=== PATIENT | female | born 1985 | race Caucasian/White ===

== ENCOUNTER 2016-10-10 23:09 | Emergency (ER) | payer MEDICAID, OTHER ==
[~2016-10-10] VITALS: Ht 170.2 cm; Wt 75.3 kg
[2016-10-11] MEDS ORDERED: CALNTAB (00:23)
[2016-10-11] MEDS ORDERED: GABA800T PO (00:23)
[2016-10-11] MEDS ORDERED: SUBUTEX PO (00:23)
[2016-10-11] MEDS ORDERED: LEVO.05 PO (00:23)
[2016-10-11] MEDS ORDERED: LACTATED RINGER'S 1000 ML INJ 1,000 ML IV SCH (00:41)
[2016-10-11] MEDS ORDERED: ONDANSETRON HCL 4 MG/2 ML VIAL IV ONE (00:45)
[2016-10-11] MEDS ORDERED: MORPHINE SULFATE 8 MG/ML INJ IV PUSH ONE (00:45)
[2016-10-11 01:01] LABS: HEMATOCRIT 34.1 % (35.0-46.0); MEAN CORPUSCULAR HEMOGLOBIN 28.3 PG (27.0-34.0); MEAN CORPUSCULAR HGB CONC 34.5 % (32.0-36.0); PLATELET COUNT 357 TH/MM3 (150-450); RED BLOOD COUNT 4.16 MIL/MM3 (4.00-5.30); RED CELL DISTRIBUTION WIDTH 14.2 % (11.6-17.2); REVIEW FLAG FINAL; WHITE BLOOD COUNT 14.3 TH/MM3 (4.0-11.0)
[2016-10-11 01:15] LABS: ANION GAP 9 MEQ/L (5-15); AST (GOT) 6 U/L (15-37); BICARBONATE 25.1 MEQ/L (21.0-32.0); BLOOD UREA NITROGEN 6 MG/DL (7-18); CHLORIDE 105 MEQ/L (98-107); GLOMERULAR FILTRATION RATE 131 ML/MIN (>89); POTASSIUM 3.7 MEQ/L (3.5-5.1); SODIUM (NA) 139 MEQ/L (136-145)
[2016-10-11 01:18] LABS: ALKALINE PHOSPHATASE 94 U/L (45-117); ALT (GPT) 13 U/L (10-53); TOTAL BILIRUBIN ADULT 0.2 MG/DL (0.2-1.0)
[2016-10-11 01:22] LABS: BACTERIA, URINE RARE /hpf; BLOOD, URINE NEG (NEG); COMMENT (UR) CULT NOT INDICATED; CULTURE IF INDICATED CULT NOT INDICATED; GLUCOSE,URINE NEG (NEG); KETONE, URINE NEG (NEG); MUCUS URINE FEW /lpf (OCC); NITRITE,URINE NEG (NEG); PH, URINE 6.5 (5.0-8.5); SQUAMOUS EPITHELIAL CELL URINE 63 /hpf (0-5); URINE COLOR YELLOW (YELLW/STRAW)
[2016-10-11 02:28] LABS: BARBITURATES, URINE NEG (NEG)
[2016-10-11 02:32] LABS: AMPHETAMINE, URINE POS (NEG); COCAINE, URINE POS (NEG)
--- NOTE | 2016-10-11 02:53 | RADRPT ---
EXAM DATE/TIME: 10/11/2016 02:23 [facility] COMPARISON: No previous studies available for comparison. INDICATIONS : Abdominal pain. 27 week . Pain with umbilical hernia. MEDICAL HISTORY : Seizures. Hypothyroidism. SURGICAL HISTORY : None. ENCOUNTER: Initial ACUITY: 1 day PAIN SCORE: 4/10 LOCATION: abdominal. TECHNIQUE: Multiplanar, multisequence magnetic resonance imaging of the abdomen was performed without contrast. FINDINGS: LIVER: Normal size with normal signal intensity. No lesion is identified. Portal vein is within normal limi ts. BILIARY: There is no intra- or extra-hepatic biliary ductal dilatation. Gallbladder contains no stones. SPLEEN: Spleen is mildly enlarged. No lesion. PANCREAS: Within normal limits. ADRENALS: Within normal limits. KIDNEYS: Normal size and signal intensity. There is no hydronephrosis or mass. OTHER: A gravid uterus is observed. Placenta is posteriorly located. Its near the fundal region. Bowel loops are unremarkable. No dilated loops of bowel are seen. No herniated bowel loops are appreciated. In p articular, no umbilical hernia appreciated. CONCLUSION: 1. Gravid uterus. 2. No hernia appreciated. In particular, no umbilical hernia containing bowel loops. 3. No dilatation of the bowel. Pablo Rose Jr., MD on October 11, 2016 at 2:47 Board Certified Radiologist. This report was verified electronically.
--- NOTE | 2016-10-11 04:48 | PD ---
HPI Chief Complaint Abdominal pain Date Seen: Oct 10, 2016 Time Seen: 23:09 Travel History International Travel<30 Days: No Contact w/Intl Traveler<30Days: No Known Affected Area: No History of Present Illness HPI Patient is 31-year-old white female 27 weeks gestation Zenkashif complaining of abdominal pain. She is recently moved to [place] from [place] and has not established care.. She denies bleeding or rupture the membranes. She does admit to drug use. She describes an umbilical hernia and that that is what is hurting right around the umbilicus only. heart rate is reactive and there are no contractions Para: 3 : 4 History Past Medical History Narrative Medical History of umbilical hernia, drug use Obstetric History Obstetric History 3 vaginal deliveries Social History Alcohol Use: Yes Tobacco Use: Yes Substance Abuse: Yes Allergies-Medications (Allergen,Severity, Reaction): Coded Allergies: No Known Allergies (Unverified , 10/11/16) Home Meds Reported Medications Vitamin (Calna)1 Tab Tab 10/11/16 [Subutex] No Conflict Check16 Mg PO DAILY 10/11/16 Levothyroxine (Synthroid)50 Mcg Tab50 Mcg PO DAILY #30 TAB Ref 0 10/11/16 Gabapentin 800 Mg [id number] Mg PO BID #90 TAB Ref 0 10/11/16 Review of Systems Gastrointestinal: Abdominal Pain Physical Exam Narrative GENERAL: Well-nourished, well-developed patient. SKIN: Warm and dry. HEAD: Normocephalic and atraumatic. EYES: No scleral icterus. No injection or drainage. ENT: No nasal drainage noted. Mucous membranes pink. Airway patent. NECK: Supple, trachea midline. No JVD. CARDIOVASCULAR: Regular rate and rhythm without murmurs, gallops, or rubs. RESPIRATORY: Breath sounds equal bilaterally. No accessory muscle use. BREASTS: Bilateral exam showed no masses , no retractions, no nipple discharge. ABDOMEN/GI: Abdomen soft, tender, bowel sounds present, no rebound, no guarding Gravid to [-27] weeks size Fundal Height: [25 cm-] GENITOURINARY: External Genitalia: intact and normal in appearance BUS glands: [-] Cervix: [-] Dilatation: [-Closed] Effacement: [-] thick Station: [-3] Presentation: [-] Membranes: [intact ] Uterine Contractions: [-none] FHT's: Category: [-1] Baseline: [144-] Reactive: [yes-] Variability: [-] Decels: [none-] EXTREMITIES: No cyanosis or edema. BACK: Nontender without obvious deformity. No CVA tenderness. NEUROLOGICAL: Awake and alert. Motor and sensory grossly within normal limits. Five out of 5 muscle strength in all muscle groups. Normal speech. Data Data Orders Vital Signs (Adult) .ON ADMISSION (10/11/16 00:41) ^ Labor Status (10/11/16 00:41) Urinalysis - C+S If Indicated (10/11/16 00:41) Cbc No Diff, Includes Plts (10/11/16 00:41) Comprehensive Metabolic Panel (10/11/16 00:41) Lactated Ringer's 1000 Ml Inj (Lr 1000 M (10/11/16 00:41) Ondansetron Inj (Zofran Inj) (10/11/16 00:45) Morphine Inj (Morphine Inj) (10/11/16 00:45) Vital Signs (Adult) .ON ADMISSION (10/11/16 01:39) ^ Labor Status (10/11/16 01:39) Ob/Psych Drug Screen, Urine (10/11/16 01:39) Mri Abdomen W/O Contrast (10/11/16 01:55) Ur Bath Salts (10/10/16 23:45) Ur Heroin (10/10/16 23:45) Ur K2 Spice (10/10/16 23:45) Ur Ecstasy (10/10/16 23:45) Ur Methadone (10/10/16 23:45) Phencyclidine Urine (Pcp) (10/10/16 23:45) Labs Laboratory Tests Test 10/10/16 10/11/16 23:45 00:00 Urine Color YELLOW Urine Turbidity HAZY Urine pH 6.5 Urine Specific [place] 1.016 Urine Protein 30 Urine Glucose (UA) NEG Urine Ketones NEG Urine Occult Blood NEG Urine Nitrite NEG Urine Bilirubin NEG Urine Urobilinogen LESS THAN 2.0 Urine Leukocyte Esterase MOD Urine RBC 2 Urine WBC 4 Urine Squamous Epithelial 63 Cells Urine Bacteria RARE Urine Mucus FEW Microscopic Urinalysis Comment CULT NOT INDICATED Urine Opiates Screen POS Urine Barbiturates Screen NEG Urine Amphetamines Screen POS Urine Benzodiazepines Screen NEG Urine Cocaine Screen POS Urine Cannabinoids Screen POS White Blood Count 14.3 Red Blood Count 4.16 Hemoglobin 11.8 Hematocrit 34.1 Mean Corpuscular Volume 82.0 Mean Corpuscular Hemoglobin 28.3 Mean Corpuscular Hemoglobin 34.5 Concent Red Cell Distribution Width 14.2 Platelet Count 357 Mean Platelet Volume 6.8 Sodium Level 139 Potassium Level 3.7 Chloride Level 105 Carbon Dioxide Level 25.1 Anion Gap 9 Blood Urea Nitrogen 6 Creatinine 0.55 Estimat Glomerular Filtration 131 Rate Random Glucose 68 Calcium Level 8.7 Total Bilirubin 0.2 Aspartate Amino Transf 6 (AST/SGOT) Alanine Aminotransferase 13 (ALT/SGPT) Alkaline Phosphatase 94 Total Protein 6.8 Albumin 2.8 MDM Interpretation(s) Patient is 27 week intrauterine with complaint of abdominal pain around her umbilical hernia, denies bleeding or rupture the membranes baby is active heart rate tracing reactive. No contractions seen ,,her laboratory is all within normal limits, she had an MRI of the abdomen which which showed no sign of umbilical hernia or bowel entrapment or strangulation. Patient's urine drug screen was positive for multiple drugs including cocaine and opiates Plan Plan the patient to receive 1 L of IV fluid as well as 5 mg of morphine IV, after MRI ruled out bowel involvement or hernia complication she was ready for discharge home, she was given information on establishing care in this area, as well as encouraged not to do drugs of which were positive on her drug screen tonight Diagnosis Diagnosis: Primary Impression: Abdominal pain during in second trimester Additional Impressions: Umbilical hernia Drug abuse during Disposition: 01 DISCHARGE HOME Condition: Stable Patient Instructions: General Instructions, Labor (ED), Abdominal Pain in (ED) Additional Instructions: RETURN FOR CONTRACTIONS, LOSS OF FLUID (WATER BREAKING), VAGINAL BLEEDING, OR DECREASED MOVEMENT. DRINK 8-10 LARGE GLASSES OF WATER EVERY DAY. ESTABLISH CARE WITH A LOCAL PROVIDER. Departure Forms: Tests/Procedures Chencho Bryan II, MD Oct 11, 2016 04:48
[2016-10-19 13:08] LABS: HEROIN (6-ACETYLMORPHINE) UR NEG (NEG); OBMETHADONE UR NEG (NEG); PHENCYCLIDINE URINE NEG (NEG)
[2016-10-19 13:09] LABS: BATH SALTS (MDPV) UR NEG (NEG); ECSTASY (MDMA) UR NEG (NEG); K2 SPICE UR NEG (NEG); OXYCODONE (PERCODAN) NEG (NEG)
== END 2016-10-11 03:20 | disposition home or self-care (01) ==
LOC: HOBED 23:09
DX: O99.322 Drug use complicating pregnancy, second trimester (principal); F14.10 Cocaine abuse, uncomplicated; F15.10 Other stimulant abuse, uncomplicated; F11.10 Opioid abuse, uncomplicated; F12.10 Cannabis abuse, uncomplicated; K42.9 Umbilical hernia without obstruction or gangrene; R10.9 Unspecified abdominal pain; Z3A.27 27 weeks gestation of pregnancy
CPT/HCPCS: 74181; 80053; 80307; 81001; 85027; 96361; 96374; 96375; 99284; G0481; J2270; J2405; J7120; 80324; 80352; 80353; 80354; 80356; 80358; 80359; 80361; 80371; 83789; 83992; G0480

== ENCOUNTER 2016-10-23 09:41 | Inpatient (IN) | payer OTHER ==
[~2016-10-23] VITALS: Ht 170.2 cm; Wt 85.1 kg
[~2016-10-23 09:41] MED LIST: CALNTAB; GABA800T PO; LEVO.05 PO; SUBUTEX PO
[2016-10-23] MEDS: SODIUM CHLORIDE 0.9% FLUSH 5 ML FLUSH IVF SCH ×2 (10:15→21:00)
[2016-10-23] MEDS: PRENATAL VITAMIN CHEWABLE TAB CHEW SCH (10:45)
--- NOTE | 2016-10-23 11:12 | HHI.HP ---
HPI Chief Complaint "I need detox, I am withdrawing, I used drugs." Date Seen: Oct 23, 2016 Time Seen: 10:10 Travel History International Travel<30 Days: No Contact w/Intl Traveler<30Days: No Known Affected Area: No History of Present Illness HPI 31-year-old 013 at 29 weeks and 2 days of gestation, EDC 01/06/17, patient presented to labor and delivery requesting detox, patient stated that she's been using drugs. She reported that she was on Subutex 16 mg a day, however she recently ran out, after which she started using heroin and methamphetamines 3 days ago and intravenous Dilaudid yesterday. The patient is unassigned, she relocated from [place] to [place], care is in [place] , records are not available. Patient reports feeling anxious and agitated at this time, she reports presence of movement. She denies cramping, contractions, leakage of fluids and vaginal bleeding. Para: 3 : 5 Miscarriage: 1 : 0 History Past Medical History Narrative Medical Significant for: Epilepsy(last episode was last night), polysubstance drug abuse , hypothyroidism. Obstetric History Obstetric History Spontaneous vaginal delivery 3, spontaneous 1 Past Surgical History Narrative Surgical Status post Cyst removal left foot Family History Narrative Family History Significant for lupus and father with has prostate cancer Social History Alcohol Use: Yes Tobacco Use: Yes (patient smokes 1 pack of cigarettes a day) Substance Abuse: Yes (patient is a polysubstance drug abuser, she uses heroin, IV Dilaudid, methamphetamines, she is on Subutex) Allergies-Medications (Allergen,Severity, Reaction): Coded Allergies: No Known Allergies (Unverified , 10/11/16) Home Meds Reported Medications Vitamin (Calna)1 Tab Tab 10/11/16 [Subutex] No Conflict Check16 Mg PO DAILY 10/11/16 Levothyroxine (Synthroid)50 Mcg Tab50 Mcg PO DAILY #30 TAB Ref 0 10/11/16 Gabapentin 800 Mg [id number] Mg PO BID #90 TAB Ref 0 10/11/16 Review of Systems Except as stated in HPI: all other systems reviewed are Neg Cardiovascular: Other (anxiety, agitation) Genitourinary: Other (patient is 29 weeks ) Neurologic: Seizures, Other (anxiety and agitation) Psychiatric: Substance Abuse Physical Exam Narrative GENERAL: Well-nourished, well-developed patient. SKIN: Warm and dry. HEAD: Normocephalic and atraumatic. EYES: No scleral icterus. No injection or drainage. ENT: No nasal drainage noted. Mucous membranes pink. Airway patent. NECK: Supple, trachea midline. No JVD. CARDIOVASCULAR: Regular rate and rhythm without murmurs, gallops, or rubs. RESPIRATORY: Breath sounds equal bilaterally. No accessory muscle use. BREASTS: Bilateral exam showed no masses , no retractions, no nipple discharge. ABDOMEN/GI: Abdomen soft, gravid, non-tender, bowel sounds present, no rebound, no guarding Gravid to 29 weeks size Fundal Height: 29 cm GENITOURINARY: External Genitalia: intact and normal in appearance BUS glands: Normal Cervix: Close, long, posterior Dilatation: Closed Effacement: 30% Station: -3 Presentation: Cephalic Membranes: Intact Uterine Contractions: None FHT's: Category: one Baseline: 130s to 140s Reactive: Yes Variability: Moderate Decels: None EXTREMITIES: No cyanosis or edema. BACK: Nontender without obvious deformity. No CVA tenderness. NEUROLOGICAL: Awake and alert. Motor and sensory grossly within normal limits. Five out of 5 muscle strength in all muscle groups. Normal speech. Data Data Vital Signs Reviewed: Yes Orders Vital Signs (Adult) .ON ADMISSION (10/23/16 10:12) ^ Labor Status (10/23/16 10:12) Urinalysis - C+S If Indicated (10/23/16 10:12) ^ Non Stress Test (10/23/16 10:12) ^ Hydration (10/23/16 10:12) Diet Regular Basic (10/23/16 Lunch) Comprehensive Metabolic Panel (10/23/16 10:12) Lactated Ringer's 1000 Ml Inj (Lr 1000 M (10/23/16 10:12) Sodium Chloride 0.9% Flush (Ns Flush) (10/23/16 10:15) Sodium Chloride 0.9% Flush (Ns Flush) (10/23/16 10:15) Ob/Psych Drug Screen, Urine (10/23/16 10:12) Complete Blood Count With Diff (10/23/16 10:12) Special Serology (10/23/16 10:19) Lorazepam Inj (Ativan Inj) (10/23/16 10:30) Hydroxyzine Pamoate (Vistaril) (10/23/16 10:30) Hepatitis Profile (10/23/16 10:19) Place In Observation (10/23/16 ) Code Status (10/23/16 10:26) Vital Signs (Adult) Q4H (10/23/16 10:26) ^ Heart CONTINUOUS (10/23/16 10:26) Ob (2e) Additional Admit Info (10/23/16 10:28) Consult Neurology (10/23/16 ) ^ Seizure Precautions (10/23/16 10:31) Laquqks-Izj-Pm-Iron Prena Chew ( (10/23/16 10:45) Thyroid Stimulating Hormone (10/23/16 10:34) Free Thyroxine (T4) (10/23/16 10:34) Levothyroxine (Synthroid) (10/23/16 10:45) Case Management Consult (10/23/16 ) Consult Vascular Access Team (10/23/16 10:37) Vascular Poc Ultrasound (10/23/16 ) Assessment/Plan Problem List: (1) 29 weeks gestation of (2) Drug abuse during (3) Seizure disorder (4) Hypothyroidism affecting Assessment and Plan 31-year-old 013 at 29 weeks and 2 days of gestation with probable withdrawal, history of polysubstance Abuse, seizure disorder, and hypothyroidism. 1. is 29 weeks of gestation * We'll place patient in observation * We'll Request records from [place] * Continuous heart monitoring * OB diagnostic ultrasound * vitamins by mouth once a day * blood work including HIV screen and hepatitis profile, type and screen. * IV fluid hydration 2. Possible withdrawal/polysubstance drug abuse * We'll obtain urine drug screen * Consult Dr. Yu for possible detox rehabilitation * Consult primary operator [facility] start for evaluation * We will order Ativan and Visteril PRN * We will screen for endocarditis, HIV screen, hepatitis profile 3. Seizure disorder * We'll consult neurology for evaluation and treatment * Seizure precautions * Continue with Gabapentin 4. Hypothyroidism * Will order TSH and free T4 * Continue with Synthroid Routine antepartum care Discharge Planning We'll discharge patient to home after full evaluation and treatment in 1-2 days Yuan Mesa MD Oct 23, 2016 11:12
[2016-10-23 11:17] LABS: AUTOMATED NEUTROPHIL # 11.7 TH/MM3 (1.8-7.7); BASOPHIL % 0.2 % (0.0-2.0); EOSINOPHIL # 0.1 TH/MM3 (0-0.4); EOSINOPHIL % 0.5 % (0.0-4.0); HEMATOCRIT 34.3 % (35.0-46.0); HEMO FLAGS DIFF FINAL; LYMPH % 16.9 % (9.0-44.0); LYMPHOCYTE # 2.5 TH/MM3 (1.0-4.8); MEAN CELL VOLUME 81.6 FL (80.0-100.0); MEAN CORPUSCULAR HGB CONC 34.3 % (32.0-36.0); MONO % 4.7 % (0.0-8.0); NEUT % 77.7 % (16.0-70.0); PLATELET COUNT 333 TH/MM3 (150-450); RED CELL DISTRIBUTION WIDTH 14.2 % (11.6-17.2)
[2016-10-23 11:35] LABS: BLOOD, URINE NEG (NEG); COMMENT (UR) CULT NOT INDICATED; CULTURE IF INDICATED CULT NOT INDICATED; GLUCOSE,URINE NEG (NEG); KETONE, URINE NEG (NEG); MUCUS URINE FEW /lpf (OCC); NITRITE,URINE NEG (NEG); SQUAMOUS EPITHELIAL CELL URINE 7 /hpf (0-5); URINE COLOR YELLOW (YELLW/STRAW)
[2016-10-23 11:37] LABS: ANION GAP 11 MEQ/L (5-15); AST (GOT) 4 U/L (15-37); BICARBONATE 22.7 MEQ/L (21.0-32.0); BLOOD UREA NITROGEN 3 MG/DL (7-18); CHLORIDE 105 MEQ/L (98-107); GLOMERULAR FILTRATION RATE 136 ML/MIN (>89); POTASSIUM 3.5 MEQ/L (3.5-5.1); SODIUM (NA) 139 MEQ/L (136-145)
[2016-10-23 11:40] LABS: ALKALINE PHOSPHATASE 146 U/L (45-117); ALT (GPT) 9 U/L (10-53); TOTAL BILIRUBIN ADULT 0.2 MG/DL (0.2-1.0)
[2016-10-23 11:47] LABS: AMPHETAMINE, URINE NEG (NEG); BARBITURATES, URINE NEG (NEG)
[2016-10-23 11:47] LABS: FREE T4 1.15 NG/DL (0.76-1.46)
[2016-10-23 11:51] LABS: COCAINE, URINE POS (NEG)
[2016-10-23] MEDS: LACTATED RINGER'S 1000 ML INJ 1,000 ML IV SCH ×2 (11:59→17:35)
[2016-10-23] MEDS: LORazepam 2 MG/ML VIAL IV PUSH PRN ×2 (12:00→20:31)
[2016-10-23] MEDS: LEVOTHYROXINE SODIUM 50 MCG TAB PO SCH (15:04)
[2016-10-24] MEDS: LACTATED RINGER'S 1000 ML INJ 1,000 ML IV SCH ×4 (02:12→18:12)
--- NOTE | 2016-10-24 08:14 | PD.OB.ANTE ---
Subjective Diagnosis: (1) 29 weeks gestation of (2) Drug abuse during (3) Seizure disorder (4) Hypothyroidism affecting Antepartum ROS: Denies: Loss of fluid, Vaginal bleeding Objective Lab & Micro Results Test 10/23/16 10/23/16 09:45 11:00 Urine Color YELLOW Urine Turbidity HAZY Urine pH 7.0 Urine Specific [place] 1.013 Urine Protein NEG mg/dL Urine Glucose (UA) NEG mg/dL Urine Ketones NEG mg/dL Urine Occult Blood NEG Urine Nitrite NEG Urine Bilirubin NEG Urine Urobilinogen LESS THAN 2.0 MG/DL Urine Leukocyte Esterase SMALL Urine RBC 1 /hpf Urine WBC 7 /hpf Urine Squamous Epithelial 7 /hpf Cells Urine Amorphous Sediment FEW Urine Mucus FEW /lpf Microscopic Urinalysis Comment CULT NOT INDICATED Urine Opiates Screen NEG Urine Barbiturates Screen NEG Urine Amphetamines Screen NEG Urine Benzodiazepines Screen NEG Urine Cocaine Screen POS Urine Cannabinoids Screen POS White Blood Count 15.0 TH/MM3 Red Blood Count 4.20 MIL/MM3 Hemoglobin 11.7 GM/DL Hematocrit 34.3 % Mean Corpuscular Volume 81.6 FL Mean Corpuscular Hemoglobin 28.0 PG Mean Corpuscular Hemoglobin 34.3 % Concent Red Cell Distribution Width 14.2 % Platelet Count 333 TH/MM3 Mean Platelet Volume 6.8 FL Neutrophils (%) (Auto) 77.7 % Lymphocytes (%) (Auto) 16.9 % Monocytes (%) (Auto) 4.7 % Eosinophils (%) (Auto) 0.5 % Basophils (%) (Auto) 0.2 % Neutrophils # (Auto) 11.7 TH/MM3 Lymphocytes # (Auto) 2.5 TH/MM3 Monocytes # (Auto) 0.7 TH/MM3 Eosinophils # (Auto) 0.1 TH/MM3 Basophils # (Auto) 0.0 TH/MM3 CBC Comment DIFF FINAL Differential Comment Sodium Level 139 MEQ/L Potassium Level 3.5 MEQ/L Chloride Level 105 MEQ/L Carbon Dioxide Level 22.7 MEQ/L Anion Gap 11 MEQ/L Blood Urea Nitrogen 3 MG/DL Creatinine 0.53 MG/DL Estimat Glomerular Filtration 136 ML/MIN Rate Random Glucose 88 MG/DL Calcium Level 8.0 MG/DL Total Bilirubin 0.2 MG/DL Aspartate Amino Transf 4 U/L (AST/SGOT) Alanine Aminotransferase 9 U/L (ALT/SGPT) Alkaline Phosphatase 146 U/L Total Protein 6.9 GM/DL Albumin 2.4 GM/DL Free Thyroxine 1.15 NG/DL Thyroid Stimulating Hormone 1.840 uIU/ML 3rd Gen Hepatitis A IgM Antibody NEGATIVE Hepatitis B Surface Antigen NEGATIVE Hepatitis B Core IgM Antibody NEGATIVE Hepatitis C Antibody REACTIVE HIV (1&2) Antibody NEGATIVE Physical Exam GENERAL: Well-nourished, well-developed patient. CARDIOVASCULAR: Regular rate and rhythm without murmurs, gallops, or rubs. RESPIRATORY: Breath sounds equal bilaterally. No accessory muscle use. ABDOMEN/GI: Abdomen soft, non-tender. Fundus: [-] GENITOURINARY: External Genitalia: intact and normal in appearance Cervix: [-] Dilatation: [-] Effacement: [-] Station: [-] Presentation: [-] Membranes: [-] Uterine Contractions: [-] FHT's: Category: [-] Baseline: [-] Reactive: [-] Variability: [-] Decels: [-] EXTREMITIES: No cyanosis or edema, non-tender, without signs of DVT. Assessment and Plan Problem List: (1) 29 weeks gestation of Status: Acute (2) Drug abuse during Status: Acute (3) Seizure disorder Status: Acute (4) Hypothyroidism affecting Status: Acute Assessment and Plan 31-year-old 013 at 29 weeks and 2 days of gestation with probable withdrawal, history of polysubstance Abuse, seizure disorder, and hypothyroidism. 1. is 29 weeks of gestation * We'll place patient in observation * We'll Request records from [place] * Continuous heart monitoring * OB diagnostic ultrasound * vitamins by mouth once a day * blood work including HIV screen and hepatitis profile, type and screen. * IV fluid hydration 2. Possible withdrawal/polysubstance drug abuse * We'll obtain urine drug screen * Consult Dr. Yu for possible detox rehabilitation * Consult board saw runner [employer] start for evaluation * We will order Ativan and Visteril PRN * We will screen for endocarditis, HIV screen, hepatitis profile 3. Seizure disorder * We'll consult neurology for evaluation and treatment * Seizure precautions * Continue with Gabapentin 4. Hypothyroidism * Will order TSH and free T4 * Continue with Synthroid Routine antepartum care Edgar Carrington MD R1 Oct 24, 2016 08:14
[2016-10-24] MEDS: LEVOTHYROXINE SODIUM 50 MCG TAB PO SCH (08:44)
[2016-10-24] MEDS: PRENATAL VITAMIN CHEWABLE TAB CHEW SCH (08:49)
[2016-10-24] MEDS: SODIUM CHLORIDE 0.9% FLUSH 5 ML FLUSH IVF SCH ×2 (09:00→22:14)
[2016-10-24] MEDS ORDERED: LORazepam 2 MG/ML VIAL IV PUSH PRN (09:00)
[2016-10-24] MEDS ORDERED: GABAPENTIN 300 MG CAP PO SCH (09:00)
[2016-10-24] MEDS: GABAPENTIN 400 MG CAP PO SCH ×2 (09:27→20:52)
--- NOTE | 2016-10-24 09:35 | HHI.FPPN ---
Subjective Remarks 31 year old female at 29+ weeks gestation here with opioid withdrawals. She is taking 64 mg dilaudid per day, along with 8 mg xanax. She is currently homeless. She is here requesting help while in withdrawals during . This morning she remains uncomfortable and in withdrawals. She has sweating, piloerection, nausea, vomiting, diarrhea, and cramping. Objective Result Diagram: 10/23/16 1100 10/23/16 1100 Imaging GENERAL: Well-nourished, well-developed patient. SKIN: Warm and dry. HEAD: Normocephalic and atraumatic. EYES: No scleral icterus. No injection or drainage. ENT: No nasal drainage noted. Mucous membranes pink. Airway patent. NECK: Supple, trachea midline. No JVD. CARDIOVASCULAR: Regular rate and rhythm without murmurs, gallops, or rubs. RESPIRATORY: Breath sounds equal bilaterally. No accessory muscle use. ABDOMEN/GI: Abdomen soft, gravid, non-tender, bowel sounds present, no rebound, no guarding Gravid to 29 weeks size Fundal Height: 29 cm EXTREMITIES: No cyanosis or edema. BACK: Nontender without obvious deformity. No CVA tenderness. NEUROLOGICAL: Awake and alert. Motor and sensory grossly within normal limits. Five out of 5 muscle strength in all muscle groups. Normal speech. A/P Assessment and Plan 31 year old female at 29+ weeks gestation in opioid withdrawals - COWS scoring q6hrs - monitoring for 15 mins every hour - Continuous pulse oximetry, monitor for respiratory depression - MRSA swab - Vistaril PRN - Gabapentin 300 mg qid - Xanax 1 mg q4hrs - 10 mg oxycodone q6hrs - Case management: needs housing, healthy start - Titrate medications as needed while monitoring for respiratory depression Discussed with Simón Mcintosh MD R2 Oct 24, 2016 09:35
[2016-10-24] MEDS: LORazepam 1 MG TAB PO SCH ×3 (09:47→22:13)
--- NOTE | 2016-10-24 12:31 | MB ---
cc: ROSMERY FLANAGAN M.D. DATE OF CONSULTATION 10/24/[address] Yu REASON FOR CONSULTATION Seizures HISTORY OF PRESENT ILLNESS Ms. Cárdenas is a 31-year-old female who is about 29-weeks into . She has a history of polysubstance abuse including methamphetamine, IV heroin, IV Dilaudid, cocaine, Subutex and has been using these drugs during this up to three days ago. She had a history of grand mal seizures which by history largely related to drug abuse or withdrawal. She also takes Xanax, last taken about three days ago. She had a seizure about two days ago and she states during the current has had a total of five seizures. She states she began having seizures, however, when she was young at [age] years of age etiopathic. She states she was on seizure meds in the past including Dilantin and Gabapentin. She states she was on Gabapentin recently, but had to stop it a couple of weeks ago when she ran out of the medication. She states that she tolerates this well and does not have seizures when she takes the medication. She states that she has had EEG's in the past, as well as an MRI of the brain several years ago. She was under the care of a neurologist in [place]. PERSONAL HISTORY Remarkable for: 1. Seizures 2. A past history of polysubstance abuse. 3. Hypothyroidism MEDICATIONS PRIOR TO ADMISSION 1. Levothyroxine 50 mcg daily 2. Gabapentin 800 mg b.i.d. which she ran out of several weeks Ago. ALLERGIES None known. NEUROLOGIC EXAMINATION Patient is alert and oriented x3. Speech is normal. Cranial nerves are intact. The pupils are 2 mm symmetrical and reactive. The extraocular movements are intact. On motor exam, she has normal strength of all major groups. There is no focal deficit. There is no drift. Reflexes are symmetric. LABORATORY DATA White count is 15,000, hemoglobin 34.3, hemoglobin 11.7, hematocrit 34.3%, platelet count at 333,000. Sodium is 139, potassium 3.5, chloride 105, CO2 22.7, the BUN is 3, creatinine 0.53, GFR is 136, glucose 88, AST 4, ALT is 9, alk phos 146, TSH 124, free T4 1.15. Tox screen positive for cocaine, cannabinoids. UA pH is 1.013, hepatitis C antibodies reactive. HIV-1 and 2 negative. Hepatitis A and B are negative. IMPRESSION History of what sounds to be predominantly grand mal seizures. I suspect largely related to drug abuse or drug withdrawal. However, she does relate a history of seizures in her youth prior to taking drugs, although I do not have any full documentation of this history. She does relate being on seizure medications in the past. Therefore, I cannot rule out underlying seizure disorder unrelated to drug abuse in addition to seizures due to drug withdrawal. RECOMMENDATIONS Would recommend starting Gabapentin since this has kept her out of seizures. Would recommend slowly tapering benzodiazepines. Would like to proceed with an MRI of the brain without contrast to be sure there is no other potential cause of seizures, as well as an EEG. MD PAUL Hernandez/JAYE /8:47 AM /12:19 PM
[2016-10-24] MEDS ORDERED: LORazepam 1 MG TAB PO SCH (14:00)
[2016-10-24] MEDS: AMOXICILLIN/CLAVULANATE K 875 MG TAB PO SCH ×2 (15:27→20:52)
[2016-10-24] MEDS: SODIUM CHLORIDE 0.9% FLUSH 5 ML FLUSH IVF PRN (15:37)
--- NOTE | 2016-10-24 15:52 | RADRPT ---
EXAM DATE/TIME: 10/24/2016 14:09 [facility] COMPARISON: No previous studies available for comparison. INDICATIONS : Seizures. MEDICAL HISTORY : Hepatitis C. Hypothyroidism. SURGICAL HISTORY : Left foot cyst removed. ENCOUNTER: Initial ACUITY: 2 day PAIN SCORE: 2/10 LOCATION: head TECHNIQUE: Multiplanar, multisequence MRI of the brain was performed without contrast. FINDINGS: CEREBRUM: The ventricles are normal for age. No evidence of midline shift, mass lesion, hemorrhage or acute in farction. No extraaxial fluid collections are seen. The pituitary gland and suprasellar cistern are normal in configuration. WHITE MATTER: No significant signal abnormalities are seen in the white matter. POSTERIOR FOSSA: The cerebellum and brainstem are intact. The 4th ventricle is midline. The cerebellopontine angle is unremarkable. The cerebellar tonsils are normal in position. DIFFUSION IMAGING: No focal areas of restricted diffusion are seen. No evidence of acute infarction. EXTRACRANIAL: The visualized portions of the orbits are unremarkable. There is focal mucosal disease of the right s phenoid sinus. The turbinates are prominent on the left especially the inferior turbinate. CONCLUSION: 1. No intracranial abnormalities seen. 2. Small focal area of mucosal disease of the right sphenoid sinus. Asim Arzate MD on October 24, 2016 at 15:43 Board Certified Radiologist. This report was verified electronically.
[2016-10-24 18:01] LABS: MRSA PCR POSITIVE (NEGATIVE); STAPH AUREUS PCR POSITIVE (NEGATIVE)
--- NOTE | 2016-10-24 21:31 | MG ---
cc: IMANI ROCHE MD Lab No: Date: Age: Sex: F Race: DATE OF STUDY 10/24/2016 ELECTROENCEPHALOGRAM RECORD NUMBER [id number] DATE OF 1985 HISTORY A 31-year-old with a history of anxiety, seizures, possible detox. DESCRIPTION Slow ___ posterior rhythm, 7-9 Hz, 20-50 microvolts, low amplitude, beta in the frontal channels. Good anterior to posterior gradient. Attenuation slowing of background with transition into drowsy state. Tiny left temporal sharp transient epoch 19. Vertex waves with transition into stage I sleep. Followed by spindles suggestive of stage II sleep. Asymmetric left temporal theta burst epoch 66. Good EEG variability reactivity. Reduced driving with photic stimulation. Single lead EKG showing sinus rhythm. Some asymmetric left temporal theta epoch 118 on [id number] comparison. Tiny sharp transients T5 epoch 125. INTERPRETATION Subtle left temporal changes, however, no active seizures. Stable awake, asleep EEG. Clinical correlation. MD LUCINA Campbell/KK /8:17 PM /9:25 PM
[2016-10-25] MEDS: LACTATED RINGER'S 1000 ML INJ 1,000 ML IV SCH ×3 (02:12→18:12)
[2016-10-25 06:03] LABS: AUTOMATED NEUTROPHIL # 8.3 TH/MM3 (1.8-7.7); BASOPHIL # 0.1 TH/MM3 (0-0.2); BASOPHIL % 0.6 % (0.0-2.0); EOSINOPHIL # 0.1 TH/MM3 (0-0.4); EOSINOPHIL % 0.7 % (0.0-4.0); HEMATOCRIT 30.5 % (35.0-46.0); HEMO FLAGS DIFF FINAL; LYMPH % 23.7 % (9.0-44.0); LYMPHOCYTE # 2.9 TH/MM3 (1.0-4.8); MEAN CELL VOLUME 82.1 FL (80.0-100.0); MEAN CORPUSCULAR HEMOGLOBIN 28.1 PG (27.0-34.0); MEAN CORPUSCULAR HGB CONC 34.2 % (32.0-36.0); MONO % 7.9 % (0.0-8.0); NEUT % 67.1 % (16.0-70.0); PLATELET COUNT 333 TH/MM3 (150-450); RED BLOOD COUNT 3.72 MIL/MM3 (4.00-5.30); RED CELL DISTRIBUTION WIDTH 13.8 % (11.6-17.2); WHITE BLOOD COUNT 12.4 TH/MM3 (4.0-11.0)
[2016-10-25] MEDS: LORazepam 1 MG TAB PO SCH ×3 (06:04→21:45)
[2016-10-25] MEDS: LEVOTHYROXINE SODIUM 50 MCG TAB PO SCH (06:04)
[2016-10-25] MEDS: PRENATAL VITAMIN CHEWABLE TAB CHEW SCH (08:30)
[2016-10-25] MEDS: GABAPENTIN 400 MG CAP PO SCH ×3 (08:31→21:45)
[2016-10-25] MEDS: AMOXICILLIN/CLAVULANATE K 875 MG TAB PO SCH (08:31)
[2016-10-25] MEDS ORDERED: PANTOPRAZOLE SOD 40 MG DELAYED RELEASE TAB PO SCH (09:00)
[2016-10-25] MEDS ORDERED: ALUMINUM/MAGNESIUM/SIMETH 30 ML CUP PO PRN (10:00)
--- NOTE | 2016-10-25 10:20 | HHI.FPPN ---
Subjective Remarks Patient seen and examined this morning. States she had withdrawal symptoms overnight, including sneezing, chills. Also had coffee ground emesis and black tarry stools, per nurse. Denies any nausea/vomiting, lightheadedness/dizziness, chest pain, SOB, abdominal pain. Continues to have left hand pain and swelling. Objective Vitals Vital Signs Date Time Temp Pulse Resp B/P Pulse Ox O2 Delivery O2 Flow Rate FiO2 10/25/16 03:30 16 10/24/16 20:53 16 Result Diagram: 10/25/16 0507 10/23/16 1100 Imaging Last Impressions Brain MRI 10/24/16 0000 Signed Impressions: Service Date/Time: Monday, October 24, 2016 14:09 - CONCLUSION: 1. No intracranial abnormalities seen. 2. Small focal area of mucosal disease of the right sphenoid sinus. Asim Arzate MD Objective Remarks GENERAL: Well-nourished, well-developed patient. SKIN: Warm and dry. Left thumb erythematous and edematous. No tracking up arm. Decreased area compared to yesterday HEAD: Normocephalic and atraumatic. EYES: No scleral icterus. No injection or drainage. ENT: No nasal drainage noted. Mucous membranes pink. Airway patent. NECK: Supple, trachea midline. No JVD. CARDIOVASCULAR: Regular rate and rhythm without murmurs, gallops, or rubs. RESPIRATORY: Breath sounds equal bilaterally. No accessory muscle use. ABDOMEN/GI: Abdomen soft, gravid, non-tender, bowel sounds present, no rebound, no guarding Gravid to 29 weeks size Fundal Height: 29 cm EXTREMITIES: No cyanosis or edema. NEUROLOGICAL: Awake and alert. Motor and sensory grossly within normal limits. Five out of 5 muscle strength in all muscle groups. Normal speech. A/P Assessment and Plan 31 year old female at 29/4 weeks gestation in opioid withdrawals 1) Opioid withdrawal - COWS scoring q6H - Continuous pulse ox: monitor for respiratory depression - monitoring q15 minutes every hour - Case management: needs housing, healthy start - Titrate medications as needed, while monitoring for respiratory depression - 10 mg oxycodone q6hrs - Xanax 1 mg q4hrs - Vistaril PRN 2) Left thumb cellulitis - MRSA positive - Blood cultures: no growth 1 day - Augmentin 875mg PO q12H 3) History of seizures - Neurology consult-appreciate recs - MRI negative for acute disease - EEG negative for seizure activity - Increase Gabapentin 800mg to TID 4) Gastrointestinal pain/ulcer - GI consult-appreciate recs - Zantac 150mg BID - Mylanta PRN stomach pain Edgar Carrington MD R1 Oct 25, 2016 10:20
[2016-10-25] MEDS: FAMOTIDINE 20 MG TAB PO SCH ×2 (11:34→20:59)
[2016-10-25] MEDS ORDERED: ACETAMINOPHEN 325 MG TAB PO PRN (11:45)
[2016-10-25] MEDS ORDERED: ONDANSETRON ODT 4 MG TAB PO PRN (12:30)
--- NOTE | 2016-10-25 12:57 | MB ---
cc: LYNN LEAL M.D., PAMELA DATE OF CONSULTATION 10/25/2016 REASON FOR CONSULTATION Nausea, vomiting, hematemesis and diarrhea. HISTORY Ms. Cárdenas is a 31-year-old who is 29 weeks with her fourth baby. She has a heavy history of polysubstance abuse including methamphetamine, heroin, cocaine, Dilaudid, Subutex, and she has been using these drugs up to about three days prior to admission. She came in with nausea, vomiting and some diarrhea. She says initially she was just throwing up, but then she had some blood in and this prompted GI consultation. She says she has chronic problems with reflux and has a very strong family history of colon cancer. She says none of this has been worked up in the past. She says she has not had any nausea or vomiting today. No hematemesis or diarrhea today. PAST MEDICAL HISTORY 1. Reflux disease 2. Seizure disorder 3. Hypothyroidism MEDICATIONS On admission, Levothyroxine and Gabapentin. ALLERGIES None documented REVIEW OF SYSTEMS No nausea, vomiting, no hematemesis or diarrhea at this time. PHYSICAL EXAM Physical examination reveals a well-nourished lady in no apparent distress. VITAL SIGNS: Stable. HEAD AND NECK: Anicteric sclerae. CHEST: Bilateral air entry with rales. ABDOMEN: Soft, nontender. No hepatosplenomegaly. Bowel sounds are present. The patient is 29 weeks . RUG INSPECTOR: Exam is nonfocal. LABORATORY DATA Labs reveal hepatitis C positive. The patient tested positive for cocaine, cannabinoids. Liver function tests are normal. Hemoglobin 10.5. IMPRESSION Nausea, vomiting, diarrhea, hematemesis, probably related to drug withdrawal. Does have strong family history of colon cancer. RECOMMENDATIONS Obviously at this time, no GI interventions can be undertaken. She seems fairly comfortable with no ongoing GI issues at this time. She is currently on Pepcid twice daily. Would recommend stools for ova and parasite culture and C-difficile toxin. If she has further symptoms of nausea or vomiting, would add Protonix to her regimen. Use Zofran as needed for nausea and vomiting. This has been discussed with the patient. We will follow with you. Thank you for this referral, Dr. Yu. Of note, the patient needs to follow up with GI after delivery of baby to discuss the possibility of EGD/colonoscopy. MD JORGE Reyes /12:33 PM /12:41 PM
[2016-10-25] MEDS ORDERED: GABAPENTIN 400 MG CAP PO SCH (13:00)
[2016-10-25 16:00] VITALS: RESP 20
[2016-10-25 17:10] VITALS: BP 118/65; PULSE 89; RESP 20
--- NOTE | 2016-10-25 17:52 | PD.CONS ---
HPI Chief Complaint 29 week IUP with acute substance withdrawal, acute infection of left thumb, bloody diarrhea and seizures Date Seen: Oct 25, 2016 Time Seen: 17:30 Travel History International Travel<30 Days: No Contact w/Intl Traveler<30Days: No Known Affected Area: No History of Present Illness CAROLINE Arvizu is a 31 yo at 29 + weeks gestation who presented to our labor and delivery requesting detox. She has a history of a seizure disorder and hypothyroidism and has not been receiving consistent treatment for either. She reported the last seizure as the night before she presented. She also has a large umbilical hernia which she says frequently bulges and becomes extremely painful and stuck in place although this is not occuring at this time. She was having significant NVD, cramps, decreased movement and muscle pains. I was called by Dr. Eda Ndiaye to advise on medications while addressing her medical issues. She told me she came here from [place],but is from [place] before that. She states that she came here 6 weeks ago for a new start. She had intended to stay with her aunt in [facility] who is sick and needs help. This did not perkins out. THe FOB is not involved. Her 3 other children are with her mom in [place]. Her last dilaudid was 48 hours prior to presentation. She used 8 of the 8 mg diluadid IV (64 mg total) that day and heroin prior to that. In the last month she has used cocaine and methamphetamine and significant doses of xanax. -- up to 4 bars (8 mg) daily. She has had sex for drugs in past and has shared needles. She knows she has had hep C. She has not had endocarditis to her knowledge. She states she was on subutex in [place] as prescribed by her obgyn in [place] but has been unable to obtain it her. She has no place to stay. Para: 3 : 5 Last Menstrual Period: Oct 25, 2016 History Past Medical History Narrative Medical hepatitis C current joint (left thumb infection) hx of seizure disorder Obstetric History Obstetric History 3 SVDs term i sab Social History Alcohol Use: Yes Tobacco Use: Yes Substance Abuse: Yes Allergies-Medications (Allergen,Severity, Reaction): Coded Allergies: *MDRO Multi-Drug Resistant Organism (Verified Adverse Reaction, Unknown, MRSA, 10/25/16) MRSA screen POSITIVE - 10/24/16 Home Meds Reported Medications Vitamin (Calna)1 Tab Tab 10/11/16 [Subutex] No Conflict Check16 Mg PO DAILY 10/11/16 Levothyroxine (Synthroid)50 Mcg Tab50 Mcg PO DAILY #30 TAB Ref 0 10/11/16 Gabapentin 800 Mg [id number] Mg PO BID #90 TAB Ref 0 10/11/16 Review of Systems General / Constitutional: Fever, Chills Gastrointestinal: Nausea, Vomiting, Diarrhea, Abdominal Pain, Hematochezia, Loss of Appetite Genitourinary: Pelvic Pain Musculoskeletal: Pain Skin: Rash Neurologic: Seizures Psychiatric: Anxiety, Depression, Substance Abuse Physical Exam Narrative ill appearing pale female who is polite and understated lungs clear HRRR fundus 30 cm strip category 1 left thumb infected, swollen, red and painful BACK: Nontender without obvious deformity. No CVA tenderness. NEUROLOGICAL: Awake and alert. Motor and sensory grossly within normal limits. Normal speech. MRSA + swab blood cultures pending Data Data Orders Oxycodone (Roxicodone) (10/24/16 20:00) Isolation Cart (10/25/16 07:52) Pantoprazole (Protonix) (10/25/16 09:00) Consult Gastroenterology (10/25/16 ) ^ Other Nursing Orders (10/25/16 08:58) Inpatient Certification (10/25/16 ) Isolation 08,20 (10/25/16 09:33) Gabapentin (Neurontin) (10/25/16 13:00) Al-Mag Hy-Si 40-40-4 Mg/Ml Liq (Mag-Al P (10/25/16 10:00) Famotidine (Pepcid) (10/25/16 10:00) Acetaminophen (Tylenol) (10/25/16 11:45) (Hub Use Only)Inp Phy Cons/Ref (10/25/16 ) Stool Ova And Parasite Screen (10/25/16 12:28) Stool Wbc (Leukocytes) (10/25/16 12:28) Specimen To Be Collected PRN (10/25/16 12:28) Specimen To Be Collected PRN (10/25/16 12:28) C Diff Toxin Pcr (10/25/16 12:28) Ondansetron Odt (Zofran Odt) (10/25/16 12:30) Gabapentin (Neurontin) (10/25/16 14:00) Labs Laboratory Tests Test 10/25/16 05:07 White Blood Count 12.4 Red Blood Count 3.72 Hemoglobin 10.5 Hematocrit 30.5 Mean Corpuscular Volume 82.1 Mean Corpuscular Hemoglobin 28.1 Mean Corpuscular Hemoglobin 34.2 Concent Red Cell Distribution Width 13.8 Platelet Count 333 Mean Platelet Volume 6.8 Neutrophils (%) (Auto) 67.1 Lymphocytes (%) (Auto) 23.7 Monocytes (%) (Auto) 7.9 Eosinophils (%) (Auto) 0.7 Basophils (%) (Auto) 0.6 Neutrophils # (Auto) 8.3 Lymphocytes # (Auto) 2.9 Monocytes # (Auto) 1.0 Eosinophils # (Auto) 0.1 Basophils # (Auto) 0.1 CBC Comment DIFF FINAL Differential Comment Date/Time Procedure Status Source Growth 10/24/16 16:35 Aerobic Blood Culture - Preliminary Resulted Blood Peripheral NO GROWTH IN 1 DAY 10/24/16 16:35 Anaerobic Blood Culture - Preliminary Resulted Blood Peripheral NO GROWTH IN 1 DAY MDM Plan I will assume medical care while reducing her opioid and benzo exposure -- eventually to place back on buprenorphine. Need infectious disease to assess thumb Have spoken with Dr. Lorenzo and will start clindamycin and rocephin. GI consult with Dr. Pretty suggests symptoms consistent with withdrawal Neuro consult completed and she is on her 800 mg gabapentin now TID Madeleine Yu MD Oct 25, 2016 17:52
--- NOTE | 2016-10-25 18:35 | HHI.PR ---
Review/Management Diagnosis seizures--related to drug use /withdrawal, but also probable underlying primary seizure disorder with EEG finding of sharp transients in left temporal lobe Plan continue gabapentin because of EEG findings slowly taper ativan over 3-4 weeks as tolerated Diagnosis/Plan: Subjective Subjective Comments No acute events reported No headache No recurrent seizures Active Medications Current Medications Medications (Trade) Dose Ordered Sig/Koki Route Start Time Stop Time Status Last Admin (Lr 1000 ml Inj) 1,000 ml @ 125 mls/hr Q8H IV 10/23/16 10:12 10/24/16 17:45 (NS Flush) 2 ml BID IVF 10/23/16 10:15 10/24/16 22:14 (NS Flush) 2 ml UNSCH PRN IVF 10/23/16 10:15 10/24/16 15:37 (Vistaril) 50 mg Q6H PRN PO 10/23/16 10:30 10/25/16 14:25 (Synthroid) 50 mcg DAILY@0600 PO 10/23/16 10:45 10/25/16 06:04 (Roxicodone) 10 mg Q6H PRN PO 10/24/16 09:00 10/25/16 15:05 (Ativan Inj) 1 mg Q4H PRN IV PUSH 10/24/16 09:00 (Ativan) 1 mg Q8HR PO 10/24/16 09:37 10/25/16 14:18 (Pepcid) 20 mg Q12HR PO 10/25/16 10:00 10/25/16 11:34 (Mag-Al Plus Susp Liq) 30 ml Q6H PRN PO 10/25/16 10:00 (Tylenol) 650 mg Q4H PRN PO 10/25/16 11:45 10/25/16 12:37 (Neurontin) 800 mg DAILY@06,14,22 PO 10/25/16 14:00 10/25/16 14:25 Promethazine HCl 25 mg 25 mg Q6H PRN PO 10/25/16 17:30 Clindamycin Phosphate 900 mg/ Sodium Chloride 106 ml @ 212 mls/hr Q8H IV 10/25/16 18:00 (Rocephin Inj/NS Inj) 100 ml @ 200 mls/hr Q24H IV 10/25/16 18:00 Allergies Allergies Coded Allergies *MDRO Multi-Drug Resistant Organism (Verified Adverse Reaction, Unknown, MRSA , 10/25/16) Exam I&O / VS Vital Signs Date Time Temp Pulse Resp B/P Pulse Ox O2 Delivery O2 Flow Rate FiO2 10/25/16 17:10 89 118/65 10/25/16 17:10 20 10/25/16 16:00 20 10/25/16 13:37 20 10/25/16 09:30 20 10/24/16 20:53 16 Exam Comments alert, oriented times three, speech normal CN 2-12 normal motor--no focal deficits Objective Radiology Results MRI brain--normal Micro and Labs Laboratory Tests Test 10/25/16 05:07 White Blood Count 12.4 Red Blood Count 3.72 Hemoglobin 10.5 Hematocrit 30.5 Mean Corpuscular Volume 82.1 Mean Corpuscular Hemoglobin 28.1 Mean Corpuscular Hemoglobin 34.2 Concent Red Cell Distribution Width 13.8 Platelet Count 333 Mean Platelet Volume 6.8 Neutrophils (%) (Auto) 67.1 Lymphocytes (%) (Auto) 23.7 Monocytes (%) (Auto) 7.9 Eosinophils (%) (Auto) 0.7 Basophils (%) (Auto) 0.6 Neutrophils # (Auto) 8.3 Lymphocytes # (Auto) 2.9 Monocytes # (Auto) 1.0 Eosinophils # (Auto) 0.1 Basophils # (Auto) 0.1 CBC Comment DIFF FINAL Differential Comment Date/Time Procedure Status Source Growth 10/24/16 16:35 Aerobic Blood Culture - Preliminary Resulted Blood Peripheral NO GROWTH IN 1 DAY 10/24/16 16:35 Anaerobic Blood Culture - Preliminary Resulted Blood Peripheral NO GROWTH IN 1 DAY Diagnostic Tests EEG---small left temporal sharp transients Valentino Reese PhD MD Oct 25, 2016 18:34
[2016-10-25] MEDS: SODIUM CHLORIDE 0.9% FLUSH 5 ML FLUSH IVF PRN (18:51)
[2016-10-25] MEDS: cefTRIAXone INJ 2,000 MG in SODIUM CHLORIDE 0.9% INJ 100 ML IV SCH (18:51)
[2016-10-25] MEDS: PROMETHAZINE HCL 25 MG TAB PO PRN (20:59)
[2016-10-25 21:58] LABS: AUTOMATED NEUTROPHIL # 10.6 TH/MM3 (1.8-7.7); BASOPHIL # 0.1 TH/MM3 (0-0.2); BASOPHIL % 0.7 % (0.0-2.0); EOSINOPHIL # 0.1 TH/MM3 (0-0.4); EOSINOPHIL % 0.8 % (0.0-4.0); HEMO FLAGS DIFF FINAL; LYMPH % 20.5 % (9.0-44.0); LYMPHOCYTE # 3.1 TH/MM3 (1.0-4.8); MEAN CELL VOLUME 82.4 FL (80.0-100.0); MEAN CORPUSCULAR HEMOGLOBIN 27.9 PG (27.0-34.0); MEAN CORPUSCULAR HGB CONC 33.9 % (32.0-36.0); MONO % 8.5 % (0.0-8.0); NEUT % 69.5 % (16.0-70.0); PLATELET COUNT 387 TH/MM3 (150-450); RED BLOOD COUNT 3.88 MIL/MM3 (4.00-5.30); WHITE BLOOD COUNT 15.2 TH/MM3 (4.0-11.0)
[2016-10-25 22:31] LABS: WESTERGREN SEDIMENTATION RATE 1 mm/hr (0-20)
[2016-10-25 22:42] VITALS: RESP 16
[2016-10-26] VITALS (13 sets, daily range): BP systolic 104–120; BP diastolic 56–86; PULSE 72–99; RESP 17–19; TEMP 98–98.5
[2016-10-26] MEDS: LEVOTHYROXINE SODIUM 50 MCG TAB PO SCH (05:58)
[2016-10-26] MEDS: GABAPENTIN 400 MG CAP PO SCH ×3 (05:58→22:24)
[2016-10-26] MEDS: LORazepam 1 MG TAB PO SCH ×3 (05:58→22:24)
--- NOTE | 2016-10-26 08:50 | PD.ID.CON ---
History of Present Illness Service Infectious Disease Consult Requested By Dr Yu Reason for Consult Evaluation and Mment of left thumb infection/abscess plus right breast abscess. Primary Care Physician No Primary Care Physician Diagnoses: History of Present Illness is a 31 y/o at 29 weeks gestation who presented to labor and delivery requesting detox. Her PMHx is significant for IVDA mostly dilaudid from the streets. She also reports seizure disorder and hypothyroidism and reportedly is noncompliant. She reports the last seizure she had was 9 before she presented to [facility]. In addition she was noted to have a large umbilical hernia which is asymptomatic at the present time. She was having significant nausea vomiting diarrhea, cramps, decreased movement and muscle aches. She reports her last dilaudid use was 48 hours prior to presentation. In the last month she has used cocaine and methamphetamine and significant doses of xanax daily. She has had sex for drugs in past and has shared needles. She knows she has had hep C. She has not had endocarditis to her knowledge. She states she was on subutex in [place] as prescribed by her obgyn in [place] but has been unable to obtain it here. She has no place to stay. She reports her 3 kids are currently with her mother who has their custody. Upon presentation patient was noted to have a left thumb cellulitis possible abscess as well as a right breast abscess. Infectious disease is consulted for evaluation and management of these problems. Review of Systems Constitutional: DENIES: Diaphoretic episodes, Fatigue, Fever, Weight gain, Weight loss, Chills, Dizziness, Change in appetite, Night Sweats Endocrine: COMPLAINS OF: Abnorml menstrual pattern (currently .), DENIES: Heat/cold intolerance, Polydipsia, Polyuria, Polyphagia Eyes: DENIES: Blurred vision, Diplopia, Eye inflammation, Eye pain, Vision loss , Photosensitivity, Double Vision Ears, nose, mouth, throat: DENIES: Tinnitus, Hearing loss, Vertigo, Nasal discharge, Oral lesions, Throat pain, Hoarseness, Ear Pain, Running Nose, Epistaxis, Sinus Pain, Toothache, Odynophagia Respiratory: DENIES: Apneas, Cough, Snoring, Wheezing, Hemoptysis, Sputum production, Shortness of breath Cardiovascular: DENIES: Chest pain, Palpitations, Syncope, Dyspnea on Exertion , PND, Lower Extremity Edema, Orthopnea, Claudication Gastrointestinal: DENIES: Abdominal pain, Black stools, Bloody stools, Constipation, Diarrhea, Nausea, Vomiting, Difficulty Swallowing, Anorexia Genitourinary: DENIES: Abnormal vaginal bleeding, Dysmenorrhea, Dyspareunia, Sexual dysfunction, Urinary frequency, Urinary incontinence, Urgency, Hematuria , Dysuria, Nocturia, Vaginal discharge Musculoskeletal: DENIES: Joint pain, Muscle aches, Stiffness, Joint Swelling, Back pain, Neck pain Integumentary: COMPLAINS OF: Abnormal pigmentation (left thumb with evidence of erythema noted.), Breast masses (right breast area of induration and redness noted.), DENIES: Pruritus, Rash, Nail changes, Breast skin changes, Nipple discharge Hematologic/lymphatic: DENIES: Bruising, Lymphadenopathy Immunologic/allergic: DENIES: Eczema, Urticaria Neurologic: DENIES: Abnormal gait, Headache, Localized weakness, Paresthesias, Seizures, Speech Problems, Tremor, Poor Balance Psychiatric: DENIES: Anxiety, Confusion, Mood changes, Depression, Hallucinations, Agitation, Suicidal Ideation, Homicidal Ideation, Delusions Past Family Social History Allergies: Coded Allergies: *MDRO Multi-Drug Resistant Organism (Verified Adverse Reaction, Unknown, MRSA, 10/25/16) MRSA screen POSITIVE - 10/24/16 Past Medical History hepatitis C hx of seizure disorder Hypothyroidism Intravenous drug abuse. Past Surgical History Denies any major surgeries. Reported Medications Reported Meds & Active Scripts Active Reported Calna ( Vitamin) 1 Tab Tab [Subutex] 16 Mg PO DAILY Synthroid (Levothyroxine Sodium) 50 Mcg Tab 50 Mcg PO DAILY Gabapentin 800 Mg Tab 800 Mg PO BID Active Ordered Medications Current Medications Medications (Trade) Dose Ordered Sig/Koki Route Start Time Stop Time Status Last Admin (Lr 1000 ml Inj) 1,000 ml @ 125 mls/hr Q8H IV 10/23/16 10:12 10/25/16 18:12 (NS Flush) 2 ml BID IVF 10/23/16 10:15 10/24/16 22:14 (NS Flush) 2 ml UNSCH PRN IVF 10/23/16 10:15 10/25/16 18:51 (Vistaril) 50 mg Q6H PRN PO 10/23/16 10:30 10/26/16 03:56 (Synthroid) 50 mcg DAILY@0600 PO 10/23/16 10:45 10/26/16 05:58 (Roxicodone) 10 mg Q6H PRN PO 10/24/16 09:00 10/26/16 03:56 (Ativan Inj) 1 mg Q4H PRN IV PUSH 10/24/16 09:00 (Ativan) 1 mg Q8HR PO 10/24/16 09:37 10/26/16 05:58 (Pepcid) 20 mg Q12HR PO 10/25/16 10:00 10/25/16 20:59 (Mag-Al Plus Susp Liq) 30 ml Q6H PRN PO 10/25/16 10:00 (Tylenol) 650 mg Q4H PRN PO 10/25/16 11:45 10/25/16 12:37 (Neurontin) 800 mg DAILY@06,14,22 PO 10/25/16 14:00 10/26/16 05:58 Promethazine HCl 25 mg 25 mg Q6H PRN PO 10/25/16 17:30 10/25/16 20:59 Clindamycin Phosphate 900 mg/ Sodium Chloride 106 ml @ 212 mls/hr Q8H IV 10/25/16 18:00 (Rocephin Inj/NS Inj) 100 ml @ 200 mls/hr Q24H IV 10/25/16 18:00 10/25/16 18:51 Family History Reviewed and noncontributory to current infectious disease problems. Social History Alcohol Use: Yes Tobacco Use: Yes Substance Abuse: Yes as per history of present illness. Social issues per history of present illness. Physical Exam Vital Signs Vital Signs Date Time Temp Pulse Resp B/P Pulse Ox O2 Delivery O2 Flow Rate FiO2 10/26/16 05:29 98.1 18 10/26/16 05:26 79 108/63 10/25/16 22:42 16 10/25/16 17:10 89 118/65 10/25/16 17:10 20 10/25/16 16:00 20 10/25/16 13:37 20 10/25/16 09:30 20 Physical Exam GENERAL: This is a well-nourished, well-developed patient, in no apparent distress. SKIN: Multiple track cosme noted. HEAD: Atraumatic. Normocephalic. No temporal or scalp tenderness. EYES: Pupils equal round and reactive. Extraocular motions intact. No scleral icterus. No injection or drainage. ENT: Nose without bleeding, purulent drainage or septal hematoma. Throat without erythema, tonsillar hypertrophy or exudate. Uvula midline. Airway patent. NECK: Trachea midline. Supple, nontender, no meningeal signs. CARDIOVASCULAR: Heart sounds audible. RESPIRATORY: Clear to auscultation. Breath sounds equal bilaterally. No wheezes , rales, or rhonchi. GASTROINTESTINAL: Abdomen soft, gravid uterus. MUSCULOSKELETAL: Left thumb with significant amount of erythema, tenderness, and minimal fluctuance noted. Patient unable to flex her thumb due to pain. Right breast with a 2 x 2 cm area of induration, erythema, tenderness noted. NEUROLOGICAL: Awake and alert. Non focal. Psych: cooperative. IV line sites with no e/o infection. Laboratory Laboratory Tests Test 10/25/16 21:31 White Blood Count 15.2 Red Blood Count 3.88 Hemoglobin 10.8 Hematocrit 32.0 Mean Corpuscular Volume 82.4 Mean Corpuscular Hemoglobin 27.9 Mean Corpuscular Hemoglobin 33.9 Concent Red Cell Distribution Width 14.0 Platelet Count 387 Mean Platelet Volume 6.7 Neutrophils (%) (Auto) 69.5 Lymphocytes (%) (Auto) 20.5 Monocytes (%) (Auto) 8.5 Eosinophils (%) (Auto) 0.8 Basophils (%) (Auto) 0.7 Neutrophils # (Auto) 10.6 Lymphocytes # (Auto) 3.1 Monocytes # (Auto) 1.3 Eosinophils # (Auto) 0.1 Basophils # (Auto) 0.1 CBC Comment DIFF FINAL Differential Comment Erythrocyte Sedimentation Rate 1 Lactic Acid Level 3.2 Date/Time Procedure Status Source Growth 10/24/16 16:35 Aerobic Blood Culture - Preliminary Resulted Blood Peripheral NO GROWTH IN 1 DAY 10/24/16 16:35 Anaerobic Blood Culture - Preliminary Resulted Blood Peripheral NO GROWTH IN 1 DAY Result Diagram: 10/25/16 2131 10/23/16 1100 Imaging Last Impressions Brain MRI 10/24/16 0000 Signed Impressions: Service Date/Time: Monday, October 24, 2016 14:09 - CONCLUSION: 1. No intracranial abnormalities seen. 2. Small focal area of mucosal disease of the right sphenoid sinus. Asim Arzate MD Assessment and Plan Assessment and Plan Left thumb abscess possible tendinitis(patient unable to flex her thumb). Right breast abscess appears to be loculated as it has been present for a month. Intravenous drug abuse both the sites of infection have been prior sites of self injection. at 29 weeks. Midline umbilical hernia asymptomatic at the present time. On presentation was experiencing acute withdrawal. Recommendations Discussed with Dr. Yu last night. Hand surgery consult Discussed with Dr. Driscoll to place Gen. surgery consult to evaluate right breast mass. Continue ceftriaxone IV Continue clindamycin IV for now Follow cultures intraoperative Follow clinically Briefly discussed case with Dr. Mendoza and surgery. Discussed with patient and possible need for surgery for both the sites of infection. Maryann Lorenzo MD Oct 26, 2016 08:50 Maryann Lorenzo MD Oct 26, 2016 08:50
--- NOTE | 2016-10-26 08:59 | HHI.FPPN ---
Subjective Remarks 31 year old at 29+ weeks gestation here with opioid withdrawal. She has a history of IV drug use. Her drug of choice is Dilaudid. This morning she reports improved withdrawal symptoms. She continues to have piloerection, sweating, and generalized body aches after a dose of opiates wears off. She does feel significantly better than when she arrived. She had cellulitis of her left hand and an area of cellulitis that is indurated on her right chest wall. The left hand does not appear improved from admission. She is currently on clindamycin and ceftriaxone IV for the cellulitis. ID is on board. General surgery and hand surgery are being consulted for possible drainage of those sites. She does note that the pain of her left hand is extending up her left arm. There is no visible tracking up her left arm. She one episode of coffee ground emesis two nights ago. She currently has no contractions, vaginal bleeding, loss of fluids, and has good movements. Objective Vitals Vital Signs Date Time Temp Pulse Resp B/P Pulse Ox O2 Delivery O2 Flow Rate FiO2 10/26/16 05:29 98.1 18 10/26/16 05:26 79 108/63 10/25/16 22:42 16 10/25/16 17:10 89 118/65 10/25/16 17:10 20 10/25/16 16:00 20 10/25/16 13:37 20 10/25/16 09:30 20 Result Diagram: 10/25/16 2131 10/23/16 1100 Objective Remarks GENERAL: Well-nourished, well-developed patient. SKIN: Warm and dry. Left thumb erythematous and edematous. No tracking up arm. Area appears the same as at admission, and the area is very painful to the touch. Also there is an indurated approx. 5cm/5cm area of erythema, induration, without drainage on the right chest wall just above the right breast, which is another area where she has injected in the past. HEAD: Normocephalic and atraumatic. EYES: No scleral icterus. No injection or drainage. ENT: No nasal drainage noted. Mucous membranes pink. Airway patent. NECK: Supple, trachea midline. No JVD. CARDIOVASCULAR: Regular rate and rhythm without murmurs, gallops, or rubs. RESPIRATORY: Breath sounds equal bilaterally. No accessory muscle use. ABDOMEN/GI: Abdomen soft, gravid, non-tender, bowel sounds present, no rebound, no guarding Gravid to 29 weeks size Fundal Height: 29 cm FHT: category one, moderate variability, reactive, no decels EXTREMITIES: No cyanosis or edema. NEUROLOGICAL: Awake and alert. Motor and sensory grossly within normal limits. Five out of 5 muscle strength in all muscle groups. Normal speech. A/P Assessment and Plan 31 year old female at 29/5 weeks gestation in opioid withdrawals, with left hand cellulitis and right chest wall cellulitis from prior injections, also with coffee ground emesis X1, history of hepatitis C. Discharge Planning Once cellulitis is improving, any areas drained that can be drained, no fevers, stable with opiate withdrawal, and can tolerate PO antibiotics, will plan for discharge with follow up with Dr. Yu, and will start subutex. Problem List: (1) Drug abuse during Status: Acute Plan: - COWS scoring q6H - monitoring - Case management: needs housing, healthy start - Titrate medications as needed, while monitoring for respiratory depression - 10 mg oxycodone q6hrs - Vistaril 50 mg q6hrs PRN (2) 29 weeks gestation of Status: Acute Plan: - Continue monitoring, expectant management. (3) Coffee ground emesis Status: Acute Plan: One episode of coffee ground emesis, history of hepatitis C. - GI on board, appreciate recommendations. - Pepcid 20 mg bid. - Mylanta PRN stomach pain - Stool for O&P and c.diff toxin. - Add protonix if symptoms continue. - Phenergan for nausea/vomiting. (4) Cellulitis of chest wall Status: Acute Plan: - Consult general surgery, may need drainage - Continue clindamycin, ceftriaxone IV - Follow blood cultures - ID on board - Nothing to culture from the site at this time (5) Cellulitis of left hand Status: Acute Plan: - Blood cultures: no growth 1 day - Continue clindamycin, ceftriaxone IV - ID on board, appreciate recommendations - Hand surgery for possible drainage (6) Seizure disorder Status: Acute Plan: - Neurology consult-appreciate recs - MRI negative for acute disease - EEG negative for seizure activity - Gabapentin 800mg to TID (7) Hepatitis C Status: Acute Plan: History of hepatitis C. Liver enzymes normal. Not treated in the past. - Monitor Simón Driscoll MD R2 Oct 26, 2016 08:59
[2016-10-26] MEDS: SODIUM CHLORIDE 0.9% FLUSH 5 ML FLUSH IVF SCH ×3 (09:00→20:43)
--- NOTE | 2016-10-26 09:21 | PD.OB.ANTE ---
Subjective Diagnosis: (1) 29 weeks gestation of (2) Drug abuse during (3) Seizure disorder (4) Hypothyroidism affecting Interval History I saw Luh at 7 :30 am. She remains moderately uncomfortable and dysphoric with respect to withdrawal symptoms, less nausea and vomiting, some muscle cramps. She realizes we will not increase her benzodiazepines or opiates at this time (goal is to withdrawal and have induction onto subutex) but we will not wean further until issues of left thumb and right breast abcess are addressed. She is MRSA + and on contact isolation. She is able to eat. Feels good movement. She is attempting to transfer her medicaid from [place] to [place] in order to have subutex covered when discharged. She states the gearcase assembler told her she needed to complete this process herself, but she was on the phone for over 3 hours yesterday with medicaid administrators in [place] with no progress. She is not mentating well while withdrawing and needs help with this paperwork. No leaking, bleeding or regular contractions. Antepartum ROS: Denies: New complaints, Loss of fluid, Vaginal bleeding, movement normal, Contractions, Other Objective Vital Signs Vital Signs Date Time Temp Pulse Resp B/P Pulse Ox O2 Delivery O2 Flow Rate FiO2 10/26/16 05:29 98.1 18 10/26/16 05:26 79 108/63 10/25/16 22:42 16 10/25/16 17:10 89 118/65 10/25/16 17:10 20 10/25/16 16:00 20 10/25/16 13:37 20 10/25/16 09:30 20 Lab & Micro Results Test 10/25/16 21:31 White Blood Count 15.2 TH/MM3 Red Blood Count 3.88 MIL/MM3 Hemoglobin 10.8 GM/DL Hematocrit 32.0 % Mean Corpuscular Volume 82.4 FL Mean Corpuscular Hemoglobin 27.9 PG Mean Corpuscular Hemoglobin 33.9 % Concent Red Cell Distribution Width 14.0 % Platelet Count 387 TH/MM3 Mean Platelet Volume 6.7 FL Neutrophils (%) (Auto) 69.5 % Lymphocytes (%) (Auto) 20.5 % Monocytes (%) (Auto) 8.5 % Eosinophils (%) (Auto) 0.8 % Basophils (%) (Auto) 0.7 % Neutrophils # (Auto) 10.6 TH/MM3 Lymphocytes # (Auto) 3.1 TH/MM3 Monocytes # (Auto) 1.3 TH/MM3 Eosinophils # (Auto) 0.1 TH/MM3 Basophils # (Auto) 0.1 TH/MM3 CBC Comment DIFF FINAL Differential Comment Erythrocyte Sedimentation Rate 1 mm/hr Lactic Acid Level 3.2 mmol/L Date/Time Procedure Status Source Growth 10/24/16 16:35 Aerobic Blood Culture - Preliminary Resulted Blood Peripheral NO GROWTH IN 1 DAY 10/24/16 16:35 Anaerobic Blood Culture - Preliminary Resulted Blood Peripheral NO GROWTH IN 1 DAY Physical Exam ] appears more rested. Thumb is definitely in need of I & D, since my visit Dr. Mendoza came by and will I & D at the bed side today. Dr. Lorenzo wants general surgery to I & D the abcess on her chest. She is on IV antibioitcs now. Assessment and Plan Problem List: (1) 29 weeks gestation of Status: Acute (2) Drug abuse during Status: Acute (3) Seizure disorder Status: Acute (4) Hypothyroidism affecting Status: Acute Assessment and Plan 31-year-old 013 at 29 weeks and 2 days of gestation with probable withdrawal, history of polysubstance Abuse, seizure disorder, and hypothyroidism. need to get [facility] involved. Between them and hospital case management SHE MUST get [place] medicaid. Ideally [facility] Medicaid as I can then see on outpatient basis. She will need coverage for subutex. Since she wants MAT, she will not be a candidate for WARM, as she must be free of opioids and benzo's to do that,. I intend to wean the oxycodone and ativan while infection being addressed. Will start on subutex but cannot get on [facility] as it was determined to be to complicated to acquire, even with my buprenorphine license. Madeleine Yu MD Oct 26, 2016 09:21
[2016-10-26] MEDS: FAMOTIDINE 20 MG TAB PO SCH ×2 (10:03→22:24)
[2016-10-26] MEDS: PROMETHAZINE HCL 25 MG TAB PO PRN ×2 (10:03→16:28)
[2016-10-26] MEDS: PRENATAL VITAMIN CHEWABLE TAB CHEW SCH (10:03)
--- NOTE | 2016-10-26 10:31 | MB ---
cc: JENNA CHAMPAGNE M.D. DATE OF CONSULTATION 10/26/2016 REFERRING PHYSICIAN The patient is being seen at the request of Dr. Madeleine Yu. REASON FOR CONSULTATION Swelling and pain of the left thumb. HISTORY OF PRESENT ILLNESS The patient is a 31-year-old female who is presently 29 weeks gestation with a drug abuse disorder. She apparently was using drugs recently and decided that she wants to go to detox. The patient was admitted and was noted that she had a swelling of the base of her left thumb in the area of the MP joint. Consultation is requested regarding evaluation and treatment of that swelling. The patient's white count was 15.0 on admission and is 15.2 today with 69.5% neutrophils with a positive shift, although there has been some improvement in the shift since her admission. PAST MEDICAL HISTORY 1. The patient has a history of a seizure disorder. She did have an episode last evening. 2. She has a history of polysubstance drug abuse. 3. Hypothyroidism 4. The patient has had three spontaneous vaginal deliveries And has had one spontaneous . PAST SURGICAL HISTORY She has had a cyst removed from the left foot. FAMILY HISTORY Significant for prostate cancer in her father had lupus. SOCIAL HISTORY The patient abuses alcohol, tobacco and drugs. She admits to using heroin, intravenous Dilaudid, and methamphetamine. She is on Subutex. ALLERGIES She has no known food or drug allergies. MEDICATIONS As listed on the chart. REVIEW OF SYSTEMS The review of systems is positive for seizures, otherwise negative except as noted above. PHYSICAL EXAM On examination, the patient is sitting comfortably in bed. HEAD, EYES, EARS, NOSE, AND THROAT: Her extraocular muscles are intact. Pupils are equal, round, and reactive to light. NECK: Supple without masses. LUNGS: Clear. HEART: Regular rate and rhythm. EXTREMITIES: Examination of her upper extremities reveals swelling on the dorsal ulnar aspect of the skin overlying the MP joint. Compression of the MP joint is negative. The patient is able to flex and extend the thumb with moderate discomfort. The thumb is warm and well-perfused. The swelling is fluctuant and measures 1.5 cm x 1.5 cm. There is minimal swelling proximal to this area. There is evidence of injection sites adjacent to this area. RADIOLOGY There are no radiographic studies which had been performed. IMPRESSION The patient appears to have an abscess overlying the MP joint of her left thumb. This appears to be within the subcutaneous tissue. PLAN The patient is advised that we will come by later today and drain the abscess at bedside. The patient understands and accepts the risks and complications of the procedure. Please note, there is no evidence that the joint is involved. MD LUPE Jenkins/JAYE /9:38 AM /10:18 AM
[2016-10-26] MEDS ORDERED: LIDOCAINE HCL 2% 20 ML VIAL INFIL PRN (11:15)
[2016-10-26] MEDS ORDERED: POVIDONE IODINE 10% OINT 1 PACKET TOP PRN (11:15)
[2016-10-26] MEDS ORDERED: POVIDONE IODINE 7.5% SCRUB 118 ML BOTTLE TOP PRN (11:15)
[2016-10-26] MEDS ORDERED: BUPIVACAINE HCL PF 0.5% 10 ML VIAL INFIL PRN (11:15)
[2016-10-26] MEDS: CLINDAMYCIN INJ 900 MG in SODIUM CHLORIDE 0.9% INJ 100 ML IV SCH ×2 (11:53→20:41)
[2016-10-26] MEDS: LACTATED RINGER'S 1000 ML INJ 1,000 ML IV SCH ×3 (12:06→22:22)
--- NOTE | 2016-10-26 12:41 | HHI.GIFU ---
Subjective Remarks Patient is resting in bed no more hematemesis or black tarry stools, in fact hasn't had a BM in few days. She is with complaints of severe GERD, and Pepcid not working for her. (TrevonYared WESLEY) Objective Vitals I&O Vital Signs Date Time Temp Pulse Resp B/P Pulse Ox O2 Delivery O2 Flow Rate FiO2 10/26/16 10:21 18 10/26/16 10:07 99 117/67 10/26/16 05:29 98.1 18 10/26/16 05:26 79 108/63 10/25/16 22:42 16 10/25/16 17:10 89 118/65 10/25/16 17:10 20 10/25/16 16:00 20 10/25/16 13:37 20 Laboratory Laboratory Tests Test 10/25/16 10/26/16 21:31 10:58 White Blood Count 15.2 Red Blood Count 3.88 Hemoglobin 10.8 Hematocrit 32.0 Mean Corpuscular Volume 82.4 Mean Corpuscular Hemoglobin 27.9 Mean Corpuscular Hemoglobin 33.9 Concent Red Cell Distribution Width 14.0 Platelet Count 387 Mean Platelet Volume 6.7 Neutrophils (%) (Auto) 69.5 Lymphocytes (%) (Auto) 20.5 Monocytes (%) (Auto) 8.5 Eosinophils (%) (Auto) 0.8 Basophils (%) (Auto) 0.7 Neutrophils # (Auto) 10.6 Lymphocytes # (Auto) 3.1 Monocytes # (Auto) 1.3 Eosinophils # (Auto) 0.1 Basophils # (Auto) 0.1 CBC Comment DIFF FINAL Differential Comment Erythrocyte Sedimentation Rate 1 Lactic Acid Level 3.2 C-Reactive Protein 1.45 Date/Time Procedure Status Source Growth 10/24/16 16:35 Aerobic Blood Culture - Preliminary Resulted Blood Peripheral NO GROWTH IN 2 DAYS 10/24/16 16:35 Anaerobic Blood Culture - Preliminary Resulted Blood Peripheral NO GROWTH IN 2 DAYS Imaging Last Impressions Brain MRI 10/24/16 0000 Signed Impressions: Service Date/Time: Monday, October 24, 2016 14:09 - CONCLUSION: 1. No intracranial abnormalities seen. 2. Small focal area of mucosal disease of the right sphenoid sinus. Asim Arzate MD Physical Exam HEENT: Pupils round and reactive to light; normocephalic; atraumatic; no jaundice. Throat is clear. NECK: Neck is supple, no JVD, no lymphadenopathy. CHEST: Chest is clear to auscultation and percussion. CARDIAC: Regular rate and rhythm with no murmur gallop or rubs. ABDOMEN: Soft, nontender; no hepatosplenomegaly; bowel sounds are present in all four quadrants.Gravid to 29 weeks EXTREMITIES: No clubbing, cyanosis, or edema. SKIN: Normal; no rash; no jaundice. CONTROL INSPECTOR: No focal deficits; alert and oriented times three. (Yared Lester) Assessment and Plan Plan - Coffee ground emesis/ black stools- no more bleeding reported, hgb is 10.8. stool studies ordered but patient hasn't had a BM - Severe GERD- Pepcid 20 mg BID , Mylanta with out relief - Cellulitis of chest wall, and left hand- GS , ID, abx - Drug abuse during - 29 weeks gestation- OBGYN on the case - Hep-c- tx naive, hx of IVDA, LFTs normal Plan: - CINTHIA - patient can be on Protonix 40 mg daily if ok with OB - EGD/colonoscopy after delivery - Drug cessations - Discuss hep-c as an OP - Supportive care - Patient seen and examined by Dr. Wylie and myself and this note is written on his behalf. (Yared Lester) Physician Comments Seen with BIOINFORMATICS ANALYST, trial of protonix or prilosec if ok with OB. Pepcid at bedtime. Zofran for N/V. Will sign off, fu after delivery with gi. Thank you (Westley Wylie MD) Yared Lester Oct 26, 2016 12:41 Westley Wylie MD Oct 26, 2016 16:49
--- NOTE | 2016-10-26 13:28 | PD.PLAS.PN ---
Subjective Remarks Patient is resting comfortably. Objective Vital Signs Date Time Temp Pulse Resp B/P Pulse Ox O2 Delivery O2 Flow Rate FiO2 10/26/16 12:09 93 104/86 10/26/16 12:00 19 10/26/16 10:21 18 10/26/16 10:07 99 117/67 10/26/16 05:29 98.1 18 10/26/16 05:26 79 108/63 10/25/16 22:42 16 10/25/16 17:10 89 118/65 10/25/16 17:10 20 10/25/16 16:00 20 10/25/16 13:37 20 Laboratory Tests Test 10/25/16 10/26/16 21:31 10:58 White Blood Count 15.2 Red Blood Count 3.88 Hemoglobin 10.8 Hematocrit 32.0 Mean Corpuscular Volume 82.4 Mean Corpuscular Hemoglobin 27.9 Mean Corpuscular Hemoglobin 33.9 Concent Red Cell Distribution Width 14.0 Platelet Count 387 Mean Platelet Volume 6.7 Neutrophils (%) (Auto) 69.5 Lymphocytes (%) (Auto) 20.5 Monocytes (%) (Auto) 8.5 Eosinophils (%) (Auto) 0.8 Basophils (%) (Auto) 0.7 Neutrophils # (Auto) 10.6 Lymphocytes # (Auto) 3.1 Monocytes # (Auto) 1.3 Eosinophils # (Auto) 0.1 Basophils # (Auto) 0.1 CBC Comment DIFF FINAL Differential Comment Erythrocyte Sedimentation Rate 1 Lactic Acid Level 3.2 C-Reactive Protein 1.45 Date/Time Procedure Status Source Growth 10/24/16 16:35 Aerobic Blood Culture - Preliminary Resulted Blood Peripheral NO GROWTH IN 2 DAYS 10/24/16 16:35 Anaerobic Blood Culture - Preliminary Resulted Blood Peripheral NO GROWTH IN 2 DAYS Result Diagram: 10/25/16 2131 10/23/16 1100 Exam Findings No change in physical exam. Assessment and Plan Diagnosis: (1) Abscess of left thumb Plan: The recommendation is for bedside debridement of the abscess of the left thumb. The procedure was explained and the patient made aware of risks, complications, and postoperative course. She indicated that she understood and opted to proceed. Consents are obtained. Procedure: The patient's identity as well as side and site of surgery was confirmed. Under sterile conditions, a field block consisting of 2% lidocaine plain was administered to the dorsal left thumb. The area was prepped and draped in the usual sterile fashion. After confirming that anesthesia was effective, the abscess was incised using a #15 blade. 1mL of pus was drained and culture was obtained. The wound was explored until all loculation were cleared of purulent material. The wound was copiously irrigated with normal saline and packed with 1/4 inch iodophor packing. A dressing was applied including povidone iodine ointment, telfa, 4x4, and lo. Postoperative instructions are discussed with the patient and the RN. The patient was left lying comfortably, having tolerated the procedure well. Assessment and Plan The exam, history, and the medical decision-making described in the above note were completed with the assistance of the mid-level provider. I reviewed and agree with the findings presented. I attest that I had a [id number] encounter with the patient on the same day, and personally performed and documented my assessment and findings in the medical record. Olivia Mendoza M.D. Valerie Rueda Oct 26, 2016 13:28
[2016-10-26] MEDS ORDERED: ACETAMINOPHEN 1000 MG/100 ML VIAL IV ONE (17:00)
--- NOTE | 2016-10-26 17:31 | MB ---
cc: JERE BAPTISTE M.D. DATE OF CONSULTATION: 10/26/16 REASON FOR CONSULTATION Abscess to the right breast 3 o'clock position postop. HISTORY This is a 31-year-old female who is a known IV drug user who is . She was recently admitted to the hospital, she had a hand abscess that was recently drained by the hand surgeon. She has been on IV antibiotics for a couple days and she has had this abscess or mass in the left breast that grew and became erythematous over the last month or so. Again, I am not sure how reliable a historian she is because of her history of drug use. Surgery was consulted for surgical opinion. History includes no neurologic problem, no cardiovascular problems, no respiratory issues. She is . She has this knot in her right breast that became erythematous. She has had MRSA in the past before. ALLERGIES NOT ALLERGIC TO ANYTHING. MEDICATIONS She takes gabapentin, Synthroid, vitamins. OTHER PAST MEDICAL HISTORY 1. Hepatitis C. 2. IV drug use, drug addiction. 3. Seizure disorder. PHYSICAL EXAMINATION GENERAL: She is sitting in the bed. She just got out of the shower. She has a bandage on her right arm where she had an abscess drained by the hand surgeon. NECK: Supple. CHEST: Clear. BREASTS: On the right breast at the 3 o'clock position, she has a fullness that feels about 3 cm slightly erythematous, tender, just under the skin, feels like a small subcutaneous abscess. NEUROLOGIC: She is alert, oriented, minimal distress. She has bandages on her hand from where the abscess was drained by the hand surgeon. LABORATORY DATA She had a white count of 15, H&H of 10 and 34. Chemistry essentially normal. C-reactive protein 1.4. She has had toxicology that is positive for numerous drug ingestions. Serology shows reactive hepatitis C, HIV negative. IMAGING She had an MRI of her brain, showed some sinusitis. ASSESSMENT A 31-year-old female with a hand abscess that was recently drained. She has this abscess/mass in the left breast that she says may have been a little bit better on the IV antibiotics that she is on presently. At this time, I would continue IV antibiotics. I will tentatively place her on the operating room schedule for Sunday. If this does not progress, then we will drain or surgically excise or biopsy this abnormality. MD LUIS Cruz/SHANELL /4:00 PM /4:40 PM
[2016-10-26] MEDS: cefTRIAXone INJ 2,000 MG in SODIUM CHLORIDE 0.9% INJ 100 ML IV SCH (18:26)
--- NOTE | 2016-10-26 20:46 | RADRPT ---
EXAM DATE/TIME: 10/26/2016 19:40 [facility] COMPARISON: No previous studies available for comparison. INDICATIONS : Palpable area with redness and warmth. MEDICAL HISTORY : Methicillin-resistant Staphylococcus aureus. . Hypothyroidism. Breast lumps. Epilepsy episod e. Polysubstance drug abuse. SURGICAL HISTORY : Left foot cyst removed. ENCOUNTER: Initial ACUITY: 3 weeks PAIN SCORE: 3/10 LOCATION: Right breast. FINDINGS: There is an irregular fluid collection with surrounding soft tissue swelling, edema and hyperemia of the right breast near the 3: 00 position, 4 cm from the nipple. The fluid collection measures roughly 0.9 x 2.1 x 2.3 cm in size. The superficial margin of the fluid collection is about 5 mm beneath the skin. CONCLUSION: Right breast abscess at the 3:00 position 4 cm from the nipple. Asim Fong MD on October 26, 2016 at 20:43 Board Certified Radiologist. This report was verified electronically.
[2016-10-26] MEDS: DOCUSATE SODIUM 100 MG CAP PO SCH (21:00)
[2016-10-26 21:56] LABS: C. DIFF EPI 027 PRESUMPTIVE NEGATIVE (NEGATIVE); C. DIFF TOXIN PCR NEGATIVE (NEGATIVE)
[2016-10-27] MEDS: CLINDAMYCIN INJ 900 MG in SODIUM CHLORIDE 0.9% INJ 100 ML IV SCH ×3 (04:01→20:00)
[2016-10-27] MEDS: GABAPENTIN 400 MG CAP PO SCH ×3 (06:18→22:23)
[2016-10-27] MEDS: LEVOTHYROXINE SODIUM 50 MCG TAB PO SCH (06:18)
[2016-10-27] MEDS: LORazepam 1 MG TAB PO SCH ×3 (06:18→22:23)
[2016-10-27] MEDS: POVIDONE IODINE 10% SOLN 118 ML BOTTLE TOPICAL SCH (09:00)
[2016-10-27] MEDS: SODIUM CHLORIDE 0.9% FLUSH 5 ML FLUSH IVF SCH (09:00)
[2016-10-27] MEDS: DOCUSATE SODIUM 100 MG CAP PO SCH ×2 (09:00→22:22)
[2016-10-27] MEDS: PRENATAL VITAMIN CHEWABLE TAB CHEW SCH (09:24)
[2016-10-27] MEDS: FAMOTIDINE 20 MG TAB PO SCH ×2 (09:24→22:31)
--- NOTE | 2016-10-27 09:54 | HHI.FPPN ---
Subjective Remarks Afebrile overnight. No acute events. Had drainage of abscess on hand yesterday. Has throbbing at the site of the I&D. Left chest wall if being treated conservatively at this time. Withdrawal symptoms are improving, though she still has some generalized body aches and some diaphoresis when the medications start to wear off. She has a good appetite and is eating well. She is getting up and into a chair in the day time. She is eager to get her state insurance so she can follow up as an outpatient. Objective Vitals Vital Signs Date Time Temp Pulse Resp B/P Pulse Ox O2 Delivery O2 Flow Rate FiO2 10/26/16 23:18 98.1 10/26/16 23:18 18 10/26/16 23:17 72 104/64 10/26/16 20:07 97 120/71 10/26/16 20:00 98.5 10/26/16 20:00 18 10/26/16 19:00 98.0 17 10/26/16 18:31 88 112/56 10/26/16 13:00 98.2 18 10/26/16 12:09 93 104/86 10/26/16 12:00 19 10/26/16 10:21 18 10/26/16 10:07 99 117/67 Result Diagram: 10/25/16 2131 10/23/16 1100 Objective Remarks GENERAL: Well-nourished, well-developed patient. SKIN: Warm and dry. Left thumb is packed and wrapped. No tracking up arm. Also there is an indurated approx. 5cm/5cm area of erythema, induration, without drainage on the right chest wall just above the right breast, which is another area where she has injected in the past. It does appear slightly spread from before, and the area is slightly softer/fluctuant than before. HEAD: Normocephalic and atraumatic. EYES: No scleral icterus. No injection or drainage. ENT: No nasal drainage noted. Mucous membranes pink. Airway patent. NECK: Supple, trachea midline. No JVD. CARDIOVASCULAR: Regular rate and rhythm without murmurs, gallops, or rubs. RESPIRATORY: Breath sounds equal bilaterally. No accessory muscle use. ABDOMEN/GI: Abdomen soft, gravid, non-tender, bowel sounds present, no rebound, no guarding Gravid to 30 weeks size FHT: category one, moderate variability, reactive, no decels EXTREMITIES: No cyanosis or edema. NEUROLOGICAL: Awake and alert. Motor and sensory grossly within normal limits. Five out of 5 muscle strength in all muscle groups. Normal speech. A/P Assessment and Plan 31 year old female at 29/5 weeks gestation in opioid withdrawals, with left hand cellulitis and right chest wall cellulitis from prior injections, also with coffee ground emesis X1, history of hepatitis C. Discharge Planning Once cellulitis is improving, any areas drained that can be drained, no fevers, stable with opiate withdrawal, and can tolerate PO antibiotics, will plan for discharge with follow up with Dr. Yu, and will start subutex. Also needs follow up with GI for hep C and coffee ground emesis X1 while in hospital. Problem List: (1) Cellulitis of left hand Status: Acute Plan: Had debridement at the bedside of the abscess of the left thumb. - Blood cultures: no growth 2 days - Continue clindamycin, ceftriaxone IV - ID on board, appreciate recommendations - Packing and dressing changes as directed by hand surgery. - Getting TTE to look for valvular vegetation in IV drug user (2) Cellulitis of chest wall Status: Acute Plan: - Consult general surgery, may need drainage - Dr. Andrews saw patient, recommends antibiotics only for now, possible drainage on Sunday if not improving. - Continue clindamycin, ceftriaxone IV - Follow blood cultures - ID on board - Nothing to culture from the site at this time (3) Drug abuse during Status: Acute Plan: - COWS scoring q6H - monitoring - Case management: needs housing, healthy start - 10 mg oxycodone q6hrs - Vistaril 50 mg q6hrs PRN (4) 29 weeks gestation of Status: Acute Plan: - Continue monitoring, expectant management. (5) Coffee ground emesis Status: Acute Plan: One episode of coffee ground emesis, history of hepatitis C. - GI on board, appreciate recommendations. - Pepcid 20 mg bid. - GI recommends protonix, will discuss with Dr. Yu, it is category B. - Mylanta PRN stomach pain - Stool for O&P and c.diff toxin. - Add protonix if symptoms continue. - Phenergan for nausea/vomiting. - EGD/colonoscopy after delivery. (6) Seizure disorder Status: Acute Plan: - Neurology consult-appreciate recs - MRI negative for acute disease - EEG negative for seizure activity - Gabapentin 800mg to TID (7) Hepatitis C Status: Acute Plan: History of hepatitis C. Liver enzymes normal. Not treated in the past. - Monitor, follow with GI as outpatient Simón Driscoll MD R2 Oct 27, 2016 09:54 Simón Driscoll MD R2 Oct 27, 2016 09:54
--- NOTE | 2016-10-27 10:14 | PD.OB.ANTE ---
Subjective Diagnosis: (1) 29 weeks gestation of (2) Drug abuse during (3) Seizure disorder (4) Hypothyroidism affecting Interval History stable with respect to opioid and benzo breast lesion is advancing and likely needs drainage obtaining echo cardiogram today. Objective Vital Signs Vital Signs Date Time Temp Pulse Resp B/P Pulse Ox O2 Delivery O2 Flow Rate FiO2 10/26/16 23:18 98.1 10/26/16 23:18 18 10/26/16 23:17 72 104/64 10/26/16 20:07 97 120/71 10/26/16 20:00 98.5 10/26/16 20:00 18 10/26/16 19:00 98.0 17 10/26/16 18:31 88 112/56 10/26/16 13:00 98.2 18 10/26/16 12:09 93 104/86 10/26/16 12:00 19 10/26/16 10:21 18 Lab & Micro Results Test 10/26/16 10/26/16 10:58 20:30 C-Reactive Protein 1.45 MG/DL Stool C. difficile Toxin (PCR) NEGATIVE Stl C. difficile Toxin PRESUMPTIVE Epiderm 027 NEGATIVE Date/Time Procedure Status Source Growth 10/26/16 20:30 Cryptosporidium Exam Resulted Stool Stool Pending 10/26/16 20:30 Stool Pus (JOEL) - Final Resulted Stool Stool NO WBC'S SEEN 10/26/16 20:30 Giardia Antigen (JOEL) Resulted Stool Stool Pending 10/26/16 12:50 Gram Stain - Final Resulted Abscess Hand 10/26/16 12:50 Wound Culture Resulted Abscess Hand Pending 10/24/16 16:35 Aerobic Blood Culture - Preliminary Resulted Blood Peripheral NO GROWTH IN 2 DAYS 10/24/16 16:35 Anaerobic Blood Culture - Preliminary Resulted Blood Peripheral NO GROWTH IN 2 DAYS Physical Exam GENERAL: Well-nourished, well-developed patient. CARDIOVASCULAR: Regular rate and rhythm without murmurs, gallops, or rubs. RESPIRATORY: Breath sounds equal bilaterally. No accessory muscle use. ABDOMEN/GI: Abdomen soft, non-tender. Fundus: [-] GENITOURINARY: External Genitalia: intact and normal in appearance Cervix: [-] Dilatation: [-] Effacement: [-] Station: [-] Presentation: [-] Membranes: [-] Uterine Contractions: [-] FHT's: Category: [-] Baseline: [-] Reactive: [-] Variability: [-] Decels: [-] EXTREMITIES: No cyanosis or edema, non-tender, without signs of DVT. Assessment and Plan Problem List: (1) 29 weeks gestation of Status: Acute (2) Drug abuse during Status: Acute (3) Seizure disorder Status: Acute (4) Hypothyroidism affecting Status: Acute Assessment and Plan 31-year-old 013 at 29 weeks and 2 days of gestation with probable withdrawal, history of polysubstance Abuse, seizure disorder, and hypothyroidism. need to get [employer] involved. Between them and hospital case management SHE MUST get [place] medicaid. Ideally [facility] Medicaid as I can then see on outpatient basis. She will need coverage for subutex. Since she wants MAT, she will not be a candidate for WARM, as she must be free of opioids and benzo's to do that,. I intend to wean the oxycodone and ativan while infection being addressed. Will start on subutex but cannot get on [facility] as it was determined to be to complicated to acquire, even with my buprenorphine license. Madeleine Yu MD Oct 27, 2016 10:14
[2016-10-27] MEDS ORDERED: LACTATED RINGER'S 1000 ML INJ 1,000 ML IV ONE (12:00)
[2016-10-27] MEDS ORDERED: PROPOFOL 200 MG/20 ML AMP IV ONE (12:00)
[2016-10-27] MEDS ORDERED: ONDANSETRON HCL 4 MG/2 ML VIAL IV PUSH ONE (12:00)
[2016-10-27] MEDS ORDERED: MORPHINE SULFATE 4 MG/ML INJ IV ONE (12:00)
--- NOTE | 2016-10-27 12:09 | HHI.PR ---
Subjective Subjective Notes DAILY PROGRESS NOTE FOR SURGICAL ATTENDING, DR. JERE ANDREWS Ambulating in room C/o of more pain at breast abscess site Objective Vitals/I&O Vital Signs Date Time Temp Pulse Resp B/P Pulse Ox O2 Delivery O2 Flow Rate FiO2 10/26/16 23:18 98.1 10/26/16 23:18 18 10/26/16 23:17 72 104/64 Labs Laboratory Tests Test 10/26/16 20:30 Stool C. difficile Toxin (PCR) NEGATIVE Stl C. difficile Toxin PRESUMPTIVE Epiderm 027 NEGATIVE Date/Time Procedure Status Source Growth 10/26/16 20:30 Cryptosporidium Exam Resulted Stool Stool Pending 10/26/16 20:30 Stool Pus (JOEL) - Final Resulted Stool Stool NO WBC'S SEEN 10/26/16 20:30 Giardia Antigen (JOEL) Resulted Stool Stool Pending 10/26/16 12:50 Gram Stain - Final Resulted Abscess Hand 10/26/16 12:50 Wound Culture Resulted Abscess Hand Pending 10/24/16 16:35 Aerobic Blood Culture - Preliminary Resulted Blood Peripheral NO GROWTH IN 3 DAYS 10/24/16 16:35 Anaerobic Blood Culture - Preliminary Resulted Blood Peripheral NO GROWTH IN 3 DAYS Cardiovascular: Regular Lungs: Clear Abdomen: Non-distended, Non-tender Narrative Exam RIGHT breast---increased area of induration with palpable fluid collection A/P Assessment and Plan 31 year old female 29 weeks with breast abscess -NPO -Plan to take to OR this afternoon for I&D -Obtain consents -Spoke with Dr. Yu and OB team Attending Statement NOTE FOR SURGICAL ATTENDING, DR. JERE ANDREWS Patient will be taken to the operating room for operative debridement of this abscess I agree with above assessment and plan. The exam, history, and the medical decision-making described in the above note were completed with the assistance of the mid-level provider. I reviewed and agree with the findings presented. I attest that I had a [id number] encounter with the patient on the same day, and personally performed and documented my assessment and findings in the medical record. The following services were provided during this hospital visit: Chart data review, vital sign assessments/reviewing monitor data Review of consultations notes if present. Medication orders/review and/or management Ordering and/or reviewing lab tests Ordering and/or interpreting/reviewing x-rays and/or diagnostic studies Care of the patient and discussion of the patient with the care team Documentation time To help prompt me to consider important information that might be impacting today's encounter and assessment, information from prior notes written by myself or my colleagues may have been "brought forward/copy and pasted" into today's note. Brigitte Samuel Oct 27, 2016 12:09 Jere Andrews MD Oct 27, 2016 17:51
[2016-10-27] MEDS: POVIDONE IODINE 10% OINT 30 GM TUBE TOPICAL SCH (12:39)
[2016-10-27] MEDS: LACTATED RINGER'S 1000 ML INJ 1,000 ML IV SCH ×2 (12:39→18:12)
[2016-10-27 13:13] VITALS: BP 111/70; PULSE 81
[2016-10-27 13:18] VITALS: RESP 20
--- NOTE | 2016-10-27 13:57 | HHI.IDPN ---
Subjective Subjective Remarks Delayed entry patient seen at ~ 10 am. is a 31 y/o at 29 weeks gestation who presented to labor and delivery requesting detox. Diagnosed with left thumb abscess and right breast abscess. Overnight events reviewed Left thumb drained. appreciate plastics help. Right breast with increase in surrounding edema, erythema: clinically appears worse today. No fever No rash No diarrhea Per d/w Ob team fetus doing ok. UO good. underwent 2D ECHO await results. Antibiotics Ceftriaxone IV Clinda IV Lines Line sites with no e/o infection Past Medical History reviewed IVDA Allergies: Coded Allergies: *MDRO Multi-Drug Resistant Organism (Verified Adverse Reaction, Unknown, MRSA, 10/25/16) MRSA screen POSITIVE - 10/24/16 Objective . Vital Signs Date Time Temp Pulse Resp B/P Pulse Ox O2 Delivery O2 Flow Rate FiO2 10/27/16 13:18 20 10/27/16 13:13 81 111/70 10/27/16 07:27 20 10/26/16 23:18 98.1 10/26/16 23:18 18 10/26/16 23:17 72 104/64 10/26/16 20:07 97 120/71 10/26/16 20:00 98.5 10/26/16 20:00 18 10/26/16 19:00 98.0 17 10/26/16 18:31 88 112/56 . Laboratory Tests Test 10/25/16 21:31 White Blood Count 15.2 TH/MM3 Red Blood Count 3.88 MIL/MM3 Hemoglobin 10.8 GM/DL Hematocrit 32.0 % Mean Corpuscular Volume 82.4 FL Mean Corpuscular Hemoglobin 27.9 PG Mean Corpuscular Hemoglobin 33.9 % Concent Red Cell Distribution Width 14.0 % Platelet Count 387 TH/MM3 Mean Platelet Volume 6.7 FL Neutrophils (%) (Auto) 69.5 % Lymphocytes (%) (Auto) 20.5 % Monocytes (%) (Auto) 8.5 % Eosinophils (%) (Auto) 0.8 % Basophils (%) (Auto) 0.7 % Neutrophils # (Auto) 10.6 TH/MM3 Lymphocytes # (Auto) 3.1 TH/MM3 Monocytes # (Auto) 1.3 TH/MM3 Eosinophils # (Auto) 0.1 TH/MM3 Basophils # (Auto) 0.1 TH/MM3 CBC Comment DIFF FINAL Differential Comment Erythrocyte Sedimentation Rate 1 mm/hr Laboratory Tests Test 10/25/16 10/26/16 21:31 10:58 Lactic Acid Level 3.2 mmol/L C-Reactive Protein 1.45 MG/DL Microbiology Date/Time Procedure Status Source Growth 10/24/16 16:30 Aerobic Blood Culture - Preliminary Resulted Blood Peripheral NO GROWTH IN 3 DAYS 10/24/16 16:30 Anaerobic Blood Culture - Preliminary Resulted Blood Peripheral NO GROWTH IN 3 DAYS 10/24/16 16:35 Aerobic Blood Culture - Preliminary Resulted Blood Peripheral NO GROWTH IN 3 DAYS 10/24/16 16:35 Anaerobic Blood Culture - Preliminary Resulted Blood Peripheral NO GROWTH IN 3 DAYS 10/26/16 12:50 Gram Stain - Final Resulted Abscess Hand 10/26/16 12:50 Wound Culture - Preliminary Resulted Gram Negative Eusebio 10/26/16 20:30 Cryptosporidium Exam Resulted Stool Stool Pending 10/26/16 20:30 Stool Pus (JOEL) - Final Resulted Stool Stool NO WBC'S SEEN 10/26/16 20:30 Giardia Antigen (JOEL) Resulted Stool Stool Pending Imaging Last Impressions Breast Ultrasound 10/26/16 1610 Signed Impressions: Service Date/Time: October 19:40 - CONCLUSION: Right breast abscess at the 3:00 position 4 cm from the nipple. Asim Fong MD Brain MRI 10/24/16 0000 Signed Impressions: Service Date/Time: Monday, October 24, 2016 14:09 - CONCLUSION: 1. No intracranial abnormalities seen. 2. Small focal area of mucosal disease of the right sphenoid sinus. Asim Arzate MD Physical Exam GENERAL: This is a well-nourished, well-developed patient, in no apparent distress. SKIN: Multiple track cosme noted. HEAD: Atraumatic. Normocephalic. No temporal or scalp tenderness. EYES: Pupils equal round and reactive. Extraocular motions intact. No scleral icterus. No injection or drainage. ENT: Nose without bleeding, purulent drainage or septal hematoma. Throat without erythema, tonsillar hypertrophy or exudate. Uvula midline. Airway patent. NECK: Trachea midline. Supple, nontender, no meningeal signs. CARDIOVASCULAR: Heart sounds audible. RESPIRATORY: Clear to auscultation. Breath sounds equal bilaterally. No wheezes , rales, or rhonchi. GASTROINTESTINAL: Abdomen soft, gravid uterus. MUSCULOSKELETAL: Left thumb with significant amount of erythema, tenderness, and minimal fluctuance noted. Patient unable to flex her thumb due to pain. Right breast with a 2 x 2 cm area of induration, erythema, tenderness noted. NEUROLOGICAL: Awake and alert. Non focal. Psych: cooperative. IV line sites with no e/o infection. Assessment & Plan Remarks Left thumb abscess possible tendinitis(patient unable to flex her thumb).s/p bedside drainage. Right breast abscess appears to be loculated as it has been present for a month. Intravenous drug abuse both the sites of infection have been prior sites of self injection. at 29 weeks. Midline umbilical hernia asymptomatic at the present time. On presentation was experiencing acute withdrawal. Recommendations Appreciate Hand surgery consult Discussed with Dr. Driscoll to d/w Gen. surgery consult to evaluate right breast mass again as it appears worsened and needs drainage in my opinion Continue ceftriaxone IV Continue clindamycin IV for now Follow cultures intraoperative Follow clinically Discussed with patient and possible need for surgery for breast abscess. d/w Micro: GNR in thumb culture is a Kleb pneumo most likely which should respond to Ceftriaxone. Maryann Lorenzo MD Oct 27, 2016 13:57
[2016-10-27 14:55] LABS: BATH SALTS (MDPV) UR NEG (NEG); ECSTASY (MDMA) UR NEG (NEG); HEROIN (6-ACETYLMORPHINE) UR NEG (NEG); K2 SPICE UR NEG (NEG); OBMETHADONE UR NEG (NEG); PHENCYCLIDINE URINE NEG (NEG)
[2016-10-27 14:56] LABS: OXYCODONE (PERCODAN) NEG (NEG)
[2016-10-27] MEDS: NICOTINE 21 MG/24 HR PATCH TD SCH (15:27)
[2016-10-27] MEDS: cefTRIAXone INJ 2,000 MG in SODIUM CHLORIDE 0.9% INJ 100 ML IV SCH (17:20)
[2016-10-27] MEDS ORDERED: fentaNYL CITRATE 250 MCG/5 ML AMP ONE (18:07)
[2016-10-27] MEDS ORDERED: MIDAZOLAM HCL 2 MG/2 ML VIAL ONE (18:07)
[2016-10-27] MEDS ORDERED: ACETAMINOPHEN 1000 MG/100 ML VIAL IV ONE (18:07)
[2016-10-27] MEDS ORDERED: FAMOTIDINE 20 MG/2 ML VIAL ONE (18:13)
[2016-10-27] MEDS ORDERED: KETAMINE HCL 500 MG/5 ML VIAL ONE (18:13)
[2016-10-27] MEDS ORDERED: HYDROmorphone HCL PF 2 MG/ML VIAL ONE (18:13)
[2016-10-27] MEDS ORDERED: BUPIVACAINE/EPINEPHRINE 0.25% PF 30 ML VIAL ONE (18:49)
[2016-10-27] MEDS ORDERED: DO NOT ADM ANY ANTICOAGULANT DRUGS XX PRN (19:10)
--- NOTE | 2016-10-27 19:10 | HHI.PR ---
cc: Yony Andrews MD Immediate Post Op Note Procedure Date: Oct 27, 2016 Pre Op Diagnosis: (1) Hepatitis C (2) Breast abscess Post Op Diagnosis: (1) Breast abscess (2) Cellulitis of chest wall (3) Hepatitis C Surgeon: Yony Andrews Non Destructive Testing Technician(s): Refer to our records Procedure: Drainage of right breast abscess with right breast biopsy removal of necrotic tissue Findings: Abscess right breast Necrotic breast tissue Packing of breast Complications: None Specimen(s) removed: Breast tissue Anesthesia: General Drains: None IVF Patient to: PACU Patient Condition: Good Implant/Devices: SEE IMPLANT LOG (if applicable) Date/Time of Procedure: SEE SURGICAL CARE RECORD Yony Adnrews MD Oct 27, 2016 19:10
[2016-10-27] MEDS: REMOVE OLD NICODERM (NICOTINE) PATCH TD SCH (21:00)
[2016-10-28] MEDS: CLINDAMYCIN INJ 900 MG in SODIUM CHLORIDE 0.9% INJ 100 ML IV SCH ×3 (04:38→20:45)
[2016-10-28] MEDS: GABAPENTIN 400 MG CAP PO SCH ×3 (06:07→21:28)
[2016-10-28] MEDS: LORazepam 1 MG TAB PO SCH ×3 (06:07→21:28)
[2016-10-28] MEDS: LEVOTHYROXINE SODIUM 50 MCG TAB PO SCH (06:13)
[2016-10-28] MEDS: SODIUM CHLORIDE 0.9% FLUSH 5 ML FLUSH IVF SCH ×2 (09:00→20:44)
[2016-10-28] MEDS: POVIDONE IODINE 10% OINT 30 GM TUBE TOPICAL SCH (09:00)
[2016-10-28] MEDS: DOCUSATE SODIUM 100 MG CAP PO SCH ×3 (09:00→20:51)
[2016-10-28] MEDS: POVIDONE IODINE 10% SOLN 118 ML BOTTLE TOPICAL SCH (09:00)
[2016-10-28 09:45] VITALS: BP 116/64; PULSE 100
[2016-10-28 09:46] VITALS: RESP 18; TEMP 98.1
[2016-10-28] MEDS: NICOTINE 21 MG/24 HR PATCH TD SCH (09:51)
[2016-10-28] MEDS: PRENATAL VITAMIN CHEWABLE TAB CHEW SCH (09:51)
[2016-10-28] MEDS: FAMOTIDINE 20 MG TAB PO SCH ×2 (09:51→20:44)
--- NOTE | 2016-10-28 11:08 | PD.OB.ANTE ---
Subjective Diagnosis: (1) 29 weeks gestation of (2) Drug abuse during (3) Seizure disorder (4) Hypothyroidism affecting Interval History Afebrile overnight. No acute events. Had drainage of abscess on hand on . Had drainage of abscess on breast performed 10/27/16. Has throbbing at the site of both I&Ds. . Withdrawal symptoms are improving, though she still has some generalized body aches and some diaphoresis when the medications start to wear off. She has a good appetite and is eating well. She is getting up and into a chair in the day time. She is eager to get her state insurance so she can follow up as an outpatient. Objective Vital Signs Vital Signs Date Time Temp Pulse Resp B/P Pulse Ox O2 Delivery O2 Flow Rate FiO2 10/28/16 09:46 98.1 18 10/28/16 09:45 100 116/64 10/27/16 19:35 16 96 Room Air 10/27/16 19:30 97.6 89 16 107/66 96 Room Air 10/27/16 19:15 92 16 105/64 95 Room Air 10/27/16 19:10 97.5 98 23 104/67 95 Room Air 10/27/16 16:27 20 10/27/16 13:18 20 10/27/16 13:13 81 111/70 Intake & Output 10/28/16 10/28/16 07:00 19:00 Intake Total 750 ml Output Total 2 ml Balance 748 ml Intake IV Total 50 ml Other 700 ml Output Estimated Blood Loss 2 ml # Voids 0 Lab & Micro Results Date/Time Procedure Status Source Growth 10/27/16 18:50 Gram Stain Received Wound Breast Pending 10/27/16 18:50 Wound Culture Received Wound Breast Pending 10/27/16 18:50 Fungal Smear Received Wound Breast Pending 10/27/16 18:50 Fungal Culture Received Wound Breast Pending 10/27/16 18:50 Acid Fast Stain Received Wound Breast Pending 10/27/16 18:50 Mycobacterial Culture Received Wound Breast Pending 10/26/16 20:30 Cryptosporidium Exam Resulted Stool Stool Pending 10/26/16 20:30 Stool Pus (JOEL) - Final Resulted Stool Stool NO WBC'S SEEN 10/26/16 20:30 Giardia Antigen (JOEL) Resulted Stool Stool Pending 10/26/16 12:50 Gram Stain - Final Resulted Abscess Hand 10/26/16 12:50 Wound Culture - Preliminary Resulted Klebsiella Pneumoniae 10/24/16 16:35 Aerobic Blood Culture - Preliminary Resulted Blood Peripheral NO GROWTH IN 3 DAYS 10/24/16 16:35 Anaerobic Blood Culture - Preliminary Resulted Blood Peripheral NO GROWTH IN 3 DAYS Physical Exam GENERAL: Well-nourished, well-developed patient. SKIN: Warm and dry. Left thumb is packed and wrapped. No tracking up arm. Also there is an indurated approx. Right breast covered in a badage it is clean dry and intact on inspection. HEAD: Normocephalic and atraumatic. EYES: No scleral icterus. No injection or drainage. ENT: No nasal drainage noted. Mucous membranes pink. Airway patent. NECK: Supple, trachea midline. No JVD. CARDIOVASCULAR: Regular rate and rhythm without murmurs, gallops, or rubs. RESPIRATORY: Breath sounds equal bilaterally. No accessory muscle use. ABDOMEN/GI: Abdomen soft, gravid, non-tender, bowel sounds present, no rebound, no guarding Gravid to 30 weeks size FHT: category one, moderate variability, reactive, no decels EXTREMITIES: No cyanosis or edema. NEUROLOGICAL: Awake and alert. Motor and sensory grossly within normal limits. Five out of 5 muscle strength in all muscle groups. Normal speech. Assessment and Plan Problem List: (1) 29 weeks gestation of Status: Acute (2) Drug abuse during Status: Acute (3) Seizure disorder Status: Acute (4) Hypothyroidism affecting Status: Acute Assessment and Plan 31 year old female at 29/5 weeks gestation in opioid withdrawals, with left hand cellulitis and right chest wall cellulitis from prior injections, also with coffee ground emesis X1, history of hepatitis C. Discharge Planning Once cellulitis is improving, any areas drained that can be drained, no fevers, stable with opiate withdrawal, and can tolerate PO antibiotics, will plan for discharge with follow up with Dr. Yu, and will start subutex. Also needs follow up with GI for hep C and coffee ground emesis X1 while in hospital. Problem List: (1) Cellulitis of left hand Status: Acute Plan: Had debridement at the bedside of the abscess of the left thumb. - Blood cultures: no growth 2 days - Continue clindamycin, ceftriaxone IV - ID on board, appreciate recommendations - Packing and dressing changes as directed by hand surgery. - Getting TTE to look for valvular vegetation in IV drug user - Wound culture showing Klebsilla pneumonia (2) Cellulitis of chest wall Status: Acute Plan: - Consult general surgery, may need drainage - Dr. Andrews saw patient - S/P I&D - Wound cultures pending - Continue clindamycin, ceftriaxone IV - Follow blood cultures - ID on board (3) Drug abuse during Status: Acute Plan: - COWS scoring q6H - monitoring - Case management: needs housing, healthy start - 10 mg oxycodone q6hrs - Vistaril 50 mg q6hrs PRN (4) 29 weeks gestation of Status: Acute Plan: - Continue monitoring, expectant management. (5) Coffee ground emesis Status: Acute Plan: One episode of coffee ground emesis, history of hepatitis C. - GI on board, appreciate recommendations. - Pepcid 20 mg bid. - GI recommends protonix, will discuss with Dr. Yu, it is category B. - Mylanta PRN stomach pain - Stool for O&P and c.diff toxin. - Add protonix if symptoms continue. - Phenergan for nausea/vomiting. - EGD/colonoscopy after delivery. (6) Seizure disorder Status: Acute Plan: No resent seizure activity - Neurology consult-appreciate recs - MRI negative for acute disease - EEG negative for seizure activity - Gabapentin 800mg to TID (7) Hepatitis C Status: Acute Plan: History of hepatitis C. Liver enzymes normal. Not treated in the past. - Monitor, follow with GI as outpatient Laurent Montana MD R2 Oct 28, 2016 11:08
[2016-10-28 12:19] VITALS: BP 112/69; PULSE 93
[2016-10-28 14:45] VITALS: BP 117/64; PULSE 96; RESP 18; TEMP 98.7; O2SAT 98
--- NOTE | 2016-10-28 15:31 | EC ---
Study Study Date:10/27/2016 STUDY CONCLUSIONS SUMMARY - Left ventricle: The cavity size was normal. Systolic function was normal. The estimated ejection fraction was in the range of 60% to 65%. Wall motion was normal; there were no regional wall motion abnormalities. - Mitral valve: Small echodensity at the end of the anterior leaflet measuring 0.56x0.77cm , more likely part of the leaflet than a vegetation, although vegetation can not be ruled out. - Tricuspid valve: There was a small, 3mm (W) x 4mm (L), highly mobile vegetation. Impressions: Amendment to previous reading. Mobile echodensity on tricuspid valve, endocarditis. Spoke to Dr. Lorenzo and Dr. Conn about the finding. If LV function is below 40, please consider prescribing an ACEI or ARB or document rationale for non-use. PROCEDURE DATA STUDY STATUS: Elective. Procedure: Transthoracic echocardiography. Image quality was good. Scanning was performed from the parasternal, apical, and subcostal acoustic windows. Study completion: The patient tolerated the procedure well. Transthoracic echocardiography. M-mode, complete 2D, complete spectral Doppler, and color Doppler. Patient status: Inpatient. CARDIAC ANATOMY LEFT VENTRICLE: The cavity size was normal. There was no hypertrophy. Systolic function was normal. The estimated ejection fraction was in the range of 60% to 65%. Wall motion was normal; there were no regional wall motion abnormalities. AORTIC VALVE: The valve appears to be grossly normal. Doppler: There was no stenosis. No significant regurgitation. MITRAL VALVE: Small echodensity at the end of the anterior leaflet, more likely part of the leaflet than a vegetation, although vegetation can not be ruled out. The valve appears to be grossly normal. Doppler: There was no evidence for stenosis. Trace regurgitation. PULMONIC VALVE: Not well visualized. Doppler: There was no evidence for stenosis. No significant regurgitation. TRICUSPID VALVE: The valve appears to be grossly normal. There was a small, 3mm (W) x 4mm (L), highly mobile vegetation. Doppler: There was no evidence for stenosis. Trace regurgitation. PERICARDIUM: There was no pericardial effusion. BASIC MEASUREMENTS ADULT NORMAL Left ventricle LV internal dimension, ED, chordal level, *39.6 mm 43-52 PLAX LV internal dimension, ES, chordal level, 26.5 mm 23-38 PLAX Fractional shortening, chordal level, PLAX 33 % >29 LV posterior wall thickness, ED 8.56 mm IVS/LVPW ratio, ED 1.29 <1.3 Ventricular septum Septal thickness, ED 11 mm Aortic valve Leaflet separation 20 mm 15-26 Right ventricle RV internal dimension, ED, PLAX 27.4 mm 19-38 BASIC MEASUREMENTS ADULT NORMAL Aortic valve Leaflet separation 20 mm 15-26 Aorta Root diameter, ED 29 mm 20-37 Left atrium Anterior-posterior dimension, ES 31 mm 19-40 LA/aortic root ratio 1.07 LEGEND: Mean values are shown as u=mean value. Asterisk (*) cosme values outside specified normal range. Amended Barrera Murphy [id number]
[2016-10-28 16:00] VITALS: BP 115/64; PULSE 83; RESP 18; TEMP 98.8; O2SAT 96
[2016-10-28] MEDS ORDERED: MORPHINE SULFATE 4 MG/ML INJ IV PUSH ONE (18:00)
[2016-10-28] MEDS: cefTRIAXone INJ 2,000 MG in SODIUM CHLORIDE 0.9% INJ 100 ML IV SCH (18:00)
--- NOTE | 2016-10-28 18:03 | HHI.PR ---
Subjective Subjective Notes pain ok no new c/o Objective Vitals/I&O Vital Signs Date Time Temp Pulse Resp B/P Pulse Ox O2 Delivery O2 Flow Rate FiO2 10/28/16 16:00 98.8 83 18 115/64 96 10/27/16 19:35 Room Air Labs Date/Time Procedure Status Source Growth 10/27/16 18:50 Gram Stain - Final Resulted Wound Breast 10/27/16 18:50 Wound Culture - Preliminary Resulted Wound Breast NO GROWTH IN 24 HOURS. 10/27/16 18:50 Fungal Smear - Final Resulted Wound Breast NO FUNGAL ELEMENTS SEEN. 10/27/16 18:50 Fungal Culture Resulted Wound Breast Pending 10/27/16 18:50 Acid Fast Stain Received Wound Breast Pending 10/27/16 18:50 Mycobacterial Culture Received Wound Breast Pending 10/26/16 20:30 Cryptosporidium Exam Resulted Stool Stool Pending 10/26/16 20:30 Stool Pus (JOEL) - Final Resulted Stool Stool NO WBC'S SEEN 10/26/16 20:30 Giardia Antigen (JOEL) Resulted Stool Stool Pending 10/24/16 16:35 Aerobic Blood Culture - Preliminary Resulted Blood Peripheral NO GROWTH IN 4 DAYS 10/24/16 16:35 Anaerobic Blood Culture - Preliminary Resulted Blood Peripheral NO GROWTH IN 4 DAYS Narrative Exam right breast with small area of erythema around ID site A/P Assessment and Plan 31yo female with right breast abscess, S/P ID, continue changing packing daily, doing well. ok to shower. Melvin Castillo MD Oct 28, 2016 18:03
[2016-10-28 20:13] VITALS: BP 118/67; PULSE 96; RESP 18; TEMP 97.5; O2SAT 98
[2016-10-28] MEDS: REMOVE OLD NICODERM (NICOTINE) PATCH TD SCH (21:00)
[2016-10-29] VITALS: BP 96/53; PULSE 82; RESP 16; TEMP 97.8; O2SAT 98
[2016-10-29 04:00] VITALS: BP 96/58; PULSE 77; RESP 16; TEMP 98.4; O2SAT 98
[2016-10-29] MEDS: GABAPENTIN 400 MG CAP PO SCH ×3 (05:51→21:47)
[2016-10-29] MEDS: LEVOTHYROXINE SODIUM 50 MCG TAB PO SCH (05:51)
[2016-10-29] MEDS: CLINDAMYCIN INJ 900 MG in SODIUM CHLORIDE 0.9% INJ 100 ML IV SCH ×3 (05:51→21:48)
[2016-10-29] MEDS: LORazepam 1 MG TAB PO SCH ×3 (05:51→21:47)
--- NOTE | 2016-10-29 07:49 | PD.OB.ANTE ---
Subjective Diagnosis: (1) 29 weeks gestation of Diagnosis: Principal (2) Drug abuse during Diagnosis: Principal (3) Seizure disorder Diagnosis: Secondary (4) Hypothyroidism affecting Diagnosis: Secondary Interval History Patient seen and examined this morning. Afebrile vital signs stable. Wound Culture from thumb showed MRSA positive. Patient reports that she is trying to wean her dependence on pain meds. Says she was able to skip one dose during the night, but required one this morning. She is looking forward to getting out of the hospital once she can be transitioned to by mouth meds. She understands again plan of transitioned Subutex for her eventual discontinuation of pain medications. Objective Vital Signs Vital Signs Date Time Temp Pulse Resp B/P Pulse Ox O2 Delivery O2 Flow Rate FiO2 10/29/16 04:00 98.4 77 16 96/58 98 10/29/16 00:00 97.8 82 16 96/53 98 10/28/16 20:13 97.5 96 18 118/67 98 10/28/16 16:00 98.8 83 18 115/64 96 10/28/16 14:45 98.7 96 18 117/64 98 10/28/16 12:19 93 112/69 10/28/16 09:46 98.1 18 10/28/16 09:45 100 116/64 Lab & Micro Results Date/Time Procedure Status Source Growth 10/27/16 18:50 Gram Stain - Final Resulted Wound Breast 10/27/16 18:50 Wound Culture - Preliminary Resulted Wound Breast NO GROWTH IN 24 HOURS. 10/27/16 18:50 Fungal Smear - Final Resulted Wound Breast NO FUNGAL ELEMENTS SEEN. 10/27/16 18:50 Fungal Culture Resulted Wound Breast Pending 10/27/16 18:50 Acid Fast Stain Received Wound Breast Pending 10/27/16 18:50 Mycobacterial Culture Received Wound Breast Pending 10/26/16 20:30 Cryptosporidium Exam Resulted Stool Stool Pending 10/26/16 20:30 Stool Pus (JOEL) - Final Resulted Stool Stool NO WBC'S SEEN 10/26/16 20:30 Giardia Antigen (JOEL) Resulted Stool Stool Pending 10/24/16 16:35 Aerobic Blood Culture - Preliminary Resulted Blood Peripheral NO GROWTH IN 4 DAYS 10/24/16 16:35 Anaerobic Blood Culture - Preliminary Resulted Blood Peripheral NO GROWTH IN 4 DAYS Physical Exam GENERAL: Well-nourished, well-developed patient. SKIN: Warm and dry. Left thumb is open to air wound is clean dry and intact, erythema and mobility of thumb is improving. No tracking up arm. Also there is an indurated approx. Right breast covered in a bandage it is clean dry and intact on inspection. HEAD: Normocephalic and atraumatic. EYES: No scleral icterus. No injection or drainage. ENT: No nasal drainage noted. Mucous membranes pink. Airway patent. NECK: Supple, trachea midline. No JVD. CARDIOVASCULAR: Regular rate and rhythm without murmurs, gallops, or rubs. RESPIRATORY: Breath sounds equal bilaterally. No accessory muscle use. ABDOMEN/GI: Abdomen soft, gravid, non-tender, bowel sounds present, no rebound, no guarding Gravid to 30 weeks size FHT: category one, moderate variability, reactive, no decels EXTREMITIES: No cyanosis or edema. NEUROLOGICAL: Awake and alert. Motor and sensory grossly within normal limits. Five out of 5 muscle strength in all muscle groups. Normal speech. Assessment and Plan Problem List: (1) 29 weeks gestation of Status: Acute (2) Drug abuse during Status: Acute (3) Seizure disorder Status: Acute (4) Hypothyroidism affecting Status: Acute Assessment and Plan 31 year old female at 29/5 weeks gestation in opioid withdrawals, with left hand cellulitis and right chest wall cellulitis from prior injections, also with coffee ground emesis X1, history of hepatitis C. Discharge Planning Once cellulitis is improving, any areas drained that can be drained, no fevers, stable with opiate withdrawal, and can tolerate PO antibiotics, will plan for discharge with follow up with Dr. Yu, and will start subutex. Also needs follow up with GI for hep C and coffee ground emesis X1 while in hospital. Problem List: (1) Cellulitis of left hand Status: Acute Plan: Had debridement at the bedside of the abscess of the left thumb. - Blood cultures: no growth 2 days - Continue clindamycin, ceftriaxone IV - ID on board, appreciate recommendations - Packing and dressing changes as directed by hand surgery. - Getting TTE to look for valvular vegetation in IV drug user - Wound culture showing Klebsilla pneumonia and MRSA (2) Cellulitis of chest wall Status: Acute Plan: - Consult general surgery, may need drainage - Dr. Andrews saw patient - S/P I&D - Wound cultures pending - Continue clindamycin, ceftriaxone IV - Blood Culture [id number] - ID on board (3) Drug abuse during Status: Acute Plan: - COWS scoring q6H - monitoring - Case management: needs housing, healthy start - 10 mg oxycodone q6hrs - Vistaril 50 mg q6hrs PRN (4) 29 weeks gestation of Status: Acute Plan: - Continue monitoring, expectant management. (5) Coffee ground emesis Status: Acute Plan: One episode of coffee ground emesis, history of hepatitis C. - GI on board, appreciate recommendations. - Pepcid 20 mg bid. - GI recommends protonix, will discuss with Dr. Yu, it is category B. - Mylanta PRN stomach pain - Stool for O&P and c.diff toxin. - Add protonix if symptoms continue. - Phenergan for nausea/vomiting. - EGD/colonoscopy after delivery. (6) Seizure disorder Status: Acute Plan: No resent seizure activity - Neurology consult-appreciate recs - MRI negative for acute disease - EEG negative for seizure activity - Gabapentin 800mg to TID (7) Hepatitis C Status: Acute Plan: History of hepatitis C. Liver enzymes normal. Not treated in the past. - Monitor, follow with GI as outpatient Laurent Montana MD R2 Oct 29, 2016 07:49
[2016-10-29 08:00] VITALS: BP 110/61; PULSE 89; RESP 18; TEMP 98.3; O2SAT 97
[2016-10-29] MEDS: FAMOTIDINE 20 MG TAB PO SCH ×2 (09:00→21:47)
[2016-10-29] MEDS: PRENATAL VITAMIN CHEWABLE TAB CHEW SCH (09:00)
[2016-10-29] MEDS: POVIDONE IODINE 10% OINT 30 GM TUBE TOPICAL SCH (09:00)
[2016-10-29] MEDS: DOCUSATE SODIUM 100 MG CAP PO SCH ×2 (09:00→21:47)
[2016-10-29] MEDS: POVIDONE IODINE 10% SOLN 118 ML BOTTLE TOPICAL SCH (09:00)
[2016-10-29] MEDS: SODIUM CHLORIDE 0.9% FLUSH 5 ML FLUSH IVF SCH ×2 (09:00→21:48)
[2016-10-29] MEDS: NICOTINE 21 MG/24 HR PATCH TD SCH (09:00)
--- NOTE | 2016-10-29 11:45 | HHI.PR ---
Subjective Subjective Notes pt asleep, nursing staff reports she did dressing change this am and it was clean, packing replaced. pt had shower last night. pain is moderate Objective Vitals/I&O Vital Signs Date Time Temp Pulse Resp B/P Pulse Ox O2 Delivery O2 Flow Rate FiO2 10/29/16 08:00 98.3 89 18 110/61 97 10/27/16 19:35 Room Air Labs Date/Time Procedure Status Source Growth 10/27/16 18:50 Gram Stain - Final Resulted Wound Breast 10/27/16 18:50 Wound Culture - Preliminary Resulted S. Aureus Mrsa 10/27/16 18:50 Fungal Smear - Final Resulted Wound Breast NO FUNGAL ELEMENTS SEEN. 10/27/16 18:50 Fungal Culture Resulted Wound Breast Pending 10/27/16 18:50 Acid Fast Stain - Final Resulted Wound Breast NO ACID FAST BACILLI SEEN 10/27/16 18:50 Mycobacterial Culture Resulted Wound Breast Pending 10/26/16 20:30 Cryptosporidium Exam Resulted Stool Stool Pending 10/26/16 20:30 Stool Pus (JOEL) - Final Resulted Stool Stool NO WBC'S SEEN 10/26/16 20:30 Giardia Antigen (JOEL) Resulted Stool Stool Pending 10/24/16 16:35 Aerobic Blood Culture - Final Complete Blood Peripheral NO GROWTH IN 5 DAYS 10/24/16 16:35 Anaerobic Blood Culture - Final Complete Blood Peripheral NO GROWTH IN 5 DAYS Narrative Exam clean dressing on breast, no drainage, A/P Assessment and Plan s/p ID RIGHT breast abscess continue daily dressing changes, may shower with packing removed to cleanse wound will sign off, can FU with DR. Andrews in office for wound check. please call if needed ABX per ID Rai Cordova MD Oct 29, 2016 11:45
[2016-10-29 12:00] VITALS: BP 120/65; PULSE 87; RESP 18; TEMP 98.3; O2SAT 99
--- NOTE | 2016-10-29 15:21 | HHI.IDPN ---
Subjective Subjective Remarks is a 31 y/o at 29 weeks gestation who presented to labor and delivery requesting detox. Diagnosed with left thumb abscess and right breast abscess. Overnight events reviewed Left thumb drained. appreciate plastics help. Right breast appears improved. Still has drainage. No further spread of the margin. No fever No rash No diarrhea Fetus moving per patient. UO good. 2D ECHO with vegetation. Will d/w . Antibiotics Ceftriaxone IV Clinda IV Lines Line sites with no e/o infection Past Medical History reviewed IVDA Allergies: Coded Allergies: *MDRO Multi-Drug Resistant Organism (Verified Adverse Reaction, Unknown, MRSA, 10/25/16) MRSA screen POSITIVE - 10/24/16 Objective . Vital Signs Date Time Temp Pulse Resp B/P Pulse Ox O2 Delivery O2 Flow Rate FiO2 10/29/16 12:00 98.3 87 18 120/65 99 10/29/16 08:00 98.3 89 18 110/61 97 10/29/16 04:00 98.4 77 16 96/58 98 10/29/16 00:00 97.8 82 16 96/53 98 10/28/16 20:13 97.5 96 18 118/67 98 10/28/16 16:00 98.8 83 18 115/64 96 10/28/16 10/28/16 10/29/16 15:00 23:00 07:00 Intake Total 603 ml 340 ml Output Total 600 ml Balance 603 ml -260 ml Intake Oral 380 ml 240 ml IV Total 223 ml 100 ml Output Urine Total 600 ml # Voids 8 # Bowel Movements 1 . Microbiology Date/Time Procedure Status Source Growth 10/26/16 20:30 Cryptosporidium Exam Resulted Stool Stool Pending 10/26/16 20:30 Stool Pus (JOEL) - Final Resulted Stool Stool NO WBC'S SEEN 10/26/16 20:30 Giardia Antigen (JOEL) Resulted Stool Stool Pending 10/27/16 18:50 Gram Stain - Final Resulted Wound Breast 10/27/16 18:50 Wound Culture - Preliminary Resulted S. Aureus Mrsa 10/27/16 18:50 Acid Fast Stain - Final Resulted Wound Breast NO ACID FAST BACILLI SEEN 10/27/16 18:50 Mycobacterial Culture Resulted Wound Breast Pending 10/27/16 18:50 Fungal Smear - Final Resulted Wound Breast NO FUNGAL ELEMENTS SEEN. 10/27/16 18:50 Fungal Culture Resulted Wound Breast Pending Imaging Last Impressions Breast Ultrasound 10/26/16 1610 Signed Impressions: Service Date/Time: October 19:40 - CONCLUSION: Right breast abscess at the 3:00 position 4 cm from the nipple. Asim Fong MD Brain MRI 10/24/16 0000 Signed Impressions: Service Date/Time: Monday, October 24, 2016 14:09 - CONCLUSION: 1. No intracranial abnormalities seen. 2. Small focal area of mucosal disease of the right sphenoid sinus. Asim Arzate MD Physical Exam GENERAL: This is a well-nourished, well-developed patient, in no apparent distress. SKIN: Multiple track cosme noted. HEAD: Atraumatic. Normocephalic. No temporal or scalp tenderness. EYES: Pupils equal round and reactive. Extraocular motions intact. No scleral icterus. No injection or drainage. ENT: Nose without bleeding, purulent drainage or septal hematoma. Throat without erythema, tonsillar hypertrophy or exudate. Uvula midline. Airway patent. NECK: Trachea midline. Supple, nontender, no meningeal signs. CARDIOVASCULAR: Heart sounds audible. RESPIRATORY: Clear to auscultation. Breath sounds equal bilaterally. No wheezes , rales, or rhonchi. GASTROINTESTINAL: Abdomen soft, gravid uterus. MUSCULOSKELETAL: Left thumb much improved. No erythema, no tenderness, no discharge. Able to move thumb. Right breast decrease in induration, erythema, tenderness noted. packing in place. Discharge noted. NEUROLOGICAL: Awake and alert. Non focal. Psych: cooperative. IV line sites with no e/o infection. Assessment & Plan Remarks Endocarditis: MRSA or Kleb pneumo either organisms could be causing this as blood cultures are negative. Left thumb abscess improved s/p bedside drainage. Right breast abscess s/p I&D Intravenous drug abuse both the sites of infection have been prior sites of self injection. at 29 weeks. Midline umbilical hernia asymptomatic at the present time. On presentation was experiencing acute withdrawal. Recommendations Continue ceftriaxone IV Continue clindamycin IV for now. Follow MRSA susceptibility. Follow cultures for breast. Follow clinically ECHO findings of vegetation. Blair Carmona. Will discuss risk benefits of treating with IV ABX for 6 weeks vs KI. Patient will need Vanco IV possibly as one of the drugs for Endocarditis as Clinda is not the drug of choice for MRSA endocarditis. Vanco as neural side effects. Will d/w clinical pharmacist regarding treatment options. In addition patient will need treatment with Ceftriaxone IV. will d.w Case management and about DC options, treatment plan in am. Maryann Lorenzo MD Oct 29, 2016 15:21
[2016-10-29 16:00] VITALS: BP 121/65; PULSE 83; RESP 18; TEMP 97.9; O2SAT 95
[2016-10-29] MEDS: cefTRIAXone INJ 2,000 MG in SODIUM CHLORIDE 0.9% INJ 100 ML IV SCH (18:00)
[2016-10-29 20:00] VITALS: BP 110/61; PULSE 89; RESP 18; TEMP 97.3; O2SAT 97
[2016-10-29] MEDS: REMOVE OLD NICODERM (NICOTINE) PATCH TD SCH (21:00)
[2016-10-30] VITALS (7 sets, daily range): BP systolic 96–161; BP diastolic 54–91; PULSE 80–99; RESP 16–18; TEMP 97.3–98.1; O2SAT 96–99
[2016-10-30] MEDS: CLINDAMYCIN INJ 900 MG in SODIUM CHLORIDE 0.9% INJ 100 ML IV SCH ×3 (03:35→21:38)
[2016-10-30] MEDS: GABAPENTIN 400 MG CAP PO SCH ×3 (06:31→21:38)
[2016-10-30] MEDS: LEVOTHYROXINE SODIUM 50 MCG TAB PO SCH (06:31)
[2016-10-30] MEDS: LORazepam 1 MG TAB PO SCH (06:31)
[2016-10-30] MEDS: DOCUSATE SODIUM 100 MG CAP PO SCH ×2 (08:24→21:38)
[2016-10-30] MEDS: FAMOTIDINE 20 MG TAB PO SCH ×2 (08:24→21:38)
[2016-10-30] MEDS: NICOTINE 21 MG/24 HR PATCH TD SCH (08:25)
[2016-10-30] MEDS: POVIDONE IODINE 10% OINT 30 GM TUBE TOPICAL SCH (08:25)
[2016-10-30] MEDS: POVIDONE IODINE 10% SOLN 118 ML BOTTLE TOPICAL SCH (08:25)
[2016-10-30] MEDS: SODIUM CHLORIDE 0.9% FLUSH 5 ML FLUSH IVF SCH ×2 (08:25→21:39)
[2016-10-30] MEDS: PRENATAL VITAMIN CHEWABLE TAB CHEW SCH (09:30)
--- NOTE | 2016-10-30 09:48 | HHI.FPPN ---
Subjective Remarks No acute events. Withdrawal symptoms much improved from admission. Site on left wrist and right chest wall have both been incised and drained. Both areas are showing marked improvement, with less erythema, swelling, and warmth. She is afebrile. She has no nausea or vomiting, no chills or night sweats. Overall she is doing better. She has good movements, no vaginal bleeding, and no contractions. Objective Vitals Vital Signs Date Time Temp Pulse Resp B/P Pulse Ox O2 Delivery O2 Flow Rate FiO2 10/30/16 04:00 97.9 82 16 96/54 99 10/30/16 00:00 97.3 80 17 109/62 97 10/29/16 20:00 97.3 89 18 110/61 97 10/29/16 16:00 97.9 83 18 121/65 95 10/29/16 12:00 98.3 87 18 120/65 99 I/O 10/29/16 10/29/16 10/29/16 10/30/16 10/30/16 10/30/16 07:00 15:00 23:00 07:00 15:00 23:00 Intake Total 340 ml 1000 ml 570 ml 180 ml Output Total 600 ml Balance -260 ml 1000 ml 570 ml 180 ml Intake Oral 240 ml 1000 ml 380 ml 180 ml IV Total 100 ml 190 ml Output Urine Total 600 ml # Voids 4 5 6 # Bowel Movements 1 1 Objective Remarks GENERAL: Well-nourished, well-developed patient. SKIN: Warm and dry. Left thumb is much improved, area of erythema much smaller, no abscess, opening where area is drained, currently with no drainage but she reports some drainage yesterday from the site. No tracking up arm. Right chest wall has opening at site of drainage, appears improved, less erythema, warmth, no swelling. HEAD: Normocephalic and atraumatic. EYES: No scleral icterus. No injection or drainage. ENT: No nasal drainage noted. Mucous membranes pink. Airway patent. NECK: Supple, trachea midline. No JVD. CARDIOVASCULAR: Regular rate and rhythm without murmurs, gallops, or rubs. RESPIRATORY: Breath sounds equal bilaterally. No accessory muscle use. ABDOMEN/GI: Abdomen soft, gravid, non-tender, bowel sounds present, no rebound, no guarding Gravid to 30 weeks size EXTREMITIES: No cyanosis or edema. NEUROLOGICAL: Awake and alert. Motor and sensory grossly within normal limits. Five out of 5 muscle strength in all muscle groups. Normal speech. A/P Assessment and Plan 31 year old female at 30 weeks gestation in opioid withdrawals, with left hand cellulitis and right chest wall cellulitis from prior injections, also with coffee ground emesis X1, history of hepatitis C. Now with concern for possible endocarditis after echodensity noted on TTE, although this is still being worked up. Discharge Planning Once cellulitis is improving, no fevers, stable with opiate withdrawal, and can tolerate PO antibiotics, will plan for discharge with follow up with Dr. Yu, and will start subutex. Also needs follow up with GI for hep C and coffee ground emesis X1 while in hospital. If she indeed has endocarditis, she will need penitentiary IV antibiotics. Problem List: (1) Cellulitis of left hand Status: Acute Plan: Had debridement at the bedside of the abscess of the left thumb. Positive for klebsiella pneumonia and MRSA. - Blood cultures: no growth 5 days - Continue clindamycin, ceftriaxone IV. May need vancomycin if she has endocarditis, will defer to infectious disease. - ID on board, appreciate recommendations (2) Cellulitis of chest wall Status: Acute Plan: S/p I&D, area improving. Culture: MRSA positive. - Continue clindamycin, ceftriaxone IV - Follow blood cultures, negative X5 days - ID on board (3) Heart valve vegetation Status: Acute Plan: Possible MRSA endocarditis. - Assess risks and benefits of KI in patient. - May need vancomycin for adequate treatment. (4) Drug abuse during Status: Acute Plan: - Case management: needs housing, healthy start - 10 mg oxycodone q6hrs - Vistaril 50 mg q6hrs PRN (5) 30 weeks gestation of Status: Acute Plan: - daily heart tones, expectant management. (6) Coffee ground emesis Status: Acute Plan: One episode of coffee ground emesis, history of hepatitis C. - GI on board, appreciate recommendations. - Pepcid 20 mg bid. - GI recommends protonix, will discuss with Dr. Yu, it is category B. - Mylanta PRN stomach pain - Stool for O&P and c.diff toxin. - Add protonix if symptoms continue. - Phenergan for nausea/vomiting. - EGD/colonoscopy after delivery. (7) Seizure disorder Status: Acute Plan: - Neurology consult-appreciate recs - MRI negative for acute disease - EEG negative for seizure activity - Gabapentin 800mg to TID (8) Hepatitis C Status: Acute Plan: History of hepatitis C. Liver enzymes normal. Not treated in the past. - Monitor, follow with GI as outpatient Simón Driscoll MD R2 Oct 30, 2016 09:48
--- NOTE | 2016-10-30 13:00 | PD.OB.ANTE ---
Subjective Diagnosis: (1) 29 weeks gestation of Diagnosis: Principal (2) Drug abuse during Diagnosis: Principal (3) Seizure disorder Diagnosis: Secondary (4) Hypothyroidism affecting Diagnosis: Secondary Interval History 30 week IUP with opioid dependence who came to L & D last weeks with c/o seizure disorder, infected thumb and breast abcess, withdrawal In the interval she has been seen by neurology, cardiology, infectious disease surveillence reassuring Had Echo with questionable vegetation on mitral valve and awaiting KI has had thumb and breast incised and drained and healing will on zosyn and clindamycin is stable wrt to opioid and benzo addiction on current medications, which we will wean down now in anticipation of switching to subutex. If KI + will be extended stay for IV meds If KI - will be discharged and follow up in my office. Objective Vital Signs Vital Signs Date Time Temp Pulse Resp B/P Pulse Ox O2 Delivery O2 Flow Rate FiO2 10/30/16 04:00 97.9 82 16 96/54 99 10/30/16 00:00 97.3 80 17 109/62 97 10/29/16 20:00 97.3 89 18 110/61 97 10/29/16 16:00 97.9 83 18 121/65 95 Intake & Output 10/30/16 10/30/16 07:00 19:00 Intake Total 750 ml Balance 750 ml Intake Oral 560 ml IV Total 190 ml # Voids 11 # Bowel Movements 1 Lab & Micro Results Date/Time Procedure Status Source Growth 10/27/16 18:50 Gram Stain - Final Complete Wound Breast 10/27/16 18:50 Wound Culture - Final Complete S. Aureus Mrsa 10/27/16 18:50 Fungal Smear - Final Resulted Wound Breast NO FUNGAL ELEMENTS SEEN. 10/27/16 18:50 Fungal Culture Resulted Wound Breast Pending 10/27/16 18:50 Acid Fast Stain - Final Resulted Wound Breast NO ACID FAST BACILLI SEEN 10/27/16 18:50 Mycobacterial Culture Resulted Wound Breast Pending 10/26/16 20:30 Cryptosporidium Exam - Final Complete Stool Stool NEGATIVE - NO CRYPTOSPORIDIUM ANTIGEN... 10/26/16 20:30 Stool Pus (JOEL) - Final Complete Stool Stool NO WBC'S SEEN 10/26/16 20:30 Giardia Antigen (JOEL) - Final Complete Stool Stool NEGATIVE - NO GIARDIA ANTIGEN DETECTE... Physical Exam GENERAL: Well-nourished, well-developed patient. CARDIOVASCULAR: Regular rate and rhythm without murmurs, gallops, or rubs. RESPIRATORY: Breath sounds equal bilaterally. No accessory muscle use. ABDOMEN/GI: Abdomen soft, non-tender. Fundus: [-] GENITOURINARY: External Genitalia: intact and normal in appearance Cervix: [-] Dilatation: [-] Effacement: [-] Station: [-] Presentation: [-] Membranes: [-] Uterine Contractions: [-] FHT's: Category: [-] Baseline: [-] Reactive: [-] Variability: [-] Decels: [-] EXTREMITIES: No cyanosis or edema, non-tender, without signs of DVT. Assessment and Plan Problem List: (1) 29 weeks gestation of Status: Acute (2) Drug abuse during Status: Acute (3) Seizure disorder Status: Acute (4) Hypothyroidism affecting Status: Acute Assessment and Plan 31 year old female at 29/5 weeks gestation in opioid withdrawals, with left hand cellulitis and right chest wall cellulitis from prior injections, also with coffee ground emesis X1, history of hepatitis C. Discharge Planning Once cellulitis is improving, any areas drained that can be drained, no fevers, stable with opiate withdrawal, and can tolerate PO antibiotics, will plan for discharge with follow up with Dr. Yu, and will start subutex. Also needs follow up with GI for hep C and coffee ground emesis X1 while in hospital. Problem List: (1) Cellulitis of left hand Status: Acute Plan: Had debridement at the bedside of the abscess of the left thumb. - Blood cultures: no growth 2 days - Continue clindamycin, ceftriaxone IV - ID on board, appreciate recommendations - Packing and dressing changes as directed by hand surgery. - Getting TTE to look for valvular vegetation in IV drug user - Wound culture showing Klebsilla pneumonia and MRSA (2) Cellulitis of chest wall Status: Acute Plan: - Consult general surgery, may need drainage - Dr. Andrews saw patient - S/P I&D - Wound cultures pending - Continue clindamycin, ceftriaxone IV - Blood Culture [id number] - ID on board (3) Drug abuse during Status: Acute Plan: - COWS scoring q6H - monitoring - Case management: needs housing, healthy start - 10 mg oxycodone q6hrs - Vistaril 50 mg q6hrs PRN (4) 29 weeks gestation of Status: Acute Plan: - Continue monitoring, expectant management. (5) Coffee ground emesis Status: Acute Plan: One episode of coffee ground emesis, history of hepatitis C. - GI on board, appreciate recommendations. - Pepcid 20 mg bid. - GI recommends protonix, will discuss with Dr. Yu, it is category B. - Mylanta PRN stomach pain - Stool for O&P and c.diff toxin. - Add protonix if symptoms continue. - Phenergan for nausea/vomiting. - EGD/colonoscopy after delivery. (6) Seizure disorder Status: Acute Plan: No resent seizure activity - Neurology consult-appreciate recs - MRI negative for acute disease - EEG negative for seizure activity - Gabapentin 800mg to TID (7) Hepatitis C Status: Acute Plan: History of hepatitis C. Liver enzymes normal. Not treated in the past. - Monitor, follow with GI as outpatient Madeleine Yu MD Oct 30, 2016 13:00
[2016-10-30] MEDS ORDERED: LORazepam 0.5 MG TAB PO SCH (14:00)
--- NOTE | 2016-10-30 14:05 | PD.PLAS.PN ---
Subjective Remarks Patient is sitting comfortably in bed. She reports that the left thumb is feeling much better. Objective Vital Signs Date Time Temp Pulse Resp B/P Pulse Ox O2 Delivery O2 Flow Rate FiO2 10/30/16 04:00 97.9 82 16 96/54 99 10/30/16 00:00 97.3 80 17 109/62 97 10/29/16 20:00 97.3 89 18 110/61 97 10/29/16 16:00 97.9 83 18 121/65 95 I/O 10/29/16 10/29/16 10/29/16 10/30/16 10/30/16 10/30/16 07:00 15:00 23:00 07:00 15:00 23:00 Intake Total 340 ml 1000 ml 570 ml 180 ml Output Total 600 ml Balance -260 ml 1000 ml 570 ml 180 ml Intake Oral 240 ml 1000 ml 380 ml 180 ml IV Total 100 ml 190 ml Output Urine Total 600 ml # Voids 4 5 6 # Bowel Movements 1 1 Date/Time Procedure Status Source Growth 10/27/16 18:50 Gram Stain - Final Complete Wound Breast 10/27/16 18:50 Wound Culture - Final Complete S. Aureus Mrsa 10/27/16 18:50 Fungal Smear - Final Resulted Wound Breast NO FUNGAL ELEMENTS SEEN. 10/27/16 18:50 Fungal Culture Resulted Wound Breast Pending 10/27/16 18:50 Acid Fast Stain - Final Resulted Wound Breast NO ACID FAST BACILLI SEEN 10/27/16 18:50 Mycobacterial Culture Resulted Wound Breast Pending 10/26/16 20:30 Cryptosporidium Exam - Final Complete Stool Stool NEGATIVE - NO CRYPTOSPORIDIUM ANTIGEN... 10/26/16 20:30 Stool Pus (JOEL) - Final Complete Stool Stool NO WBC'S SEEN 10/26/16 20:30 Giardia Antigen (JOEL) - Final Complete Stool Stool NEGATIVE - NO GIARDIA ANTIGEN DETECTE... Exam Findings Wound of the left thumb is healing well. There is no evidence of infection. Patient has good range of motions. Assessment and Plan Diagnosis: (1) Abscess of left thumb Plan: The recommendation is for bedside debridement of the abscess of the left thumb. The procedure was explained and the patient made aware of risks, complications, and postoperative course. She indicated that she understood and opted to proceed. Consents are obtained. Procedure: The patient's identity as well as side and site of surgery was confirmed. Under sterile conditions, a field block consisting of 2% lidocaine plain was administered to the dorsal left thumb. The area was prepped and draped in the usual sterile fashion. After confirming that anesthesia was effective, the abscess was incised using a #15 blade. 1mL of pus was drained and culture was obtained. The wound was explored until all loculation were cleared of purulent material. The wound was copiously irrigated with normal saline and packed with 1/4 inch iodophor packing. A dressing was applied including povidone iodine ointment, telfa, 4x4, and lo. Postoperative instructions are discussed with the patient and the RN. The patient was left lying comfortably, having tolerated the procedure well. Assessment and Plan The patient is progressing well. No additional treatment is recommended at this time. The patient may wash and dry the hand normally. Valerie Rueda Oct 30, 2016 14:05
[2016-10-30] MEDS: cefTRIAXone INJ 2,000 MG in SODIUM CHLORIDE 0.9% INJ 100 ML IV SCH (17:10)
--- NOTE | 2016-10-30 17:59 | HHI.IDPN ---
Subjective Subjective Remarks is a 31 y/o at 29 weeks gestation who presented to labor and delivery requesting detox. Diagnosed with left thumb abscess and right breast abscess. Overnight events reviewed Complains of intense perspiration, diarrhea since this am. RN reports Ativan does cut down. Right breast appears improved. Still has drainage. No further spread of the margin. No fever No rash No diarrhea Fetus moving per patient. UO good. 2D ECHO with vegetation. Will d/w . Antibiotics Ceftriaxone IV Clinda IV Lines Line sites with no e/o infection Past Medical History reviewed IVDA Allergies: Coded Allergies: *MDRO Multi-Drug Resistant Organism (Verified Adverse Reaction, Unknown, MRSA, 10/30/16) MRSA screen POSITIVE - 10/24/16; MRSA (breast & hand)-10/27/16 Objective . Vital Signs Date Time Temp Pulse Resp B/P Pulse Ox O2 Delivery O2 Flow Rate FiO2 10/30/16 16:00 97.7 96 18 124/65 98 10/30/16 15:19 128/62 10/30/16 12:00 97.8 85 18 161/91 99 10/30/16 08:00 97.3 96 18 134/65 96 10/30/16 04:00 97.9 82 16 96/54 99 10/30/16 00:00 97.3 80 17 109/62 97 10/29/16 20:00 97.3 89 18 110/61 97 10/29/16 10/29/16 10/30/16 15:00 23:00 07:00 Intake Total 1000 ml 570 ml 180 ml Balance 1000 ml 570 ml 180 ml Intake Oral 1000 ml 380 ml 180 ml IV Total 190 ml # Voids 4 5 6 # Bowel Movements 1 1 . Microbiology Date/Time Procedure Status Source Growth 10/27/16 18:50 Gram Stain - Final Complete Wound Breast 10/27/16 18:50 Wound Culture - Final Complete S. Aureus Mrsa 10/27/16 18:50 Acid Fast Stain - Final Resulted Wound Breast NO ACID FAST BACILLI SEEN 10/27/16 18:50 Mycobacterial Culture Resulted Wound Breast Pending 10/27/16 18:50 Fungal Smear - Final Resulted Wound Breast NO FUNGAL ELEMENTS SEEN. 10/27/16 18:50 Fungal Culture Resulted Wound Breast Pending Imaging Last Impressions Breast Ultrasound 10/26/16 1610 Signed Impressions: Service Date/Time: October 19:40 - CONCLUSION: Right breast abscess at the 3:00 position 4 cm from the nipple. Asim Fong MD Brain MRI 10/24/16 0000 Signed Impressions: Service Date/Time: Monday, October 24, 2016 14:09 - CONCLUSION: 1. No intracranial abnormalities seen. 2. Small focal area of mucosal disease of the right sphenoid sinus. Asim Arzate MD Physical Exam GENERAL: This is a well-nourished, well-developed patient, in no apparent distress. SKIN: Multiple track cosme noted. HEAD: Atraumatic. Normocephalic. No temporal or scalp tenderness. EYES: Pupils equal round and reactive. Extraocular motions intact. No scleral icterus. No injection or drainage. ENT: Nose without bleeding, purulent drainage or septal hematoma. Throat without erythema, tonsillar hypertrophy or exudate. Uvula midline. Airway patent. NECK: Trachea midline. Supple, nontender, no meningeal signs. CARDIOVASCULAR: Heart sounds audible. RESPIRATORY: Clear to auscultation. Breath sounds equal bilaterally. No wheezes , rales, or rhonchi. GASTROINTESTINAL: Abdomen soft, gravid uterus. MUSCULOSKELETAL: Left thumb much improved. No erythema, no tenderness, no discharge. Able to move thumb. Right breast decrease in induration, erythema, tenderness noted. packing in place. Discharge noted. NEUROLOGICAL: Awake and alert. Non focal. Psych: cooperative. IV line sites with no e/o infection. Assessment & Plan Remarks Endocarditis: MRSA or Kleb pneumo either organisms could be causing this as blood cultures are negative. Left thumb abscess improved s/p bedside drainage. Right breast abscess s/p I&D Intravenous drug abuse both the sites of infection have been prior sites of self injection. at 29 weeks. Midline umbilical hernia asymptomatic at the present time. Recommendations Continue ceftriaxone IV Continue clindamycin IV for now. ? acute withdrawal. d/w RN to call to address pain meds etc. Follow cultures for breast. Follow clinically ECHO findings of vegetation. D.w . Will discuss risk benefits of treating with IV ABX for 6 weeks vs KI. Patient will need Vanco IV possibly as one of the drugs for Endocarditis as Clinda is not the drug of choice for MRSA endocarditis. Vanco has neural side effects on fetus. Will d/w clinical pharmacist regarding treatment options. In addition patient will need treatment with Ceftriaxone IV. Await decision about KI. Maryann Lorenzo MD Oct 30, 2016 17:59
[2016-10-30] MEDS: REMOVE OLD NICODERM (NICOTINE) PATCH TD SCH (21:00)
[2016-10-30] MEDS ORDERED: LORazepam 1 MG TAB PO SCH (21:30)
[2016-10-31] VITALS (7 sets, daily range): BP systolic 102–125; BP diastolic 60–74; PULSE 82–97; RESP 16–18; TEMP 97.6–98; O2SAT 97–99
[2016-10-31] MEDS: CLINDAMYCIN INJ 900 MG in SODIUM CHLORIDE 0.9% INJ 100 ML IV SCH ×3 (04:57→21:44)
[2016-10-31] MEDS: LEVOTHYROXINE SODIUM 50 MCG TAB PO SCH (06:48)
[2016-10-31] MEDS: GABAPENTIN 400 MG CAP PO SCH ×3 (06:48→21:44)
[2016-10-31] MEDS: LORazepam 0.5 MG TAB PO SCH ×2 (06:48→12:44)
--- NOTE | 2016-10-31 08:21 | HHI.FPPN ---
Subjective Remarks No acute events overnight. This morning she feels more withdrawals than before. She reports that her benzodiazepine dose was decreased. She is now having sweating, generalized aches, headache, and discomfort. She reports drainage from the chest wall site but no drainage from the hand. She reports overall improvement of both sites. She has good movements, no contractions, no loss of fluid, no vaginal bleeding. Objective Vitals Vital Signs Date Time Temp Pulse Resp B/P Pulse Ox O2 Delivery O2 Flow Rate FiO2 10/31/16 04:00 97.9 82 18 105/60 98 10/31/16 00:00 97.6 90 18 102/64 99 10/31/16 00:00 Room Air 10/30/16 20:00 98.1 99 18 109/71 97 10/30/16 20:00 Room Air 10/30/16 16:00 97.7 96 18 124/65 98 10/30/16 15:19 128/62 10/30/16 12:00 97.8 85 18 161/91 99 I/O 10/30/16 10/30/16 10/30/16 10/31/16 10/31/16 10/31/16 07:00 15:00 23:00 07:00 15:00 23:00 Intake Total 180 ml 240 ml 480 ml 109 ml Balance 180 ml 240 ml 480 ml 109 ml Intake Oral 180 ml 240 ml 480 ml IV Total 109 ml # Voids 6 2 3 Objective Remarks GENERAL: Well-nourished, well-developed patient. SKIN: Warm and dry. Left thumb is much improved, area of erythema much smaller, no abscess, opening where area is drained, currently with no drainage but she reports some drainage yesterday from the site. No tracking up arm. Right chest wall has opening at site of drainage, appears improved, less erythema, warmth, no swelling. HEAD: Normocephalic and atraumatic. EYES: No scleral icterus. No injection or drainage. ENT: No nasal drainage noted. Mucous membranes pink. Airway patent. NECK: Supple, trachea midline. No JVD. CARDIOVASCULAR: Regular rate and rhythm without murmurs, gallops, or rubs. RESPIRATORY: Breath sounds equal bilaterally. No accessory muscle use. ABDOMEN/GI: Abdomen soft, gravid, non-tender, bowel sounds present, no rebound, no guarding Gravid to 30 weeks size EXTREMITIES: No cyanosis or edema. NEUROLOGICAL: Awake and alert. Motor and sensory grossly within normal limits. Five out of 5 muscle strength in all muscle groups. Normal speech. A/P Assessment and Plan 31 year old female at 30 weeks gestation in opioid withdrawals, with left hand cellulitis and right chest wall cellulitis from prior injections, also with coffee ground emesis X1, history of hepatitis C. Now with concern for possible endocarditis after echodensity noted on TTE, although this is still being worked up. Discharge Planning Once cellulitis is improving, no fevers, stable with opiate withdrawal, and can tolerate PO antibiotics, will plan for discharge with follow up with Dr. Yu, and will start subutex. Also needs follow up with GI for hep C and coffee ground emesis X1 while in hospital. If she indeed has endocarditis, she will need manager terminal IV antibiotics. Problem List: (1) Cellulitis of left hand Status: Acute Plan: Had debridement at the bedside of the abscess of the left thumb. Positive for klebsiella pneumonia and MRSA. - Blood cultures: no growth, repeat if fever. - Continue clindamycin, ceftriaxone IV. May need vancomycin if she has endocarditis, will defer to infectious disease. - ID on board, appreciate recommendations (2) Cellulitis of chest wall Status: Acute Plan: S/p I&D, area improving. Culture: MRSA positive. - Continue clindamycin, ceftriaxone IV - Blood cultures negative - ID on board (3) Heart valve vegetation Status: Acute Plan: Possible MRSA endocarditis. - Assess risks and benefits of KI in patient, versus just treating empirically. - May need vancomycin for adequate treatment. (4) Drug abuse during Status: Acute Plan: - Case management: needs housing, healthy start - 10 mg oxycodone q6hrs - Vistaril 50 mg q6hrs PRN (5) 30 weeks gestation of Status: Acute Plan: - daily heart tones, expectant management. (6) Coffee ground emesis Status: Acute Plan: One episode of coffee ground emesis, history of hepatitis C. - GI on board, appreciate recommendations. - Pepcid 20 mg bid. - GI recommends protonix, will discuss with Dr. Yu, it is category B. - Mylanta PRN stomach pain - Stool for O&P and c.diff toxin. - Add protonix if symptoms continue. - Phenergan for nausea/vomiting. - EGD/colonoscopy after delivery. (7) Seizure disorder Status: Acute Plan: - Neurology consult-appreciate recs - MRI negative for acute disease - EEG negative for seizure activity - Gabapentin 800mg to TID (8) Hepatitis C Status: Acute Plan: History of hepatitis C. Liver enzymes normal. Not treated in the past. - Monitor, follow with GI as outpatient Simón Driscoll MD R2 Oct 31, 2016 08:21
[2016-10-31] MEDS: SODIUM CHLORIDE 0.9% FLUSH 5 ML FLUSH IVF SCH ×2 (09:00→21:45)
[2016-10-31] MEDS: POVIDONE IODINE 10% SOLN 118 ML BOTTLE TOPICAL SCH (09:00)
[2016-10-31] MEDS: POVIDONE IODINE 10% OINT 30 GM TUBE TOPICAL SCH (09:00)
[2016-10-31] MEDS: NICOTINE 21 MG/24 HR PATCH TD SCH (09:48)
[2016-10-31] MEDS: PRENATAL VITAMIN CHEWABLE TAB CHEW SCH (09:49)
[2016-10-31] MEDS: DOCUSATE SODIUM 100 MG CAP PO SCH ×2 (09:49→21:00)
[2016-10-31] MEDS: FAMOTIDINE 20 MG TAB PO SCH ×2 (09:49→21:44)
--- NOTE | 2016-10-31 17:13 | MP ---
cc: JENNA CHAMPAGNE M.D. DATE OF SURGERY: 10/26/2016 PREOPERATIVE DIAGNOSIS: Abscess of left hand. POSTOPERATIVE DIAGNOSIS: Abscess of left hand. OPERATION: Incision and drainage of abscess of the left hand. ANESTHESIA: Local. SURGEON: Jenna Champagne MD HEAT REGULATOR: Teri Marino PA-C INDICATIONS 31-year-old female, 29 weeks , IV drug abuser who has a abscess of the area that she injects of the dorsal ulnar aspect of her left thumb in the area of the MP joint. The MP joint itself was not involved. FINDINGS: Findings at the completion of the procedure a thick pus was drained. It was cultured and the area packed. The patient did tolerate the procedure well. PROCEDURE The patient was placed in an almost supine position with her hand elevated, approximately 30 degrees. The operation was performed on the patient's floor in her bed. The left hand was prepped with Betadine and draped in usual sterile fashion. Lidocaine 2% plain was used to make a field block, proximal to the wound, and then some additional anesthetic was injected over the abscess cavity itself. Once the anesthetic had taken effect a #15 blade was used make a transverse incision down through skin down to the subcutaneous tissue. The scissor was used to spread the wound and released the purulent drainage. It was cultured loculations were broken up with scissor, gently . The wound was then copiously irrigated with saline until the effluent was clear was then packed with Iodoform packing and dressed with povidone-iodine ointment, Adaptic, 4x4s and Jude. The patient was then given back to the care of the floor nurse who was present during the entire procedure. Postoperative instructions were written. The patient did tolerated the procedure well. MD LUPE Jenkins/latonia /4:41 PM /5:04 PM
[2016-10-31] MEDS: cefTRIAXone INJ 2,000 MG in SODIUM CHLORIDE 0.9% INJ 100 ML IV SCH (18:42)
[2016-10-31] MEDS: LORazepam 1 MG TAB PO SCH (21:45)
[2016-10-31] MEDS: REMOVE OLD NICODERM (NICOTINE) PATCH TD SCH (21:47)
[2016-11-01 03:52] VITALS: BP 98/60; PULSE 92; RESP 16; TEMP 97.7; O2SAT 100
[2016-11-01] MEDS: CLINDAMYCIN INJ 900 MG in SODIUM CHLORIDE 0.9% INJ 100 ML IV SCH ×2 (05:42→12:43)
[2016-11-01] MEDS: LORazepam 0.5 MG TAB PO SCH ×2 (05:45→12:43)
[2016-11-01] MEDS: GABAPENTIN 400 MG CAP PO SCH ×3 (05:47→21:10)
[2016-11-01] MEDS: LEVOTHYROXINE SODIUM 50 MCG TAB PO SCH (05:47)
--- NOTE | 2016-11-01 07:32 | PD.OB.ANTE ---
Subjective Diagnosis: (1) 29 weeks gestation of Diagnosis: Principal (2) Drug abuse during Diagnosis: Principal (3) Seizure disorder Diagnosis: Secondary (4) Hypothyroidism affecting Diagnosis: Secondary Interval History Seen last night tearful about situation complaining of pain at breast abcess site Objective Vital Signs Vital Signs Date Time Temp Pulse Resp B/P Pulse Ox O2 Delivery O2 Flow Rate FiO2 11/01/16 03:52 97.7 92 16 98/60 100 10/31/16 23:52 98.0 97 16 105/65 97 10/31/16 20:00 98.0 97 16 125/74 98 10/31/16 20:00 Room Air 10/31/16 16:00 97.9 97 16 107/61 98 10/31/16 12:00 97.8 92 16 116/70 99 10/31/16 08:00 Room Air 10/31/16 08:00 97.9 89 16 116/69 98 Intake & Output 11/01/16 11/01/16 07:00 19:00 Intake Total 1800 ml Output Total 810 ml Balance 990 ml Intake Oral 1800 ml Output Urine Total 810 ml # Bowel Movements 5 Lab & Micro Results Date/Time Procedure Status Source Growth 10/27/16 18:50 Gram Stain - Final Complete Wound Breast 10/27/16 18:50 Wound Culture - Final Complete S. Aureus Mrsa 10/27/16 18:50 Fungal Smear - Final Resulted Wound Breast NO FUNGAL ELEMENTS SEEN. 10/27/16 18:50 Fungal Culture Resulted Wound Breast Pending 10/27/16 18:50 Acid Fast Stain - Final Resulted Wound Breast NO ACID FAST BACILLI SEEN 10/27/16 18:50 Mycobacterial Culture Resulted Wound Breast Pending Physical Exam GENERAL: Well-nourished, well-developed patient. CARDIOVASCULAR: Regular rate and rhythm without murmurs, gallops, or rubs. RESPIRATORY: Breath sounds equal bilaterally. No accessory muscle use. ABDOMEN/GI: Abdomen soft, non-tender. Fundus: [-] GENITOURINARY: External Genitalia: intact and normal in appearance no change in cervix category one strip when evaluated daily breast I & D site examined and no obvious cellulits. No significant discharge thumb healing well EXTREMITIES: No cyanosis or edema, non-tender, without signs of DVT. Assessment and Plan Problem List: (1) 29 weeks gestation of Status: Acute (2) Drug abuse during Status: Acute (3) Seizure disorder Status: Acute (4) Hypothyroidism affecting Status: Acute Assessment and Plan 31 year old female at 30 weeks gestation in opioid withdrawals, with left hand cellulitis and right chest wall cellulitis from prior injections, also with coffee ground emesis X1, history of hepatitis C. Discharge Planning Need KI to determine superintendent container terminal antibiotic choice and timing Problem List: (1) Cellulitis of left hand Status: Acute Plan: Had debridement at the bedside of the abscess of the left thumb. - Blood cultures: no growth 2 days - Continue clindamycin, ceftriaxone IV - ID on board, appreciate recommendations - Packing and dressing changes as directed by hand surgery. - Getting TTE to look for valvular vegetation in IV drug user - Wound culture showing Klebsilla pneumonia and MRSA (2) Cellulitis of chest wall Status: Acute Plan: - Consult general surgery, may need drainage - Dr. Andrews saw patient - S/P I&D - Wound cultures pending - Continue clindamycin, ceftriaxone IV - Blood Culture NGTDx2 - ID on board (3) Drug abuse during Status: Acute Plan: - COWS scoring q6H - monitoring - Case management: needs housing, healthy start - 10 mg oxycodone q6hrs - Vistaril 50 mg q6hrs PRN (4) 29 weeks gestation of Status: Acute Plan: - Continue monitoring, expectant management. (5) Coffee ground emesis Status: Acute Plan: One episode of coffee ground emesis, history of hepatitis C. - GI on board, appreciate recommendations. - Pepcid 20 mg bid. - GI recommends protonix, will discuss with Dr. Yu, it is category B. - Mylanta PRN stomach pain - Stool for O&P and c.diff toxin. - Add protonix if symptoms continue. - Phenergan for nausea/vomiting. - EGD/colonoscopy after delivery. (6) Seizure disorder Status: Acute Plan: No resent seizure activity - Neurology consult-appreciate recs - MRI negative for acute disease - EEG negative for seizure activity - Gabapentin 800mg to TID (7) Hepatitis C Status: Acute Plan: History of hepatitis C. Liver enzymes normal. Not treated in the past. - Monitor, follow with GI as outpatient NEED TO DISCUSS KI WITH DR. PHUC Yu,Madeleine Brandt MD Nov 01, 2016 07:32
[2016-11-01 08:00] VITALS: BP 114/73; PULSE 108; RESP 20; TEMP 98.3; O2SAT 97
[2016-11-01] MEDS: POVIDONE IODINE 10% SOLN 118 ML BOTTLE TOPICAL SCH (09:00)
[2016-11-01] MEDS: POVIDONE IODINE 10% OINT 30 GM TUBE TOPICAL SCH (09:00)
[2016-11-01] MEDS: SODIUM CHLORIDE 0.9% FLUSH 5 ML FLUSH IVF SCH ×2 (09:40→21:00)
[2016-11-01] MEDS: FAMOTIDINE 20 MG TAB PO SCH ×2 (09:40→21:09)
[2016-11-01] MEDS: PRENATAL VITAMIN CHEWABLE TAB CHEW SCH (09:40)
[2016-11-01] MEDS: NICOTINE 21 MG/24 HR PATCH TD SCH (09:40)
[2016-11-01] MEDS: DOCUSATE SODIUM 100 MG CAP PO SCH ×2 (09:40→21:10)
--- NOTE | 2016-11-01 10:03 | MP ---
cc: JERE ANDREWS M.D. DATE OF SURGERY 10/27/2016 PREOPERATIVE DIAGNOSIS Right breast abscess 3 o'clock position. POSTOPERATIVE DIAGNOSIS Right breast abscess 3 o'clock position. PROCEDURE Incision and drainage of breast abscess with removal of necrotic breast tissue. ANESTHESIA General. SURGEON Dr. Andrews INDICATIONS This is a young lady who is an IV drug user, has a breast abscess. It was resistant to antibiotic therapy. PROCEDURE The patient was taken to the operating room, placed in the supine position after anesthesia. Her breast is prepped with Betadine. The mass was easily identified at the 3 o'clock position of the breast, was anesthetized with Marcaine solution. We make a linear incision overlying the apex of the mass. Purulent material returns, is cultured. Very woody, necrotic-appearing tissue is then carefully removed using sharp dissection with sharp scissors and knives. After this was carried out, we then use electrocautery device. We irrigate copiously and we packed it with 1/4-inch Iodoform gauze and a sterile dressing is applied. The patient remained in the hospital on multiple IV antibiotics for her multiple infections including her hand. Jere Andrews MD JDB/SSB /7:03 PM /9:56 AM
--- NOTE | 2016-11-01 10:04 | HHI.FPPN ---
Subjective Remarks Patient seen and examined this morning. Denies any complaints/concerns. Did well overnight. No VB, LOF, CTX. Endorses movement Objective Vitals Vital Signs Date Time Temp Pulse Resp B/P Pulse Ox O2 Delivery O2 Flow Rate FiO2 11/01/16 08:00 98.3 108 20 114/73 97 11/01/16 07:56 18 11/01/16 03:52 97.7 92 16 98/60 100 10/31/16 23:52 98.0 97 16 105/65 97 10/31/16 20:00 98.0 97 16 125/74 98 10/31/16 20:00 Room Air 10/31/16 16:00 97.9 97 16 107/61 98 10/31/16 12:00 97.8 92 16 116/70 99 I/O 10/31/16 10/31/16 10/31/16 11/01/16 11/01/16 11/01/16 07:00 15:00 23:00 07:00 15:00 23:00 Intake Total 480 ml 877 ml 1320 ml 480 ml Output Total 10 ml 800 ml Balance 480 ml 877 ml 1310 ml -320 ml Intake Oral 480 ml 768 ml 1320 ml 480 ml IV Total 109 ml Output Urine Total 10 ml 800 ml # Voids 3 5 # Bowel Movements 3 5 0 Objective Remarks GENERAL: Well-nourished, well-developed patient. SKIN: Warm and dry. Left thumb is much improved, area of erythema much smaller, no abscess, opening where area is drained, currently with no drainage. No tracking up arm. Right chest wall has opening at site of drainage, appears improved, improved erythema, no swelling. HEAD: Normocephalic and atraumatic. EYES: No scleral icterus. No injection or drainage. ENT: No nasal drainage noted. Mucous membranes pink. Airway patent. NECK: Supple, trachea midline. No JVD. CARDIOVASCULAR: Regular rate and rhythm without murmurs, gallops, or rubs. RESPIRATORY: Breath sounds equal bilaterally. No accessory muscle use. ABDOMEN/GI: Abdomen soft, gravid, non-tender, bowel sounds present, no rebound, no guarding Gravid to 30 weeks size FHT: 145 EXTREMITIES: No cyanosis or edema. NEUROLOGICAL: Awake and alert. Motor and sensory grossly within normal limits. Five out of 5 muscle strength in all muscle groups. Normal speech. A/P Assessment and Plan 31 year old female at 30 weeks gestation in opioid withdrawals, with left hand cellulitis and right chest wall cellulitis from prior injections, also with coffee ground emesis X1, history of hepatitis C. Now with concern for possible endocarditis after echodensity noted on TTE, although this is still being worked up. Discharge Planning Once cellulitis is improving, no fevers, stable with opiate withdrawal, and can tolerate PO antibiotics, will plan for discharge with follow up with Dr. Yu, and will start subutex. Also needs follow up with GI for hep C and coffee ground emesis X1 while in hospital. If she indeed has endocarditis, she will need half-way IV antibiotics. Problem List: (1) Cellulitis of left hand Status: Acute Plan: Had debridement at the bedside of the abscess of the left thumb. Positive for klebsiella pneumonia and MRSA. - Blood cultures: no growth, repeat if fever. - Continue clindamycin, ceftriaxone IV. May need vancomycin if she has endocarditis, will defer to infectious disease. - ID on board, appreciate recommendations - Packing/dressing per hand surgery (2) Cellulitis of chest wall Status: Acute Plan: S/p I&D, area improving. Culture: MRSA positive. - Continue clindamycin, ceftriaxone IV - Blood cultures negative - ID on board (3) Heart valve vegetation Status: Acute Plan: Possible MRSA endocarditis. - Assess risks and benefits of KI in patient, versus just treating empirically. - May need vancomycin for adequate treatment. (4) Drug abuse during Status: Acute Plan: - Case management: needs housing, healthy start - 10 mg oxycodone q6hrs - Vistaril 50 mg q6hrs PRN (5) 30 weeks gestation of Status: Acute Plan: FHT 145 today - daily heart tones, expectant management. (6) Coffee ground emesis Status: Acute Plan: One episode of coffee ground emesis, history of hepatitis C. - GI on board, appreciate recommendations. - Pepcid 20 mg bid. - GI recommends protonix, will discuss with Dr. Yu, it is category B. - Mylanta PRN stomach pain - Stool for O&P and c.diff toxin. - Add protonix if symptoms continue. - Phenergan for nausea/vomiting. - EGD/colonoscopy after delivery. (7) Seizure disorder Status: Acute Plan: - Neurology consult-appreciate recs - MRI negative for acute disease - EEG negative for seizure activity - Gabapentin 800mg to TID (8) Hepatitis C Status: Acute Plan: History of hepatitis C. Liver enzymes normal. Not treated in the past. - Monitor, follow with GI as outpatient Problem Qualifiers (1) Hepatitis C: Qualified Code: B18.2 - Chronic hepatitis C without hepatic coma Edgar Carrington MD R1 Nov 01, 2016 10:04
[2016-11-01 12:00] VITALS: BP 109/69; PULSE 94; RESP 16; TEMP 97.1; O2SAT 97
[2016-11-01 16:00] VITALS: BP 114/66; PULSE 83; RESP 16; TEMP 97.7; O2SAT 98
[2016-11-01] MEDS: CEFTAROLINE INJ 600 MG in SODIUM CHLORIDE 0.9% INJ 100 ML IV SCH (17:33)
[2016-11-01] MEDS: cefTRIAXone INJ 2,000 MG in SODIUM CHLORIDE 0.9% INJ 100 ML IV SCH (17:34)
--- NOTE | 2016-11-01 19:43 | HHI.IDPN ---
Subjective Subjective Remarks is a 31 y/o at 29 weeks gestation who presented to labor and delivery requesting detox. Diagnosed with left thumb abscess and right breast abscess. Overnight events reviewed Right breast appears improved. Still has drainage. No further spread of the margin. No fever No rash No diarrhea Fetus moving per patient. UO good. 2D ECHO with vegetation. Will d/w . Antibiotics Ceftriaxone IV Clinda IV Lines Line sites with no e/o infection Past Medical History reviewed IVDA Allergies: Coded Allergies: *MDRO Multi-Drug Resistant Organism (Verified Adverse Reaction, Unknown, MRSA, 10/30/16) MRSA screen POSITIVE - 10/24/16; MRSA (breast & hand)-10/27/16 Objective . Vital Signs Date Time Temp Pulse Resp B/P Pulse Ox O2 Delivery O2 Flow Rate FiO2 11/01/16 16:00 97.7 83 16 114/66 98 11/01/16 14:37 18 11/01/16 12:00 97.1 94 16 109/69 97 11/01/16 08:00 98.3 108 20 114/73 97 11/01/16 03:52 97.7 92 16 98/60 100 10/31/16 23:52 98.0 97 16 105/65 97 10/31/16 20:00 98.0 97 16 125/74 98 10/31/16 20:00 Room Air 10/31/16 10/31/16 11/01/16 15:00 23:00 07:00 Intake Total 877 ml 1320 ml 480 ml Output Total 10 ml 800 ml Balance 877 ml 1310 ml -320 ml Intake Oral 768 ml 1320 ml 480 ml IV Total 109 ml Output Urine Total 10 ml 800 ml # Voids 5 # Bowel Movements 3 5 0 Imaging Last Impressions Breast Ultrasound 10/26/16 1610 Signed Impressions: Service Date/Time: October 19:40 - CONCLUSION: Right breast abscess at the 3:00 position 4 cm from the nipple. Asim Fong MD Brain MRI 10/24/16 0000 Signed Impressions: Service Date/Time: Monday, October 24, 2016 14:09 - CONCLUSION: 1. No intracranial abnormalities seen. 2. Small focal area of mucosal disease of the right sphenoid sinus. Asim Arzate MD Physical Exam GENERAL: This is a well-nourished, well-developed patient, in no apparent distress. SKIN: Multiple track cosme noted. HEAD: Atraumatic. Normocephalic. No temporal or scalp tenderness. EYES: Pupils equal round and reactive. Extraocular motions intact. No scleral icterus. No injection or drainage. ENT: Nose without bleeding, purulent drainage or septal hematoma. Throat without erythema, tonsillar hypertrophy or exudate. Uvula midline. Airway patent. NECK: Trachea midline. Supple, nontender, no meningeal signs. CARDIOVASCULAR: Heart sounds audible. RESPIRATORY: Clear to auscultation. Breath sounds equal bilaterally. No wheezes , rales, or rhonchi. GASTROINTESTINAL: Abdomen soft, gravid uterus. MUSCULOSKELETAL: Left thumb much improved. No erythema, no tenderness, no discharge. Able to move thumb. Right breast decrease in induration, erythema, tenderness noted. packing in place. Discharge noted. NEUROLOGICAL: Awake and alert. Non focal. Psych: cooperative. IV line sites with no e/o infection. Assessment & Plan Remarks Endocarditis: MRSA or Kleb pneumo either organisms could be causing this as blood cultures are negative. Left thumb abscess improved s/p bedside drainage. Right breast abscess s/p I&D Intravenous drug abuse both the sites of infection have been prior sites of self injection. at 29 weeks. Midline umbilical hernia asymptomatic at the present time. Recommendations Continue ceftriaxone IV for Kleb pneumo endocarditis. Start Teflaro IV q8hrs for MRSA endocarditis. DC Clindamycin Follow cultures for breast. Follow clinically ECHO findings of vegetation. Await input satish pt that I will start treatment to get started on day 1 of endocarditis treatment as suspicion is high. Teflaro is class B Category. Reviewed literature for use in women. Satish onofre and Dr. Yu. Patient NOT a candidate for outpatient treatment with IV antibiotics as she is and an active IVDA. For safety of mother and baby I would like this treatment be supervised in hospital. agrees with this plan and so does patient. She promises to be compliant and not abuse drugs. Maryann Lorenzo MD Nov 01, 2016 19:43
[2016-11-01 20:00] VITALS: BP 130/58; PULSE 89; RESP 20; TEMP 98; O2SAT 99
--- NOTE | 2016-11-01 20:39 | PD.OB.ANTE ---
Subjective Diagnosis: (1) 29 weeks gestation of Diagnosis: Principal (2) Drug abuse during Diagnosis: Principal (3) Seizure disorder Diagnosis: Secondary (4) Hypothyroidism affecting Diagnosis: Secondary Interval History Spoke with Dr. Murphy today, who feels that there is a vegetation on the tricuspid valve and that treatment for bacterial endocarditis is indicated. He does not feel she needs a KI to confirm this. Dr. Lorenzo will adjust types and doses of antibiotics accordingly. Luh will need extended in house antibiotic therapy. During that time we will maintain or gradually reduce her opioid and benzo exposure. She is aware and has several books and magazines. She is journaling. Objective Vital Signs Vital Signs Date Time Temp Pulse Resp B/P Pulse Ox O2 Delivery O2 Flow Rate FiO2 11/01/16 16:00 97.7 83 16 114/66 98 11/01/16 14:37 18 11/01/16 12:00 97.1 94 16 109/69 97 11/01/16 08:00 98.3 108 20 114/73 97 11/01/16 03:52 97.7 92 16 98/60 100 10/31/16 23:52 98.0 97 16 105/65 97 Intake & Output 11/01/16 11/01/16 07:00 19:00 Intake Total 1800 ml 2220 ml Output Total 810 ml Balance 990 ml 2220 ml Intake Oral 1800 ml 1920 ml IV Total 300 ml Output Urine Total 810 ml # Voids 10 # Bowel Movements 5 1 Physical Exam GENERAL: Well-nourished, well-developed patient. CARDIOVASCULAR: Regular rate and rhythm without murmurs, gallops, or rubs. RESPIRATORY: Breath sounds equal bilaterally. No accessory muscle use. ABDOMEN/GI: Abdomen soft, non-tender. Fundus: [-] GENITOURINARY: External Genitalia: intact and normal in appearance Cervix: [-] Dilatation: [-] Effacement: [-] Station: [-] Presentation: [-] Membranes: [-] Uterine Contractions: [-] FHT's: Category: [-] Baseline: [-] Reactive: [-] Variability: [-] Decels: [-] EXTREMITIES: No cyanosis or edema, non-tender, without signs of DVT. Assessment and Plan Problem List: (1) 29 weeks gestation of Status: Acute (2) Drug abuse during Status: Acute (3) Seizure disorder Status: Acute (4) Hypothyroidism affecting Status: Acute Assessment and Plan 31 year old female at 30 weeks gestation in opioid withdrawals, with left hand cellulitis and right chest wall cellulitis from prior injections, also with coffee ground emesis X1, history of hepatitis C. Discharge Planning Need KI to determine termite treater helper antibiotic choice and timing Problem List: (1) Cellulitis of left hand Status: Acute Plan: Had debridement at the bedside of the abscess of the left thumb. - Blood cultures: no growth 2 days - Continue clindamycin, ceftriaxone IV - ID on board, appreciate recommendations - Packing and dressing changes as directed by hand surgery. - Getting TTE to look for valvular vegetation in IV drug user - Wound culture showing Klebsilla pneumonia and MRSA (2) Cellulitis of chest wall Status: Acute Plan: - Consult general surgery, may need drainage - Dr. Andrews saw patient - S/P I&D - Wound cultures pending - Continue clindamycin, ceftriaxone IV - Blood Culture [id number] - ID on board (3) Drug abuse during Status: Acute Plan: - COWS scoring q6H - monitoring - Case management: needs housing, healthy start - 10 mg oxycodone q6hrs - Vistaril 50 mg q6hrs PRN (4) 29 weeks gestation of Status: Acute Plan: - Continue monitoring, expectant management. (5) Coffee ground emesis Status: Acute Plan: One episode of coffee ground emesis, history of hepatitis C. - GI on board, appreciate recommendations. - Pepcid 20 mg bid. - GI recommends protonix, will discuss with Dr. Yu, it is category B. - Mylanta PRN stomach pain - Stool for O&P and c.diff toxin. - Add protonix if symptoms continue. - Phenergan for nausea/vomiting. - EGD/colonoscopy after delivery. (6) Seizure disorder Status: Acute Plan: No resent seizure activity - Neurology consult-appreciate recs - MRI negative for acute disease - EEG negative for seizure activity - Gabapentin 800mg to TID (7) Hepatitis C Status: Acute Plan: History of hepatitis C. Liver enzymes normal. Not treated in the past. - Monitor, follow with GI as outpatient NEED TO DISCUSS KI WITH DR. PHUC Yu,Madeleine Brandt MD Nov 01, 2016 20:39
[2016-11-01] MEDS: REMOVE OLD NICODERM (NICOTINE) PATCH TD SCH (21:10)
[2016-11-01] MEDS: LORazepam 1 MG TAB PO SCH (21:10)
[2016-11-02] VITALS: BP 107/57; PULSE 96; RESP 18; TEMP 97.5; O2SAT 98
[2016-11-02] MEDS: CEFTAROLINE INJ 600 MG in SODIUM CHLORIDE 0.9% INJ 100 ML IV SCH ×3 (01:28→16:54)
[2016-11-02 04:00] VITALS: BP 110/67; PULSE 80; RESP 18; TEMP 97.3; O2SAT 100
[2016-11-02] MEDS: LORazepam 0.5 MG TAB PO SCH ×2 (05:56→14:54)
[2016-11-02] MEDS: GABAPENTIN 400 MG CAP PO SCH ×3 (05:56→21:05)
[2016-11-02] MEDS: LEVOTHYROXINE SODIUM 50 MCG TAB PO SCH (05:56)
[2016-11-02 07:37] VITALS: BP 116/68; PULSE 89; RESP 18; TEMP 98.2; O2SAT 96
--- NOTE | 2016-11-02 09:20 | HHI.FPPN ---
Subjective Remarks No acute events overnight. She had two episodes of non-bloody emesis yesterday. She had 4 episodes of diarrhea yesterday. She has a good appetite. She is complaining of a headache this morning. She has some piloerection but overall symptoms of withdrawal have decreased. She has some difficulty sleeping at night due to the headaches. She reports some spots in her vision. Her blood pressures have been normal. She has no new edema. She has good movements. No vaginal bleeding or loss of fluid. No contractions are felt. Objective Vitals Vital Signs Date Time Temp Pulse Resp B/P Pulse Ox O2 Delivery O2 Flow Rate FiO2 11/02/16 07:37 98.2 89 18 116/68 96 11/02/16 04:00 97.3 80 18 110/67 100 11/02/16 00:00 97.5 96 18 107/57 98 11/01/16 20:00 98.0 89 20 130/58 99 11/01/16 16:00 97.7 83 16 114/66 98 11/01/16 14:37 18 11/01/16 12:00 97.1 94 16 109/69 97 I/O 11/01/16 11/01/16 11/01/16 11/02/16 11/02/16 11/02/16 07:00 15:00 23:00 07:00 15:00 23:00 Intake Total 480 ml 1920 ml 780 ml 240 ml Output Total 800 ml Balance -320 ml 1920 ml 780 ml 240 ml Intake Oral 480 ml 1920 ml 480 ml 240 ml IV Total 300 ml Output Urine Total 800 ml # Voids 10 6 4 # Bowel Movements 0 1 0 0 Objective Remarks GENERAL: Well-nourished, well-developed patient. SKIN: Warm and dry. Left thumb is much improved, area of erythema much smaller, no abscess, opening where area is drained, currently with no drainage. No tracking up arm. Right chest wall has opening at site of drainage, packing in place, no drainage currently but had drainage overnight, improved erythema, small area of induration felt next to opening. HEAD: Normocephalic and atraumatic. EYES: No scleral icterus. No injection or drainage. ENT: No nasal drainage noted. Mucous membranes pink. Airway patent. NECK: Supple, trachea midline. No JVD. CARDIOVASCULAR: 2/6 systolic murmur heard loudest over left lower sternal border. RESPIRATORY: Breath sounds equal bilaterally. No accessory muscle use. ABDOMEN/GI: Abdomen soft, gravid, non-tender, bowel sounds present, no rebound, no guarding Gravid to 30 weeks size FHT: 130 EXTREMITIES: No cyanosis or edema. NEUROLOGICAL: Awake and alert. Motor and sensory grossly within normal limits. Five out of 5 muscle strength in all muscle groups. Normal speech. A/P Assessment and Plan 31 year old female at 30+ weeks gestation in opioid withdrawals, with left hand cellulitis and right chest wall cellulitis from prior injections, also with coffee ground emesis X1, history of hepatitis C. Now with concern for possible endocarditis after echodensity noted on TTE. Discharge Planning Requires long-term IV antibiotics in the hospital due to concern for MRSA endocarditis. High risk of relapsing if discharged for outpatient antibiotics. Problem List: (1) Cellulitis of left hand Status: Acute Plan: Had debridement at the bedside of the abscess of the left thumb. Positive for klebsiella pneumonia and MRSA. - Blood cultures: no growth - Discontinued clindamycin, 10/27 - 11/01. - Ceftaroline started 11/01/16, ceftriaxone IV started 10/25/16. May need vancomycin if she has endocarditis, will defer to infectious disease. - ID on board, appreciate recommendations (2) Cellulitis of chest wall Status: Acute Plan: S/p I&D, area improving. However there is a small area of induration that seems to be forming next to opening. Culture: MRSA positive. - Continue ceftaroline, ceftriaxone IV - Blood cultures negative - ID on board - If new abscess forming may need another I&D (3) Heart valve vegetation Status: Acute Plan: Possible MRSA endocarditis detected by TTE. - Assess risks and benefits of KI in patient, versus just treating empirically. At this point leaning toward empirically treating. - Started ceftaroline, will need long course. (4) Drug abuse during Status: Acute Plan: - Case management: needs housing, healthy start - 10 mg oxycodone q6hrs - Vistaril 50 mg q6hrs PRN - Needs intensive counseling, therapy as an outpatient. (5) 30 weeks gestation of Status: Acute Plan: FHT 130 today - daily heart tones, expectant management. (6) Coffee ground emesis Status: Acute Plan: One episode of coffee ground emesis, history of hepatitis C. - GI on board, appreciate recommendations. - Pepcid 20 mg bid. - GI recommends protonix, will discuss with Dr. Yu, it is category B. - Mylanta PRN stomach pain - Stool for O&P and c.diff toxin negative. - Add protonix if symptoms continue. - Phenergan for nausea/vomiting. - EGD/colonoscopy after delivery. (7) Seizure disorder Status: Chronic Plan: - Neurology consult-appreciate recs - MRI negative for acute disease - EEG negative for seizure activity - Gabapentin 800mg to TID (8) Hepatitis C Status: Chronic Plan: History of hepatitis C. Liver enzymes normal. Not treated in the past. - Monitor, follow with GI as outpatient Problem Qualifiers (1) Hepatitis C: Qualified Code: B18.2 - Chronic hepatitis C without hepatic coma Simón Driscoll MD R2 Nov 02, 2016 09:20
[2016-11-02] MEDS ORDERED: ACETAMINOPHEN 325 MG TAB PO ONE (09:30)
[2016-11-02 10:13] LABS: AUTOMATED NEUTROPHIL # 12.8 TH/MM3 (1.8-7.7); BASOPHIL # 0.2 TH/MM3 (0-0.2); BASOPHIL % 0.9 % (0.0-2.0); EOSINOPHIL # 0.2 TH/MM3 (0-0.4); HEMATOCRIT 34.6 % (35.0-46.0); HEMO FLAGS DIFF FINAL; LYMPH % 17.3 % (9.0-44.0); LYMPHOCYTE # 2.9 TH/MM3 (1.0-4.8); MEAN CELL VOLUME 82.8 FL (80.0-100.0); MEAN CORPUSCULAR HEMOGLOBIN 28.1 PG (27.0-34.0); MEAN CORPUSCULAR HGB CONC 33.9 % (32.0-36.0); MONO % 5.7 % (0.0-8.0); NEUT % 75.1 % (16.0-70.0); PLATELET COUNT 463 TH/MM3 (150-450); RED BLOOD COUNT 4.18 MIL/MM3 (4.00-5.30); RED CELL DISTRIBUTION WIDTH 14.5 % (11.6-17.2); WHITE BLOOD COUNT 17.1 TH/MM3 (4.0-11.0)
[2016-11-02] MEDS: NICOTINE 21 MG/24 HR PATCH TD SCH (10:21)
[2016-11-02] MEDS: FAMOTIDINE 20 MG TAB PO SCH ×2 (10:21→21:05)
[2016-11-02] MEDS: SODIUM CHLORIDE 0.9% FLUSH 5 ML FLUSH IVF SCH ×2 (10:21→21:00)
[2016-11-02] MEDS: POVIDONE IODINE 10% SOLN 118 ML BOTTLE TOPICAL SCH (10:22)
[2016-11-02] MEDS: POVIDONE IODINE 10% OINT 30 GM TUBE TOPICAL SCH (10:22)
[2016-11-02] MEDS: DOCUSATE SODIUM 100 MG CAP PO SCH ×2 (10:24→21:00)
[2016-11-02 10:42] LABS: ALKALINE PHOSPHATASE 110 U/L (45-117); ALT (GPT) 8 U/L (10-53); ANION GAP 11 MEQ/L (5-15); AST (GOT) LESS THAN 3 U/L (15-37); BICARBONATE 21.8 MEQ/L (21.0-32.0); BLOOD UREA NITROGEN 7 MG/DL (7-18); CHLORIDE 101 MEQ/L (98-107); GLOMERULAR FILTRATION RATE 118 ML/MIN (>89); POTASSIUM 3.5 MEQ/L (3.5-5.1); SODIUM (NA) 134 MEQ/L (136-145); TOTAL BILIRUBIN ADULT 0.1 MG/DL (0.2-1.0)
[2016-11-02] MEDS: PRENATAL VITAMIN CHEWABLE TAB CHEW SCH (11:27)
[2016-11-02 12:00] VITALS: BP 119/69; PULSE 88; RESP 20; TEMP 98; O2SAT 99
[2016-11-02 16:00] VITALS: BP 129/67; PULSE 95; RESP 18; TEMP 98.2; O2SAT 97
[2016-11-02] MEDS: cefTRIAXone INJ 2,000 MG in SODIUM CHLORIDE 0.9% INJ 100 ML IV SCH (16:54)
--- NOTE | 2016-11-02 18:17 | HHI.IDPN ---
Subjective Subjective Remarks is a 31 y/o at 29 weeks gestation who presented to labor and delivery requesting detox. Diagnosed with left thumb abscess and right breast abscess. Overnight events reviewed Right breast appears improved. Still has drainage. No further spread of the margin. No fever No rash No diarrhea Fetus moving per patient. UO good. 2D ECHO with vegetation. D/w will treat as endocarditis. Antibiotics Ceftriaxone IV Teflaro IV Lines Line sites with no e/o infection Past Medical History reviewed IVDA Allergies: Coded Allergies: *MDRO Multi-Drug Resistant Organism (Verified Adverse Reaction, Unknown, MRSA, 10/30/16) MRSA screen POSITIVE - 10/24/16; MRSA (breast & hand)-10/27/16 Objective . Vital Signs Date Time Temp Pulse Resp B/P Pulse Ox O2 Delivery O2 Flow Rate FiO2 11/02/16 16:00 98.2 95 18 129/67 97 11/02/16 12:00 98.0 88 20 119/69 99 11/02/16 07:37 98.2 89 18 116/68 96 11/02/16 04:00 97.3 80 18 110/67 100 11/02/16 00:00 97.5 96 18 107/57 98 11/01/16 20:00 98.0 89 20 130/58 99 11/01/16 11/01/16 11/02/16 15:00 23:00 07:00 Intake Total 1920 ml 780 ml 240 ml Balance 1920 ml 780 ml 240 ml Intake Oral 1920 ml 480 ml 240 ml IV Total 300 ml # Voids 10 6 4 # Bowel Movements 1 0 0 . Laboratory Tests Test 11/02/16 09:52 White Blood Count 17.1 TH/MM3 Red Blood Count 4.18 MIL/MM3 Hemoglobin 11.7 GM/DL Hematocrit 34.6 % Mean Corpuscular Volume 82.8 FL Mean Corpuscular Hemoglobin 28.1 PG Mean Corpuscular Hemoglobin 33.9 % Concent Red Cell Distribution Width 14.5 % Platelet Count 463 TH/MM3 Mean Platelet Volume 6.3 FL Neutrophils (%) (Auto) 75.1 % Lymphocytes (%) (Auto) 17.3 % Monocytes (%) (Auto) 5.7 % Eosinophils (%) (Auto) 1.0 % Basophils (%) (Auto) 0.9 % Neutrophils # (Auto) 12.8 TH/MM3 Lymphocytes # (Auto) 2.9 TH/MM3 Monocytes # (Auto) 1.0 TH/MM3 Eosinophils # (Auto) 0.2 TH/MM3 Basophils # (Auto) 0.2 TH/MM3 CBC Comment DIFF FINAL Differential Comment Laboratory Tests Test 11/02/16 09:52 Sodium Level 134 MEQ/L Potassium Level 3.5 MEQ/L Chloride Level 101 MEQ/L Carbon Dioxide Level 21.8 MEQ/L Anion Gap 11 MEQ/L Blood Urea Nitrogen 7 MG/DL Creatinine 0.60 MG/DL Estimat Glomerular Filtration 118 ML/MIN Rate Random Glucose 104 MG/DL Calcium Level 8.2 MG/DL Total Bilirubin 0.1 MG/DL Aspartate Amino Transf LESS THAN 3 U/L (AST/SGOT) Alanine Aminotransferase 8 U/L (ALT/SGPT) Alkaline Phosphatase 110 U/L C-Reactive Protein LESS THAN 0.29 MG/DL Total Protein 7.4 GM/DL Albumin 2.6 GM/DL Imaging Last Impressions Breast Ultrasound 10/26/16 1610 Signed Impressions: Service Date/Time: October 19:40 - CONCLUSION: Right breast abscess at the 3:00 position 4 cm from the nipple. Asim Fong MD Brain MRI 10/24/16 0000 Signed Impressions: Service Date/Time: Monday, October 24, 2016 14:09 - CONCLUSION: 1. No intracranial abnormalities seen. 2. Small focal area of mucosal disease of the right sphenoid sinus. Asim Arzate MD Physical Exam GENERAL: This is a well-nourished, well-developed patient, in no apparent distress. SKIN: Multiple track cosme noted. HEAD: Atraumatic. Normocephalic. No temporal or scalp tenderness. EYES: Pupils equal round and reactive. Extraocular motions intact. No scleral icterus. No injection or drainage. ENT: Nose without bleeding, purulent drainage or septal hematoma. Throat without erythema, tonsillar hypertrophy or exudate. Uvula midline. Airway patent. NECK: Trachea midline. Supple, nontender, no meningeal signs. CARDIOVASCULAR: Heart sounds audible. RESPIRATORY: Clear to auscultation. Breath sounds equal bilaterally. No wheezes , rales, or rhonchi. GASTROINTESTINAL: Abdomen soft, gravid uterus. MUSCULOSKELETAL: Left thumb much improved. No erythema, no tenderness, no discharge. Able to move thumb. Right breast decrease in induration, erythema, tenderness noted. packing in place. Discharge noted. NEUROLOGICAL: Awake and alert. Non focal. Psych: cooperative. IV line sites with no e/o infection. Assessment & Plan Remarks Endocarditis: MRSA or Kleb pneumo either organisms could be causing this as blood cultures are negative. Left thumb abscess improved s/p bedside drainage. Right breast abscess s/p I&D Intravenous drug abuse both the sites of infection have been prior sites of self injection. at 29 weeks. Midline umbilical hernia asymptomatic at the present time. Recommendations Continue ceftriaxone IV for Kleb pneumo endocarditis. 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 Follow clinically D.w pt and Dr. Yu. Patient NOT a candidate for outpatient treatment with IV antibiotics as she is and an active IVDA. For safety of mother and baby I would like this treatment be supervised in hospital. agrees with this plan and so does patient. She promises to be compliant and not abuse drugs. Weekly CBC with diff, CMP, CRP to be ordered by primary team. I will follow prn. Please call sooner if any change in clinical condition or questions. Maryann Lorenzo MD Nov 02, 2016 18:17
[2016-11-02 20:00] VITALS: BP 115/68; PULSE 75; RESP 18; TEMP 97.6; O2SAT 100
[2016-11-02] MEDS: LORazepam 1 MG TAB PO SCH (21:05)
[2016-11-03] VITALS: BP_SYST 105; BP_DIAS 62; BP_DIAS 73; PULSE 77; PULSE 81; RESP 18; TEMP 97.8; O2SAT 100; O2SAT 97
[2016-11-03] MEDS: CEFTAROLINE INJ 600 MG in SODIUM CHLORIDE 0.9% INJ 100 ML IV SCH ×3 (00:54→18:21)
[2016-11-03 04:00] VITALS: BP 112/75; PULSE 84; RESP 18; TEMP 97.2; O2SAT 98
[2016-11-03] MEDS: GABAPENTIN 400 MG CAP PO SCH ×3 (06:04→22:26)
[2016-11-03] MEDS: LORazepam 0.5 MG TAB PO SCH ×2 (06:04→14:00)
[2016-11-03] MEDS: LEVOTHYROXINE SODIUM 50 MCG TAB PO SCH (06:04)
[2016-11-03 08:00] VITALS: BP 99/62; PULSE 89; RESP 18; TEMP 97.8; O2SAT 97
[2016-11-03] MEDS: POVIDONE IODINE 10% SOLN 118 ML BOTTLE TOPICAL SCH (09:00)
[2016-11-03] MEDS: DOCUSATE SODIUM 100 MG CAP PO SCH ×2 (09:00→21:00)
[2016-11-03] MEDS: PRENATAL VITAMIN CHEWABLE TAB CHEW SCH (09:00)
[2016-11-03] MEDS: POVIDONE IODINE 10% OINT 30 GM TUBE TOPICAL SCH (09:00)
[2016-11-03] MEDS: FAMOTIDINE 20 MG TAB PO SCH ×2 (09:08→22:26)
[2016-11-03] MEDS: SODIUM CHLORIDE 0.9% FLUSH 5 ML FLUSH IVF SCH ×2 (09:08→22:28)
[2016-11-03] MEDS: NICOTINE 21 MG/24 HR PATCH TD SCH (09:10)
[2016-11-03 12:00] VITALS: BP 120/64; PULSE 84; RESP 18; TEMP 97.4; O2SAT 100
--- NOTE | 2016-11-03 13:55 | PD.OB.ANTE ---
Subjective Diagnosis: (1) 29 weeks gestation of Diagnosis: Principal (2) Drug abuse during Diagnosis: Principal (3) Seizure disorder Diagnosis: Secondary (4) Hypothyroidism affecting Diagnosis: Secondary Interval History 31 yo P4 at 30 6/7 who is on shelter IV antibiotics for CHACHA of tricuspid valve. Being opioid maintained on 40 mg oxycodone. Having contractions today. They are in lower back and painful and coming closer together. States alot of mucus coming out. GFM Antepartum ROS: Reports: New complaints, Loss of fluid, Vaginal bleeding, movement normal, Contractions, Other Objective Vital Signs Vital Signs Date Time Temp Pulse Resp B/P Pulse Ox O2 Delivery O2 Flow Rate FiO2 11/03/16 12:00 97.4 84 18 120/64 100 11/03/16 08:00 97.8 89 18 99/62 97 11/03/16 04:00 97.2 84 18 112/75 98 11/03/16 00:00 97.8 81 18 105/62 97 11/02/16 20:00 97.6 75 18 115/68 100 11/02/16 16:00 98.2 95 18 129/67 97 Intake & Output 11/03/16 11/03/16 07:00 19:00 Intake Total 480 ml Balance 480 ml Intake Oral 480 ml # Voids 3 # Bowel Movements 0 Physical Exam GENERAL: Well-nourished, well-developed patient. CARDIOVASCULAR: Regular rate and rhythm without murmurs, gallops, or rubs. RESPIRATORY: Breath sounds equal bilaterally. No accessory muscle use. palpable contractions external os is 3cm and internal os in less than one FHT's: 140's EXTREMITIES: No cyanosis or edema, non-tender, without signs of DVT. Assessment and Plan Problem List: (1) 29 weeks gestation of Status: Acute (2) Drug abuse during Status: Acute (3) Seizure disorder Status: Chronic (4) Hypothyroidism affecting Status: Acute Assessment and Plan 31 yo at 306/7 with palapble contractions on med surg for extended antibiotic use. Come to L & D for four hours of monitoring and return to med surg if stable Otherwise labor protocol Madeleine Yu MD Nov 03, 2016 13:55
[2016-11-03] MEDS ORDERED: SODIUM CHLORIDE 0.9% FLUSH 5 ML FLUSH IVF PRN (14:00)
[2016-11-03] MEDS: BETAMETHASONE SOD PHOS/ACETATE SUSP 30 MG/5 ML VIAL IM SCH (15:00)
[2016-11-03] MEDS: cefTRIAXone INJ 2,000 MG in SODIUM CHLORIDE 0.9% INJ 100 ML IV SCH (18:22)
--- NOTE | 2016-11-03 19:34 | HHI.PR ---
Review/Management Diagnosis seizures--related to drug use /withdrawal, but also probable underlying primary seizure disorder with EEG finding of sharp transients in left temporal lobe Plan continue gabapentin because of EEG findings slowly taper ativan over 3-4 weeks as tolerated Diagnosis/Plan: Subjective Subjective Comments No acute events reported No seizures Active Medications Current Medications Medications (Trade) Dose Ordered Sig/Koki Route Start Time Stop Time Status Last Admin (Vistaril) 50 mg Q6H PRN PO 10/23/16 10:30 10/31/16 18:43 (Synthroid) 50 mcg DAILY@0600 PO 10/23/16 10:45 11/03/16 06:04 (Roxicodone) 10 mg Q6H PRN PO 10/24/16 09:00 11/03/16 18:16 (Ativan Inj) 1 mg Q4H PRN IV PUSH 10/24/16 09:00 (Pepcid) 20 mg Q12HR PO 10/25/16 10:00 11/03/16 09:08 (Mag-Al Plus Susp Liq) 30 ml Q6H PRN PO 10/25/16 10:00 10/26/16 12:06 (Tylenol) 650 mg Q4H PRN PO 10/25/16 11:45 10/25/16 12:37 (Neurontin) 800 mg DAILY@06,14,22 PO 10/25/16 14:00 11/03/16 06:04 Promethazine HCl 25 mg 25 mg Q6H PRN PO 10/25/16 17:30 10/26/16 16:28 (Rocephin Inj/NS Inj) 100 ml @ 200 mls/hr Q24H IV 10/25/16 18:00 11/03/16 18:22 (Betadine 10% Top Soln) 1 applic DAILY TOPICAL 10/27/16 09:00 11/03/16 09:00 (Betadine 10% Oint) 1 applic DAILY TOPICAL 10/27/16 09:00 11/03/16 09:00 (Colace) 100 mg BID PO 10/26/16 21:00 11/01/16 21:10 (Habitrol 21 Mg Patch.24 Hr) 1 patch DAILY TD 10/27/16 10:15 11/03/16 09:10 Miscellaneous Information 1 HS TD 10/27/16 21:00 11/01/16 21:10 (Ativan) 0.5 mg DAILY@06,14 PO 10/31/16 06:00 11/03/16 06:04 Lorazepam 1 mg 1 mg DAILY@22 PO 10/31/16 22:00 11/02/16 21:05 (Teflaro Inj/NS Inj) 100 ml @ 100 mls/hr Q8H IV 11/01/16 17:00 11/03/16 18:21 (NS Flush) 2 ml BID IVF 11/03/16 21:00 (NS Flush) 2 ml UNSCH PRN IVF 11/03/16 14:00 (Celestone Soluspan Inj) 12 mg Q24H IM 11/03/16 15:00 11/04/16 15:01 Allergies Allergies Coded Allergies *MDRO Multi-Drug Resistant Organism (Verified Adverse Reaction, Unknown, MRSA , 10/30/16) Exam I&O / VS 11/02/16 11/02/16 11/03/16 15:00 23:00 07:00 Intake Total 960 ml 350 ml 240 ml Balance 960 ml 350 ml 240 ml Intake Oral 960 ml 240 ml 240 ml IV Total 110 ml # Voids 3 2 1 # Bowel Movements 1 0 0 Vital Signs Date Time Temp Pulse Resp B/P Pulse Ox O2 Delivery O2 Flow Rate FiO2 11/03/16 12:00 97.4 84 18 120/64 100 11/03/16 08:00 97.8 89 18 99/62 97 11/03/16 04:00 97.2 84 18 112/75 98 11/03/16 00:00 97.8 81 18 105/62 97 11/02/16 20:00 97.6 75 18 115/68 100 Exam Comments alert, oriented times three, speech normal CN 2-12 normal motor--no focal deficits Valentino Reese PhD Nov 03, 2016 19:34
[2016-11-03 20:00] VITALS: BP 118/75; PULSE 84; RESP 18; TEMP 98.1; O2SAT 98
[2016-11-03] MEDS: REMOVE OLD NICODERM (NICOTINE) PATCH TD SCH (21:00)
[2016-11-03] MEDS: LORazepam 1 MG TAB PO SCH (22:27)
[2016-11-04] VITALS: BP 105/73; PULSE 77; RESP 18; TEMP 97.8; O2SAT 100
[2016-11-04] MEDS: CEFTAROLINE INJ 600 MG in SODIUM CHLORIDE 0.9% INJ 100 ML IV SCH ×3 (00:26→16:06)
[2016-11-04 04:00] VITALS: BP 99/60; PULSE 69; RESP 18; TEMP 97; O2SAT 98
[2016-11-04] MEDS: GABAPENTIN 400 MG CAP PO SCH ×3 (05:32→20:34)
[2016-11-04] MEDS: LORazepam 0.5 MG TAB PO SCH ×2 (05:32→14:13)
[2016-11-04] MEDS: LEVOTHYROXINE SODIUM 50 MCG TAB PO SCH (05:32)
[2016-11-04 07:43] VITALS: BP 100/64; PULSE 83; RESP 18; TEMP 98.1; O2SAT 97
[2016-11-04] MEDS: NICOTINE 21 MG/24 HR PATCH TD SCH (08:16)
[2016-11-04] MEDS: DOCUSATE SODIUM 100 MG CAP PO SCH ×2 (08:17→20:35)
[2016-11-04] MEDS: SODIUM CHLORIDE 0.9% FLUSH 5 ML FLUSH IVF SCH ×2 (08:17→20:33)
[2016-11-04] MEDS: FAMOTIDINE 20 MG TAB PO SCH ×2 (08:17→20:35)
[2016-11-04] MEDS: PRENATAL VITAMIN CHEWABLE TAB CHEW SCH (08:17)
[2016-11-04] MEDS: POVIDONE IODINE 10% OINT 30 GM TUBE TOPICAL SCH (08:22)
[2016-11-04] MEDS: POVIDONE IODINE 10% SOLN 118 ML BOTTLE TOPICAL SCH (08:24)
--- NOTE | 2016-11-04 11:37 | HHI.IDPN ---
Subjective Subjective Remarks ID COVERAGE Notes reviewed No fever Having diarrhea Right breast appears improved. No rash Fetus moving per patient. UO good. 2D ECHO with vegetation Antibiotics Ceftriaxone IV Teflaro IV Lines Line sites with no e/o infection Past Medical History reviewed IVDA Allergies: Coded Allergies: *MDRO Multi-Drug Resistant Organism (Verified Adverse Reaction, Unknown, MRSA, 10/30/16) MRSA screen POSITIVE - 10/24/16; MRSA (breast & hand)-10/27/16 Objective . Vital Signs Date Time Temp Pulse Resp B/P Pulse Ox O2 Delivery O2 Flow Rate FiO2 11/04/16 09:14 Room Air 11/04/16 07:43 98.1 83 18 100/64 97 11/04/16 04:00 97.0 69 18 99/60 98 11/04/16 04:00 Room Air 11/04/16 00:00 Room Air 11/04/16 00:00 97.8 77 18 105/73 100 11/03/16 20:00 98.1 84 18 118/75 98 11/03/16 20:00 Room Air 11/03/16 12:00 97.4 84 18 120/64 100 11/03/16 11/03/16 11/04/16 15:00 23:00 07:00 Intake Total 960 ml 480 ml 580 ml Balance 960 ml 480 ml 580 ml Intake Oral 960 ml 480 ml 480 ml IV Total 100 ml # Voids 3 2 2 # Bowel Movements 1 0 0 . Laboratory Tests Test 11/03/16 20:45 Glucose 1 Hour Challenge 165 MG/DL Imaging Last Impressions Breast Ultrasound 10/26/16 1610 Signed Impressions: Service Date/Time: October 19:40 - CONCLUSION: Right breast abscess at the 3:00 position 4 cm from the nipple. Asim Fong MD Brain MRI 10/24/16 0000 Signed Impressions: Service Date/Time: Monday, October 24, 2016 14:09 - CONCLUSION: 1. No intracranial abnormalities seen. 2. Small focal area of mucosal disease of the right sphenoid sinus. Asim Arzate MD Physical Exam GENERAL:Awake and alert, NAD SKIN: Multiple track cosme noted. No rash HEAD: Atraumatic. Normocephalic. No temporal or scalp tenderness. EYES: Pupils equal round and reactive. No petchia or hemorrhage. No scleral icterus. No injection or drainage. ENT: Nose without bleeding, purulent drainage. Throat without erythema, or exudate. Uvula midline. Airway patent. NECK: Trachea midline. Supple, nontender, no meningeal signs. CARDIOVASCULAR: Heart sounds audible. RESPIRATORY: Clear to auscultation. Breath sounds equal bilaterally. No wheezes , rales, or rhonchi. GASTROINTESTINAL: Abdomen soft, gravid uterus. MUSCULOSKELETAL: Left thumb much improved. No erythema, no tenderness, no discharge. Able to move thumb. Right breast decrease in induration, no erythema, tenderness noted. packing in place.No drainage NEUROLOGICAL: Awake and alert. Non focal. Psych: cooperative. IV line sites with no e/o infection. Assessment & Plan Remarks Endocarditis: MRSA or Kleb pneumo either organisms could be causing this as blood cultures are negative. Left thumb abscess improved s/p bedside drainage. Right breast abscess s/p I&D, better Intravenous drug abuse both the sites of infection have been prior sites of self injection. at 29 weeks. Midline umbilical hernia asymptomatic at the present time. 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 Follow clinically Monitor progress Check stool for C diff Paris Glass MD Nov 04, 2016 11:37
[2016-11-04 11:50] VITALS: BP 109/71; PULSE 91; RESP 18; TEMP 97.8; O2SAT 97
[2016-11-04] MEDS: BETAMETHASONE SOD PHOS/ACETATE SUSP 30 MG/5 ML VIAL IM SCH (14:13)
[2016-11-04 16:00] VITALS: BP 104/78; PULSE 85; RESP 18; TEMP 97; O2SAT 97
[2016-11-04] MEDS: cefTRIAXone INJ 2,000 MG in SODIUM CHLORIDE 0.9% INJ 100 ML IV SCH (17:18)
[2016-11-04 20:00] VITALS: BP 117/68; PULSE 81; RESP 18; TEMP 97.9; O2SAT 98
[2016-11-04] MEDS: LORazepam 1 MG TAB PO SCH (20:35)
[2016-11-04] MEDS: REMOVE OLD NICODERM (NICOTINE) PATCH TD SCH (21:00)
[2016-11-05] VITALS: BP 108/63; PULSE 79; RESP 18; TEMP 98.1; O2SAT 96
[2016-11-05] MEDS: CEFTAROLINE INJ 600 MG in SODIUM CHLORIDE 0.9% INJ 100 ML IV SCH ×4 (00:34→23:51)
[2016-11-05 04:00] VITALS: BP 91/54; PULSE 76; RESP 18; TEMP 98.2; O2SAT 98
[2016-11-05] MEDS: GABAPENTIN 400 MG CAP PO SCH ×3 (05:58→23:13)
[2016-11-05] MEDS: LEVOTHYROXINE SODIUM 50 MCG TAB PO SCH (05:59)
[2016-11-05] MEDS: LORazepam 0.5 MG TAB PO SCH ×2 (06:03→13:05)
[2016-11-05 08:00] VITALS: BP 129/70; PULSE 72; RESP 18; TEMP 97.3; O2SAT 99
[2016-11-05] MEDS: POVIDONE IODINE 10% SOLN 118 ML BOTTLE TOPICAL SCH (09:00)
[2016-11-05] MEDS: SODIUM CHLORIDE 0.9% FLUSH 5 ML FLUSH IVF SCH ×2 (09:30→20:24)
[2016-11-05] MEDS: DOCUSATE SODIUM 100 MG CAP PO SCH ×2 (09:31→20:24)
[2016-11-05] MEDS: PRENATAL VITAMIN CHEWABLE TAB CHEW SCH (09:31)
[2016-11-05] MEDS: FAMOTIDINE 20 MG TAB PO SCH ×2 (09:31→20:24)
[2016-11-05] MEDS: NICOTINE 21 MG/24 HR PATCH TD SCH (09:32)
[2016-11-05] MEDS: POVIDONE IODINE 10% OINT 30 GM TUBE TOPICAL SCH (09:40)
--- NOTE | 2016-11-05 11:24 | PD.OB.ANTE ---
Subjective Diagnosis: (1) 29 weeks gestation of Diagnosis: Principal (2) Drug abuse during Diagnosis: Principal (3) Seizure disorder Diagnosis: Secondary (4) Hypothyroidism affecting Diagnosis: Secondary Interval History Resting comfortably with friend visiting On Sunday she fell in the shower and opened up her surgical site on her thumb. She is now casted. Pain is throbbing. She is aware that she is on the 40 oxycodone strictly to prevent withdrawal (maintenance) and she wants to wean both this and xanax. However her pain is 7/10 in the thumb. She has only occasional contractions She reports no vaginal bleeding or leaking. Extended monitoring four hours) on Sunday was reassuring for heart rate and lack of labor. She is eating well. She is overall in reasonable spirits Antepartum ROS: Denies: New complaints, Loss of fluid, Vaginal bleeding, movement normal, Contractions, Other Objective Vital Signs Vital Signs Date Time Temp Pulse Resp B/P Pulse Ox O2 Delivery O2 Flow Rate FiO2 11/05/16 09:30 99 Room Air 21 11/05/16 08:00 97.3 72 18 129/70 99 11/05/16 04:00 98.2 76 18 91/54 98 11/05/16 00:00 98.1 79 18 108/63 96 11/05/16 00:00 Room Air 11/04/16 20:00 97.9 81 18 117/68 98 11/04/16 20:00 Room Air 11/04/16 16:00 97.0 85 18 104/78 97 11/04/16 11:50 97.8 91 18 109/71 97 Intake & Output 11/05/16 11/05/16 07:00 19:00 Intake Total 820 ml Balance 820 ml Intake Oral 720 ml IV Total 100 ml # Voids 4 # Bowel Movements 0 Physical Exam GENERAL: Well-nourished, well-developed patient. CARDIOVASCULAR: Regular rate and rhythm without murmurs, gallops, or rubs. RESPIRATORY: Breath sounds equal bilaterally. No accessory muscle use. ABDOMEN/GI: Abdomen soft, non-tender. Fundus: [-] Fundus consistent with 31 weeks EGA left thumb and forearm casted. Assessment and Plan Problem List: (1) 29 weeks gestation of Status: Acute (2) Drug abuse during Status: Acute (3) Seizure disorder Status: Chronic (4) Hypothyroidism affecting Status: Acute Assessment and Plan 31 yo at 31 2/7 opioid dependence Bacterial endocarditis s/p left thumb surgery and casting resolving right breast abcess Hep C positive abnormal 1 hour glucola Need to create pain regimen for casted thumb that is compatible with opioid dependence and not go backwards. Oral buprenorphine remains off hospital formulary despite my meeting with [facility]. Will decrease ativan and replace night dose with seroquel for insomnia. Will add ofirmev for pain. Will not decrease oxycodone yet. 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 [employer] involved. Madeleine Yu MD Nov 05, 2016 11:24
[2016-11-05 12:18] LABS: AUTOMATED NEUTROPHIL # 18.2 TH/MM3 (1.8-7.7); BASOPHIL # 0.1 TH/MM3 (0-0.2); BASOPHIL % 0.3 % (0.0-2.0); EOSINOPHIL % 0.1 % (0.0-4.0); HEMATOCRIT 32.3 % (35.0-46.0); LYMPHOCYTE # 2.6 TH/MM3 (1.0-4.8); MEAN CELL VOLUME 82.7 FL (80.0-100.0); MEAN CORPUSCULAR HEMOGLOBIN 27.9 PG (27.0-34.0); MEAN CORPUSCULAR HGB CONC 33.7 % (32.0-36.0); MONO % 5.1 % (0.0-8.0); NEUT % 82.5 % (16.0-70.0); PLATELET COUNT 463 TH/MM3 (150-450); RED BLOOD COUNT 3.91 MIL/MM3 (4.00-5.30); RED CELL DISTRIBUTION WIDTH 14.2 % (11.6-17.2)
[2016-11-05 12:22] LABS: HEMO FLAGS AUTO DIFF
[2016-11-05 12:23] LABS: HEMOGLOBIN A1a 1.5 %; HEMOGLOBIN A1b 1.6 %; HEMOGLOBIN Ao 85.9 %; HEMOGLOBIN LA1C 2.1 %; HEMOGLOBIN P3 3.5 %
[2016-11-05 12:28] LABS: ALT (GPT) 13 U/L (10-53); ANION GAP 11 MEQ/L (5-15); AST (GOT) 10 U/L (15-37); BICARBONATE 21.3 MEQ/L (21.0-32.0); BLOOD UREA NITROGEN 9 MG/DL (7-18); CHLORIDE 103 MEQ/L (98-107); GLOMERULAR FILTRATION RATE 121 ML/MIN (>89); POTASSIUM 3.8 MEQ/L (3.5-5.1); SODIUM (NA) 135 MEQ/L (136-145)
[2016-11-05 12:30] VITALS: BP 112/55; PULSE 73; RESP 18; TEMP 97.5; O2SAT 97
[2016-11-05 12:30] LABS: ALKALINE PHOSPHATASE 100 U/L (45-117); TOTAL BILIRUBIN ADULT 0.1 MG/DL (0.2-1.0)
[2016-11-05 12:51] LABS: BANDS 3 % (0-6); PLATELET ESTIMATE SMEAR HIGH (NORMAL); PLATELET MORPHOLOGY NORMAL (NORMAL); POLYS (SEG NEUTROPHILS) 88 % (16-70); SCAN/DIFF FINAL DIFF MANUAL; WBC DIFF SAMPLE 100
[2016-11-05] MEDS: ACETAMINOPHEN 1000 MG/100 ML VIAL IV SCH ×3 (13:05→23:13)
[2016-11-05 16:00] VITALS: BP 121/61; PULSE 86; RESP 18; TEMP 97.8; O2SAT 100
[2016-11-05] MEDS: cefTRIAXone INJ 2,000 MG in SODIUM CHLORIDE 0.9% INJ 100 ML IV SCH (17:32)
[2016-11-05 20:00] VITALS: BP 114/77; PULSE 79; RESP 18; TEMP 97.9; O2SAT 95
[2016-11-05] MEDS: QUEtiapine FUMARATE 100 MG TAB PO SCH (20:24)
[2016-11-05] MEDS: REMOVE OLD NICODERM (NICOTINE) PATCH TD SCH (21:00)
[2016-11-06] VITALS: BP 100/54; PULSE 79; RESP 17; TEMP 97.7; O2SAT 96
[2016-11-06 04:00] VITALS: BP 97/56; PULSE 82; RESP 19; TEMP 97.3; O2SAT 98
[2016-11-06] MEDS: LORazepam 0.5 MG TAB PO SCH ×3 (06:30→18:46)
[2016-11-06] MEDS: LEVOTHYROXINE SODIUM 50 MCG TAB PO SCH (06:30)
[2016-11-06] MEDS: GABAPENTIN 400 MG CAP PO SCH ×3 (06:30→20:46)
[2016-11-06] MEDS: ACETAMINOPHEN 1000 MG/100 ML VIAL IV SCH ×4 (06:31→23:22)
[2016-11-06 06:46] LABS: AUTOMATED NEUTROPHIL # 11.3 TH/MM3 (1.8-7.7); BASOPHIL # 0.1 TH/MM3 (0-0.2); BASOPHIL % 0.4 % (0.0-2.0); EOSINOPHIL # 0.1 TH/MM3 (0-0.4); EOSINOPHIL % 0.7 % (0.0-4.0); LYMPH % 23.3 % (9.0-44.0); LYMPHOCYTE # 3.9 TH/MM3 (1.0-4.8); MEAN CELL VOLUME 84.7 FL (80.0-100.0); MONO % 7.6 % (0.0-8.0); PLATELET COUNT 395 TH/MM3 (150-450); RED BLOOD COUNT 3.78 MIL/MM3 (4.00-5.30); RED CELL DISTRIBUTION WIDTH 14.6 % (11.6-17.2); WHITE BLOOD COUNT 16.6 TH/MM3 (4.0-11.0)
[2016-11-06 07:08] LABS: HEMO FLAGS AUTO DIFF
[2016-11-06 08:00] VITALS: BP 108/57; PULSE 84; RESP 16; TEMP 97.5; O2SAT 94
[2016-11-06] MEDS: NICOTINE 21 MG/24 HR PATCH TD SCH (08:18)
[2016-11-06] MEDS: FAMOTIDINE 20 MG TAB PO SCH ×2 (08:19→20:46)
[2016-11-06] MEDS: SODIUM CHLORIDE 0.9% FLUSH 5 ML FLUSH IVF SCH ×2 (08:19→20:46)
[2016-11-06] MEDS: DOCUSATE SODIUM 100 MG CAP PO SCH ×2 (08:19→20:46)
[2016-11-06] MEDS: PRENATAL VITAMIN CHEWABLE TAB CHEW SCH (08:20)
[2016-11-06] MEDS: POVIDONE IODINE 10% OINT 30 GM TUBE TOPICAL SCH (08:24)
[2016-11-06] MEDS: POVIDONE IODINE 10% SOLN 118 ML BOTTLE TOPICAL SCH (08:25)
[2016-11-06 08:29] LABS: BASOPHILS 1 % (0-2); MYELOCYTES 1 % (0-0); NEUTROPHIL # MANUAL DIFF 12.3 TH/MM3 (1.8-7.7); PLATELET ESTIMATE SMEAR NORMAL (NORMAL); PLATELET MORPHOLOGY NORMAL (NORMAL); POLYS (SEG NEUTROPHILS) 72 % (16-70); PROMYELOCYTES 1 % (0-0); SCAN/DIFF FINAL DIFF MANUAL; WBC DIFF SAMPLE 100
[2016-11-06] MEDS: CEFTAROLINE INJ 600 MG in SODIUM CHLORIDE 0.9% INJ 100 ML IV SCH ×2 (09:00→17:00)
[2016-11-06 12:06] VITALS: BP 116/66; PULSE 85; RESP 16; TEMP 98.7; O2SAT 99
--- NOTE | 2016-11-06 13:31 | HHI.IDPN ---
Subjective Subjective Remarks female with endocarditis (MRSA and Kleb pneumo) Notes reviewed No fever Diarrhea, Cdiff negative. Right breast appears improved. No rash Reports she fell in the bathroom when she tripped while in shower. She reports injuring her thumb, ortho was called and now in cast. She reports fall on her back not on abdomen. She informs me Ob was informed and baby is ok. Informed Nurse [employer] on the floor. UO good. Antibiotics Ceftriaxone IV Teflaro IV Lines Line sites with no e/o infection Past Medical History reviewed IVDA Allergies: Coded Allergies: *MDRO Multi-Drug Resistant Organism (Verified Adverse Reaction, Unknown, MRSA, 10/30/16) MRSA screen POSITIVE - 10/24/16; MRSA (breast & hand)-10/27/16 Objective . Vital Signs Date Time Temp Pulse Resp B/P Pulse Ox O2 Delivery O2 Flow Rate FiO2 11/06/16 08:00 99 Room Air 11/06/16 08:00 97.5 84 16 108/57 94 11/06/16 04:00 Room Air 11/06/16 04:00 97.3 82 19 97/56 98 11/06/16 00:00 97.7 79 17 100/54 96 11/06/16 00:00 Room Air 11/05/16 20:00 Room Air 11/05/16 20:00 97.9 79 18 114/77 95 11/05/16 16:00 97.8 86 18 121/61 100 11/05/16 11/05/16 11/06/16 15:00 23:00 07:00 Intake Total 920 ml 480 ml 300 ml Balance 920 ml 480 ml 300 ml Intake Oral 720 ml 480 ml IV Total 200 ml 300 ml # Voids 5 2 # Bowel Movements 0 . Laboratory Tests Test 11/05/16 11/06/16 12:02 05:41 White Blood Count 22.0 TH/MM3 16.6 TH/MM3 Red Blood Count 3.91 MIL/MM3 3.78 MIL/MM3 Hemoglobin 10.9 GM/DL 10.6 GM/DL Hematocrit 32.3 % 32.0 % Mean Corpuscular Volume 82.7 FL 84.7 FL Mean Corpuscular Hemoglobin 27.9 PG 28.0 PG Mean Corpuscular Hemoglobin 33.7 % 33.0 % Concent Red Cell Distribution Width 14.2 % 14.6 % Platelet Count 463 TH/MM3 395 TH/MM3 Mean Platelet Volume 6.6 FL 6.4 FL Neutrophils (%) (Auto) 82.5 % 68.0 % Lymphocytes (%) (Auto) 12.0 % 23.3 % Monocytes (%) (Auto) 5.1 % 7.6 % Eosinophils (%) (Auto) 0.1 % 0.7 % Basophils (%) (Auto) 0.3 % 0.4 % Neutrophils # (Auto) 18.2 TH/MM3 11.3 TH/MM3 Lymphocytes # (Auto) 2.6 TH/MM3 3.9 TH/MM3 Monocytes # (Auto) 1.1 TH/MM3 1.3 TH/MM3 Eosinophils # (Auto) 0.0 TH/MM3 0.1 TH/MM3 Basophils # (Auto) 0.1 TH/MM3 0.1 TH/MM3 CBC Comment AUTO DIFF AUTO DIFF Differential Total Cells 100 100 Counted Neutrophils % (Manual) 88 % 72 % Band Neutrophils % 3 % Lymphocytes % 8 % 19 % Monocytes % 1 % 6 % Neutrophils # (Manual) 20.0 TH/MM3 12.3 TH/MM3 Differential Comment FINAL DIFF FINAL DIFF MANUAL MANUAL Platelet Estimate HIGH NORMAL Platelet Morphology Comment NORMAL NORMAL Red Cell Morphology Comment NORMAL NORMAL Basophils % 1 % Myelocytes 1 % Promyelocytes 1 % Laboratory Tests Test 11/05/16 12:02 Sodium Level 135 MEQ/L Potassium Level 3.8 MEQ/L Chloride Level 103 MEQ/L Carbon Dioxide Level 21.3 MEQ/L Anion Gap 11 MEQ/L Blood Urea Nitrogen 9 MG/DL Creatinine 0.59 MG/DL Estimat Glomerular Filtration 121 ML/MIN Rate Random Glucose 130 MG/DL Hemoglobin A1c 5.0 % Calcium Level 8.4 MG/DL Total Bilirubin 0.1 MG/DL Direct Bilirubin LESS THAN 0.1 MG/DL Indirect Bilirubin 0.0 MG/DL Aspartate Amino Transf 10 U/L (AST/SGOT) Alanine Aminotransferase 13 U/L (ALT/SGPT) Alkaline Phosphatase 100 U/L Total Protein 7.5 GM/DL Albumin 2.9 GM/DL Imaging Last Impressions Breast Ultrasound 10/26/16 1610 Signed Impressions: Service Date/Time: October 19:40 - CONCLUSION: Right breast abscess at the 3:00 position 4 cm from the nipple. Asim Fong MD Brain MRI 10/24/16 0000 Signed Impressions: Service Date/Time: Monday, October 24, 2016 14:09 - CONCLUSION: 1. No intracranial abnormalities seen. 2. Small focal area of mucosal disease of the right sphenoid sinus. Asim Arzate MD Physical Exam GENERAL:Awake and alert, NAD SKIN: Multiple track cosme noted. No rash HEAD: Atraumatic. Normocephalic. No temporal or scalp tenderness. EYES: Pupils equal round and reactive. No petchia or hemorrhage. No scleral icterus. No injection or drainage. ENT: Nose without bleeding, purulent drainage. Throat without erythema, or exudate. Uvula midline. Airway patent. NECK: Trachea midline. Supple, nontender, no meningeal signs. CARDIOVASCULAR: Heart sounds audible. RESPIRATORY: Clear to auscultation. Breath sounds equal bilaterally. No wheezes , rales, or rhonchi. GASTROINTESTINAL: Abdomen soft, gravid uterus. MUSCULOSKELETAL: Left thumb much improved. No erythema, no tenderness, no discharge. Able to move thumb. Right breast decrease in induration, no erythema, tenderness noted. packing in place.No drainage NEUROLOGICAL: Awake and alert. Non focal. Psych: cooperative. IV line sites with no e/o infection. Assessment & Plan Remarks Endocarditis: MRSA or Kleb pneumo either organisms could be causing this as blood cultures are negative. Left thumb abscess improved s/p bedside drainage. Right breast abscess s/p I&D, better Intravenous drug abuse both the sites of infection have been prior sites of self injection. at 29 weeks. Midline umbilical hernia asymptomatic at the present time. 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 Follow clinically Monitor progress Maryann Lorenzo MD Nov 06, 2016 13:30
[2016-11-06 16:06] VITALS: BP 100/62; PULSE 87; RESP 18; TEMP 98.8; O2SAT 100
[2016-11-06] MEDS: cefTRIAXone INJ 2,000 MG in SODIUM CHLORIDE 0.9% INJ 100 ML IV SCH (18:00)
[2016-11-06] MEDS: QUEtiapine FUMARATE 100 MG TAB PO SCH (20:46)
[2016-11-06] MEDS: REMOVE OLD NICODERM (NICOTINE) PATCH TD SCH (21:00)
[2016-11-06 21:03] VITALS: BP 101/65; PULSE 78; RESP 16; TEMP 98.2; O2SAT 97
[2016-11-07] VITALS (7 sets, daily range): BP systolic 99–117; BP diastolic 57–68; PULSE 72–83; RESP 16–18; TEMP 97.4–98.1; O2SAT 96–100
[2016-11-07] MEDS: CEFTAROLINE INJ 600 MG in SODIUM CHLORIDE 0.9% INJ 100 ML IV SCH ×2 (01:09→09:00)
[2016-11-07] MEDS: ACETAMINOPHEN 1000 MG/100 ML VIAL IV SCH ×3 (05:52→17:08)
[2016-11-07] MEDS: GABAPENTIN 400 MG CAP PO SCH ×3 (05:52→21:34)
[2016-11-07] MEDS: LEVOTHYROXINE SODIUM 50 MCG TAB PO SCH (05:53)
[2016-11-07] MEDS: FAMOTIDINE 20 MG TAB PO SCH ×2 (07:50→21:34)
[2016-11-07] MEDS: PRENATAL VITAMIN CHEWABLE TAB CHEW SCH (07:50)
[2016-11-07] MEDS: DOCUSATE SODIUM 100 MG CAP PO SCH ×2 (07:50→21:00)
[2016-11-07] MEDS: NICOTINE 21 MG/24 HR PATCH TD SCH (07:50)
[2016-11-07] MEDS: SODIUM CHLORIDE 0.9% FLUSH 5 ML FLUSH IVF SCH ×2 (07:51→21:35)
[2016-11-07] MEDS: POVIDONE IODINE 10% OINT 30 GM TUBE TOPICAL SCH (07:52)
[2016-11-07] MEDS: POVIDONE IODINE 10% SOLN 118 ML BOTTLE TOPICAL SCH (07:53)
[2016-11-07] MEDS: LORazepam 2 MG/ML VIAL IV PUSH PRN (10:00)
[2016-11-07] MEDS: LORazepam 0.5 MG TAB PO SCH (14:00)
[2016-11-07] MEDS: cefTRIAXone INJ 2,000 MG in SODIUM CHLORIDE 0.9% INJ 100 ML IV SCH (17:12)
--- NOTE | 2016-11-07 19:29 | PD.OB.ANTE ---
Subjective Diagnosis: (1) Drug abuse during Diagnosis: Principal (2) Seizure disorder Diagnosis: Secondary (3) Hypothyroidism affecting Diagnosis: Secondary Interval History 31 yo multip at 31 weeks EGA on extended antibiotics for CHACHA. May be in house up until delivery. She had MRSA cultured and had two abcesses--left thumb and right breast. Both have been incised and drained. She fell in the shower and re opened the thumb and may have incurred a fracture. It is now casted. Her surveillance has been reassuring to date. She has a seizure disorder and has been evaluated by neurology and is on gabapentin (not clear if this is related to substance abuse) Since her admission she has been stabilized from average 64 mg dilaudid daily when accessible to doing well on 40 mg oxycodone daily, with no withdrawals or cravings. Buprenorphine is not available on our formulary. She appropriately declines methadone. She notes GFM, no significant UCs, no leaking or bleeding. She is eating well and moving freely around the room. Her glucola was high but A1 c normal. Objective Vital Signs Vital Signs Date Time Temp Pulse Resp B/P Pulse Ox O2 Delivery O2 Flow Rate FiO2 11/07/16 16:00 97.4 81 18 108/63 100 11/07/16 12:00 98.1 82 18 117/68 97 11/07/16 08:00 98 Room Air 11/07/16 08:00 97.7 79 18 99/58 97 11/07/16 07:30 14 11/07/16 04:22 98.0 73 16 100/60 98 11/07/16 00:12 98.0 77 16 102/57 97 11/06/16 21:03 98.2 78 16 101/65 97 11/06/16 20:51 Room Air Intake & Output 11/07/16 11/07/16 07:00 19:00 Intake Total 1375 ml 960 ml Balance 1375 ml 960 ml Intake Oral 1080 ml 960 ml IV Total 295 ml # Voids 14 3 # Bowel Movements 1 1 Physical Exam GENERAL: Well-nourished, well-developed patient. CARDIOVASCULAR: Regular rate and rhythm without murmurs, gallops, or rubs. RESPIRATORY: Breath sounds equal bilaterally. No accessory muscle use. breast abcess area post debridement and packing changed tonight with good healing noted. No obvious cellultis ABDOMEN/GI: Abdomen soft, non-tender. fundus is 32 FHTs 140's EXTREMITIES: No cyanosis or edema, non-tender, without signs of DVT. Assessment and Plan Problem List: (1) 29 weeks gestation of Status: Acute (2) Drug abuse during Status: Acute (3) Seizure disorder Status: Chronic (4) Hypothyroidism affecting Status: Acute Assessment and Plan 31 yo at 31 4/7 opioid dependence Bacterial endocarditis s/p left thumb surgery and casting resolving right breast abcess Hep C positive continue seroquel at night and soon to be off all ativan maintain 40 mg oxycodone for now. wean ativan. 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 [employer] involved. Madeleine Yu MD Nov 07, 2016 19:29
[2016-11-07] MEDS: REMOVE OLD NICODERM (NICOTINE) PATCH TD SCH (21:00)
[2016-11-07] MEDS: QUEtiapine FUMARATE 100 MG TAB PO SCH (21:34)
[2016-11-08] MEDS: ACETAMINOPHEN 1000 MG/100 ML VIAL IV SCH ×2 (00:34→06:32)
[2016-11-08] MEDS: CEFTAROLINE INJ 600 MG in SODIUM CHLORIDE 0.9% INJ 100 ML IV SCH ×3 (00:35→16:02)
[2016-11-08 04:47] VITALS: BP 101/59; PULSE 72; RESP 16; TEMP 97.8; O2SAT 97
[2016-11-08] MEDS: LORazepam 0.5 MG TAB PO SCH ×2 (06:00→16:46)
[2016-11-08] MEDS: LEVOTHYROXINE SODIUM 50 MCG TAB PO SCH (06:32)
[2016-11-08] MEDS: GABAPENTIN 400 MG CAP PO SCH ×3 (06:32→20:42)
[2016-11-08 08:00] VITALS: BP 124/92; PULSE 84; RESP 16; TEMP 96.8; O2SAT 98
[2016-11-08] MEDS: PRENATAL VITAMIN CHEWABLE TAB CHEW SCH (09:15)
[2016-11-08] MEDS: NICOTINE 21 MG/24 HR PATCH TD SCH (09:15)
[2016-11-08] MEDS: POVIDONE IODINE 10% SOLN 118 ML BOTTLE TOPICAL SCH (09:15)
[2016-11-08] MEDS: FAMOTIDINE 20 MG TAB PO SCH ×2 (09:15→20:41)
[2016-11-08] MEDS: POVIDONE IODINE 10% OINT 30 GM TUBE TOPICAL SCH (09:15)
[2016-11-08] MEDS: SODIUM CHLORIDE 0.9% FLUSH 5 ML FLUSH IVF SCH ×2 (09:18→20:40)
[2016-11-08] MEDS: DOCUSATE SODIUM 100 MG CAP PO SCH ×2 (09:18→20:41)
[2016-11-08 12:00] VITALS: BP 120/62; PULSE 91; RESP 20; TEMP 98.4; O2SAT 97
[2016-11-08 16:00] VITALS: BP 119/62; PULSE 91; RESP 20; TEMP 97.8; O2SAT 98
[2016-11-08] MEDS: cefTRIAXone INJ 2,000 MG in SODIUM CHLORIDE 0.9% INJ 100 ML IV SCH (16:46)
[2016-11-08 20:00] VITALS: BP 112/63; PULSE 86; RESP 18; TEMP 97.7; O2SAT 98
[2016-11-08] MEDS: QUEtiapine FUMARATE 100 MG TAB PO SCH (20:42)
[2016-11-08] MEDS: REMOVE OLD NICODERM (NICOTINE) PATCH TD SCH (20:43)
[2016-11-09] VITALS: BP 110/57; PULSE 80; RESP 18; TEMP 97.9; O2SAT 98
[2016-11-09] MEDS: CEFTAROLINE INJ 600 MG in SODIUM CHLORIDE 0.9% INJ 100 ML IV SCH ×3 (01:52→16:58)
[2016-11-09 04:00] VITALS: BP 100/58; PULSE 80; RESP 16; TEMP 97.8; O2SAT 98
[2016-11-09] MEDS: GABAPENTIN 400 MG CAP PO SCH ×3 (06:37→21:54)
[2016-11-09] MEDS: LORazepam 0.5 MG TAB PO SCH ×2 (06:37→14:06)
[2016-11-09] MEDS: LEVOTHYROXINE SODIUM 50 MCG TAB PO SCH (06:37)
[2016-11-09 08:00] VITALS: BP 105/65; PULSE 95; RESP 20; TEMP 97.7; O2SAT 97
[2016-11-09] MEDS: POVIDONE IODINE 10% SOLN 118 ML BOTTLE TOPICAL SCH (08:33)
[2016-11-09] MEDS: NICOTINE 21 MG/24 HR PATCH TD SCH (08:33)
[2016-11-09] MEDS: SODIUM CHLORIDE 0.9% FLUSH 5 ML FLUSH IVF SCH ×2 (08:33→21:00)
[2016-11-09] MEDS: POVIDONE IODINE 10% OINT 30 GM TUBE TOPICAL SCH (08:33)
[2016-11-09] MEDS: PRENATAL VITAMIN CHEWABLE TAB CHEW SCH (08:33)
[2016-11-09] MEDS: FAMOTIDINE 20 MG TAB PO SCH ×2 (08:33→21:55)
[2016-11-09] MEDS: DOCUSATE SODIUM 100 MG CAP PO SCH ×2 (08:33→21:00)
[2016-11-09 12:00] VITALS: BP 119/64; PULSE 94; RESP 20; TEMP 98.4; O2SAT 97
[2016-11-09 16:00] VITALS: BP 97/55; PULSE 86; RESP 20; TEMP 97.5; O2SAT 97
[2016-11-09] MEDS: cefTRIAXone INJ 2,000 MG in SODIUM CHLORIDE 0.9% INJ 100 ML IV SCH (16:58)
--- NOTE | 2016-11-09 17:42 | PD.OB.ANTE ---
Subjective Diagnosis: (1) Drug abuse during Diagnosis: Principal (2) Seizure disorder Diagnosis: Secondary (3) Hypothyroidism affecting Diagnosis: Secondary Interval History + FM, neg ctx/VB/LOF HPI 11/07/[address] Yu "31 yo multip at 31 weeks EGA on extended antibiotics for CHACHA. May be in house up until delivery. She had MRSA cultured and had two abcesses--left thumb and right breast. Both have been incised and drained. She fell in the shower and re opened the thumb and may have incurred a fracture. It is now casted. Her surveillance has been reassuring to date. She has a seizure disorder and has been evaluated by neurology and is on gabapentin (not clear if this is related to substance abuse) Since her admission she has been stabilized from average 64 mg dilaudid daily when accessible to doing well on 40 mg oxycodone daily, with no withdrawals or cravings. Buprenorphine is not available on our formulary. She appropriately declines methadone. She notes GFM, no significant UCs, no leaking or bleeding. She is eating well and moving freely around the room. Her glucola was high but A1 c normal." Objective Vital Signs Vital Signs Date Time Temp Pulse Resp B/P Pulse Ox O2 Delivery O2 Flow Rate FiO2 11/09/16 12:00 98.4 94 20 119/64 97 11/09/16 08:00 97.7 95 20 105/65 97 11/09/16 04:00 97.8 80 16 100/58 98 11/09/16 00:00 97.9 80 18 110/57 98 11/08/16 20:00 97.7 86 18 112/63 98 11/08/16 20:00 Room Air 21 Intake & Output 11/09/16 11/09/16 07:00 19:00 Intake Total 1680 ml 100 ml Balance 1680 ml 100 ml Intake Oral 1680 ml IV Total 100 ml # Voids 13 # Bowel Movements 0 Physical Exam GENERAL: Well-nourished, well-developed patient. CARDIOVASCULAR: Regular rate and rhythm. systolic murmur RESPIRATORY: Breath sounds equal bilaterally. No accessory muscle use. Chest: breast with packing in place, dressing with some serrosang. drainage. ABDOMEN/GI: Abdomen soft, non-tender. Fundus: gravid GENITOURINARY: External Genitalia: defer FHT's:BPP 8/8 yesterday. + FHT with doppler performed by me today EXTREMITIES: No cyanosis or edema, non-tender, without signs of DVT. right thumb no longer in cast Assessment and Plan Problem List: (1) Drug abuse during Status: Acute (2) Seizure disorder Status: Chronic (3) Hypothyroidism affecting Status: Acute Assessment and Plan 31 yo at 31 5/7 opioid dependence Bacterial endocarditis s/p left thumb surgery and casting resolving right breast abscess Hep C positive maintain 40 mg oxycodone daily for now. wean ativan. continue seroquel need to continue IV antibiotics for interval recommended by infectious disease BPP 8 with ob diagnostic 11/08/16. continue weekly testing. 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 [employer] involved. Flori Kuhn MD Nov 09, 2016 17:42 Flori Kuhn MD Nov 09, 2016 17:42
[2016-11-09 20:15] VITALS: BP 112/78; PULSE 91; RESP 16; TEMP 98.3; O2SAT 98
[2016-11-09] MEDS: REMOVE OLD NICODERM (NICOTINE) PATCH TD SCH (21:00)
[2016-11-09] MEDS: QUEtiapine FUMARATE 100 MG TAB PO SCH (21:55)
[2016-11-10] VITALS (7 sets, daily range): BP systolic 92–116; BP diastolic 50–67; PULSE 75–97; RESP 16–20; TEMP 97.6–98.3; O2SAT 93–100
[2016-11-10] MEDS: CEFTAROLINE INJ 600 MG in SODIUM CHLORIDE 0.9% INJ 100 ML IV SCH ×3 (02:04→16:20)
[2016-11-10] MEDS: GABAPENTIN 400 MG CAP PO SCH ×3 (06:34→22:02)
[2016-11-10] MEDS: LEVOTHYROXINE SODIUM 50 MCG TAB PO SCH (06:34)
[2016-11-10] MEDS: LORazepam 0.5 MG TAB PO SCH ×2 (06:34→14:07)
[2016-11-10] MEDS: SODIUM CHLORIDE 0.9% FLUSH 5 ML FLUSH IVF SCH ×2 (08:51→22:02)
[2016-11-10] MEDS: NICOTINE 21 MG/24 HR PATCH TD SCH (08:52)
[2016-11-10] MEDS: PRENATAL VITAMIN CHEWABLE TAB CHEW SCH (08:52)
[2016-11-10] MEDS: FAMOTIDINE 20 MG TAB PO SCH ×2 (08:52→22:02)
[2016-11-10] MEDS: DOCUSATE SODIUM 100 MG CAP PO SCH ×2 (09:00→21:00)
[2016-11-10] MEDS: POVIDONE IODINE 10% SOLN 118 ML BOTTLE TOPICAL SCH (09:00)
[2016-11-10] MEDS: POVIDONE IODINE 10% OINT 30 GM TUBE TOPICAL SCH (09:00)
--- NOTE | 2016-11-10 15:37 | HHI.FPPN ---
Subjective Remarks Overnight, no acute events. Feeling baby move, denies vaginal bleeding, loss of fluid. No regular contractions. Reassuring FHT 130. AFVSS. Borderline hypotension to 95/60. Eating, voiding, stooling, ambulating without difficulty. Patient complains of pain in R breast at biopsy site- with bandage changed , c/d/i- not well controlled L thumb pain (spica cast fallen off), thumb stiff but ROM intact Chills of approximately 1 week duration, denies fevers Denies palpitations, calf pain. Objective Vitals Vital Signs Date Time Temp Pulse Resp B/P Pulse Ox O2 Delivery O2 Flow Rate FiO2 11/10/16 12:00 97.6 85 16 110/60 98 11/10/16 09:58 Room Air 11/10/16 08:46 87 103/65 11/10/16 08:46 Room Air 11/10/16 08:00 97.9 80 16 96/51 98 11/10/16 04:00 98.1 75 18 92/50 96 11/10/16 00:00 98.3 88 16 95/53 97 11/09/16 20:15 98.3 91 16 112/78 98 11/09/16 19:38 Room Air 11/09/16 16:00 97.5 86 20 97/55 97 I/O 11/09/16 11/09/16 11/09/16 11/10/16 11/10/16 11/10/16 07:00 15:00 23:00 07:00 15:00 23:00 Intake Total 720 ml 1660 ml 2860 ml 120 ml 480 ml Balance 720 ml 1660 ml 2860 ml 120 ml 480 ml Intake Oral 720 ml 1560 ml 2860 ml 120 ml 480 ml IV Total 100 ml # Voids 5 7 10 1 # Bowel Movements 0 1 1 0 Result Diagram: 11/06/16 0541 Imaging Last Impressions Breast Ultrasound 10/26/16 1610 Signed Impressions: Service Date/Time: October 19:40 - CONCLUSION: Right breast abscess at the 3:00 position 4 cm from the nipple. Asim Fong MD Brain MRI 10/24/16 0000 Signed Impressions: Service Date/Time: Monday, October 24, 2016 14:09 - CONCLUSION: 1. No intracranial abnormalities seen. 2. Small focal area of mucosal disease of the right sphenoid sinus. Asim Arzate MD Objective Remarks GENERAL: gravid female in no acute distress SKIN: Warm and dry. Left thumb with minor dark pigmentation ~size of nickel at site of drainage. Right breast has bandage overlying biopsy site- c/d/i- pt guards to palpation out of tenderness HEENT: MMM. EOMI. CV: 2/6 systolic murmur RESP: Breath sounds equal bilaterally. No wheezing. Breathing well on room air GI: Abdomen soft, gravid, non-tender, bowel sounds present, no rebound, no guarding FHT: 130 MSK: No cyanosis or edema. NEUROL: Awake and alert. Motor and sensory grossly within normal limits PSYCH: Appropriate affect A/P Assessment and Plan 31 year old female at 31+ weeks with hx Hep C admitted for opioid withdrawal and MRSA cellulitis of R breast and L hand. Discharge Planning 6+ weeks/likely until term. Requires long-term IV antibiotics in the hospital due to concern for MRSA endocarditis. High risk of relapsing if discharged for outpatient antibiotics SDW: Dr Mcallister DW: Dr Yu Problem List: (1) 31 weeks gestation of Status: Acute Plan: - daily heart tones, expectant management. (2) MRSA cellulitis Status: Acute Plan: Cellulitis of L hand and R breast, both sides of prior self-injection for IVDU. L hand improved s/p debridement, while R breast is taking longer to heal- swollen, painful. Wound cultures positive for klebsiella pneumonia and MRSA. Blood cultures: no growth * Pt requesting new cast for thumb since hers "fell off" * ID on board, appreciate recommendations * Continue Teflaro IV q8hrs for MRSA coverage (endocarditis and cellulitis) * Pain control per primary team * Roxicodone 10mg q6h PRN pain 5-10 * Added Tylenol 650mg PRN q6h pain 1-4 (LFTs wnl at present) (3) Drug abuse during Status: Acute Plan: * Case management consulted- needs housing, healthy start * Recommend counseling, therapy as an outpatient * Vistaril 50 mg q6hrs PRN agitation/hallucination * Ativan q4h PRN seizure (4) Heart valve vegetation Status: Acute Plan: Possible MRSA endocarditis detected by TTE. Assessed risks/benefits of KI vs empiric treatment. * Continue Ceftriaxone IV daily (10/25 -) * Continue Ceftaroline 600mg IV q6h (11/01- ) (5) Coffee ground emesis Status: Resolved Plan: One episode of coffee ground emesis. GI consulted, appreciate recommendations. * Pepcid 20 mg BID * Hold PPI at present as category B * Mylanta PRN stomach pain * Phenergan PRN nausea/vomiting. * EGD/colonoscopy after delivery (6) Seizure disorder Status: Chronic Plan: - MRI negative for acute disease. .EEG negative for seizure activity. Neurology consult-appreciate recs * Gabapentin 800mg to TID (7) Hepatitis C Status: Resolved Plan: History of hepatitis C. Hep C antibody positive, Hep C genome not detected- likely she has cleared the infection(?). Not treated in the past, LFTs wnl. * Monitor LFTs * Follow with GI as outpatient, as desired (8) Fluids, Electrolytes, Nutrition, Prophylaxis Status: Acute Plan: Fluids: Per PO Electrolytes: within normal limits Nutrition: Regular DVT ppx: SCDs GI ppx: Ranitidine, as above, for GERD Problem Qualifiers (1) Hepatitis C: Qualified Code: B18.2 - Chronic hepatitis C without hepatic coma Rose Escoto MD R1 Nov 10, 2016 15:37
[2016-11-10] MEDS ORDERED: ACETAMINOPHEN 325 MG TAB PO PRN (15:45)
[2016-11-10] MEDS: cefTRIAXone INJ 2,000 MG in SODIUM CHLORIDE 0.9% INJ 100 ML IV SCH (17:33)
[2016-11-10] MEDS: REMOVE OLD NICODERM (NICOTINE) PATCH TD SCH (21:00)
[2016-11-10] MEDS: QUEtiapine FUMARATE 100 MG TAB PO SCH (22:02)
[2016-11-11] VITALS: BP 120/62; PULSE 77; RESP 18; TEMP 97.7; O2SAT 98
[2016-11-11] MEDS: CEFTAROLINE INJ 600 MG in SODIUM CHLORIDE 0.9% INJ 100 ML IV SCH ×3 (01:00→17:02)
[2016-11-11 04:00] VITALS: BP 102/65; PULSE 71; RESP 18; TEMP 97.6; O2SAT 98
[2016-11-11] MEDS: LORazepam 0.5 MG TAB PO SCH ×2 (05:59→13:27)
[2016-11-11] MEDS: LEVOTHYROXINE SODIUM 50 MCG TAB PO SCH (05:59)
[2016-11-11] MEDS: GABAPENTIN 400 MG CAP PO SCH ×3 (05:59→21:58)
[2016-11-11 08:00] VITALS: BP 104/55; PULSE 82; RESP 16; TEMP 97.5; O2SAT 97
[2016-11-11] MEDS: NICOTINE 21 MG/24 HR PATCH TD SCH (08:40)
[2016-11-11] MEDS: PRENATAL VITAMIN CHEWABLE TAB CHEW SCH (08:40)
[2016-11-11] MEDS: FAMOTIDINE 20 MG TAB PO SCH ×2 (08:40→21:57)
[2016-11-11] MEDS: SODIUM CHLORIDE 0.9% FLUSH 5 ML FLUSH IVF SCH ×2 (08:40→21:00)
[2016-11-11] MEDS: POVIDONE IODINE 10% SOLN 118 ML BOTTLE TOPICAL SCH (08:41)
[2016-11-11] MEDS: POVIDONE IODINE 10% OINT 30 GM TUBE TOPICAL SCH (08:41)
[2016-11-11] MEDS: DOCUSATE SODIUM 100 MG CAP PO SCH ×2 (08:41→21:00)
--- NOTE | 2016-11-11 10:43 | PD.OB.ANTE ---
Subjective Diagnosis: (1) Drug abuse during Diagnosis: Principal (2) Seizure disorder Diagnosis: Secondary (3) Hypothyroidism affecting Diagnosis: Secondary Interval History breast abscess area hurting her, dressing changes daily, pain not controlled with oxycodone 10 mg po q6hr, +FM , no ctx, no LOF, no Vb Objective Vital Signs Vital Signs Date Time Temp Pulse Resp B/P Pulse Ox O2 Delivery O2 Flow Rate FiO2 11/11/16 09:17 Room Air 21 11/11/16 08:00 97.5 82 16 104/55 97 11/11/16 04:00 97.6 71 18 102/65 98 11/11/16 00:00 97.7 77 18 120/62 98 11/10/16 20:50 Room Air 11/10/16 20:00 98.0 97 20 116/65 93 11/10/16 16:00 97.9 80 16 116/67 100 11/10/16 12:00 97.6 85 16 110/60 98 Physical Exam GENERAL: Well-nourished, well-developed patient. CARDIOVASCULAR: Regular rate and rhythm without murmurs, gallops, or rubs. RESPIRATORY: Breath sounds equal bilaterally. No accessory muscle use. ABDOMEN/GI: Abdomen soft, non-tender. Fundus: [-] GENITOURINARY: External Genitalia: intact and normal in appearance Cervix: [-] deferred Dilatation: [-] Effacement: [-] Station: [-] Presentation: [-] Membranes: [-] Uterine Contractions: [-] FHT's: Category: [-] Baseline: [-] Reactive: [-] Variability: [-] Decels: [-] EXTREMITIES: No cyanosis or edema, non-tender, without signs of DVT. left thumb healing well, rt breast dressing lifted and packing present, no drainage Assessment and Plan Problem List: (1) Drug abuse during Status: Acute (2) Seizure disorder Status: Chronic (3) Hypothyroidism affecting Status: Acute (4) Abscess of left thumb Status: Acute (5) Breast abscess Status: Acute (6) 31 weeks gestation of Status: Acute (7) Endocarditis Status: Acute Assessment and Plan 31 yo at 31 6/7 opioid dependence Bacterial endocarditis s/p left thumb surgery resolving right breast abscess Hep C positive consider increase to 15 mg oxycodone po q6hr. wean ativan. continue seroquel need to continue IV antibiotics for interval recommended by infectious disease BPP 05/15 with ob diagnostic 11/08/16. continue weekly testing. 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 [employer] involved. Margareth Zapien MD Nov 11, 2016 10:43
[2016-11-11 12:00] VITALS: BP 121/74; PULSE 86; RESP 16; TEMP 97.7; O2SAT 92
[2016-11-11] MEDS: traMADol HCL 50 MG TAB PO PRN ×2 (15:48→21:58)
[2016-11-11 16:00] VITALS: BP 122/74; PULSE 104; RESP 18; TEMP 98.2; O2SAT 94
[2016-11-11] MEDS: cefTRIAXone INJ 2,000 MG in SODIUM CHLORIDE 0.9% INJ 100 ML IV SCH (17:02)
[2016-11-11 20:00] VITALS: BP 121/64; PULSE 92; RESP 18; TEMP 97.9; O2SAT 97
[2016-11-11] MEDS: REMOVE OLD NICODERM (NICOTINE) PATCH TD SCH (21:00)
[2016-11-11] MEDS: QUEtiapine FUMARATE 100 MG TAB PO SCH (21:58)
[2016-11-12 00:58] VITALS: BP 106/60; PULSE 96; RESP 16; TEMP 97.9; O2SAT 97
[2016-11-12] MEDS: CEFTAROLINE INJ 600 MG in SODIUM CHLORIDE 0.9% INJ 100 ML IV SCH ×3 (01:11→17:01)
[2016-11-12 04:20] VITALS: BP 103/57; PULSE 89; RESP 18; TEMP 97.4; O2SAT 99
[2016-11-12] MEDS: GABAPENTIN 400 MG CAP PO SCH ×3 (05:48→23:04)
[2016-11-12] MEDS: LEVOTHYROXINE SODIUM 50 MCG TAB PO SCH (05:48)
[2016-11-12] MEDS: traMADol HCL 50 MG TAB PO PRN ×3 (05:48→20:00)
[2016-11-12] MEDS: LORazepam 0.5 MG TAB PO SCH ×2 (05:53→13:23)
[2016-11-12 08:00] VITALS: BP 119/57; PULSE 103; RESP 24; TEMP 97.6; O2SAT 94
[2016-11-12] MEDS: FAMOTIDINE 20 MG TAB PO SCH ×2 (08:22→20:00)
[2016-11-12] MEDS: DOCUSATE SODIUM 100 MG CAP PO SCH ×2 (08:22→20:00)
[2016-11-12] MEDS: PRENATAL VITAMIN CHEWABLE TAB CHEW SCH (08:22)
[2016-11-12] MEDS: NICOTINE 21 MG/24 HR PATCH TD SCH (08:22)
[2016-11-12] MEDS: SODIUM CHLORIDE 0.9% FLUSH 5 ML FLUSH IVF SCH ×2 (08:23→19:59)
[2016-11-12] MEDS: POVIDONE IODINE 10% OINT 30 GM TUBE TOPICAL SCH (08:30)
[2016-11-12] MEDS: POVIDONE IODINE 10% SOLN 118 ML BOTTLE TOPICAL SCH (08:30)
[2016-11-12 12:00] VITALS: BP 118/69; PULSE 86; RESP 16; TEMP 98.6; O2SAT 90
[2016-11-12 16:00] VITALS: BP 112/64; PULSE 79; RESP 16; TEMP 96.2; O2SAT 99
[2016-11-12] MEDS: cefTRIAXone INJ 2,000 MG in SODIUM CHLORIDE 0.9% INJ 100 ML IV SCH (17:01)
[2016-11-12] MEDS: QUEtiapine FUMARATE 100 MG TAB PO SCH (20:00)
[2016-11-12 20:14] VITALS: BP 128/61; PULSE 84; RESP 18; TEMP 98.1; O2SAT 98
[2016-11-12] MEDS: REMOVE OLD NICODERM (NICOTINE) PATCH TD SCH (21:00)
[2016-11-13 00:11] VITALS: BP 96/51; PULSE 74; RESP 18; TEMP 97.4; O2SAT 97
[2016-11-13] MEDS: traMADol HCL 50 MG TAB PO PRN ×2 (01:49→22:04)
[2016-11-13] MEDS: CEFTAROLINE INJ 600 MG in SODIUM CHLORIDE 0.9% INJ 100 ML IV SCH ×3 (01:49→17:29)
[2016-11-13 04:41] VITALS: BP 102/51; PULSE 80; RESP 18; TEMP 98.1; O2SAT 99
[2016-11-13] MEDS: GABAPENTIN 400 MG CAP PO SCH ×3 (05:34→20:15)
[2016-11-13] MEDS: LEVOTHYROXINE SODIUM 50 MCG TAB PO SCH (05:35)
[2016-11-13] MEDS: LORazepam 0.5 MG TAB PO SCH ×2 (05:35→12:55)
[2016-11-13 07:04] LABS: AUTOMATED NEUTROPHIL # 7.3 TH/MM3 (1.8-7.7); BASOPHIL % 0.3 % (0.0-2.0); EOSINOPHIL # 0.1 TH/MM3 (0-0.4); EOSINOPHIL % 1.2 % (0.0-4.0); HEMATOCRIT 30.5 % (35.0-46.0); HEMO FLAGS DIFF FINAL; LYMPH % 26.9 % (9.0-44.0); LYMPHOCYTE # 3.1 TH/MM3 (1.0-4.8); MEAN CELL VOLUME 83.3 FL (80.0-100.0); MEAN CORPUSCULAR HGB CONC 34.9 % (32.0-36.0); MONO % 8.2 % (0.0-8.0); NEUT % 63.4 % (16.0-70.0); PLATELET COUNT 323 TH/MM3 (150-450); RED BLOOD COUNT 3.67 MIL/MM3 (4.00-5.30); RED CELL DISTRIBUTION WIDTH 14.3 % (11.6-17.2); WHITE BLOOD COUNT 11.5 TH/MM3 (4.0-11.0)
[2016-11-13 07:26] LABS: ALKALINE PHOSPHATASE 95 U/L (45-117); ALT (GPT) 10 U/L (10-53); ANION GAP 11 MEQ/L (5-15); AST (GOT) 8 U/L (15-37); BICARBONATE 22.6 MEQ/L (21.0-32.0); BLOOD UREA NITROGEN 8 MG/DL (7-18); CHLORIDE 103 MEQ/L (98-107); GLOMERULAR FILTRATION RATE 139 ML/MIN (>89); POTASSIUM 3.6 MEQ/L (3.5-5.1); SODIUM (NA) 137 MEQ/L (136-145); TOTAL BILIRUBIN ADULT 0.1 MG/DL (0.2-1.0)
[2016-11-13 08:00] VITALS: BP 101/60; PULSE 86; RESP 16; TEMP 97.9; O2SAT 100
[2016-11-13] MEDS: POVIDONE IODINE 10% OINT 30 GM TUBE TOPICAL SCH (09:00)
[2016-11-13] MEDS: POVIDONE IODINE 10% SOLN 118 ML BOTTLE TOPICAL SCH (09:00)
--- NOTE | 2016-11-13 09:25 | PD.OB.ANTE ---
Subjective Diagnosis: (1) Drug abuse during (2) Seizure disorder (3) Hypothyroidism affecting (4) Abscess of left thumb (5) Breast abscess (6) 31 weeks gestation of (7) Endocarditis Interval History Doing well overall good movement no UCs, leaking or bleeding pain controlled with tramadol oxycodone is NOT for pain for for OPIOID maintenance Objective Vital Signs Vital Signs Date Time Temp Pulse Resp B/P Pulse Ox O2 Delivery O2 Flow Rate FiO2 11/13/16 04:41 98.1 80 18 102/51 99 11/13/16 00:11 97.4 74 18 96/51 97 11/12/16 20:14 98.1 84 18 128/61 98 11/12/16 20:00 Room Air 11/12/16 16:00 96.2 79 16 112/64 99 11/12/16 12:00 98.6 86 16 118/69 90 Intake & Output 11/13/16 11/13/16 07:00 19:00 Intake Total 480 ml Balance 480 ml Intake Oral 480 ml # Voids 15 Lab & Micro Results Test 11/13/16 06:22 White Blood Count 11.5 TH/MM3 Red Blood Count 3.67 MIL/MM3 Hemoglobin 10.6 GM/DL Hematocrit 30.5 % Mean Corpuscular Volume 83.3 FL Mean Corpuscular Hemoglobin 29.0 PG Mean Corpuscular Hemoglobin 34.9 % Concent Red Cell Distribution Width 14.3 % Platelet Count 323 TH/MM3 Mean Platelet Volume 6.8 FL Neutrophils (%) (Auto) 63.4 % Lymphocytes (%) (Auto) 26.9 % Monocytes (%) (Auto) 8.2 % Eosinophils (%) (Auto) 1.2 % Basophils (%) (Auto) 0.3 % Neutrophils # (Auto) 7.3 TH/MM3 Lymphocytes # (Auto) 3.1 TH/MM3 Monocytes # (Auto) 1.0 TH/MM3 Eosinophils # (Auto) 0.1 TH/MM3 Basophils # (Auto) 0.0 TH/MM3 CBC Comment DIFF FINAL Differential Comment Sodium Level 137 MEQ/L Potassium Level 3.6 MEQ/L Chloride Level 103 MEQ/L Carbon Dioxide Level 22.6 MEQ/L Anion Gap 11 MEQ/L Blood Urea Nitrogen 8 MG/DL Creatinine 0.52 MG/DL Estimat Glomerular Filtration 139 ML/MIN Rate Random Glucose 83 MG/DL Calcium Level 7.8 MG/DL Total Bilirubin 0.1 MG/DL Aspartate Amino Transf 8 U/L (AST/SGOT) Alanine Aminotransferase 10 U/L (ALT/SGPT) Alkaline Phosphatase 95 U/L C-Reactive Protein 0.81 MG/DL Total Protein 6.4 GM/DL Albumin 2.4 GM/DL Physical Exam GENERAL: Well-nourished, well-developed patient. CARDIOVASCULAR: Regular rate and rhythm without murmurs, gallops, or rubs. RESPIRATORY: Breath sounds equal bilaterally. No accessory muscle use. ABDOMEN/GI: Abdomen soft, non-tender. right breast abcess site still needs packing. Circumferential area around defect very hard and painful. I am not sure it is entirely viable tissue. thumb no longer casted or bandaged and healing Fundus consistent with Dates ext NT. Assessment and Plan Problem List: (1) Drug abuse during Status: Chronic Assessment & Plan: continue 40 mg oxycodone in divided doses for maintenance. Historically has down well on 24 mg subutex daily but not on formulary and cannot be picked up by anyone but her from outside pharmacy. (2) Seizure disorder Status: Chronic (3) Hypothyroidism affecting Status: Acute (4) Abscess of left thumb Status: Acute (5) Breast abscess Status: Acute Assessment & Plan: will ask surgery to re assess today (6) 31 weeks gestation of Status: Acute Assessment & Plan: daily FHTS and weekly NSTs (7) Endocarditis Status: Acute Assessment & Plan: as per infectious disease Assessment and Plan 31 yo at 31 6/7 opioid dependence Bacterial endocarditis s/p left thumb surgery resolving right breast abscess Hep C positive consider increase to 15 mg oxycodone po q6hr. wean ativan. continue seroquel need to continue IV antibiotics for interval recommended by infectious disease BPP 05/15 with ob diagnostic 11/08/16. continue weekly testing. 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 [employer] involved. Madeleine Yu MD Nov 13, 2016 09:25
[2016-11-13] MEDS: PRENATAL VITAMIN CHEWABLE TAB CHEW SCH (10:16)
[2016-11-13] MEDS: NICOTINE 21 MG/24 HR PATCH TD SCH (10:16)
[2016-11-13] MEDS: SODIUM CHLORIDE 0.9% FLUSH 5 ML FLUSH IVF SCH ×2 (10:17→20:12)
[2016-11-13] MEDS: DOCUSATE SODIUM 100 MG CAP PO SCH ×2 (10:17→20:15)
[2016-11-13] MEDS: FAMOTIDINE 20 MG TAB PO SCH ×2 (10:17→20:15)
[2016-11-13 12:00] VITALS: BP 121/64; PULSE 84; RESP 16; TEMP 98.2; O2SAT 99
[2016-11-13 16:00] VITALS: BP 112/61; PULSE 90; RESP 12; TEMP 98.1; O2SAT 97
[2016-11-13] MEDS: cefTRIAXone INJ 2,000 MG in SODIUM CHLORIDE 0.9% INJ 100 ML IV SCH (18:48)
[2016-11-13 20:00] VITALS: BP 131/57; PULSE 89; RESP 18; TEMP 99.1; O2SAT 98
[2016-11-13] MEDS: QUEtiapine FUMARATE 100 MG TAB PO SCH (20:14)
[2016-11-13] MEDS: REMOVE OLD NICODERM (NICOTINE) PATCH TD SCH (20:18)
[2016-11-14] VITALS: BP 92/57; PULSE 86; RESP 16; TEMP 97.7; O2SAT 97
[2016-11-14] MEDS: CEFTAROLINE INJ 600 MG in SODIUM CHLORIDE 0.9% INJ 100 ML IV SCH ×3 (00:27→17:46)
[2016-11-14 04:00] VITALS: BP 120/56; PULSE 83; RESP 16; TEMP 98.3; O2SAT 99
[2016-11-14] MEDS: GABAPENTIN 400 MG CAP PO SCH ×3 (05:49→21:42)
[2016-11-14] MEDS: LEVOTHYROXINE SODIUM 50 MCG TAB PO SCH (05:50)
[2016-11-14] MEDS: LORazepam 0.5 MG TAB PO SCH ×2 (05:50→12:58)
[2016-11-14 08:00] VITALS: BP 109/63; PULSE 88; RESP 20; TEMP 97.7; O2SAT 98
[2016-11-14] MEDS: POVIDONE IODINE 10% OINT 30 GM TUBE TOPICAL SCH (09:00)
[2016-11-14] MEDS: POVIDONE IODINE 10% SOLN 118 ML BOTTLE TOPICAL SCH (09:00)
[2016-11-14] MEDS: DOCUSATE SODIUM 100 MG CAP PO SCH ×2 (09:55→21:00)
[2016-11-14] MEDS: traMADol HCL 50 MG TAB PO PRN ×3 (09:56→22:42)
[2016-11-14] MEDS: SODIUM CHLORIDE 0.9% FLUSH 5 ML FLUSH IVF SCH ×2 (09:56→21:00)
[2016-11-14] MEDS: PRENATAL VITAMIN CHEWABLE TAB CHEW SCH (09:56)
[2016-11-14] MEDS: FAMOTIDINE 20 MG TAB PO SCH ×2 (09:56→21:42)
[2016-11-14] MEDS: NICOTINE 21 MG/24 HR PATCH TD SCH (09:57)
[2016-11-14 12:00] VITALS: BP 102/61; PULSE 87; RESP 20; TEMP 97.6; O2SAT 99
[2016-11-14 16:00] VITALS: BP 143/75; PULSE 93; RESP 22; TEMP 98.1; O2SAT 98
--- NOTE | 2016-11-14 16:19 | HHI.FPPN ---
Subjective Remarks Overnight, no acute events. Feeling baby move, denies vaginal bleeding, loss of fluid. No regular contractions. Reassuring FHT 26*6 = 156 AFVSS. Borderline hypotension to 92/57. Eating, voiding, stooling, ambulating without difficulty. Pt in good spirits, as had received laptop as gift from Jasmin Goncalves and Dr. 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 C/o pain in R breast at biopsy site- removed bandage today and was concerned there was blood on bandage- well circumcised duc-shaped hole open to air- mildly tender to palpation, no gross discharge or bleeding from wound site- pt stated nurse was coming in to re-pack wound Pt concerned another developing MRSA abscess of lateral L ankle- 1cm x 1cm area of erythema on lateral malleolus where pt states she used to shoot up. Denies fevers/chills, SOB/CP, calf pain. Objective Vitals Vital Signs Date Time Temp Pulse Resp B/P Pulse Ox O2 Delivery O2 Flow Rate FiO2 11/14/16 12:00 97.6 87 20 102/61 99 11/14/16 08:00 97.7 88 20 109/63 98 11/14/16 07:15 Room Air 21 11/14/16 04:00 98.3 83 16 120/56 99 11/14/16 00:00 97.7 86 16 92/57 97 11/13/16 20:00 99.1 89 18 131/57 98 11/13/16 19:30 Room Air 11/13/16 16:00 98.1 90 12 112/61 97 I/O 11/13/16 11/13/16 11/13/16 11/14/16 11/14/16 11/14/16 07:00 15:00 23:00 07:00 15:00 23:00 Intake Total 480 ml 100 ml 2460 ml Balance 480 ml 100 ml 2460 ml Intake Oral 480 ml 2360 ml IV Total 100 ml 100 ml # Voids 15 6 # Bowel Movements 1 0 Result Diagram: 11/13/16 0622 11/13/16 0622 Imaging Last Impressions Breast Ultrasound 10/26/16 1610 Signed Impressions: Service Date/Time: October 19:40 - CONCLUSION: Right breast abscess at the 3:00 position 4 cm from the nipple. Asim Fong MD Brain MRI 10/24/16 0000 Signed Impressions: Service Date/Time: Monday, October 24, 2016 14:09 - CONCLUSION: 1. No intracranial abnormalities seen. 2. Small focal area of mucosal disease of the right sphenoid sinus. Asim Arzate MD Objective Remarks GENERAL: gravid female in no acute distress SKIN: Warm and dry. Right breast with 1cm x 1cm open wound, no prurulent discharge, mild tenderness to palpation. 1cm x 1cm area of erythema L lateral malleolus. HEENT: MMM. EOMI. CV: 2/6 systolic murmur RESP: Breath sounds equal bilaterally. No wheezing. Breathing well on room air GI: Abdomen soft, gravid, non-tender, bowel sounds present, no rebound, no guarding FHT: 152 MSK: No cyanosis or edema. NEUROL: Awake and alert. Motor and sensory grossly within normal limits PSYCH: Appropriate affect Urinary Catheter: No Vascular Central Line Catheter: No A/P Assessment and Plan 31 year-old at 32/0 weeks with hx Hep C admitted for opioid withdrawal and MRSA cellulitis of R breast and L hand. Discharge Planning 5+ weeks/likely until term. Requires long-term IV antibiotics in the hospital due to concern for MRSA endocarditis. High risk of relapsing if discharged for outpatient antibiotics SDW: Dr Mcallister Problem List: (1) 32 weeks gestation of Status: Acute Plan: -daily heart tones -continue supportive management (2) Drug abuse during Status: Chronic Plan: Case management consulted- needs housing, healthy start . Recommend counseling, therapy as an outpatient * Per Dr. Saeed, continue 40mg oxycodone/day in divided doses- consider increasing to 15mg q6h- pt has been receiving PRN doses q6-8 hours * Changed Roxicodone 10mg q6h PRN to BRIAN * Colase BID as bowel ppx * Vistaril 50 mg q6hrs PRN agitation/hallucination * Ativan q4h PRN seizure (3) MRSA cellulitis Status: Acute Plan: Cellulitis of L hand and R breast, both sides of prior self-injection for IVDU. L hand improved s/p debridement, R breast is taking longer to heal- swollen, painful. Wound cultures positive for klebsiella pneumonia and MRSA. Blood cultures: no growth * ID on board, appreciate recommendations * Continue Teflaro IV q8hrs for MRSA coverage (endocarditis and cellulitis) * Pain control with tramadol q6h PRN pain 5-10 (4) Heart valve vegetation Status: Acute Plan: Possible MRSA endocarditis detected by TTE. Treatment per ID * Continue Ceftriaxone IV daily (10/25 -) to cover for Kleb pneumo endocarditis * Continue Teflaro IV daily (11/01) as above for MRSA cellulitis and endocarditis (5) Coffee ground emesis Status: Resolved Plan: One episode of coffee ground emesis. GI consulted, appreciate recommendations. * Pepcid 20 mg BID * Hold PPI at present as category B * Mylanta PRN stomach pain * Phenergan PRN nausea/vomiting. * EGD/colonoscopy after delivery (6) Seizure disorder Status: Chronic Plan: MRI negative for acute disease. EEG negative for seizure activity. Neurology consulted -appreciate recs * Continue Gabapentin 800mg TID (7) Hepatitis C Status: Resolved Plan: History of hepatitis C. Hep C antibody positive, Hep C genome not detected- likely she has cleared the infection(?). Not treated in the past, LFTs wnl. * Monitor LFTs * Follow with GI as outpatient, as desired (8) Hypothyroidism affecting Status: Acute Plan: -Continue Synthroid 50 mEq daily (9) Fluids, Electrolytes, Nutrition, Prophylaxis Status: Acute Plan: Fluids: Per PO Electrolytes: within normal limits Nutrition: Regular DVT ppx: SCDs GI ppx: Ranitidine, as above, for GERD Problem Qualifiers (1) Hepatitis C: Qualified Code: B18.2 - Chronic hepatitis C without hepatic coma Rose Escoto MD R1 Nov 14, 2016 16:19
[2016-11-14] MEDS: cefTRIAXone INJ 2,000 MG in SODIUM CHLORIDE 0.9% INJ 100 ML IV SCH (18:00)
--- NOTE | 2016-11-14 18:07 | PD.OB.ANTE ---
Subjective Diagnosis: (1) Drug abuse during (2) Seizure disorder (3) Hypothyroidism affecting (4) Abscess of left thumb (5) Breast abscess (6) 31 weeks gestation of (7) Endocarditis Interval History 32 week IUP on IV antibiotics for CHACHA MRSA +initially doing well with resolution of left thumb abcess and resolving right breast abcess surveillance reassuring needs MRSA swab x 2 and can remove from contact isolation. Objective Vital Signs Vital Signs Date Time Temp Pulse Resp B/P Pulse Ox O2 Delivery O2 Flow Rate FiO2 11/14/16 12:00 97.6 87 20 102/61 99 11/14/16 08:00 97.7 88 20 109/63 98 11/14/16 07:15 Room Air 21 11/14/16 04:00 98.3 83 16 120/56 99 11/14/16 00:00 97.7 86 16 92/57 97 11/13/16 20:00 99.1 89 18 131/57 98 11/13/16 19:30 Room Air Intake & Output 11/14/16 11/14/16 07:00 19:00 Intake Total 2560 ml Balance 2560 ml Intake Oral 2360 ml IV Total 200 ml # Voids 6 # Bowel Movements 0 Physical Exam GENERAL: Well-nourished, well-developed patient. CARDIOVASCULAR: Regular rate and rhythm without murmurs, gallops, or rubs. RESPIRATORY: Breath sounds equal bilaterally. No accessory muscle use. ABDOMEN/GI: Abdomen soft, non-tender. Fundus: [-] GENITOURINARY: External Genitalia: intact and normal in appearance Cervix: [-] Dilatation: [-] Effacement: [-] Station: [-] Presentation: [-] Membranes: [-] Uterine Contractions: [-] FHT's: Category: [-] Baseline: [-] Reactive: [-] Variability: [-] Decels: [-] EXTREMITIES: No cyanosis or edema, non-tender, without signs of DVT. Assessment and Plan Problem List: (1) Drug abuse during Status: Chronic Assessment & Plan: continue 40 mg oxycodone in divided doses for maintenance. Historically has down well on 24 mg subutex daily but not on formulary and cannot be picked up by anyone but her from outside pharmacy. (2) Seizure disorder Status: Chronic (3) Hypothyroidism affecting Status: Acute (4) Abscess of left thumb Status: Acute (5) Breast abscess Status: Acute Assessment & Plan: will ask surgery to re assess today (6) 31 weeks gestation of Status: Acute Assessment & Plan: daily FHTS and weekly NSTs (7) Endocarditis Status: Acute Assessment & Plan: as per infectious disease Assessment and Plan 31 yo at 31 6/7 opioid dependence Bacterial endocarditis s/p left thumb surgery resolving right breast abscess Hep C positive consider increase to 15 mg oxycodone po q6hr. wean ativan. continue seroquel need to continue IV antibiotics for interval recommended by infectious disease BPP 05/15 with ob diagnostic 11/08/16. continue weekly testing. 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 [employer] involved. Madeleine Yu MD Nov 14, 2016 18:07
[2016-11-14 20:00] VITALS: BP 115/62; PULSE 82; RESP 16; TEMP 97.4; O2SAT 97
[2016-11-14] MEDS: REMOVE OLD NICODERM (NICOTINE) PATCH TD SCH (21:00)
[2016-11-14] MEDS: QUEtiapine FUMARATE 100 MG TAB PO SCH (21:42)
[2016-11-15] VITALS: BP 105/56; PULSE 83; RESP 18; TEMP 97; O2SAT 97
[2016-11-15] MEDS: CEFTAROLINE INJ 600 MG in SODIUM CHLORIDE 0.9% INJ 100 ML IV SCH ×3 (03:27→17:38)
[2016-11-15 04:00] VITALS: BP 95/52; PULSE 67; RESP 16; TEMP 98.1; O2SAT 97
[2016-11-15] MEDS: traMADol HCL 50 MG TAB PO PRN ×2 (05:26→18:53)
[2016-11-15] MEDS: GABAPENTIN 400 MG CAP PO SCH ×3 (05:26→20:54)
[2016-11-15] MEDS: LEVOTHYROXINE SODIUM 50 MCG TAB PO SCH (05:27)
[2016-11-15] MEDS: LORazepam 0.5 MG TAB PO SCH ×2 (05:49→15:05)
[2016-11-15 08:07] VITALS: BP 107/59; PULSE 77; RESP 18; TEMP 97.4; O2SAT 99
[2016-11-15] MEDS: SODIUM CHLORIDE 0.9% FLUSH 5 ML FLUSH IVF SCH ×2 (09:00→20:57)
[2016-11-15] MEDS: POVIDONE IODINE 10% SOLN 118 ML BOTTLE TOPICAL SCH (09:00)
[2016-11-15] MEDS: POVIDONE IODINE 10% OINT 30 GM TUBE TOPICAL SCH (09:00)
[2016-11-15] MEDS: PRENATAL VITAMIN CHEWABLE TAB CHEW SCH (09:08)
[2016-11-15] MEDS: FAMOTIDINE 20 MG TAB PO SCH ×2 (09:08→20:55)
[2016-11-15] MEDS: DOCUSATE SODIUM 100 MG CAP PO SCH ×2 (09:08→20:55)
[2016-11-15] MEDS: NICOTINE 21 MG/24 HR PATCH TD SCH (09:09)
[2016-11-15 12:27] VITALS: BP 118/58; PULSE 93; RESP 18; TEMP 97.5; O2SAT 99
[2016-11-15 12:40] LABS: MRSA PCR NEGATIVE (NEGATIVE); STAPH AUREUS PCR NEGATIVE (NEGATIVE)
--- NOTE | 2016-11-15 14:42 | HHI.FPPN ---
Subjective Remarks Overnight, no acute events. Feeling baby move, denies vaginal bleeding, loss of fluid. No regular contractions. Reassuring FHT 132 AFVSS. Continues to have chronic borderline hypotension. Eating, voiding, stooling, ambulating without difficulty. Denies fevers/chills, n/v, SOB/CP, calf pain. Patient enjoyed the online classes she started yesterday- really appreciates her new laptop. Pain control improved with BRIAN Roxicodone. Wound was re-packed yesterday without difficulty. Pt concerned another developing MRSA abscess on lateral mid-5th MT. 1/2 cm x 1/ 2cm area of mildly enlarge fluctuance. States she did use this area previously for IVDU. Objective Vitals Vital Signs Date Time Temp Pulse Resp B/P Pulse Ox O2 Delivery O2 Flow Rate FiO2 11/15/16 12:27 97.5 93 18 118/58 99 11/15/16 08:07 97.4 77 18 107/59 99 11/15/16 04:00 98.1 67 16 95/52 97 11/15/16 00:00 97.0 83 18 105/56 97 11/14/16 21:02 Room Air 11/14/16 20:00 97.4 82 16 115/62 97 11/14/16 16:00 98.1 93 22 143/75 98 I/O 11/14/16 11/14/16 11/14/16 11/15/16 11/15/16 11/15/16 07:00 15:00 23:00 07:00 15:00 23:00 Intake Total 2460 ml 960 ml 209 ml 590 ml Output Total 400 ml Balance 2460 ml 960 ml -191 ml 590 ml Intake Oral 2360 ml 960 ml 100 ml 480 ml IV Total 100 ml 109 ml 110 ml Output Urine Total 400 ml # Voids 6 10 5 # Bowel Movements 0 1 1 1 Result Diagram: 11/13/16 0622 11/13/16 0622 Imaging Last Impressions Breast Ultrasound 10/26/16 1610 Signed Impressions: Service Date/Time: October 19:40 - CONCLUSION: Right breast abscess at the 3:00 position 4 cm from the nipple. Asim Fong MD Brain MRI 10/24/16 0000 Signed Impressions: Service Date/Time: Monday, October 24, 2016 14:09 - CONCLUSION: 1. No intracranial abnormalities seen. 2. Small focal area of mucosal disease of the right sphenoid sinus. Asim Arzate MD Objective Remarks CONST: gravid female in no acute distress DERM: Warm and dry. Right breast with 1cm x 1cm open wound, no prurulent discharge, mild tenderness to palpation. 1cm x 1cm area of erythema L lateral malleolus. HEENT: PERRL. Mucous membranes moist. CV: 2/6 systolic murmur RESP: Breath sounds equal bilaterally. No wheezing. Breathing well on room air GI: Abdomen gravid, non-tender. FHT: 132 MSK: No cyanosis or edema NEURO: Motor and sensory grossly within normal limits PSYCH: Appropriate affect Urinary Catheter: No Vascular Central Line Catheter: No A/P Assessment and Plan 31 year-old at 32 weeks with hx Hep C admitted for opioid withdrawal and MRSA cellulitis of R breast and L hand. Discharge Planning 5+ weeks (until term). Requires long-term IV antibiotics in the hospital due to concern for MRSA endocarditis. High risk of relapsing if discharged for outpatient antibiotics DW: Dr Mcallister WDW: Dr Yu Problem List: (1) 32 weeks gestation of Status: Acute Plan: -daily heart tones -continue supportive management (2) Drug abuse during Status: Chronic Plan: Case management consulted- needs housing, healthy start . Recommend counseling, therapy as an outpatient * Per Dr. Saeed, continue 40mg oxycodone/day in divided doses- consider increasing to 15mg q6h- pt has been receiving PRN doses q6-8 hours * Changed Roxicodone 10mg q6h PRN to BRIAN * Colase BID as bowel ppx * Vistaril 50 mg q6hrs PRN agitation/hallucination * Ativan q4h PRN seizure (3) MRSA cellulitis Status: Acute Plan: Sites on L hand and R breast. Both sites of prior IVDU. L hand improved s /p debridement, R breast is taking longer to heal- swollen, painful. Wound Cx + klebsiella and MRSA. BCx neg * ID on board, appreciate recommendations * Continue Ceftriaxone IV daily (10/25- ) to cover for Kleb pneumo endocarditis * Continue Teflaro IV q8hrs for MRSA coverage (endocarditis and cellulitis) * Pain control with tramadol q6h PRN pain 5-10 * MRSA screen neg 11/15/16. Repeat screen tomorrow. If neg x2, d/c contact precautions. (4) Heart valve vegetation Status: Acute Plan: Possible MRSA endocarditis detected by TTE. Treatment per ID * Continue Ceftriaxone IV daily (10/25 -) to cover for Kleb pneumo endocarditis * Continue Teflaro IV daily (11/01) as above for MRSA cellulitis and endocarditis (5) Coffee ground emesis Status: Resolved Plan: One episode of coffee ground emesis. GI consulted, appreciate recommendations. * Pepcid 20 mg BID * Hold PPI at present as category B * Mylanta PRN stomach pain * Phenergan PRN nausea/vomiting. * EGD/colonoscopy after delivery (6) Seizure disorder Status: Chronic Plan: MRI negative for acute disease. EEG negative for seizure activity. Neurology consulted -appreciate recs * Continue Gabapentin 800mg TID (7) Hepatitis C Status: Resolved Plan: History of hepatitis C. Hep C antibody positive, Hep C genome not detected- likely she has cleared the infection(?). Not treated in the past, LFTs wnl. * Monitor LFTs * Follow with GI as outpatient, as desired (8) Hypothyroidism affecting Status: Acute Plan: -Continue Synthroid 50 mEq daily (9) Fluids, Electrolytes, Nutrition, Prophylaxis Status: Acute Plan: Fluids: Per PO Electrolytes: within normal limits Nutrition: Regular DVT ppx: SCDs GI ppx: Ranitidine, as above, for GERD Problem Qualifiers (1) Hepatitis C: Qualified Code: B18.2 - Chronic hepatitis C without hepatic coma Rose Escoto MD R1 Nov 15, 2016 14:41
[2016-11-15 16:07] VITALS: BP 121/72; PULSE 85; RESP 17; TEMP 97.8; O2SAT 98
[2016-11-15] MEDS: cefTRIAXone INJ 2,000 MG in SODIUM CHLORIDE 0.9% INJ 100 ML IV SCH (18:52)
[2016-11-15 20:00] VITALS: BP 119/52; PULSE 84; RESP 20; TEMP 97.5; O2SAT 98
[2016-11-15] MEDS: QUEtiapine FUMARATE 100 MG TAB PO SCH (20:54)
[2016-11-15] MEDS: REMOVE OLD NICODERM (NICOTINE) PATCH TD SCH (21:00)
[2016-11-16] VITALS: BP 119/94; PULSE 84; RESP 20; TEMP 98.1; O2SAT 97
[2016-11-16] MEDS: CEFTAROLINE INJ 600 MG in SODIUM CHLORIDE 0.9% INJ 100 ML IV SCH ×3 (00:15→16:44)
[2016-11-16] MEDS: traMADol HCL 50 MG TAB PO PRN ×4 (01:20→22:46)
[2016-11-16 04:00] VITALS: BP_SYST 105; BP_SYST 136; BP_DIAS 59; BP_DIAS 63; PULSE 86; PULSE 90; RESP 18; TEMP 97.8; O2SAT 95; O2SAT 97
[2016-11-16] MEDS: GABAPENTIN 400 MG CAP PO SCH ×3 (05:13→20:21)
[2016-11-16] MEDS: LEVOTHYROXINE SODIUM 50 MCG TAB PO SCH (05:13)
[2016-11-16] MEDS: LORazepam 0.5 MG TAB PO SCH ×2 (05:13→12:49)
[2016-11-16 08:00] VITALS: BP 101/61; PULSE 74; RESP 18; TEMP 97.2; O2SAT 99
[2016-11-16] MEDS: POVIDONE IODINE 10% OINT 30 GM TUBE TOPICAL SCH (09:00)
[2016-11-16] MEDS: POVIDONE IODINE 10% SOLN 118 ML BOTTLE TOPICAL SCH (09:00)
[2016-11-16] MEDS: SODIUM CHLORIDE 0.9% FLUSH 5 ML FLUSH IVF SCH ×2 (09:03→20:28)
[2016-11-16] MEDS: PRENATAL VITAMIN CHEWABLE TAB CHEW SCH (09:03)
[2016-11-16] MEDS: NICOTINE 21 MG/24 HR PATCH TD SCH (09:04)
[2016-11-16] MEDS: DOCUSATE SODIUM 100 MG CAP PO SCH ×2 (09:04→20:20)
[2016-11-16] MEDS: FAMOTIDINE 20 MG TAB PO SCH ×2 (09:04→20:27)
[2016-11-16 12:00] VITALS: BP 96/53; PULSE 97; RESP 20; TEMP 98.3; O2SAT 98
[2016-11-16 16:00] VITALS: BP 112/58; PULSE 85; RESP 20; TEMP 98.2; O2SAT 97
[2016-11-16] MEDS: cefTRIAXone INJ 2,000 MG in SODIUM CHLORIDE 0.9% INJ 100 ML IV SCH (18:50)
[2016-11-16 20:00] VITALS: BP 115/76; PULSE 92; RESP 20; TEMP 97.3; O2SAT 98
[2016-11-16] MEDS: QUEtiapine FUMARATE 100 MG TAB PO SCH (20:20)
[2016-11-16] MEDS: REMOVE OLD NICODERM (NICOTINE) PATCH TD SCH (20:27)
[2016-11-17] VITALS: BP 133/70; PULSE 103; RESP 18; TEMP 98; O2SAT 96
[2016-11-17] MEDS: CEFTAROLINE INJ 600 MG in SODIUM CHLORIDE 0.9% INJ 100 ML IV SCH ×3 (00:31→17:05)
[2016-11-17 04:00] VITALS: BP 99/54; PULSE 74; RESP 16; TEMP 98.2; O2SAT 98
[2016-11-17] MEDS: GABAPENTIN 400 MG CAP PO SCH ×3 (05:37→20:55)
[2016-11-17] MEDS: LEVOTHYROXINE SODIUM 50 MCG TAB PO SCH (05:37)
[2016-11-17] MEDS: LORazepam 0.5 MG TAB PO SCH ×2 (05:38→13:01)
[2016-11-17] MEDS: PRENATAL VITAMIN CHEWABLE TAB CHEW SCH (07:57)
[2016-11-17] MEDS: DOCUSATE SODIUM 100 MG CAP PO SCH ×2 (07:58→20:55)
[2016-11-17] MEDS: SODIUM CHLORIDE 0.9% FLUSH 5 ML FLUSH IVF SCH ×2 (07:58→20:55)
[2016-11-17] MEDS: NICOTINE 21 MG/24 HR PATCH TD SCH (07:58)
[2016-11-17] MEDS: FAMOTIDINE 20 MG TAB PO SCH ×2 (07:58→20:55)
[2016-11-17] MEDS: POVIDONE IODINE 10% SOLN 118 ML BOTTLE TOPICAL SCH (07:59)
[2016-11-17] MEDS: POVIDONE IODINE 10% OINT 30 GM TUBE TOPICAL SCH (07:59)
[2016-11-17] MEDS: traMADol HCL 50 MG TAB PO PRN ×3 (08:00→22:08)
[2016-11-17 08:20] VITALS: BP 95/53; PULSE 84; RESP 18; TEMP 97.4; O2SAT 97
[2016-11-17 12:13] VITALS: BP 112/63; PULSE 83; RESP 19; TEMP 98.4; O2SAT 97
[2016-11-17 16:19] VITALS: BP 109/70; PULSE 85; RESP 18; TEMP 97.9; O2SAT 98
[2016-11-17] MEDS: cefTRIAXone INJ 2,000 MG in SODIUM CHLORIDE 0.9% INJ 100 ML IV SCH (17:05)
[2016-11-17 20:00] VITALS: BP 120/66; PULSE 81; RESP 19; TEMP 98.7; O2SAT 96
[2016-11-17] MEDS: QUEtiapine FUMARATE 100 MG TAB PO SCH (20:55)
[2016-11-17] MEDS: REMOVE OLD NICODERM (NICOTINE) PATCH TD SCH (20:55)
[2016-11-18] VITALS: BP 115/60; PULSE 84; RESP 17; TEMP 97.2; O2SAT 95
[2016-11-18] MEDS: CEFTAROLINE INJ 600 MG in SODIUM CHLORIDE 0.9% INJ 100 ML IV SCH ×3 (01:12→16:35)
[2016-11-18 04:00] VITALS: BP 101/57; PULSE 72; RESP 18; TEMP 97.7; O2SAT 98
[2016-11-18] MEDS: GABAPENTIN 400 MG CAP PO SCH ×3 (06:54→21:26)
[2016-11-18] MEDS: LEVOTHYROXINE SODIUM 50 MCG TAB PO SCH (06:54)
[2016-11-18] MEDS: LORazepam 0.5 MG TAB PO SCH (06:54)
[2016-11-18] MEDS: traMADol HCL 50 MG TAB PO PRN ×3 (07:41→21:27)
[2016-11-18 08:00] VITALS: BP 93/59; PULSE 82; RESP 18; TEMP 98.2; O2SAT 100
--- NOTE | 2016-11-18 08:52 | PD.OB.ANTE ---
Subjective Diagnosis: (1) Drug abuse during (2) Seizure disorder (3) Hypothyroidism affecting (4) Abscess of left thumb (5) Breast abscess (6) 31 weeks gestation of (7) Endocarditis Interval History 32 1/2 weeks IUP being treated for CHACHA and spontaneous eruptions on breast and left thumb (both incised and drained. In house for IV antibiotics Notes a new lesion developing on thumb even as breast resolves GFM no leaking, bleeding no GRAHAM, N V Blurred vision Objective Vital Signs Vital Signs Date Time Temp Pulse Resp B/P Pulse Ox O2 Delivery O2 Flow Rate FiO2 11/18/16 08:00 98.2 82 18 93/59 100 11/18/16 04:00 97.7 72 18 101/57 98 11/18/16 00:00 97.2 84 17 115/60 95 11/17/16 20:00 98.7 81 19 120/66 96 11/17/16 19:30 Room Air 11/17/16 16:19 97.9 85 18 109/70 98 11/17/16 15:14 20 11/17/16 12:35 97 Room Air 11/17/16 12:13 98.4 83 19 112/63 97 11/17/16 09:45 18 Intake & Output 11/18/16 11/18/16 07:00 19:00 Intake Total 610 ml Balance 610 ml Intake Oral 460 ml IV Total 150 ml # Voids 5 Physical Exam GENERAL: Well-nourished, well-developed patient. CARDIOVASCULAR: Regular rate and rhythm without murmurs, gallops, or rubs. RESPIRATORY: Breath sounds equal bilaterally. No accessory muscle use. ABDOMEN/GI: Abdomen soft, non-tender. 33 cm No CVAT small pointing lesion on joint of thumb breast lesion healing well with no sign of recurrent cellulitis or abcess formation EXTREMITIES: No cyanosis or edema, non-tender, without signs of DVT. Assessment and Plan Problem List: (1) Drug abuse during Status: Chronic Assessment & Plan: continue 40 mg oxycodone in divided doses for maintenance. Historically has down well on 24 mg subutex daily but not on formulary and cannot be picked up by anyone but her from outside pharmacy. (2) Seizure disorder Status: Chronic (3) Hypothyroidism affecting Status: Acute (4) Abscess of left thumb Status: Acute (5) Breast abscess Status: Acute Assessment & Plan: will ask surgery to re assess today (6) 31 weeks gestation of Status: Acute Assessment & Plan: daily FHTS and weekly NSTs (7) Endocarditis Status: Acute Assessment & Plan: as per infectious disease Assessment and Plan 31 yo at 32 + week IUP opioid dependence Bacterial endocarditis s/p left thumb surgery resolving right breast abscess Hep C positive discussed weaning oxycodone gradually. 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 [employer] involved. Madeleine Yu MD Nov 18, 2016 08:52
[2016-11-18] MEDS: POVIDONE IODINE 10% SOLN 118 ML BOTTLE TOPICAL SCH (09:00)
[2016-11-18] MEDS: SODIUM CHLORIDE 0.9% FLUSH 5 ML FLUSH IVF SCH ×2 (09:00→21:39)
[2016-11-18] MEDS: POVIDONE IODINE 10% OINT 30 GM TUBE TOPICAL SCH (09:00)
[2016-11-18] MEDS: NICOTINE 21 MG/24 HR PATCH TD SCH (09:35)
[2016-11-18] MEDS: DOCUSATE SODIUM 100 MG CAP PO SCH ×2 (09:35→21:25)
[2016-11-18] MEDS: FAMOTIDINE 20 MG TAB PO SCH ×2 (09:35→21:27)
[2016-11-18] MEDS: PRENATAL VITAMIN CHEWABLE TAB CHEW SCH (09:35)
[2016-11-18 12:00] VITALS: BP 112/60; PULSE 82; RESP 18; TEMP 97.6; O2SAT 96
[2016-11-18 16:00] VITALS: BP 110/65; PULSE 80; RESP 18; TEMP 98.5; O2SAT 97
[2016-11-18 18:13] LABS: BACTERIA, URINE OCC /hpf; BLOOD, URINE NEG (NEG); GLUCOSE,URINE NEG (NEG); KETONE, URINE NEG (NEG); MUCUS URINE FEW /lpf (OCC); NITRITE,URINE NEG (NEG); PH, URINE 6.5 (5.0-8.5); SQUAMOUS EPITHELIAL CELL URINE 11 /hpf (0-5); URINE COLOR YELLOW (YELLW/STRAW)
[2016-11-18 18:14] LABS: COMMENT (UR) CULT NOT INDICATED; CULTURE IF INDICATED CULT NOT INDICATED
[2016-11-18] MEDS: cefTRIAXone INJ 2,000 MG in SODIUM CHLORIDE 0.9% INJ 100 ML IV SCH (18:54)
[2016-11-18 20:00] VITALS: BP 114/68; PULSE 66; RESP 18; TEMP 97.8; O2SAT 100
[2016-11-18] MEDS: QUEtiapine FUMARATE 100 MG TAB PO SCH (21:25)
[2016-11-18] MEDS: REMOVE OLD NICODERM (NICOTINE) PATCH TD SCH (21:39)
[2016-11-19] VITALS: BP 103/61; PULSE 75; RESP 16; TEMP 97.6; O2SAT 97
[2016-11-19] MEDS: CEFTAROLINE INJ 600 MG in SODIUM CHLORIDE 0.9% INJ 100 ML IV SCH ×3 (01:55→18:22)
[2016-11-19 04:00] VITALS: BP 122/60; PULSE 80; RESP 18; TEMP 97.5; O2SAT 99
[2016-11-19] MEDS: LORazepam 0.5 MG TAB PO SCH (06:07)
[2016-11-19] MEDS: GABAPENTIN 400 MG CAP PO SCH ×3 (06:07→20:59)
[2016-11-19] MEDS: LEVOTHYROXINE SODIUM 50 MCG TAB PO SCH (06:08)
[2016-11-19] MEDS: PRENATAL VITAMIN CHEWABLE TAB CHEW SCH (08:03)
[2016-11-19] MEDS: NICOTINE 21 MG/24 HR PATCH TD SCH (08:03)
[2016-11-19] MEDS: SODIUM CHLORIDE 0.9% FLUSH 5 ML FLUSH IVF SCH ×2 (08:03→20:56)
[2016-11-19] MEDS: FAMOTIDINE 20 MG TAB PO SCH ×2 (08:03→20:58)
[2016-11-19] MEDS: DOCUSATE SODIUM 100 MG CAP PO SCH ×2 (08:03→20:58)
[2016-11-19] MEDS: traMADol HCL 50 MG TAB PO PRN ×2 (08:03→15:56)
[2016-11-19] MEDS: POVIDONE IODINE 10% SOLN 118 ML BOTTLE TOPICAL SCH (08:04)
[2016-11-19] MEDS: POVIDONE IODINE 10% OINT 30 GM TUBE TOPICAL SCH (08:04)
[2016-11-19 08:06] VITALS: BP 114/58; PULSE 83; RESP 16; TEMP 98.1; O2SAT 99
[2016-11-19 12:06] VITALS: BP 103/58; PULSE 76; RESP 16; TEMP 98; O2SAT 99
[2016-11-19 16:27] LABS: AUTOMATED NEUTROPHIL # 6.5 TH/MM3 (1.8-7.7); BASOPHIL % 0.2 % (0.0-2.0); EOSINOPHIL # 0.2 TH/MM3 (0-0.4); EOSINOPHIL % 1.4 % (0.0-4.0); HEMATOCRIT 32.1 % (35.0-46.0); HEMO FLAGS DIFF FINAL; LYMPH % 27.5 % (9.0-44.0); LYMPHOCYTE # 2.9 TH/MM3 (1.0-4.8); MEAN CELL VOLUME 83.4 FL (80.0-100.0); MEAN CORPUSCULAR HGB CONC 33.5 % (32.0-36.0); MONO % 8.3 % (0.0-8.0); NEUT % 62.6 % (16.0-70.0); PLATELET COUNT 291 TH/MM3 (150-450); RED BLOOD COUNT 3.84 MIL/MM3 (4.00-5.30); RED CELL DISTRIBUTION WIDTH 14.9 % (11.6-17.2); WHITE BLOOD COUNT 10.5 TH/MM3 (4.0-11.0)
[2016-11-19 16:38] LABS: BACTERIA, URINE RARE /hpf; BLOOD, URINE NEG (NEG); GLUCOSE,URINE NEG (NEG); KETONE, URINE NEG (NEG); MUCUS URINE FEW /lpf (OCC); NITRITE,URINE NEG (NEG); SQUAMOUS EPITHELIAL CELL URINE 26 /hpf (0-5); URINE COLOR YELLOW (YELLW/STRAW)
[2016-11-19 16:41] LABS: INDIRECT BILIRUBIN 0.1 MG/DL (0.0-0.8); TOTAL BILIRUBIN ADULT 0.2 MG/DL (0.2-1.0)
[2016-11-19 16:42] LABS: COMMENT (UR) CULTURE INDICATED; CULTURE IF INDICATED CULTURE INDICATED
[2016-11-19] MEDS ORDERED: ACETAMINOPHEN 1000 MG/100 ML VIAL IV ONE (18:00)
[2016-11-19] MEDS ORDERED: LACTATED RINGER'S 1000 ML INJ 1,000 ML IV ONE (18:15)
[2016-11-19 20:00] VITALS: BP 122/79; PULSE 92; RESP 20; TEMP 97.8; O2SAT 97
[2016-11-19] MEDS: cefTRIAXone INJ 2,000 MG in SODIUM CHLORIDE 0.9% INJ 100 ML IV SCH (20:55)
[2016-11-19] MEDS: QUEtiapine FUMARATE 100 MG TAB PO SCH (20:58)
[2016-11-19] MEDS: REMOVE OLD NICODERM (NICOTINE) PATCH TD SCH (20:59)
[2016-11-20] VITALS: BP 100/71; PULSE 72; RESP 14; TEMP 97.7; O2SAT 96
[2016-11-20] MEDS: traMADol HCL 50 MG TAB PO PRN ×4 (02:33→22:49)
[2016-11-20] MEDS: CEFTAROLINE INJ 600 MG in SODIUM CHLORIDE 0.9% INJ 100 ML IV SCH ×3 (02:34→15:37)
[2016-11-20 04:00] VITALS: BP 97/62; PULSE 69; RESP 16; TEMP 98.4; O2SAT 98
[2016-11-20] MEDS: LORazepam 0.5 MG TAB PO SCH (06:11)
[2016-11-20] MEDS: GABAPENTIN 400 MG CAP PO SCH ×3 (06:11→22:47)
[2016-11-20] MEDS: LEVOTHYROXINE SODIUM 50 MCG TAB PO SCH (06:11)
[2016-11-20 08:00] VITALS: BP 108/59; PULSE 94; RESP 16; TEMP 97.8; O2SAT 98
--- NOTE | 2016-11-20 08:27 | PD.OB.ANTE ---
Subjective Diagnosis: (1) Drug abuse during (2) Seizure disorder (3) Hypothyroidism affecting (4) Abscess of left thumb (5) Breast abscess (6) 31 weeks gestation of (7) Endocarditis Interval History Seen in Antepartum unit yesterday for cramps. No UCs documented and surveillance good. Given hydration and ofirmev. Cervix checked. Had spotting afterwards. Still cramping today. States regular bowel movements. Tried to cut to 20 mg oxy on sunday herself and may have precipitated her abdomenal cramping. Took 30 yesterday. She can remain in control but should not go below 30 for the next week (taper slowly) In good spirits. GFM. Asked about steroids since she typically delivers between 34-36 weeks. Will administer, Will get PICC for remaining 4 weeks since line changes needed every 48 hours. Has BPP ordered Objective Vital Signs Vital Signs Date Time Temp Pulse Resp B/P Pulse Ox O2 Delivery O2 Flow Rate FiO2 11/20/16 04:00 98.4 69 16 97/62 98 11/20/16 00:00 97.7 72 14 100/71 96 11/19/16 20:00 97.8 92 20 122/79 97 11/19/16 20:00 Room Air 11/19/16 12:06 98.0 76 16 103/58 99 Intake & Output 11/20/16 11/20/16 07:00 19:00 Intake Total 320 ml Balance 320 ml Intake Oral 320 ml # Voids 3 # Bowel Movements 0 Lab & Micro Results Test 11/19/16 11/19/16 14:30 15:11 Urine Color YELLOW Urine Turbidity HAZY Urine pH 7.0 Urine Specific [place] 1.014 Urine Protein NEG mg/dL Urine Glucose (UA) NEG mg/dL Urine Ketones NEG mg/dL Urine Occult Blood NEG Urine Nitrite NEG Urine Bilirubin NEG Urine Urobilinogen LESS THAN 2.0 MG/DL Urine Leukocyte Esterase LARGE Urine RBC 2 /hpf Urine WBC 4 /hpf Urine Squamous Epithelial 26 /hpf Cells Urine Bacteria RARE /hpf Urine Mucus FEW /lpf Urine Yeast (Budding) RARE Microscopic Urinalysis Comment CULTURE INDICATED White Blood Count 10.5 TH/MM3 Red Blood Count 3.84 MIL/MM3 Hemoglobin 10.7 GM/DL Hematocrit 32.1 % Mean Corpuscular Volume 83.4 FL Mean Corpuscular Hemoglobin 28.0 PG Mean Corpuscular Hemoglobin 33.5 % Concent Red Cell Distribution Width 14.9 % Platelet Count 291 TH/MM3 Mean Platelet Volume 7.0 FL Neutrophils (%) (Auto) 62.6 % Lymphocytes (%) (Auto) 27.5 % Monocytes (%) (Auto) 8.3 % Eosinophils (%) (Auto) 1.4 % Basophils (%) (Auto) 0.2 % Neutrophils # (Auto) 6.5 TH/MM3 Lymphocytes # (Auto) 2.9 TH/MM3 Monocytes # (Auto) 0.9 TH/MM3 Eosinophils # (Auto) 0.2 TH/MM3 Basophils # (Auto) 0.0 TH/MM3 CBC Comment DIFF FINAL Differential Comment Total Bilirubin 0.2 MG/DL Direct Bilirubin 0.1 MG/DL Indirect Bilirubin 0.1 MG/DL Aspartate Amino Transf 9 U/L (AST/SGOT) Alanine Aminotransferase 12 U/L (ALT/SGPT) Alkaline Phosphatase 105 U/L Total Protein 6.8 GM/DL Albumin 2.5 GM/DL Date/Time Procedure Status Source Growth 11/19/16 14:30 Urine Culture Received Urine Clean Catch Pending Physical Exam GENERAL: Well-nourished, well-developed patient. CARDIOVASCULAR: Regular rate and rhythm without murmurs, gallops, or rubs. RESPIRATORY: Breath sounds equal bilaterally. No accessory muscle use. ABDOMEN/GI: Abdomen soft, non-tender. Fundus: [-] GENITOURINARY: External Genitalia: intact and normal in appearance Cervix: [-] Dilatation: [-] Effacement: [-] Station: [-] Presentation: [-] Membranes: [-] Uterine Contractions: [-] FHT's: Category: [-] Baseline: [-] Reactive: [-] Variability: [-] Decels: [-] EXTREMITIES: No cyanosis or edema, non-tender, without signs of DVT. Assessment and Plan Problem List: (1) Drug abuse during Status: Chronic Assessment & Plan: continue 40 mg oxycodone in divided doses for maintenance. Historically has down well on 24 mg subutex daily but not on formulary and cannot be picked up by anyone but her from outside pharmacy. (2) Seizure disorder Status: Chronic (3) Hypothyroidism affecting Status: Acute (4) Abscess of left thumb Status: Acute (5) Breast abscess Status: Acute Assessment & Plan: will ask surgery to re assess today (6) 31 weeks gestation of Status: Acute Assessment & Plan: daily FHTS and weekly NSTs (7) Endocarditis Status: Acute Assessment & Plan: as per infectious disease Assessment and Plan 31 yo at 32 + week IUP opioid dependence Bacterial endocarditis s/p left thumb surgery resolving right breast abscess Hep C positive discussed weaning oxycodone gradually. 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 [employer] involved. Madeleine Yu MD Nov 20, 2016 08:27
[2016-11-20] MEDS: DOCUSATE SODIUM 100 MG CAP PO SCH ×2 (09:00→22:48)
[2016-11-20] MEDS: PRENATAL VITAMIN CHEWABLE TAB CHEW SCH (09:37)
[2016-11-20] MEDS: NICOTINE 21 MG/24 HR PATCH TD SCH (09:37)
[2016-11-20] MEDS: FAMOTIDINE 20 MG TAB PO SCH ×2 (09:37→22:48)
[2016-11-20] MEDS: SODIUM CHLORIDE 0.9% FLUSH 5 ML FLUSH IVF SCH ×2 (09:38→22:52)
[2016-11-20] MEDS: POVIDONE IODINE 10% OINT 30 GM TUBE TOPICAL SCH (09:41)
[2016-11-20] MEDS: POVIDONE IODINE 10% SOLN 118 ML BOTTLE TOPICAL SCH (09:41)
[2016-11-20] MEDS: BETAMETHASONE SOD PHOS/ACETATE SUSP 30 MG/5 ML VIAL IM SCH (10:33)
[2016-11-20 12:00] VITALS: BP 119/65; PULSE 85; RESP 16; TEMP 97.1; O2SAT 99
[2016-11-20 14:00] VITALS: BP 123/66; PULSE 81; RESP 18; TEMP 97.6; O2SAT 100
[2016-11-20] MEDS: cefTRIAXone INJ 2,000 MG in SODIUM CHLORIDE 0.9% INJ 100 ML IV SCH (16:43)
--- NOTE | 2016-11-20 17:43 | HHI.IDPN ---
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 In good spirits. Antibiotics Ceftriaxone IV Teflaro IV Lines Line sites with no e/o infection Past Medical History reviewed IVDA Allergies: Coded Allergies: *MDRO Multi-Drug Resistant Organism (Verified Adverse Reaction, Unknown, MRSA, 10/30/16) MRSA screen POSITIVE - 10/24/16; MRSA (breast & hand)-10/27/16 Objective . Vital Signs Date Time Temp Pulse Resp B/P Pulse Ox O2 Delivery O2 Flow Rate FiO2 11/20/16 14:00 97.6 81 18 123/66 100 11/20/16 12:13 Room Air 11/20/16 12:00 97.1 85 16 119/65 99 11/20/16 08:00 97.8 94 16 108/59 98 11/20/16 04:00 98.4 69 16 97/62 98 11/20/16 00:00 97.7 72 14 100/71 96 11/19/16 20:00 97.8 92 20 122/79 97 11/19/16 20:00 Room Air 11/19/16 11/19/16 11/20/16 15:00 23:00 07:00 Intake Total 420 ml 320 ml Balance 420 ml 320 ml Intake Oral 420 ml 320 ml # Voids 5 3 # Bowel Movements 0 0 . Laboratory Tests Test 11/19/16 15:11 White Blood Count 10.5 TH/MM3 Red Blood Count 3.84 MIL/MM3 Hemoglobin 10.7 GM/DL Hematocrit 32.1 % Mean Corpuscular Volume 83.4 FL Mean Corpuscular Hemoglobin 28.0 PG Mean Corpuscular Hemoglobin 33.5 % Concent Red Cell Distribution Width 14.9 % Platelet Count 291 TH/MM3 Mean Platelet Volume 7.0 FL Neutrophils (%) (Auto) 62.6 % Lymphocytes (%) (Auto) 27.5 % Monocytes (%) (Auto) 8.3 % Eosinophils (%) (Auto) 1.4 % Basophils (%) (Auto) 0.2 % Neutrophils # (Auto) 6.5 TH/MM3 Lymphocytes # (Auto) 2.9 TH/MM3 Monocytes # (Auto) 0.9 TH/MM3 Eosinophils # (Auto) 0.2 TH/MM3 Basophils # (Auto) 0.0 TH/MM3 CBC Comment DIFF FINAL Differential Comment Laboratory Tests Test 11/19/16 15:11 Total Bilirubin 0.2 MG/DL Direct Bilirubin 0.1 MG/DL Indirect Bilirubin 0.1 MG/DL Aspartate Amino Transf 9 U/L (AST/SGOT) Alanine Aminotransferase 12 U/L (ALT/SGPT) Alkaline Phosphatase 105 U/L Total Protein 6.8 GM/DL Albumin 2.5 GM/DL Microbiology Date/Time Procedure Status Source Growth 11/19/16 14:30 Urine Culture - Preliminary Resulted Urine Clean Catch NO GROWTH IN 24 HOURS. Imaging Last Impressions Breast Ultrasound 10/26/16 1610 Signed Impressions: Service Date/Time: October 19:40 - CONCLUSION: Right breast abscess at the 3:00 position 4 cm from the nipple. Asim Fong MD Brain MRI 10/24/16 0000 Signed Impressions: Service Date/Time: Monday, October 24, 2016 14:09 - CONCLUSION: 1. No intracranial abnormalities seen. 2. Small focal area of mucosal disease of the right sphenoid sinus. Asim Arzate MD Physical Exam GENERAL:Awake and alert, NAD SKIN: Multiple track cosme noted. No rash HEAD: Atraumatic. Normocephalic. No temporal or scalp tenderness. EYES: Pupils equal round and reactive. No petchia or hemorrhage. No scleral icterus. No injection or drainage. ENT: Nose without bleeding, purulent drainage. Throat without erythema, or exudate. Uvula midline. Airway patent. NECK: Trachea midline. Supple, nontender, no meningeal signs. CARDIOVASCULAR: Heart sounds audible. RESPIRATORY: Clear to auscultation. Breath sounds equal bilaterally. No wheezes , rales, or rhonchi. GASTROINTESTINAL: Abdomen soft, gravid uterus. MUSCULOSKELETAL: No joint effusions. NEUROLOGICAL: Awake and alert. Non focal. Psych: cooperative. IV line sites with no e/o infection. Assessment & Plan Remarks Endocarditis: MRSA or Kleb pneumo either organisms could be causing this as blood cultures are negative. Left thumb abscess improved s/p bedside drainage. Right breast abscess s/p I&D, better Intravenous drug abuse both the sites of infection have been prior sites of self injection. at 29 weeks. Midline umbilical hernia asymptomatic at the present time. Diarrhea Recommendations Continue ceftriaxone IV for Kleb pneumo endocarditis (stop date: 12/13/2016) Continue Teflaro IV q8hrs for MRSA endocarditis (stop date: 12/13/2016) Weekly CBC with diff, CMP, CRP to be ordered and followed by primary team. If any abnormal labs or change in clinical condition please call me or ID engineering document control clerk. Will follow prn. Maryann Lorenzo MD Nov 20, 2016 17:43
[2016-11-20 20:47] LABS: ALKALINE PHOSPHATASE 113 U/L (45-117); ALT (GPT) 12 U/L (10-53); ANION GAP 9 MEQ/L (5-15); AST (GOT) 12 U/L (15-37); BICARBONATE 21.4 MEQ/L (21.0-32.0); BLOOD UREA NITROGEN 7 MG/DL (7-18); CHLORIDE 105 MEQ/L (98-107); GLOMERULAR FILTRATION RATE 131 ML/MIN (>89); POTASSIUM 3.8 MEQ/L (3.5-5.1); SODIUM (NA) 135 MEQ/L (136-145); TOTAL BILIRUBIN ADULT 0.2 MG/DL (0.2-1.0)
[2016-11-20 21:25] VITALS: BP 130/67; PULSE 74; RESP 18; TEMP 97.6; O2SAT 98
[2016-11-20] MEDS: REMOVE OLD NICODERM (NICOTINE) PATCH TD SCH (22:48)
[2016-11-20] MEDS: QUEtiapine FUMARATE 100 MG TAB PO SCH (22:48)
[2016-11-21 02:02] VITALS: BP 112/56; PULSE 74; RESP 18; TEMP 97.6; O2SAT 98
[2016-11-21] MEDS: CEFTAROLINE INJ 600 MG in SODIUM CHLORIDE 0.9% INJ 100 ML IV SCH ×3 (02:08→17:12)
[2016-11-21] MEDS: LORazepam 0.5 MG TAB PO SCH (06:16)
[2016-11-21] MEDS: GABAPENTIN 400 MG CAP PO SCH ×3 (06:16→21:46)
[2016-11-21] MEDS: LEVOTHYROXINE SODIUM 50 MCG TAB PO SCH (06:16)
[2016-11-21 06:40] VITALS: BP 112/58; PULSE 75; RESP 16; TEMP 97.7; O2SAT 96
[2016-11-21 08:00] VITALS: BP 93/52; PULSE 72; RESP 18; TEMP 97.4; O2SAT 98
[2016-11-21] MEDS: FAMOTIDINE 20 MG TAB PO SCH ×2 (08:26→21:46)
[2016-11-21] MEDS: PRENATAL VITAMIN CHEWABLE TAB CHEW SCH (08:26)
[2016-11-21] MEDS: NICOTINE 21 MG/24 HR PATCH TD SCH (08:26)
[2016-11-21] MEDS: SODIUM CHLORIDE 0.9% FLUSH 5 ML FLUSH IVF SCH ×2 (08:26→21:00)
[2016-11-21] MEDS: DOCUSATE SODIUM 100 MG CAP PO SCH ×2 (08:26→21:00)
[2016-11-21] MEDS: traMADol HCL 50 MG TAB PO PRN ×3 (08:27→21:53)
[2016-11-21] MEDS: POVIDONE IODINE 10% SOLN 118 ML BOTTLE TOPICAL SCH (09:00)
[2016-11-21] MEDS: POVIDONE IODINE 10% OINT 30 GM TUBE TOPICAL SCH (09:00)
[2016-11-21 12:00] VITALS: BP 132/71; PULSE 91; RESP 20; TEMP 98.8; O2SAT 97
[2016-11-21] MEDS: BETAMETHASONE SOD PHOS/ACETATE SUSP 30 MG/5 ML VIAL IM SCH (12:25)
[2016-11-21 16:00] VITALS: BP 114/62; PULSE 81; RESP 18; TEMP 98.2; O2SAT 98
[2016-11-21] MEDS: cefTRIAXone INJ 2,000 MG in SODIUM CHLORIDE 0.9% INJ 100 ML IV SCH (18:25)
[2016-11-21 19:18] VITALS: BP 114/68; PULSE 90; RESP 20; TEMP 98.8; O2SAT 96
[2016-11-21] MEDS: REMOVE OLD NICODERM (NICOTINE) PATCH TD SCH (21:00)
[2016-11-21] MEDS: QUEtiapine FUMARATE 100 MG TAB PO SCH (21:46)
[2016-11-22 00:01] VITALS: BP 90/55; PULSE 67; RESP 18; TEMP 97.8; O2SAT 96
[2016-11-22] MEDS: CEFTAROLINE INJ 600 MG in SODIUM CHLORIDE 0.9% INJ 100 ML IV SCH ×3 (01:25→16:51)
[2016-11-22 04:57] VITALS: BP 103/55; PULSE 78; RESP 18; TEMP 98; O2SAT 97
[2016-11-22] MEDS: LEVOTHYROXINE SODIUM 50 MCG TAB PO SCH (05:20)
[2016-11-22] MEDS: traMADol HCL 50 MG TAB PO PRN ×3 (05:20→21:10)
[2016-11-22] MEDS: GABAPENTIN 400 MG CAP PO SCH ×3 (05:20→21:10)
[2016-11-22] MEDS: LORazepam 0.5 MG TAB PO SCH (05:21)
[2016-11-22] MEDS: FAMOTIDINE 20 MG TAB PO SCH ×2 (07:56→21:09)
[2016-11-22] MEDS: PRENATAL VITAMIN CHEWABLE TAB CHEW SCH (07:56)
[2016-11-22 08:00] VITALS: BP 107/62; PULSE 73; RESP 20; TEMP 97.9; O2SAT 97
[2016-11-22] MEDS: NICOTINE 21 MG/24 HR PATCH TD SCH (08:03)
[2016-11-22] MEDS: DOCUSATE SODIUM 100 MG CAP PO SCH ×2 (08:03→21:00)
[2016-11-22] MEDS: SODIUM CHLORIDE 0.9% FLUSH 5 ML FLUSH IVF SCH ×2 (08:03→21:00)
[2016-11-22 12:00] VITALS: BP 120/64; PULSE 81; RESP 20; TEMP 98; O2SAT 99
[2016-11-22 16:00] VITALS: BP 118/68; PULSE 80; RESP 20; TEMP 97.8; O2SAT 99
[2016-11-22] MEDS: cefTRIAXone INJ 2,000 MG in SODIUM CHLORIDE 0.9% INJ 100 ML IV SCH (18:00)
[2016-11-22 20:06] VITALS: BP 109/61; PULSE 76; RESP 18; TEMP 98.2; O2SAT 95
[2016-11-22] MEDS: REMOVE OLD NICODERM (NICOTINE) PATCH TD SCH (21:00)
[2016-11-22] MEDS: QUEtiapine FUMARATE 100 MG TAB PO SCH (21:09)
[2016-11-23] VITALS: BP 117/63; PULSE 78; RESP 18; TEMP 98.1; O2SAT 98
[2016-11-23] MEDS: CEFTAROLINE INJ 600 MG in SODIUM CHLORIDE 0.9% INJ 100 ML IV SCH ×3 (00:43→17:03)
[2016-11-23 04:00] VITALS: BP 107/60; PULSE 70; RESP 18; TEMP 98; O2SAT 98
[2016-11-23] MEDS: GABAPENTIN 400 MG CAP PO SCH ×3 (05:18→22:04)
[2016-11-23] MEDS: LORazepam 0.5 MG TAB PO SCH (05:18)
[2016-11-23] MEDS: LEVOTHYROXINE SODIUM 50 MCG TAB PO SCH (05:18)
[2016-11-23 08:00] VITALS: BP 100/57; PULSE 87; RESP 20; TEMP 97.6; O2SAT 99
[2016-11-23] MEDS: NICOTINE 21 MG/24 HR PATCH TD SCH (09:00)
[2016-11-23] MEDS: POVIDONE IODINE 10% SOLN 118 ML BOTTLE TOPICAL SCH (09:00)
[2016-11-23] MEDS: DOCUSATE SODIUM 100 MG CAP PO SCH ×2 (09:00→21:00)
[2016-11-23] MEDS: POVIDONE IODINE 10% OINT 30 GM TUBE TOPICAL SCH (09:00)
[2016-11-23] MEDS: PRENATAL VITAMIN CHEWABLE TAB CHEW SCH (09:11)
[2016-11-23] MEDS: FAMOTIDINE 20 MG TAB PO SCH ×2 (09:12→22:04)
[2016-11-23] MEDS: traMADol HCL 50 MG TAB PO PRN ×2 (09:12→16:58)
[2016-11-23] MEDS: SODIUM CHLORIDE 0.9% FLUSH 5 ML FLUSH IVF SCH ×2 (09:14→22:06)
[2016-11-23 12:00] VITALS: BP 116/59; PULSE 89; RESP 20; TEMP 98.1; O2SAT 99
[2016-11-23 16:00] VITALS: BP 122/64; PULSE 78; RESP 20; TEMP 98.4; O2SAT 98
[2016-11-23] MEDS: cefTRIAXone INJ 2,000 MG in SODIUM CHLORIDE 0.9% INJ 100 ML IV SCH (19:38)
[2016-11-23 20:00] VITALS: BP 115/61; PULSE 93; RESP 18; TEMP 97.4; O2SAT 98
[2016-11-23] MEDS: REMOVE OLD NICODERM (NICOTINE) PATCH TD SCH (21:00)
[2016-11-23] MEDS: QUEtiapine FUMARATE 100 MG TAB PO SCH (22:04)
[2016-11-24] VITALS: BP_SYST 95; BP_DIAS 50; BP_DIAS 52; PULSE 70; RESP 18; TEMP 98; O2SAT 96
[2016-11-24] MEDS: CEFTAROLINE INJ 600 MG in SODIUM CHLORIDE 0.9% INJ 100 ML IV SCH ×3 (02:37→17:47)
[2016-11-24 04:00] VITALS: BP 101/54; PULSE 70; RESP 18; TEMP 98.1; O2SAT 98
[2016-11-24] MEDS: GABAPENTIN 400 MG CAP PO SCH ×3 (06:00→22:13)
[2016-11-24] MEDS: LORazepam 0.5 MG TAB PO SCH (06:00)
[2016-11-24] MEDS: LEVOTHYROXINE SODIUM 50 MCG TAB PO SCH (06:00)
[2016-11-24 08:00] VITALS: BP 110/64; PULSE 63; RESP 18; TEMP 98.4; O2SAT 99
[2016-11-24] MEDS: FAMOTIDINE 20 MG TAB PO SCH ×2 (08:45→22:12)
[2016-11-24] MEDS: PRENATAL VITAMIN CHEWABLE TAB CHEW SCH (08:45)
[2016-11-24] MEDS: NICOTINE 21 MG/24 HR PATCH TD SCH (08:45)
[2016-11-24] MEDS: DOCUSATE SODIUM 100 MG CAP PO SCH ×2 (08:45→21:00)
[2016-11-24] MEDS: REMOVE OLD NICODERM (NICOTINE) PATCH TD SCH (08:45)
[2016-11-24] MEDS: traMADol HCL 50 MG TAB PO PRN ×3 (08:46→22:20)
[2016-11-24] MEDS: POVIDONE IODINE 10% SOLN 118 ML BOTTLE TOPICAL SCH (08:56)
[2016-11-24] MEDS: POVIDONE IODINE 10% OINT 30 GM TUBE TOPICAL SCH (08:56)
[2016-11-24] MEDS: SODIUM CHLORIDE 0.9% FLUSH 5 ML FLUSH IVF SCH ×2 (09:14→22:13)
[2016-11-24 12:00] VITALS: BP_SYST 120; BP_SYST 154; BP_DIAS 55; BP_DIAS 87; PULSE 100; PULSE 71; RESP 18; RESP 20; TEMP 98; TEMP 98.2; O2SAT 96
[2016-11-24 16:00] VITALS: BP 112/65; PULSE 81; RESP 18; TEMP 98.3; O2SAT 93
[2016-11-24] MEDS: cefTRIAXone INJ 2,000 MG in SODIUM CHLORIDE 0.9% INJ 100 ML IV SCH (18:37)
[2016-11-24 20:00] VITALS: BP 115/69; PULSE 88; RESP 18; TEMP 98.1; O2SAT 96
[2016-11-24] MEDS: QUEtiapine FUMARATE 100 MG TAB PO SCH (22:13)
[2016-11-25] VITALS: BP 119/65; PULSE 83; RESP 18; TEMP 97.4; O2SAT 95
[2016-11-25] MEDS: CEFTAROLINE INJ 600 MG in SODIUM CHLORIDE 0.9% INJ 100 ML IV SCH ×3 (02:33→16:38)
[2016-11-25 04:00] VITALS: BP 102/59; PULSE 84; RESP 18; TEMP 97.4; O2SAT 97
[2016-11-25] MEDS: LEVOTHYROXINE SODIUM 50 MCG TAB PO SCH (06:01)
[2016-11-25] MEDS: GABAPENTIN 400 MG CAP PO SCH ×3 (06:01→20:31)
[2016-11-25] MEDS: LORazepam 0.5 MG TAB PO SCH (06:01)
[2016-11-25 08:00] VITALS: BP 112/63; PULSE 84; RESP 18; TEMP 98; O2SAT 97
[2016-11-25] MEDS: DOCUSATE SODIUM 100 MG CAP PO SCH ×2 (09:30→20:34)
[2016-11-25] MEDS: PRENATAL VITAMIN CHEWABLE TAB CHEW SCH (09:30)
[2016-11-25] MEDS: FAMOTIDINE 20 MG TAB PO SCH ×2 (09:30→20:30)
[2016-11-25] MEDS: NICOTINE 21 MG/24 HR PATCH TD SCH (09:30)
[2016-11-25] MEDS: traMADol HCL 50 MG TAB PO PRN ×3 (09:31→22:30)
[2016-11-25] MEDS: POVIDONE IODINE 10% SOLN 118 ML BOTTLE TOPICAL SCH (09:35)
[2016-11-25] MEDS: SODIUM CHLORIDE 0.9% FLUSH 5 ML FLUSH IVF SCH ×2 (09:35→20:31)
[2016-11-25] MEDS: POVIDONE IODINE 10% OINT 30 GM TUBE TOPICAL SCH (09:35)
--- NOTE | 2016-11-25 10:24 | PD.OB.ANTE ---
Subjective Diagnosis: (1) Drug abuse during (2) Seizure disorder (3) Hypothyroidism affecting (4) Abscess of left thumb (5) Breast abscess (6) 31 weeks gestation of (7) Endocarditis Interval History Jovanni was seen daily by me, though I did not document throughout this week. She is now 34 and 0/7 days. She is on med/surg receiving IV antibiotics for CHACHA due to IVDA. She had been on opioid maintenance (subutex) throughout her first half of in [place]. She moved here and was not able to identify a provider for care, subutex expediently and resumed IV dilaudid before presenting to our Labor and Delivery seeking help. Her CHACHA was diagnosed and once well being assured she was transferred to med/surg. She has been in house almost five weeks and has done well. surveillance remains reassuring. She is on 40 oxycodone daily for prevention of withdrawal because we do not have buprenorphine (for opioid use disorder) on our hospital formulary. The abcesses on her breast and on her thumb have resolved. She has a PICC line. Twice she has been sent to [facility] & D for extensive monitoroing for UCs. She has noted increasing contractions, as would be expected--never more than 4 in an hour. She has no leaking or bleeding. She notes GFM. She is enrolled in [employer] and has frequent visits. She has a friend who also visits frequently and an aunt in [place] who is ill. Objective Vital Signs Vital Signs Date Time Temp Pulse Resp B/P Pulse Ox O2 Delivery O2 Flow Rate FiO2 11/25/16 08:00 98.0 84 18 112/63 97 11/25/16 04:00 97.4 84 18 102/59 97 11/25/16 00:00 97.4 83 18 119/65 95 11/24/16 20:00 Room Air 11/24/16 20:00 98.1 88 18 115/69 96 11/24/16 16:00 98.3 81 18 112/65 93 11/24/16 12:00 98.2 71 18 120/55 96 Intake & Output 11/25/16 11/25/16 07:00 19:00 Intake Total 1010 ml Balance 1010 ml Intake Oral 1010 ml # Voids 8 Physical Exam GENERAL: Well-nourished, well-developed patient. CARDIOVASCULAR: Regular rate and rhythm without murmurs, gallops, or rubs. RESPIRATORY: Breath sounds equal bilaterally. No accessory muscle use. ABDOMEN/GI: Abdomen soft, non-tender. Fundal height yesterday was 35 cm cervix yesterday 50% ft/posterior and firm fhts per daily check reassuring EXTREMITIES: No cyanosis or edema, non-tender, without signs of DVT. Assessment and Plan Problem List: (1) Drug abuse during Status: Chronic Assessment & Plan: continue 40 mg oxycodone in divided doses for maintenance. Historically has down well on 24 mg subutex daily but not on formulary and cannot be picked up by anyone but her from outside pharmacy. (2) Seizure disorder Status: Chronic (3) Hypothyroidism affecting Status: Acute (4) Abscess of left thumb Status: Acute (5) Breast abscess Status: Acute Assessment & Plan: will ask surgery to re assess today (6) 31 weeks gestation of Status: Acute Assessment & Plan: daily FHTS and weekly NSTs (7) Endocarditis Status: Acute Assessment & Plan: as per infectious disease Assessment and Plan 31 yo P2 at 34 0/7 weeks on Nov 25 On Iv antibiotics for CHACHA for a minimum of 8 weeks (as per infectious disease) opioid dependence-- unable to obtain subutex in house so on short acting oxy 10 QID--attempts to decrease dose difficult with abcess pain and withdrawal. Hep C positive resolutions of two abcesses discussed weaning oxycodone gradually. 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 [employer] involved. Madeleine Yu MD Nov 25, 2016 10:24
[2016-11-25 12:00] VITALS: BP 101/59; PULSE 83; RESP 18; TEMP 98.4; O2SAT 98
[2016-11-25 12:46] LABS: BLOOD, URINE NEG (NEG); COMMENT (UR) CULT NOT INDICATED; CULTURE IF INDICATED CULT NOT INDICATED; GLUCOSE,URINE NEG (NEG); KETONE, URINE NEG (NEG); NITRITE,URINE NEG (NEG); SQUAMOUS EPITHELIAL CELL URINE 3 /hpf (0-5); URINE COLOR YELLOW (YELLW/STRAW)
[2016-11-25 16:00] VITALS: BP 105/59; PULSE 79; RESP 18; TEMP 98.4; O2SAT 98
[2016-11-25] MEDS: cefTRIAXone INJ 2,000 MG in SODIUM CHLORIDE 0.9% INJ 100 ML IV SCH (16:38)
[2016-11-25 20:00] VITALS: BP 120/73; PULSE 101; RESP 16; TEMP 98.5; O2SAT 95
[2016-11-25] MEDS: QUEtiapine FUMARATE 100 MG TAB PO SCH (20:31)
[2016-11-25] MEDS: REMOVE OLD NICODERM (NICOTINE) PATCH TD SCH (20:35)
[2016-11-26] VITALS: BP 101/58; PULSE 83; RESP 18; TEMP 97.4; O2SAT 98
[2016-11-26] MEDS: CEFTAROLINE INJ 600 MG in SODIUM CHLORIDE 0.9% INJ 100 ML IV SCH ×3 (02:22→16:23)
[2016-11-26] MEDS: traMADol HCL 50 MG TAB PO PRN ×3 (05:43→18:15)
[2016-11-26] MEDS: GABAPENTIN 400 MG CAP PO SCH ×3 (05:43→21:12)
[2016-11-26] MEDS: LEVOTHYROXINE SODIUM 50 MCG TAB PO SCH (05:43)
[2016-11-26] MEDS: LORazepam 0.5 MG TAB PO SCH (05:43)
[2016-11-26] MEDS: POVIDONE IODINE 10% OINT 30 GM TUBE TOPICAL SCH (07:28)
[2016-11-26] MEDS: POVIDONE IODINE 10% SOLN 118 ML BOTTLE TOPICAL SCH (07:28)
[2016-11-26] MEDS: SODIUM CHLORIDE 0.9% FLUSH 5 ML FLUSH IVF SCH ×2 (07:59→21:12)
[2016-11-26 08:00] VITALS: BP 114/69; PULSE 84; RESP 18; TEMP 97.8; O2SAT 98
[2016-11-26] MEDS: FAMOTIDINE 20 MG TAB PO SCH ×2 (08:00→21:12)
[2016-11-26] MEDS: DOCUSATE SODIUM 100 MG CAP PO SCH ×2 (08:00→21:12)
[2016-11-26] MEDS: NICOTINE 21 MG/24 HR PATCH TD SCH (08:00)
[2016-11-26] MEDS: PRENATAL VITAMIN CHEWABLE TAB CHEW SCH (08:00)
[2016-11-26 12:00] VITALS: BP 124/71; PULSE 93; RESP 20; TEMP 98.7; O2SAT 97
[2016-11-26 16:00] VITALS: BP 108/64; PULSE 49; PULSE 87; RESP 18; TEMP 97.8; TEMP 98.5; O2SAT 97
[2016-11-26] MEDS: cefTRIAXone INJ 2,000 MG in SODIUM CHLORIDE 0.9% INJ 100 ML IV SCH (17:10)
[2016-11-26 20:00] VITALS: BP 124/77; PULSE 90; RESP 18; TEMP 98.1; O2SAT 99
[2016-11-26] MEDS: REMOVE OLD NICODERM (NICOTINE) PATCH TD SCH (20:55)
[2016-11-26] MEDS: QUEtiapine FUMARATE 100 MG TAB PO SCH (21:12)
[2016-11-27] VITALS (8 sets, daily range): BP systolic 96–123; BP diastolic 52–98; PULSE 76–97; RESP 16–20; TEMP 97.4–98.4; O2SAT 96–99
[2016-11-27] MEDS: CEFTAROLINE INJ 600 MG in SODIUM CHLORIDE 0.9% INJ 100 ML IV SCH ×3 (01:03→16:01)
[2016-11-27] MEDS: GABAPENTIN 400 MG CAP PO SCH ×3 (05:36→20:53)
[2016-11-27] MEDS: LEVOTHYROXINE SODIUM 50 MCG TAB PO SCH (05:37)
[2016-11-27] MEDS: LORazepam 0.5 MG TAB PO SCH (05:37)
[2016-11-27] MEDS: FAMOTIDINE 20 MG TAB PO SCH ×2 (07:46→20:53)
[2016-11-27] MEDS: PRENATAL VITAMIN CHEWABLE TAB CHEW SCH (07:46)
[2016-11-27] MEDS: DOCUSATE SODIUM 100 MG CAP PO SCH ×2 (07:46→20:53)
[2016-11-27] MEDS: NICOTINE 21 MG/24 HR PATCH TD SCH (07:46)
[2016-11-27] MEDS: SODIUM CHLORIDE 0.9% FLUSH 5 ML FLUSH IVF SCH ×2 (07:47→20:55)
[2016-11-27] MEDS: POVIDONE IODINE 10% OINT 30 GM TUBE TOPICAL SCH (09:00)
[2016-11-27] MEDS: POVIDONE IODINE 10% SOLN 118 ML BOTTLE TOPICAL SCH (09:00)
[2016-11-27] MEDS: traMADol HCL 50 MG TAB PO PRN ×3 (11:19→23:49)
[2016-11-27] MEDS: cefTRIAXone INJ 2,000 MG in SODIUM CHLORIDE 0.9% INJ 100 ML IV SCH (17:21)
[2016-11-27] MEDS: QUEtiapine FUMARATE 100 MG TAB PO SCH (20:53)
[2016-11-27] MEDS: REMOVE OLD NICODERM (NICOTINE) PATCH TD SCH (21:00)
[2016-11-28] MEDS: CEFTAROLINE INJ 600 MG in SODIUM CHLORIDE 0.9% INJ 100 ML IV SCH ×4 (01:55→23:54)
[2016-11-28 04:00] VITALS: BP 106/63; PULSE 81; RESP 16; TEMP 97.3; O2SAT 97
[2016-11-28] MEDS: GABAPENTIN 400 MG CAP PO SCH ×3 (05:58→20:46)
[2016-11-28] MEDS: LORazepam 0.5 MG TAB PO SCH (05:58)
[2016-11-28] MEDS: LEVOTHYROXINE SODIUM 50 MCG TAB PO SCH (05:58)
[2016-11-28 08:00] VITALS: BP 105/61; PULSE 79; RESP 16; TEMP 97.9; O2SAT 98
[2016-11-28] MEDS: DOCUSATE SODIUM 100 MG CAP PO SCH ×2 (08:07→20:46)
[2016-11-28] MEDS: NICOTINE 21 MG/24 HR PATCH TD SCH (08:07)
[2016-11-28] MEDS: PRENATAL VITAMIN CHEWABLE TAB CHEW SCH (08:07)
[2016-11-28] MEDS: traMADol HCL 50 MG TAB PO PRN ×3 (08:08→23:53)
[2016-11-28] MEDS: FAMOTIDINE 20 MG TAB PO SCH ×2 (08:08→20:46)
[2016-11-28] MEDS: SODIUM CHLORIDE 0.9% FLUSH 5 ML FLUSH IVF SCH ×2 (08:09→20:45)
[2016-11-28] MEDS: POVIDONE IODINE 10% OINT 30 GM TUBE TOPICAL SCH (08:09)
[2016-11-28] MEDS: POVIDONE IODINE 10% SOLN 118 ML BOTTLE TOPICAL SCH (08:10)
--- NOTE | 2016-11-28 08:27 | PD.OB.ANTE ---
Subjective Diagnosis: (1) Drug abuse during (2) Seizure disorder (3) Hypothyroidism affecting (4) Abscess of left thumb (5) Breast abscess (6) 31 weeks gestation of (7) Endocarditis Interval History Doing well more contractions states her [employer] worker will get her subutex and bring to bedside for transition GFM no leaking or bleeding Objective Vital Signs Vital Signs Date Time Temp Pulse Resp B/P Pulse Ox O2 Delivery O2 Flow Rate FiO2 11/28/16 04:00 97.3 81 16 106/63 97 11/28/16 00:00 Room Air 11/27/16 23:28 97.9 87 16 118/60 98 11/27/16 21:00 97.6 92 16 123/64 97 11/27/16 20:00 Room Air 11/27/16 15:50 98.0 97 20 122/98 98 11/27/16 12:00 98.2 81 20 114/61 98 Intake & Output 11/28/16 11/28/16 07:00 19:00 Intake Total 2640 ml Balance 2640 ml Intake Oral 2640 ml # Voids 15 # Bowel Movements 3 Physical Exam GENERAL: Well-nourished, well-developed patient. CARDIOVASCULAR: Regular rate and rhythm without murmurs, gallops, or rubs. RESPIRATORY: Breath sounds equal bilaterally. No accessory muscle use. ABDOMEN/GI: Abdomen soft, non-tender. Fundus: [-] GENITOURINARY: External Genitalia: intact and normal in appearance EXTREMITIES: No cyanosis or edema, non-tender, without signs of DVT. Assessment and Plan Problem List: (1) Drug abuse during Status: Chronic Assessment & Plan: continue 40 mg oxycodone in divided doses for maintenance. Historically has down well on 24 mg subutex daily but not on formulary and cannot be picked up by anyone but her from outside pharmacy. (2) Seizure disorder Status: Chronic (3) Hypothyroidism affecting Status: Acute (4) Abscess of left thumb Status: Acute (5) Breast abscess Status: Acute Assessment & Plan: will ask surgery to re assess today (6) 31 weeks gestation of Status: Acute Assessment & Plan: daily FHTS and weekly NSTs (7) Endocarditis Status: Acute Assessment & Plan: as per infectious disease Assessment and Plan 31 yo P2 at 34 3/7 weeks on Nov 25 On Iv antibiotics for CHACHA for a minimum of 8 weeks (as per infectious disease) TOLD DISCHARGE WILL BE DECEMBER 13 opioid dependence- Her [employer]-transfection Worker thinks she can get script I have written filled and bring subutex 8 mg BID to bedside--if so we will do induction this week resolutions of two abcesses Will send to L & D today for sonogram and monitering 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 [employer] involved. Madeleine Yu MD Nov 28, 2016 08:27
[2016-11-28 08:43] LABS: AUTOMATED NEUTROPHIL # 6.4 TH/MM3 (1.8-7.7); BASOPHIL % 0.3 % (0.0-2.0); EOSINOPHIL # 0.2 TH/MM3 (0-0.4); EOSINOPHIL % 1.5 % (0.0-4.0); HEMATOCRIT 31.5 % (35.0-46.0); LYMPH % 33.4 % (9.0-44.0); LYMPHOCYTE # 3.8 TH/MM3 (1.0-4.8); MEAN CORPUSCULAR HEMOGLOBIN 27.6 PG (27.0-34.0); MEAN CORPUSCULAR HGB CONC 33.2 % (32.0-36.0); MONO % 8.8 % (0.0-8.0); PLATELET COUNT 355 TH/MM3 (150-450); RED BLOOD COUNT 3.79 MIL/MM3 (4.00-5.30); RED CELL DISTRIBUTION WIDTH 14.8 % (11.6-17.2); WHITE BLOOD COUNT 11.3 TH/MM3 (4.0-11.0)
[2016-11-28 08:45] LABS: HEMO FLAGS AUTO DIFF
[2016-11-28 09:05] LABS: ALKALINE PHOSPHATASE 120 U/L (45-117); ALT (GPT) 13 U/L (10-53); ANION GAP 10 MEQ/L (5-15); AST (GOT) 9 U/L (15-37); BICARBONATE 21.7 MEQ/L (21.0-32.0); BLOOD UREA NITROGEN 8 MG/DL (7-18); CHLORIDE 104 MEQ/L (98-107); GLOMERULAR FILTRATION RATE 149 ML/MIN (>89); POTASSIUM 3.8 MEQ/L (3.5-5.1); SODIUM (NA) 136 MEQ/L (136-145); TOTAL BILIRUBIN ADULT 0.2 MG/DL (0.2-1.0)
[2016-11-28 10:18] LABS: BANDS 4 % (0-6); NEUTROPHIL # MANUAL DIFF 6.7 TH/MM3 (1.8-7.7); POLYS (SEG NEUTROPHILS) 55 % (16-70); WBC DIFF SAMPLE 100
[2016-11-28 10:19] LABS: PLATELET ESTIMATE SMEAR NORMAL (NORMAL); PLATELET MORPHOLOGY NORMAL (NORMAL); SCAN/DIFF FINAL DIFF MANUAL
[2016-11-28 12:00] VITALS: BP 104/60; PULSE 93; RESP 16; TEMP 98.2; O2SAT 98
[2016-11-28 16:00] VITALS: BP 116/72; PULSE 88; RESP 18; TEMP 97.5; O2SAT 100
[2016-11-28] MEDS: cefTRIAXone INJ 2,000 MG in SODIUM CHLORIDE 0.9% INJ 100 ML IV SCH (17:32)
[2016-11-28] MEDS: LORazepam 2 MG/ML VIAL IV PUSH PRN (19:14)
[2016-11-28 19:15] VITALS: BP 124/68; PULSE 101; RESP 16; TEMP 97.5; O2SAT 98
[2016-11-28] MEDS: QUEtiapine FUMARATE 100 MG TAB PO SCH (20:46)
[2016-11-28] MEDS: REMOVE OLD NICODERM (NICOTINE) PATCH TD SCH (20:48)
[2016-11-28 23:15] VITALS: BP 124/69; PULSE 91; RESP 16; TEMP 98.4; O2SAT 97
[2016-11-29 04:17] VITALS: BP 93/50; PULSE 91; RESP 16; TEMP 97.8; O2SAT 100
[2016-11-29] MEDS: LORazepam 0.5 MG TAB PO SCH (05:55)
[2016-11-29] MEDS: GABAPENTIN 400 MG CAP PO SCH ×3 (05:55→22:00)
[2016-11-29] MEDS: LEVOTHYROXINE SODIUM 50 MCG TAB PO SCH (05:55)
[2016-11-29] MEDS: DOCUSATE SODIUM 100 MG CAP PO SCH ×2 (07:43→20:02)
[2016-11-29] MEDS: CEFTAROLINE INJ 600 MG in SODIUM CHLORIDE 0.9% INJ 100 ML IV SCH ×2 (07:43→16:16)
[2016-11-29] MEDS: PRENATAL VITAMIN CHEWABLE TAB CHEW SCH (07:43)
[2016-11-29] MEDS: FAMOTIDINE 20 MG TAB PO SCH ×2 (07:44→20:02)
[2016-11-29] MEDS: SODIUM CHLORIDE 0.9% FLUSH 5 ML FLUSH IVF SCH ×2 (07:44→20:02)
[2016-11-29] MEDS: NICOTINE 21 MG/24 HR PATCH TD SCH (07:44)
[2016-11-29] MEDS: POVIDONE IODINE 10% OINT 30 GM TUBE TOPICAL SCH (07:53)
[2016-11-29] MEDS: POVIDONE IODINE 10% SOLN 118 ML BOTTLE TOPICAL SCH (07:54)
[2016-11-29 08:00] VITALS: BP 105/55; PULSE 94; RESP 20; TEMP 97.6; O2SAT 98
[2016-11-29 12:00] VITALS: BP 107/62; PULSE 84; RESP 20; TEMP 97.8; O2SAT 95
[2016-11-29] MEDS: traMADol HCL 50 MG TAB PO PRN ×2 (13:03→19:14)
[2016-11-29 16:00] VITALS: BP 99/57; PULSE 87; RESP 18; TEMP 98.1; O2SAT 99
[2016-11-29] MEDS: cefTRIAXone INJ 2,000 MG in SODIUM CHLORIDE 0.9% INJ 100 ML IV SCH (17:57)
[2016-11-29 19:45] VITALS: BP 131/76; PULSE 99; RESP 16; TEMP 97.3; O2SAT 98
[2016-11-29] MEDS: QUEtiapine FUMARATE 100 MG TAB PO SCH (20:02)
[2016-11-29] MEDS: REMOVE OLD NICODERM (NICOTINE) PATCH TD SCH (20:03)
[2016-11-29 23:12] VITALS: BP 108/60; PULSE 85; RESP 16; TEMP 98; O2SAT 96
[2016-11-30] MEDS: CEFTAROLINE INJ 600 MG in SODIUM CHLORIDE 0.9% INJ 100 ML IV SCH ×3 (01:13→20:21)
[2016-11-30] MEDS: traMADol HCL 50 MG TAB PO PRN ×3 (01:13→16:15)
[2016-11-30 04:22] VITALS: BP 115/53; PULSE 74; RESP 16; TEMP 97.6; O2SAT 96
[2016-11-30] MEDS: LEVOTHYROXINE SODIUM 50 MCG TAB PO SCH (05:42)
[2016-11-30] MEDS: GABAPENTIN 400 MG CAP PO SCH ×3 (05:42→20:23)
[2016-11-30] MEDS: LORazepam 0.5 MG TAB PO SCH (05:42)
[2016-11-30 08:00] VITALS: BP 119/67; PULSE 86; RESP 20; TEMP 98.4; O2SAT 98
[2016-11-30] MEDS: PRENATAL VITAMIN CHEWABLE TAB CHEW SCH (08:59)
[2016-11-30] MEDS: DOCUSATE SODIUM 100 MG CAP PO SCH ×2 (09:01→20:23)
[2016-11-30] MEDS: FAMOTIDINE 20 MG TAB PO SCH ×2 (09:01→20:23)
[2016-11-30] MEDS: NICOTINE 21 MG/24 HR PATCH TD SCH (09:01)
[2016-11-30] MEDS: SODIUM CHLORIDE 0.9% FLUSH 5 ML FLUSH IVF SCH ×2 (09:02→20:33)
[2016-11-30] MEDS: POVIDONE IODINE 10% OINT 30 GM TUBE TOPICAL SCH (09:15)
[2016-11-30] MEDS: POVIDONE IODINE 10% SOLN 118 ML BOTTLE TOPICAL SCH (09:15)
--- NOTE | 2016-11-30 10:37 | PD.OB.ANTE ---
Subjective Diagnosis: (1) Drug abuse during (2) Seizure disorder (3) Hypothyroidism affecting (4) Abscess of left thumb (5) Breast abscess (6) 31 weeks gestation of (7) Endocarditis Interval History 34 4/7 [id number] IUP opioid dependence CHACHA on IV meds hep c Objective Vital Signs Vital Signs Date Time Temp Pulse Resp B/P Pulse Ox O2 Delivery O2 Flow Rate FiO2 11/30/16 09:14 18 11/30/16 08:00 98.4 86 20 119/67 98 11/30/16 04:22 97.6 74 16 115/53 96 11/29/16 23:12 98.0 85 16 108/60 96 11/29/16 20:00 Room Air 11/29/16 19:45 97.3 99 16 131/76 98 11/29/16 16:00 98.1 87 18 99/57 99 11/29/16 12:00 97.8 84 20 107/62 95 Intake & Output 11/30/16 11/30/16 07:00 19:00 Intake Total 1920 ml Balance 1920 ml Intake Oral 1920 ml # Voids 16 # Bowel Movements 2 Physical Exam GENERAL: Well-nourished, well-developed patient. CARDIOVASCULAR: Regular rate and rhythm without murmurs, gallops, or rubs. RESPIRATORY: Breath sounds equal bilaterally. No accessory muscle use. ABDOMEN/GI: Abdomen soft, non-tender. fundus 33 vertex FHTs 140s EXTREMITIES: No cyanosis or edema, non-tender, without signs of DVT.abcess on thumb resolved with no change right breast abcess healed MRSA nasal swab neg x 2 Assessment and Plan Problem List: (1) Drug abuse during Status: Chronic Assessment & Plan: continue 40 mg oxycodone in divided doses for maintenance. Historically has down well on 24 mg subutex daily but not on formulary and cannot be picked up by anyone but her from outside pharmacy. (2) Seizure disorder Status: Chronic (3) Hypothyroidism affecting Status: Acute (4) Abscess of left thumb Status: Acute (5) Breast abscess Status: Acute Assessment & Plan: will ask surgery to re assess today (6) 31 weeks gestation of Status: Acute Assessment & Plan: daily FHTS and weekly NSTs (7) Endocarditis Status: Acute Assessment & Plan: as per infectious disease Assessment and Plan 31 yo P2 at 34 5/7 weeks on Nov 30 On Iv antibiotics for CHACHA for a minimum of 8 weeks (as per infectious disease) TOLD DISCHARGE WILL BE DECEMBER 13 opioid dependence- Her [facility] Worker thinks she can get script I have written filled and bring subutex 8 mg BID to bedside--if so we will do induction this week WE NEED ID FOR ABILITY GET OUT PATIENT MEDICATIONS. resolutions of two abcesses 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 [employer] involved. Madeleien Yu MD Nov 30, 2016 10:37
[2016-11-30] MEDS ORDERED: PILL SPLITTER OTHER PRN (11:00)
[2016-11-30 12:00] VITALS: BP 118/64; PULSE 87; RESP 20; TEMP 98; O2SAT 100
[2016-11-30 16:00] VITALS: BP 125/69; PULSE 89; RESP 22; TEMP 97.6; O2SAT 97
[2016-11-30 20:00] VITALS: BP 124/73; PULSE 80; RESP 16; TEMP 98.9; O2SAT 97
[2016-11-30] MEDS: cefTRIAXone INJ 2,000 MG in SODIUM CHLORIDE 0.9% INJ 100 ML IV SCH (20:22)
[2016-11-30] MEDS: QUEtiapine FUMARATE 100 MG TAB PO SCH (20:23)
[2016-11-30] MEDS: REMOVE OLD NICODERM (NICOTINE) PATCH TD SCH (20:26)
[2016-12-01] MEDS: CEFTAROLINE INJ 600 MG in SODIUM CHLORIDE 0.9% INJ 100 ML IV SCH ×3 (00:52→16:13)
[2016-12-01] MEDS: traMADol HCL 50 MG TAB PO PRN ×2 (03:15→17:25)
[2016-12-01 04:41] VITALS: BP 124/77; PULSE 88; RESP 16; TEMP 97.8; O2SAT 98
[2016-12-01] MEDS: GABAPENTIN 400 MG CAP PO SCH ×3 (05:14→20:27)
[2016-12-01] MEDS: LEVOTHYROXINE SODIUM 50 MCG TAB PO SCH (05:14)
[2016-12-01] MEDS: LORazepam 0.5 MG TAB PO SCH (05:18)
[2016-12-01 08:00] VITALS: BP 108/66; PULSE 91; RESP 18; TEMP 97.7; O2SAT 98
[2016-12-01] MEDS: DOCUSATE SODIUM 100 MG CAP PO SCH ×2 (08:42→20:27)
[2016-12-01] MEDS: FAMOTIDINE 20 MG TAB PO SCH ×2 (08:42→20:27)
[2016-12-01] MEDS: PRENATAL VITAMIN CHEWABLE TAB CHEW SCH (08:42)
[2016-12-01] MEDS: NICOTINE 21 MG/24 HR PATCH TD SCH (08:46)
[2016-12-01] MEDS: SODIUM CHLORIDE 0.9% FLUSH 5 ML FLUSH IVF SCH ×2 (11:37→20:28)
[2016-12-01] MEDS: POVIDONE IODINE 10% SOLN 118 ML BOTTLE TOPICAL SCH (11:38)
[2016-12-01] MEDS: POVIDONE IODINE 10% OINT 30 GM TUBE TOPICAL SCH (11:38)
[2016-12-01 12:00] VITALS: BP 118/62; PULSE 91; RESP 18; TEMP 97.5; O2SAT 98
[2016-12-01 16:00] VITALS: BP 116/64; PULSE 90; RESP 20; TEMP 98.2; O2SAT 100
[2016-12-01] MEDS: cefTRIAXone INJ 2,000 MG in SODIUM CHLORIDE 0.9% INJ 100 ML IV SCH (17:24)
[2016-12-01 20:00] VITALS: BP 110/59; PULSE 94; RESP 20; TEMP 97.2; O2SAT 98
[2016-12-01] MEDS: QUEtiapine FUMARATE 100 MG TAB PO SCH (20:27)
[2016-12-01] MEDS: REMOVE OLD NICODERM (NICOTINE) PATCH TD SCH (20:34)
[2016-12-02] VITALS: BP 108/57; PULSE 96; RESP 20; TEMP 98; O2SAT 96
[2016-12-02] MEDS: CEFTAROLINE INJ 600 MG in SODIUM CHLORIDE 0.9% INJ 100 ML IV SCH ×3 (00:52→16:46)
[2016-12-02 04:00] VITALS: BP 102/61; PULSE 70; RESP 20; TEMP 97.4; O2SAT 97
[2016-12-02] MEDS: GABAPENTIN 400 MG CAP PO SCH ×3 (05:43→22:14)
[2016-12-02] MEDS: LEVOTHYROXINE SODIUM 50 MCG TAB PO SCH (05:43)
[2016-12-02] MEDS: LORazepam 0.5 MG TAB PO SCH (05:43)
[2016-12-02 08:00] VITALS: BP 102/55; PULSE 70; RESP 18; TEMP 97.8; O2SAT 98
[2016-12-02] MEDS: POVIDONE IODINE 10% SOLN 118 ML BOTTLE TOPICAL SCH (09:00)
[2016-12-02] MEDS: POVIDONE IODINE 10% OINT 30 GM TUBE TOPICAL SCH (09:00)
[2016-12-02] MEDS: traMADol HCL 50 MG TAB PO PRN ×3 (09:19→22:13)
[2016-12-02] MEDS: DOCUSATE SODIUM 100 MG CAP PO SCH ×2 (09:20→20:27)
[2016-12-02] MEDS: FAMOTIDINE 20 MG TAB PO SCH ×2 (09:20→20:27)
[2016-12-02] MEDS: PRENATAL VITAMIN CHEWABLE TAB CHEW SCH (09:20)
[2016-12-02] MEDS: SODIUM CHLORIDE 0.9% FLUSH 5 ML FLUSH IVF SCH ×2 (09:20→20:28)
[2016-12-02] MEDS: NICOTINE 21 MG/24 HR PATCH TD SCH (09:20)
[2016-12-02 12:00] VITALS: BP 111/63; PULSE 85; RESP 18; TEMP 98.1; O2SAT 96
[2016-12-02 16:00] VITALS: BP 120/74; PULSE 90; RESP 18; TEMP 97; O2SAT 97
[2016-12-02] MEDS: cefTRIAXone INJ 2,000 MG in SODIUM CHLORIDE 0.9% INJ 100 ML IV SCH (18:00)
[2016-12-02 20:00] VITALS: BP 108/59; PULSE 80; RESP 19; TEMP 98.5; O2SAT 97
[2016-12-02] MEDS: QUEtiapine FUMARATE 100 MG TAB PO SCH (20:28)
[2016-12-02] MEDS: REMOVE OLD NICODERM (NICOTINE) PATCH TD SCH (20:29)
--- NOTE | 2016-12-02 21:38 | PD.OB.ANTE ---
Subjective Diagnosis: (1) Drug abuse during (2) Seizure disorder (3) Hypothyroidism affecting (4) Abscess of left thumb (5) Breast abscess (6) 31 weeks gestation of (7) Endocarditis Interval History Doing well, Good FM, No rom bleeding or RUC Having a painful rash in the inguinal area, It is really bothersome Antepartum ROS: Reports: New complaints, Loss of fluid, Vaginal bleeding, movement normal, Contractions, Other Objective Vital Signs Vital Signs Date Time Temp Pulse Resp B/P Pulse Ox O2 Delivery O2 Flow Rate FiO2 12/02/16 16:00 97.0 90 18 120/74 97 12/02/16 12:00 98.1 85 18 111/63 96 12/02/16 11:49 20 12/02/16 10:19 20 12/02/16 08:00 97.8 70 18 102/55 98 12/02/16 08:00 Room Air 12/02/16 04:00 97.4 70 20 102/61 97 12/02/16 00:00 98.0 96 20 108/57 96 Intake & Output 12/02/16 12/02/16 07:00 19:00 Intake Total 480 ml 960 ml Balance 480 ml 960 ml Intake Oral 480 ml 960 ml # Voids 12 3 # Bowel Movements 0 1 Physical Exam GENERAL: Well-nourished, well-developed patient. CARDIOVASCULAR: Regular rate and rhythm without murmurs, gallops, or rubs. RESPIRATORY: Breath sounds equal bilaterally. No accessory muscle use. ABDOMEN/GI: Abdomen soft, non-tender. Fundus: [non tender but around the umbilical area it is mildly tender from the hernia] GENITOURINARY: External Genitalia: Red rash in inguinal fold, looks like heat rash FHT's: Baseline: [140 by doptone] EXTREMITIES: No cyanosis or edema, non-tender, without signs of DVT. Assessment and Plan Problem List: (1) Drug abuse during Status: Chronic Assessment & Plan: continue 40 mg oxycodone in divided doses for maintenance. Historically has down well on 24 mg subutex daily but not on formulary and cannot be picked up by anyone but her from outside pharmacy. (2) Seizure disorder Status: Chronic (3) Hypothyroidism affecting Status: Acute (4) Abscess of left thumb Status: Acute (5) Breast abscess Status: Acute Assessment & Plan: will ask surgery to re assess today (6) 31 weeks gestation of Status: Acute Assessment & Plan: daily FHTS and weekly NSTs (7) Endocarditis Status: Acute Assessment & Plan: as per infectious disease Assessment and Plan 31 yo P2 at 35/1 Heat rash will order and antifungal cream Opioid dependent,, will notify nursery when she is in labor. will try to get her Rx filled soon CHACHA continue care per ID. Aquiles Almonte MD Dec 02, 2016 21:38
[2016-12-02] MEDS: TERCONAZOLE 0.4% VAG CR 45 GM TUBE VAGINAL SCH (22:14)
[2016-12-03] VITALS: BP 126/71; PULSE 77; RESP 18; TEMP 97.5; O2SAT 97
[2016-12-03] MEDS: CEFTAROLINE INJ 600 MG in SODIUM CHLORIDE 0.9% INJ 100 ML IV SCH ×3 (01:05→16:27)
[2016-12-03 04:00] VITALS: BP 107/59; PULSE 71; RESP 17; TEMP 97.8; O2SAT 96
[2016-12-03] MEDS: GABAPENTIN 400 MG CAP PO SCH ×3 (05:43→22:22)
[2016-12-03] MEDS: LEVOTHYROXINE SODIUM 50 MCG TAB PO SCH (05:43)
[2016-12-03] MEDS: LORazepam 0.5 MG TAB PO SCH (05:43)
[2016-12-03 08:00] VITALS: BP 103/64; PULSE 87; RESP 20; TEMP 100.2; O2SAT 98
[2016-12-03] MEDS: PRENATAL VITAMIN CHEWABLE TAB CHEW SCH (08:15)
[2016-12-03] MEDS: FAMOTIDINE 20 MG TAB PO SCH ×2 (08:16→20:45)
[2016-12-03] MEDS: POVIDONE IODINE 10% OINT 30 GM TUBE TOPICAL SCH (08:16)
[2016-12-03] MEDS: NICOTINE 21 MG/24 HR PATCH TD SCH (08:16)
[2016-12-03] MEDS: SODIUM CHLORIDE 0.9% FLUSH 5 ML FLUSH IVF SCH ×2 (08:16→20:46)
[2016-12-03] MEDS: DOCUSATE SODIUM 100 MG CAP PO SCH ×2 (08:16→20:45)
[2016-12-03] MEDS: POVIDONE IODINE 10% SOLN 118 ML BOTTLE TOPICAL SCH (08:17)
[2016-12-03] MEDS: traMADol HCL 50 MG TAB PO PRN ×3 (08:24→22:22)
[2016-12-03 12:00] VITALS: BP 102/58; PULSE 78; RESP 20; TEMP 98.5; O2SAT 96
[2016-12-03 16:00] VITALS: BP 107/56; PULSE 82; RESP 20; TEMP 98.9; O2SAT 96
[2016-12-03] MEDS: cefTRIAXone INJ 2,000 MG in SODIUM CHLORIDE 0.9% INJ 100 ML IV SCH (16:22)
[2016-12-03 20:00] VITALS: BP 120/70; PULSE 83; RESP 18; TEMP 98; O2SAT 96
[2016-12-03] MEDS: QUEtiapine FUMARATE 100 MG TAB PO SCH (20:45)
[2016-12-03] MEDS: REMOVE OLD NICODERM (NICOTINE) PATCH TD SCH (20:47)
[2016-12-04] VITALS: BP 115/58; PULSE 92; RESP 18; TEMP 98.6; O2SAT 98
[2016-12-04] MEDS: CEFTAROLINE INJ 600 MG in SODIUM CHLORIDE 0.9% INJ 100 ML IV SCH ×3 (00:25→17:48)
[2016-12-04 04:00] VITALS: BP 105/62; PULSE 85; RESP 17; TEMP 98.2; O2SAT 96
[2016-12-04] MEDS: LORazepam 0.5 MG TAB PO SCH (05:47)
[2016-12-04] MEDS: GABAPENTIN 400 MG CAP PO SCH ×3 (05:47→20:48)
[2016-12-04] MEDS: LEVOTHYROXINE SODIUM 50 MCG TAB PO SCH (05:47)
[2016-12-04 08:00] VITALS: BP 128/64; PULSE 86; RESP 20; TEMP 97.5; O2SAT 100
[2016-12-04] MEDS: DOCUSATE SODIUM 100 MG CAP PO SCH ×2 (09:07→20:48)
[2016-12-04] MEDS: PRENATAL VITAMIN CHEWABLE TAB CHEW SCH (09:07)
[2016-12-04] MEDS: FAMOTIDINE 20 MG TAB PO SCH ×2 (09:07→20:49)
[2016-12-04] MEDS: NICOTINE 21 MG/24 HR PATCH TD SCH (09:07)
[2016-12-04] MEDS: POVIDONE IODINE 10% OINT 30 GM TUBE TOPICAL SCH (09:08)
[2016-12-04] MEDS: POVIDONE IODINE 10% SOLN 118 ML BOTTLE TOPICAL SCH (09:09)
[2016-12-04] MEDS: SODIUM CHLORIDE 0.9% FLUSH 5 ML FLUSH IVF SCH ×2 (09:12→20:49)
[2016-12-04] MEDS: traMADol HCL 50 MG TAB PO PRN ×2 (11:17→20:49)
[2016-12-04 12:00] VITALS: BP 109/58; PULSE 87; RESP 18; TEMP 98.1; O2SAT 98
[2016-12-04 16:00] VITALS: BP 114/67; PULSE 92; RESP 20; TEMP 98.1; O2SAT 97
[2016-12-04] MEDS: cefTRIAXone INJ 2,000 MG in SODIUM CHLORIDE 0.9% INJ 100 ML IV SCH (17:48)
[2016-12-04 20:00] VITALS: BP 118/66; PULSE 88; RESP 20; TEMP 97.9; O2SAT 98
[2016-12-04] MEDS: QUEtiapine FUMARATE 100 MG TAB PO SCH (20:49)
[2016-12-04] MEDS: REMOVE OLD NICODERM (NICOTINE) PATCH TD SCH (20:50)
[2016-12-04] MEDS: TERCONAZOLE 0.4% VAG CR 45 GM TUBE VAGINAL SCH (20:50)
[2016-12-05] VITALS (7 sets, daily range): BP systolic 95–126; BP diastolic 54–71; PULSE 79–93; RESP 16–22; TEMP 97.4–98.5; O2SAT 96–100
[2016-12-05] MEDS: CEFTAROLINE INJ 600 MG in SODIUM CHLORIDE 0.9% INJ 100 ML IV SCH ×3 (01:13→16:24)
[2016-12-05] MEDS: LEVOTHYROXINE SODIUM 50 MCG TAB PO SCH (05:16)
[2016-12-05] MEDS: LORazepam 0.5 MG TAB PO SCH (05:16)
[2016-12-05] MEDS: GABAPENTIN 400 MG CAP PO SCH ×3 (05:16→20:54)
[2016-12-05] MEDS: NICOTINE 21 MG/24 HR PATCH TD SCH (08:34)
[2016-12-05] MEDS: FAMOTIDINE 20 MG TAB PO SCH ×2 (08:35→20:54)
[2016-12-05] MEDS: traMADol HCL 50 MG TAB PO PRN ×2 (08:35→18:31)
[2016-12-05] MEDS: PRENATAL VITAMIN CHEWABLE TAB CHEW SCH (08:35)
[2016-12-05] MEDS: DOCUSATE SODIUM 100 MG CAP PO SCH ×2 (08:35→20:54)
[2016-12-05] MEDS: SODIUM CHLORIDE 0.9% FLUSH 5 ML FLUSH IVF SCH ×2 (08:36→20:55)
[2016-12-05] MEDS: POVIDONE IODINE 10% SOLN 118 ML BOTTLE TOPICAL SCH (08:37)
[2016-12-05] MEDS: POVIDONE IODINE 10% OINT 30 GM TUBE TOPICAL SCH (08:38)
[2016-12-05] MEDS: cefTRIAXone INJ 2,000 MG in SODIUM CHLORIDE 0.9% INJ 100 ML IV SCH (18:30)
[2016-12-05] MEDS: QUEtiapine FUMARATE 100 MG TAB PO SCH (20:54)
[2016-12-05] MEDS: TERCONAZOLE 0.4% VAG CR 45 GM TUBE VAGINAL SCH (20:55)
[2016-12-05] MEDS: REMOVE OLD NICODERM (NICOTINE) PATCH TD SCH (20:56)
--- NOTE | 2016-12-05 21:07 | PD.OB.ANTE ---
Subjective Diagnosis: (1) Drug abuse during (2) Seizure disorder (3) Hypothyroidism affecting (4) Abscess of left thumb (5) Breast abscess (6) 31 weeks gestation of (7) Endocarditis Interval History No significant change except more fatigued movement is decreasing slightly Antepartum ROS: Reports: movement normal, Contractions Objective Vital Signs Vital Signs Date Time Temp Pulse Resp B/P Pulse Ox O2 Delivery O2 Flow Rate FiO2 12/05/16 16:00 98.5 92 22 112/68 99 12/05/16 12:00 98.1 93 20 126/65 98 12/05/16 09:00 Room Air 21 12/05/16 08:00 97.4 87 20 118/71 100 12/05/16 04:00 97.5 83 20 95/54 97 12/05/16 00:00 98.1 90 20 112/59 97 Intake & Output 12/05/16 12/05/16 07:00 19:00 Intake Total 899 ml 480 ml Balance 899 ml 480 ml Intake Oral 600 ml 480 ml IV Total 299 ml # Voids 3 8 # Bowel Movements 0 2 Physical Exam GENERAL: Well-nourished, well-developed patient. CARDIOVASCULAR: Regular rate and rhythm without murmurs, gallops, or rubs. RESPIRATORY: Breath sounds equal bilaterally. No accessory muscle use. ABDOMEN/GI: Abdomen soft, non-tender. 36 CM fundus EXTREMITIES: No cyanosis or edema, non-tender, without signs of DVT. Assessment and Plan Problem List: (1) Drug abuse during Status: Chronic Assessment & Plan: continue 40 mg oxycodone in divided doses for maintenance. Historically has down well on 24 mg subutex daily but not on formulary and cannot be picked up by anyone but her from outside pharmacy. (2) Seizure disorder Status: Chronic (3) Hypothyroidism affecting Status: Acute (4) Abscess of left thumb Status: Acute (5) Breast abscess Status: Acute Assessment & Plan: will ask surgery to re assess today (6) 31 weeks gestation of Status: Acute Assessment & Plan: daily FHTS and weekly NSTs (7) Endocarditis Status: Acute Assessment & Plan: as per infectious disease Assessment and Plan 35+ week IUP on rigoberto 40 daily undergoing treatment for CHACHA Plan to Ob Dx sunday for BPP and cervical check with GBS culture (aware she is on daryl antibiotics) Madeleine Yu MD Dec 05, 2016 21:07
[2016-12-06] MEDS: CEFTAROLINE INJ 600 MG in SODIUM CHLORIDE 0.9% INJ 100 ML IV SCH ×4 (01:00→23:53)
[2016-12-06 04:00] VITALS: BP 104/63; PULSE 83; RESP 16; TEMP 97.8; O2SAT 98
[2016-12-06] MEDS: GABAPENTIN 400 MG CAP PO SCH ×3 (07:44→21:04)
[2016-12-06] MEDS: LEVOTHYROXINE SODIUM 50 MCG TAB PO SCH (07:44)
[2016-12-06] MEDS: LORazepam 0.5 MG TAB PO SCH (07:44)
[2016-12-06 08:00] VITALS: BP 89/53; PULSE 71; RESP 16; TEMP 98.4; O2SAT 97
[2016-12-06] MEDS: NICOTINE 21 MG/24 HR PATCH TD SCH (08:56)
[2016-12-06] MEDS: SODIUM CHLORIDE 0.9% FLUSH 5 ML FLUSH IVF SCH ×2 (08:57→21:06)
[2016-12-06] MEDS: PRENATAL VITAMIN CHEWABLE TAB CHEW SCH (08:57)
[2016-12-06] MEDS: DOCUSATE SODIUM 100 MG CAP PO SCH ×2 (08:57→21:05)
[2016-12-06] MEDS: FAMOTIDINE 20 MG TAB PO SCH ×2 (08:57→21:04)
[2016-12-06] MEDS: POVIDONE IODINE 10% SOLN 118 ML BOTTLE TOPICAL SCH (09:00)
[2016-12-06] MEDS: POVIDONE IODINE 10% OINT 30 GM TUBE TOPICAL SCH (09:02)
[2016-12-06 12:00] VITALS: BP 105/63; PULSE 87; RESP 18; TEMP 97.8; O2SAT 99
[2016-12-06 15:55] VITALS: BP 107/60; PULSE 92; RESP 18; TEMP 98.1; O2SAT 96
[2016-12-06] MEDS: cefTRIAXone INJ 2,000 MG in SODIUM CHLORIDE 0.9% INJ 100 ML IV SCH (17:24)
[2016-12-06 20:00] VITALS: BP 109/60; PULSE 83; RESP 18; TEMP 97.2; O2SAT 98
[2016-12-06] MEDS: TERCONAZOLE 0.4% VAG CR 45 GM TUBE VAGINAL SCH (21:04)
[2016-12-06] MEDS: QUEtiapine FUMARATE 100 MG TAB PO SCH (21:04)
[2016-12-06] MEDS: REMOVE OLD NICODERM (NICOTINE) PATCH TD SCH (21:05)
[2016-12-06] MEDS: traMADol HCL 50 MG TAB PO PRN (23:52)
[2016-12-07] VITALS: BP 118/70; PULSE 81; RESP 18; TEMP 98.2; O2SAT 97
[2016-12-07 04:00] VITALS: BP 91/52; PULSE 63; RESP 18; TEMP 98.2; O2SAT 97
[2016-12-07 06:34] VITALS: BP 100/56; PULSE 70
[2016-12-07] MEDS: LEVOTHYROXINE SODIUM 50 MCG TAB PO SCH (06:36)
[2016-12-07] MEDS: LORazepam 0.5 MG TAB PO SCH (06:36)
[2016-12-07] MEDS: GABAPENTIN 400 MG CAP PO SCH ×3 (06:36→23:51)
[2016-12-07 08:00] VITALS: BP 90/53; PULSE 78; RESP 16; TEMP 98.1; O2SAT 98
[2016-12-07] MEDS: POVIDONE IODINE 10% SOLN 118 ML BOTTLE TOPICAL SCH (09:00)
[2016-12-07] MEDS: POVIDONE IODINE 10% OINT 30 GM TUBE TOPICAL SCH (09:00)
[2016-12-07] MEDS: SODIUM CHLORIDE 0.9% FLUSH 5 ML FLUSH IVF SCH (09:00)
[2016-12-07] MEDS: NICOTINE 21 MG/24 HR PATCH TD SCH ×2 (09:00→23:51)
[2016-12-07] MEDS: CEFTAROLINE INJ 600 MG in SODIUM CHLORIDE 0.9% INJ 100 ML IV SCH ×2 (09:09→17:09)
[2016-12-07] MEDS: FAMOTIDINE 20 MG TAB PO SCH ×2 (09:10→21:00)
[2016-12-07] MEDS: DOCUSATE SODIUM 100 MG CAP PO SCH ×2 (09:10→21:00)
[2016-12-07 12:00] VITALS: BP 102/57; PULSE 84; RESP 16; TEMP 98.3; O2SAT 97
[2016-12-07] MEDS: PRENATAL VITAMIN CHEWABLE TAB CHEW SCH (14:33)
[2016-12-07 16:00] VITALS: BP 104/60; PULSE 78; RESP 18; TEMP 97.7; O2SAT 99
[2016-12-07] MEDS: traMADol HCL 50 MG TAB PO PRN (17:07)
[2016-12-07] MEDS: cefTRIAXone INJ 2,000 MG in SODIUM CHLORIDE 0.9% INJ 100 ML IV SCH (17:09)
--- NOTE | 2016-12-07 20:02 | HHI.IDPN ---
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 In good spirits. Antibiotics Ceftriaxone IV Teflaro IV Lines Line sites with no e/o infection Past Medical History reviewed IVDA Allergies: Coded Allergies: *MDRO Multi-Drug Resistant Organism (Verified Adverse Reaction, Unknown, MRSA, 10/30/16) MRSA screen POSITIVE - 10/24/16; MRSA (breast & hand)-10/27/16 Objective . Vital Signs Date Time Temp Pulse Resp B/P Pulse Ox O2 Delivery O2 Flow Rate FiO2 12/07/16 16:00 97.7 78 18 104/60 99 12/07/16 12:00 98.3 84 16 102/57 97 12/07/16 10:00 Room Air 12/07/16 08:00 98.1 78 16 90/53 98 12/07/16 06:34 70 100/56 12/07/16 04:00 98.2 63 18 91/52 97 12/07/16 00:00 98.2 81 18 118/70 97 12/06/16 21:00 Room Air 12/06/16 20:00 97.2 83 18 109/60 98 12/06/16 12/06/16 12/07/16 15:00 23:00 07:00 Intake Total 480 ml 240 ml Balance 480 ml 240 ml Intake Oral 480 ml 240 ml # Voids 3 2 # Bowel Movements 3 2 . Microbiology Date/Time Procedure Status Source Growth 12/06/16 11:00 Group B Streptococcus Screen - Preliminary Resulted Genital Genital Region RESULTS PENDING Imaging Last Impressions Breast Ultrasound 10/26/16 1610 Signed Impressions: Service Date/Time: October 19:40 - CONCLUSION: Right breast abscess at the 3:00 position 4 cm from the nipple. Asim Fong MD Brain MRI 10/24/16 0000 Signed Impressions: Service Date/Time: Monday, October 24, 2016 14:09 - CONCLUSION: 1. No intracranial abnormalities seen. 2. Small focal area of mucosal disease of the right sphenoid sinus. Asim Arzate MD Physical Exam GENERAL:Awake and alert, NAD SKIN: Multiple track cosme noted. No rash HEAD: Atraumatic. Normocephalic. No temporal or scalp tenderness. EYES: Pupils equal round and reactive. No petchia or hemorrhage. No scleral icterus. No injection or drainage. ENT: Nose without bleeding, purulent drainage. Throat without erythema, or exudate. Uvula midline. Airway patent. NECK: Trachea midline. Supple, nontender, no meningeal signs. CARDIOVASCULAR: Heart sounds audible. RESPIRATORY: Clear to auscultation. Breath sounds equal bilaterally. No wheezes , rales, or rhonchi. GASTROINTESTINAL: Abdomen soft, gravid uterus. MUSCULOSKELETAL: No joint effusions. NEUROLOGICAL: Awake and alert. Non focal. Psych: cooperative. IV line sites with no e/o infection. Assessment & Plan Remarks Endocarditis: MRSA or Kleb pneumo either organisms could be causing this as blood cultures are negative. Left thumb abscess improved s/p bedside drainage. Right breast abscess s/p I&D, better Intravenous drug abuse both the sites of infection have been prior sites of self injection. at 29 weeks. Midline umbilical hernia asymptomatic at the present time. 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 Patient appears determined to stay clean and reunite with other children eventually. Maryann Lorenzo MD Dec 07, 2016 20:02
--- NOTE | 2016-12-07 20:20 | PD.OB.ANTE ---
Subjective Diagnosis: (1) Drug abuse during (2) Seizure disorder (3) Hypothyroidism affecting (4) Abscess of left thumb (5) Breast abscess (6) 31 weeks gestation of (7) Endocarditis Interval History Having contractions. some leakage GFM Objective Vital Signs Vital Signs Date Time Temp Pulse Resp B/P Pulse Ox O2 Delivery O2 Flow Rate FiO2 12/07/16 16:00 97.7 78 18 104/60 99 12/07/16 12:00 98.3 84 16 102/57 97 12/07/16 10:00 Room Air 12/07/16 08:00 98.1 78 16 90/53 98 12/07/16 06:34 70 100/56 12/07/16 04:00 98.2 63 18 91/52 97 12/07/16 00:00 98.2 81 18 118/70 97 12/06/16 21:00 Room Air Intake & Output 12/07/16 12/07/16 07:00 19:00 Intake Total 720 ml 720 ml Balance 720 ml 720 ml Intake Oral 720 ml 720 ml # Voids 5 6 # Bowel Movements 5 2 Lab & Micro Results Date/Time Procedure Status Source Growth 12/06/16 11:00 Group B Streptococcus Screen - Preliminary Resulted Genital Genital Region RESULTS PENDING Physical Exam GENERAL: Well-nourished, well-developed patient. CARDIOVASCULAR: Regular rate and rhythm without murmurs, gallops, or rubs. RESPIRATORY: Breath sounds equal bilaterally. No accessory muscle use. ABDOMEN/GI: Abdomen soft, non-tender. 36 cm 3/80/-2 strip category one EXTREMITIES: No cyanosis or edema, non-tender, without signs of DVT. Assessment and Plan Problem List: (1) Drug abuse during Status: Chronic Assessment & Plan: continue 40 mg oxycodone in divided doses for maintenance. Historically has down well on 24 mg subutex daily but not on formulary and cannot be picked up by anyone but her from outside pharmacy. (2) Seizure disorder Status: Chronic (3) Hypothyroidism affecting Status: Acute (4) Abscess of left thumb Status: Acute (5) Breast abscess Status: Acute Assessment & Plan: will ask surgery to re assess today (6) 31 weeks gestation of Status: Acute Assessment & Plan: daily FHTS and weekly NSTs (7) Endocarditis Status: Acute Assessment & Plan: as per infectious disease Assessment and Plan probable labor watch 2 hours and reassess. Madeleine Yu MD Dec 07, 2016 20:20
[2016-12-07] MEDS ORDERED: LACTATED RINGER'S 1000 ML INJ 1,000 ML IV PRN (20:55)
[2016-12-07] MEDS: LACTATED RINGER'S 1000 ML INJ 1,000 ML IV SCH (20:55)
--- NOTE | 2016-12-07 20:59 | PD.LABORPN ---
Subjective Subjective painful UCs exam 3 cm but grossly ruptured transfer to L & D strip category 1 Objective Vital Signs Vital Signs Date Time Temp Pulse Resp B/P Pulse Ox O2 Delivery O2 Flow Rate FiO2 12/07/16 16:00 97.7 78 18 104/60 99 Objective Pelvic Exam: Cervix: [-] Dilatation: [-] Effacement: [-] Station: [-] Presentation: [-] Membranes: [intact or ruptured] Uterine Contractions: [-] FHT's: Category: [-] Baseline: [-] Reactive: [-] Variability: [-] Decels: [-] Assessment/Plan Problem List: (1) Drug abuse during Plan: continue 40 mg oxycodone in divided doses for maintenance. Historically has down well on 24 mg subutex daily but not on formulary and cannot be picked up by anyone but her from outside pharmacy. (2) Seizure disorder (3) Hypothyroidism affecting (4) Abscess of left thumb (5) Breast abscess Plan: will ask surgery to re assess today (6) 31 weeks gestation of Plan: daily FHTS and weekly NSTs (7) Endocarditis Plan: as per infectious disease Madeleine Yu MD Dec 07, 2016 20:59
[2016-12-07] MEDS ORDERED: SODIUM CHLORID 0.9% 500 ML INJ 500 ML IV PRN (21:00)
[2016-12-07] MEDS ORDERED: LIDOCAINE HCL 1% 50 ML VIAL I-DERMAL PRN (21:00)
[2016-12-07] MEDS ORDERED: MINERAL OIL 10 ML VIAL TOPICAL PRN (21:00)
[2016-12-07] MEDS ORDERED: OXYTOCIN 30 UNITS-500ML PREMIX 500 ML IV ONE (21:00)
[2016-12-07] MEDS ORDERED: CITRIC ACID-SODIUM CITRATE LIQ 30 ML UDC PO SCH (21:00)
[2016-12-07] MEDS ORDERED: LIDOCAINE HCL 1% 50 ML VIAL INFIL PRN (21:00)
[2016-12-07] MEDS ORDERED: OXYTOCIN 30 UNITS-500ML PREMIX 500 ML IV SCH (21:00)
[2016-12-07] MEDS ORDERED: SODIUM CHLOR 0.9% 1000 ML INJ 1,000 ML IV PRN (21:15)
[2016-12-07] MEDS: QUEtiapine FUMARATE 100 MG TAB PO SCH (23:51)
[2016-12-07] MEDS: TERCONAZOLE 0.4% VAG CR 45 GM TUBE VAGINAL SCH (23:52)
[2016-12-08] MEDS: CEFTAROLINE INJ 600 MG in SODIUM CHLORIDE 0.9% INJ 100 ML IV SCH ×3 (00:48→17:14)
[2016-12-08 01:40] LABS: AUTOMATED NEUTROPHIL # 3.5 TH/MM3 (1.8-7.7); BASOPHIL % 0.4 % (0.0-2.0); EOSINOPHIL # 0.1 TH/MM3 (0-0.4); EOSINOPHIL % 1.3 % (0.0-4.0); HEMATOCRIT 33.1 % (35.0-46.0); HEMO FLAGS DIFF FINAL; LYMPH % 42.6 % (9.0-44.0); MEAN CORPUSCULAR HGB CONC 34.2 % (32.0-36.0); MONO % 17.7 % (0.0-8.0); PLATELET COUNT 322 TH/MM3 (150-450); RED BLOOD COUNT 4.04 MIL/MM3 (4.00-5.30); RED CELL DISTRIBUTION WIDTH 14.3 % (11.6-17.2); WHITE BLOOD COUNT 9.3 TH/MM3 (4.0-11.0)
[2016-12-08 01:50] LABS: ALKALINE PHOSPHATASE 127 U/L (45-117); TOTAL BILIRUBIN ADULT 0.3 MG/DL (0.2-1.0)
[2016-12-08 01:51] LABS: ALT (GPT) 11 U/L (10-53); ANION GAP 10 MEQ/L (5-15); AST (GOT) 20 U/L (15-37); BICARBONATE 21.4 MEQ/L (21.0-32.0); BLOOD UREA NITROGEN 5 MG/DL (7-18); CHLORIDE 106 MEQ/L (98-107); GLOMERULAR FILTRATION RATE 189 ML/MIN (>89); POTASSIUM 3.8 MEQ/L (3.5-5.1); SODIUM (NA) 137 MEQ/L (136-145)
[2016-12-08] MEDS: LEVOTHYROXINE SODIUM 50 MCG TAB PO SCH (06:00)
--- NOTE | 2016-12-08 07:35 | PD.OB.ANTE ---
Subjective Diagnosis: (1) Drug abuse during (2) Seizure disorder (3) Hypothyroidism affecting (4) Abscess of left thumb (5) Breast abscess (6) 31 weeks gestation of (7) Endocarditis Interval History Having irregular UCs Amnisure was negative She is not in significant discomfort doing well on her stable dose of rigoberto Objective Vital Signs Vital Signs Date Time Temp Pulse Resp B/P Pulse Ox O2 Delivery O2 Flow Rate FiO2 12/07/16 16:00 97.7 78 18 104/60 99 12/07/16 12:00 98.3 84 16 102/57 97 12/07/16 10:00 Room Air 12/07/16 08:00 98.1 78 16 90/53 98 Lab & Micro Results Test 12/08/16 01:21 White Blood Count 9.3 TH/MM3 Red Blood Count 4.04 MIL/MM3 Hemoglobin 11.3 GM/DL Hematocrit 33.1 % Mean Corpuscular Volume 82.0 FL Mean Corpuscular Hemoglobin 28.0 PG Mean Corpuscular Hemoglobin 34.2 % Concent Red Cell Distribution Width 14.3 % Platelet Count 322 TH/MM3 Mean Platelet Volume 6.6 FL Neutrophils (%) (Auto) 38.0 % Lymphocytes (%) (Auto) 42.6 % Monocytes (%) (Auto) 17.7 % Eosinophils (%) (Auto) 1.3 % Basophils (%) (Auto) 0.4 % Neutrophils # (Auto) 3.5 TH/MM3 Lymphocytes # (Auto) 4.0 TH/MM3 Monocytes # (Auto) 1.6 TH/MM3 Eosinophils # (Auto) 0.1 TH/MM3 Basophils # (Auto) 0.0 TH/MM3 CBC Comment DIFF FINAL Differential Comment Sodium Level 137 MEQ/L Potassium Level 3.8 MEQ/L Chloride Level 106 MEQ/L Carbon Dioxide Level 21.4 MEQ/L Anion Gap 10 MEQ/L Blood Urea Nitrogen 5 MG/DL Creatinine 0.40 MG/DL Estimat Glomerular Filtration 189 ML/MIN Rate Random Glucose 74 MG/DL Calcium Level 8.1 MG/DL Total Bilirubin 0.3 MG/DL Aspartate Amino Transf 20 U/L (AST/SGOT) Alanine Aminotransferase 11 U/L (ALT/SGPT) Alkaline Phosphatase 127 U/L Total Protein 7.0 GM/DL Albumin 2.4 GM/DL Blood Type O NEGATIVE Blood Bank Comment Band and Hold Date/Time Procedure Status Source Growth 12/06/16 11:00 Group B Streptococcus Screen - Preliminary Resulted Genital Genital Region RESULTS PENDING Physical Exam GENERAL: Well-nourished, well-developed patient. CARDIOVASCULAR: Regular rate and rhythm without murmurs, gallops, or rubs. RESPIRATORY: Breath sounds equal bilaterally. No accessory muscle use. ABDOMEN/GI: Abdomen soft, non-tender. 36 cm strip category 1 occ UC not checked this am EXTREMITIES: No cyanosis or edema, non-tender, without signs of DVT. Assessment and Plan Problem List: (1) Drug abuse during Status: Chronic Assessment & Plan: continue 40 mg oxycodone in divided doses for maintenance. Historically has down well on 24 mg subutex daily but not on formulary and cannot be picked up by anyone but her from outside pharmacy. (2) Seizure disorder Status: Chronic (3) Hypothyroidism affecting Status: Acute (4) Abscess of left thumb Status: Acute (5) Breast abscess Status: Acute Assessment & Plan: will ask surgery to re assess today (6) 31 weeks gestation of Status: Acute Assessment & Plan: daily FHTS and weekly NSTs (7) Endocarditis Status: Acute Assessment & Plan: as per infectious disease Assessment and Plan prodromal labor 36 weeks tomorrow stable opioid maintenance on short acting opioids Keep in antepartum Madeleine Yu MD Dec 08, 2016 07:35
[2016-12-08] MEDS: GABAPENTIN 400 MG CAP PO SCH ×3 (08:41→22:19)
[2016-12-08] MEDS: PRENATAL VITAMIN CHEWABLE TAB CHEW SCH (08:41)
[2016-12-08] MEDS: FAMOTIDINE 20 MG TAB PO SCH ×2 (08:42→20:58)
[2016-12-08] MEDS: NICOTINE 21 MG/24 HR PATCH TD SCH (08:48)
[2016-12-08] MEDS: LACTATED RINGER'S 1000 ML INJ 1,000 ML IV SCH ×2 (09:52→21:00)
[2016-12-08] MEDS: LORazepam 0.5 MG TAB PO SCH (13:37)
[2016-12-08] MEDS: cefTRIAXone INJ 2,000 MG in SODIUM CHLORIDE 0.9% INJ 100 ML IV SCH (18:20)
[2016-12-08] MEDS: SODIUM CHLORIDE 0.9% FLUSH 5 ML FLUSH IVF SCH ×2 (18:27→21:00)
[2016-12-08 18:30] VITALS: RESP 16
[2016-12-08 18:39] VITALS: TEMP 98.3
[2016-12-08 18:40] VITALS: BP 111/62; PULSE 80
[2016-12-08 20:32] VITALS: RESP 16; TEMP 97.9
[2016-12-08 20:33] VITALS: BP 111/58; PULSE 68
[2016-12-08] MEDS: DOCUSATE SODIUM 100 MG CAP PO SCH (20:57)
[2016-12-08] MEDS: QUEtiapine FUMARATE 100 MG TAB PO SCH (20:58)
[2016-12-08] MEDS: REMOVE OLD NICODERM (NICOTINE) PATCH TD SCH (20:58)
[2016-12-08] MEDS: TERCONAZOLE 0.4% VAG CR 45 GM TUBE VAGINAL SCH (21:00)
[2016-12-08] MEDS: traMADol HCL 50 MG TAB PO PRN (23:14)
[2016-12-09] VITALS (11 sets, daily range): BP systolic 95–111; BP diastolic 54–70; PULSE 65–84; RESP 16–18; TEMP 97.4–98.4
[2016-12-09] MEDS: CEFTAROLINE INJ 600 MG in SODIUM CHLORIDE 0.9% INJ 100 ML IV SCH ×3 (01:00→16:54)
[2016-12-09] MEDS: LEVOTHYROXINE SODIUM 50 MCG TAB PO SCH (06:16)
[2016-12-09] MEDS: GABAPENTIN 400 MG CAP PO SCH (06:16)
[2016-12-09] MEDS: LACTATED RINGER'S 1000 ML INJ 1,000 ML IV SCH (06:16)
[2016-12-09] MEDS: LORazepam 0.5 MG TAB PO SCH (06:16)
--- NOTE | 2016-12-09 08:40 | PD.OB.ANTE ---
Subjective Diagnosis: (1) Drug abuse during (2) Seizure disorder (3) Hypothyroidism affecting (4) Abscess of left thumb (5) Breast abscess (6) Endocarditis Interval History 31 yo swf P3 at 36 0/7 weeks EGA now in antepartum after admission on Oct 27 and last 43 days on IV antibiotics for acute bacterial endocarditis. She has done remarkably well. Transferred here 48 hours ago with cervical change and irregular UCs that subsided. Now stable at 3 cm/20%/-1 with vertex well applied . Amnisure was negative. Still has back pain and cramping but tolerating well. Since buprenorphine not available on our formulary, her opioid debt/opioid maintenance to prevent withdrawal is short acting oxy 10 QID. She is off all benzodiazepenies initially used in early admission for severe anxiety and probable withdrawal. Only seroquel at night. Reports good motion. Antepartum ROS: Reports: movement normal, Contractions, Denies: New complaints, Loss of fluid, Vaginal bleeding, Other Objective Vital Signs Vital Signs Date Time Temp Pulse Resp B/P Pulse Ox O2 Delivery O2 Flow Rate FiO2 12/09/16 03:20 65 16 95/56 12/09/16 03:19 97.4 12/09/16 01:01 74 101/59 12/09/16 00:59 98.0 16 12/08/16 22:00 16 12/08/16 20:33 68 111/58 12/08/16 20:32 97.9 16 12/08/16 18:40 80 111/62 12/08/16 18:39 98.3 12/08/16 18:30 16 Lab & Micro Results Date/Time Procedure Status Source Growth 12/06/16 11:00 Group B Streptococcus Screen - Preliminary Resulted Genital Genital Region NO GROUP B STREP ISOLATED Physical Exam GENERAL: Well-nourished, well-developed patient. CARDIOVASCULAR: Regular rate and rhythm without murmurs, gallops, or rubs. RESPIRATORY: Breath sounds equal bilaterally. No accessory muscle use. ABDOMEN/GI: Abdomen soft, non-tender. 36 cm strip category one runs of irritability on tocometer 3/20%/-2 EXTREMITIES: No cyanosis or edema, non-tender, without signs of DVT. remains a difficult stick Assessment and Plan Problem List: (1) Drug abuse during Status: Chronic Assessment & Plan: continue 40 mg oxycodone in divided doses for maintenance. Historically has down well on 24 mg subutex daily but not on formulary and cannot be picked up by anyone but her from outside pharmacy. (2) Seizure disorder Status: Chronic (3) Hypothyroidism affecting Status: Acute (4) Abscess of left thumb Status: Acute (5) Breast abscess Status: Acute Assessment & Plan: will ask surgery to re assess today (6) 31 weeks gestation of Status: Acute Assessment & Plan: daily FHTS and weekly NSTs (7) Endocarditis Status: Acute Assessment & Plan: as per infectious disease Assessment and Plan 36 week IUP opioid maintenance with 40 oxy/24 hours hep c CHACHA -- ending treatment with IV antibiotics Marach 8th hx of PTL unstable housing situation Plan dc iv fluids GBS culture when off all IV antibiotics healthy start reconsult Madeleine Yu MD Dec 09, 2016 08:40
[2016-12-09] MEDS: SODIUM CHLORIDE 0.9% FLUSH 5 ML FLUSH IVF SCH ×2 (09:00→21:00)
[2016-12-09] MEDS: PRENATAL VITAMIN CHEWABLE TAB CHEW SCH (09:22)
[2016-12-09] MEDS: FAMOTIDINE 20 MG TAB PO SCH ×2 (09:23→21:07)
[2016-12-09] MEDS: DOCUSATE SODIUM 100 MG CAP PO SCH ×2 (09:23→21:07)
[2016-12-09] MEDS: NICOTINE 21 MG/24 HR PATCH TD SCH (09:26)
[2016-12-09] MEDS: GABAPENTIN 300 MG CAP PO SCH ×2 (13:52→21:07)
[2016-12-09] MEDS: cefTRIAXone INJ 2,000 MG in SODIUM CHLORIDE 0.9% INJ 100 ML IV SCH (17:54)
[2016-12-09] MEDS: SODIUM CHLORIDE 0.9% FLUSH 5 ML FLUSH IVF PRN (17:55)
[2016-12-09] MEDS: QUEtiapine FUMARATE 100 MG TAB PO SCH (21:07)
[2016-12-09] MEDS: TERCONAZOLE 0.4% VAG CR 45 GM TUBE VAGINAL SCH (21:08)
[2016-12-09] MEDS: PROMETHAZINE HCL 25 MG TAB PO PRN (21:27)
[2016-12-09] MEDS: MAGNESIUM HYDROXIDE SUSP 30 ML CUP PO PRN (22:01)
[2016-12-09] MEDS: REMOVE OLD NICODERM (NICOTINE) PATCH TD SCH (23:55)
[2016-12-10] VITALS (9 sets, daily range): BP systolic 94–112; BP diastolic 50–71; PULSE 65–95; RESP 18; TEMP 97.7–98.4
[2016-12-10] MEDS: CEFTAROLINE INJ 600 MG in SODIUM CHLORIDE 0.9% INJ 100 ML IV SCH ×4 (01:00→23:37)
[2016-12-10] MEDS: PROMETHAZINE HCL 25 MG TAB PO PRN (03:06)
[2016-12-10] MEDS: LEVOTHYROXINE SODIUM 50 MCG TAB PO SCH (06:11)
[2016-12-10] MEDS: GABAPENTIN 300 MG CAP PO SCH ×3 (06:11→22:00)
[2016-12-10] MEDS: SODIUM CHLORIDE 0.9% FLUSH 5 ML FLUSH IVF SCH ×2 (09:00→19:52)
[2016-12-10] MEDS: NICOTINE 21 MG/24 HR PATCH TD SCH (09:07)
[2016-12-10] MEDS: DOCUSATE SODIUM 100 MG CAP PO SCH ×2 (09:08→19:52)
[2016-12-10] MEDS: PRENATAL VITAMIN CHEWABLE TAB CHEW SCH (09:08)
[2016-12-10] MEDS: FAMOTIDINE 20 MG TAB PO SCH ×2 (09:08→19:52)
[2016-12-10] MEDS: cefTRIAXone INJ 2,000 MG in SODIUM CHLORIDE 0.9% INJ 100 ML IV SCH (18:11)
[2016-12-10] MEDS: QUEtiapine FUMARATE 100 MG TAB PO SCH (19:52)
[2016-12-10] MEDS: REMOVE OLD NICODERM (NICOTINE) PATCH TD SCH (19:53)
[2016-12-11] VITALS (12 sets, daily range): BP systolic 91–110; BP diastolic 43–61; PULSE 66–85; RESP 18; TEMP 97.7–98.1
[2016-12-11] MEDS: GABAPENTIN 300 MG CAP PO SCH ×3 (05:41→22:42)
[2016-12-11] MEDS: LEVOTHYROXINE SODIUM 50 MCG TAB PO SCH (05:41)
--- NOTE | 2016-12-11 08:04 | PD.OB.ANTE ---
Subjective Diagnosis: (1) Drug abuse during (2) Seizure disorder (3) Hypothyroidism affecting (4) Abscess of left thumb (5) Breast abscess (6) Endocarditis Antepartum ROS: Reports: Other (no complaints , +FM) Objective Vital Signs Vital Signs Date Time Temp Pulse Resp B/P Pulse Ox O2 Delivery O2 Flow Rate FiO2 12/11/16 05:32 66 12/11/16 05:30 91/43 12/11/16 05:29 18 12/11/16 05:28 98.1 12/10/16 19:48 98.4 12/10/16 19:45 65 107/66 12/10/16 19:44 18 12/10/16 11:52 18 12/10/16 11:51 95 112/68 12/10/16 08:53 98.0 79 106/71 12/10/16 08:53 18 Lab & Micro Results Date/Time Procedure Status Source Growth 12/06/16 11:00 Group B Streptococcus Screen - Final Complete Genital Genital Region NO GROUP B STREP ISOLATED Physical Exam GENERAL: Well-nourished, well-developed patient. CARDIOVASCULAR: Regular rate and rhythm without murmurs, gallops, or rubs. RESPIRATORY: Breath sounds equal bilaterally. No accessory muscle use. ABDOMEN/GI: Abdomen soft, non-tender. Fundus: [-] GENITOURINARY: External Genitalia: intact and normal in appearance Cervix: [-] deferred Dilatation: [-] Effacement: [-] Station: [-] Presentation: [-] Membranes: [-] Uterine Contractions: [-] rare FHT's: Category: [-] 1 Baseline: [-] Reactive: [-] R Variability: [-] Decels: [-] EXTREMITIES: No cyanosis or edema, non-tender, without signs of DVT. Assessment and Plan Problem List: (1) Drug abuse during Status: Chronic Assessment & Plan: continue 40 mg oxycodone in divided doses for maintenance. Historically has down well on 24 mg subutex daily but not on formulary and cannot be picked up by anyone but her from outside pharmacy. (2) Seizure disorder Status: Chronic (3) Hypothyroidism affecting Status: Acute (4) Abscess of left thumb Status: Acute (5) Breast abscess Status: Acute (6) Endocarditis Status: Acute Assessment & Plan: as per infectious disease Assessment and Plan 36 week IUP opioid maintenance with 40 oxy/24 hours hep c CHACHA -- ending treatment with IV antibiotics December 13 hx of PTL unstable housing situation Plan dc iv fluids GBS culture when off all IV antibiotics healthy start reconsult Margareth Zapien MD Dec 11, 2016 08:04
[2016-12-11] MEDS: CEFTAROLINE INJ 600 MG in SODIUM CHLORIDE 0.9% INJ 100 ML IV SCH ×2 (09:13→17:40)
[2016-12-11] MEDS: NICOTINE 21 MG/24 HR PATCH TD SCH (09:16)
[2016-12-11] MEDS: FAMOTIDINE 20 MG TAB PO SCH ×2 (09:17→20:59)
[2016-12-11] MEDS: PRENATAL VITAMIN CHEWABLE TAB CHEW SCH (09:17)
[2016-12-11] MEDS: SODIUM CHLORIDE 0.9% FLUSH 5 ML FLUSH IVF SCH ×2 (09:18→21:00)
[2016-12-11] MEDS: MULTIVIT/MIN/PREN/FOL AC/IRON PRENATAL TAB PO SCH (14:00)
[2016-12-11] MEDS: SODIUM CHLORIDE 0.9% FLUSH 5 ML FLUSH IVF PRN (17:40)
[2016-12-11] MEDS ORDERED: LIDOCAINE HCL 1% 50 ML VIAL ONE (17:53)
[2016-12-11] MEDS: cefTRIAXone INJ 2,000 MG in SODIUM CHLORIDE 0.9% INJ 100 ML IV SCH (20:11)
[2016-12-11] MEDS: QUEtiapine FUMARATE 100 MG TAB PO SCH (20:59)
[2016-12-11] MEDS: MAGNESIUM HYDROXIDE SUSP 30 ML CUP PO PRN (21:00)
[2016-12-11] MEDS: REMOVE OLD NICODERM (NICOTINE) PATCH TD SCH (21:00)
[2016-12-11] MEDS: NICOTINE 14 MG/24 HR PATCH TD SCH (21:00)
[2016-12-11] MEDS: DOCUSATE SODIUM 100 MG CAP PO SCH (21:00)
[2016-12-12] MEDS: CEFTAROLINE INJ 600 MG in SODIUM CHLORIDE 0.9% INJ 100 ML IV SCH ×3 (03:00→18:33)
[2016-12-12 03:07] VITALS: BP 111/56; PULSE 66; RESP 18; TEMP 97.7
[2016-12-12] MEDS: GABAPENTIN 300 MG CAP PO SCH ×3 (05:58→23:20)
[2016-12-12] MEDS: LEVOTHYROXINE SODIUM 50 MCG TAB PO SCH (05:58)
[2016-12-12 08:24] VITALS: BP 112/61; PULSE 85; RESP 18; TEMP 98.3
[2016-12-12] MEDS: DOCUSATE SODIUM 100 MG CAP PO SCH ×2 (09:00→23:24)
[2016-12-12] MEDS: PANTOPRAZOLE SOD 40 MG DELAYED RELEASE TAB PO SCH (09:43)
[2016-12-12] MEDS: MULTIVIT/MIN/PREN/FOL AC/IRON PRENATAL TAB PO SCH (09:44)
[2016-12-12] MEDS: SODIUM CHLORIDE 0.9% FLUSH 5 ML FLUSH IVF SCH ×2 (09:44→19:35)
--- NOTE | 2016-12-12 11:49 | PD.OB.ANTE ---
Subjective Diagnosis: (1) Drug abuse during (2) Seizure disorder (3) Hypothyroidism affecting (4) Abscess of left thumb (5) Breast abscess (6) Endocarditis Interval History 36 2/7 mild cramping significant GERD GFM no leaking or bleeding Objective Vital Signs Vital Signs Date Time Temp Pulse Resp B/P Pulse Ox O2 Delivery O2 Flow Rate FiO2 12/12/16 08:24 98.3 18 12/12/16 08:24 85 112/61 12/12/16 03:59 18 12/12/16 03:07 97.7 66 18 111/56 12/11/16 20:46 97.7 12/11/16 20:14 18 12/11/16 20:07 81 104/61 12/11/16 15:30 70 110/59 12/11/16 15:29 97.7 18 Physical Exam GENERAL: Well-nourished, well-developed patient. CARDIOVASCULAR: Regular rate and rhythm without murmurs, gallops, or rubs. RESPIRATORY: Breath sounds equal bilaterally. No accessory muscle use. ABDOMEN/GI: Abdomen soft, non-tender. cervix unchanged strip category one EXTREMITIES: No cyanosis or edema, non-tender, without signs of DVT. Assessment and Plan Problem List: (1) Drug abuse during Status: Chronic Assessment & Plan: continue 40 mg oxycodone in divided doses for maintenance. Historically has down well on 24 mg subutex daily but not on formulary and cannot be picked up by anyone but her from outside pharmacy. (2) Seizure disorder Status: Chronic (3) Hypothyroidism affecting Status: Acute (4) Abscess of left thumb Status: Acute (5) Breast abscess Status: Acute (6) Endocarditis Status: Acute Assessment & Plan: as per infectious disease Assessment and Plan 36 + week IUP opioid maintenance with 40 oxy/24 hours hep c CHACHA -- ending treatment with IV antibiotics December 13 hx of PTL unstable housing situation continue current course of care Madeleine Yu MD Dec 12, 2016 11:49
[2016-12-12] MEDS: MAGNESIUM HYDROXIDE SUSP 30 ML CUP PO PRN (15:32)
[2016-12-12 17:19] VITALS: BP 108/65; PULSE 78
[2016-12-12 17:20] VITALS: RESP 16; TEMP 98.1
[2016-12-12] MEDS: SODIUM CHLORIDE 0.9% FLUSH 5 ML FLUSH IVF PRN (18:00)
[2016-12-12] MEDS: cefTRIAXone INJ 2,000 MG in SODIUM CHLORIDE 0.9% INJ 100 ML IV SCH (18:00)
[2016-12-12 19:30] VITALS: BP 106/61; PULSE 65; RESP 18
[2016-12-12] MEDS: PROMETHAZINE HCL 25 MG TAB PO PRN (19:46)
[2016-12-12 23:18] VITALS: BP 105/60; PULSE 71; RESP 18; TEMP 98
[2016-12-12] MEDS: NICOTINE 14 MG/24 HR PATCH TD SCH (23:19)
[2016-12-12] MEDS: QUEtiapine FUMARATE 100 MG TAB PO SCH (23:20)
[2016-12-12] MEDS: REMOVE OLD NICODERM (NICOTINE) PATCH TD SCH (23:25)
[2016-12-13] VITALS (9 sets, daily range): BP systolic 94–115; BP diastolic 57–63; PULSE 70–79; RESP 17–18; TEMP 97.7–98.1
[2016-12-13] MEDS: CEFTAROLINE INJ 600 MG in SODIUM CHLORIDE 0.9% INJ 100 ML IV SCH ×2 (01:54→09:08)
[2016-12-13] MEDS: SODIUM CHLORIDE 0.9% FLUSH 5 ML FLUSH IVF PRN ×2 (01:57→02:57)
[2016-12-13] MEDS: LEVOTHYROXINE SODIUM 50 MCG TAB PO SCH (06:11)
[2016-12-13] MEDS: GABAPENTIN 300 MG CAP PO SCH ×3 (06:11→23:41)
[2016-12-13] MEDS: DOCUSATE SODIUM 100 MG CAP PO SCH ×2 (09:00→21:54)
[2016-12-13] MEDS: PANTOPRAZOLE SOD 40 MG DELAYED RELEASE TAB PO SCH (09:07)
[2016-12-13] MEDS: MULTIVIT/MIN/PREN/FOL AC/IRON PRENATAL TAB PO SCH (09:07)
[2016-12-13] MEDS: SODIUM CHLORIDE 0.9% FLUSH 5 ML FLUSH IVF SCH ×2 (09:08→21:04)
--- NOTE | 2016-12-13 13:08 | PD.OB.ANTE ---
Subjective Diagnosis: (1) Drug abuse during (2) Seizure disorder (3) Hypothyroidism affecting (4) Abscess of left thumb (5) Breast abscess (6) Endocarditis Interval History 36 and 4/7 weeks cramping at irregular intervals good movement no leaking or bleeding no cravings or withdrawal symptoms today is last day of IV antibiotics for CHACHA Objective Vital Signs Vital Signs Date Time Temp Pulse Resp B/P Pulse Ox O2 Delivery O2 Flow Rate FiO2 12/13/16 12:40 70 115/63 12/13/16 12:40 17 12/13/16 12:39 97.7 12/13/16 09:18 18 12/13/16 09:06 79 107/60 12/12/16 23:18 98.0 71 18 105/60 12/12/16 19:30 65 18 106/61 12/12/16 17:20 98.1 16 12/12/16 17:19 78 108/65 Physical Exam GENERAL: Well-nourished, well-developed patient. CARDIOVASCULAR: Regular rate and rhythm without murmurs, gallops, or rubs. RESPIRATORY: Breath sounds equal bilaterally. No accessory muscle use. ABDOMEN/GI: Abdomen soft, non-tender. term fundus strip category 1 lsat cervical check /-1 with BBOW will recheck in am EXTREMITIES: No cyanosis or edema, non-tender, without signs of DVT. Assessment and Plan Problem List: (1) Drug abuse during Status: Chronic Assessment & Plan: continue 40 mg oxycodone in divided doses for maintenance. Historically has down well on 24 mg subutex daily but not on formulary and cannot be picked up by anyone but her from outside pharmacy. (2) Seizure disorder Status: Chronic (3) Hypothyroidism affecting Status: Acute (4) Abscess of left thumb Status: Acute (5) Breast abscess Status: Acute (6) Endocarditis Status: Acute Assessment & Plan: as per infectious disease Assessment and Plan 36 4/7 week IUP opioid maintenance with 40 oxy/24 hours hep c CHACHA -- ending treatment with IV antibiotics December 13 hx of PTL unstable housing situation working on facilitating getting certificate continue current course of care Madeleine Yu MD Dec 13, 2016 13:08
[2016-12-13] MEDS: cefTRIAXone INJ 2,000 MG in SODIUM CHLORIDE 0.9% INJ 100 ML IV SCH (18:03)
[2016-12-13] MEDS: QUEtiapine FUMARATE 100 MG TAB PO SCH (23:41)
[2016-12-13] MEDS: NICOTINE 14 MG/24 HR PATCH TD SCH (23:41)
[2016-12-13] MEDS: REMOVE OLD NICODERM (NICOTINE) PATCH TD SCH (23:48)
[2016-12-14] MEDS: GABAPENTIN 300 MG CAP PO SCH ×3 (06:27→21:14)
[2016-12-14] MEDS: LEVOTHYROXINE SODIUM 50 MCG TAB PO SCH (06:28)
--- NOTE | 2016-12-14 06:59 | PD.OB.ANTE ---
Subjective Diagnosis: (1) Drug abuse during (2) Seizure disorder (3) Hypothyroidism affecting (4) Abscess of left thumb (5) Breast abscess (6) Endocarditis Interval History sleeping soundly considerable contractions during the night none apparently perceived at this time strip has remained category one IV antibiotic course completed last evening. I will check her cervix later in the am. Objective Vital Signs Vital Signs Date Time Temp Pulse Resp B/P Pulse Ox O2 Delivery O2 Flow Rate FiO2 12/13/16 23:35 18 12/13/16 23:34 70 99/60 12/13/16 23:34 98.1 12/13/16 19:53 74 113/61 12/13/16 19:52 97.8 12/13/16 16:26 70 94/57 12/13/16 12:40 70 115/63 12/13/16 12:40 17 12/13/16 12:39 97.7 12/13/16 09:18 18 12/13/16 09:06 79 107/60 Physical Exam GENERAL: Well-nourished, well-developed patient. CARDIOVASCULAR: Regular rate and rhythm without murmurs, gallops, or rubs. RESPIRATORY: Breath sounds equal bilaterally. No accessory muscle use. ABDOMEN/GI: Abdomen soft, non-tender. Fundus: [-] GENITOURINARY: External Genitalia: intact and normal in appearance Cervix: [-] Dilatation: [-] Effacement: [-] Station: [-] Presentation: [-] Membranes: [-] Uterine Contractions: [-] FHT's: Category: [-] Baseline: [-] Reactive: [-] Variability: [-] Decels: [-] EXTREMITIES: No cyanosis or edema, non-tender, without signs of DVT. Assessment and Plan Problem List: (1) Drug abuse during Status: Chronic Assessment & Plan: continue 40 mg oxycodone in divided doses for maintenance. Historically has down well on 24 mg subutex daily but not on formulary and cannot be picked up by anyone but her from outside pharmacy. (2) Seizure disorder Status: Chronic (3) Hypothyroidism affecting Status: Acute (4) Abscess of left thumb Status: Acute (5) Breast abscess Status: Acute (6) Endocarditis Status: Acute Assessment & Plan: as per infectious disease Assessment and Plan 36 4/7 week IUP opioid maintenance with 40 oxy/24 hours hep c CHACHA -- ending treatment with IV antibiotics December 13 hx of PTL unstable housing situation working on facilitating getting certificate continue current course of care Madeleine Yu MD Dec 14, 2016 06:59
[2016-12-14 08:15] VITALS: BP 108/66; PULSE 83
--- NOTE | 2016-12-14 08:20 | HHI.PR ---
Addendum to Inpatient Note Additional Information Pt completed a 6 week course of IV antibiotics for endocarditis. Will sign off please call back if any change in clinical condition or questions. Maryann Lorenzo MD Dec 14, 2016 08:20
[2016-12-14] MEDS: PANTOPRAZOLE SOD 40 MG DELAYED RELEASE TAB PO SCH (08:56)
[2016-12-14] MEDS: MULTIVIT/MIN/PREN/FOL AC/IRON PRENATAL TAB PO SCH (08:56)
[2016-12-14] MEDS: SODIUM CHLORIDE 0.9% FLUSH 5 ML FLUSH IVF SCH ×2 (08:57→21:00)
[2016-12-14] MEDS: DOCUSATE SODIUM 100 MG CAP PO SCH ×2 (08:57→09:01)
--- NOTE | 2016-12-14 10:11 | PD.OB.ANTE ---
Subjective Diagnosis: (1) Drug abuse during (2) Seizure disorder (3) Hypothyroidism affecting (4) Abscess of left thumb (5) Breast abscess (6) Endocarditis Interval History Awake and in good spirits. Described significant ucs during night cervix now 4/80/0 and BBOW not a candidate for discharge Objective Vital Signs Vital Signs Date Time Temp Pulse Resp B/P Pulse Ox O2 Delivery O2 Flow Rate FiO2 12/14/16 08:15 83 108/66 12/13/16 23:35 18 12/13/16 23:34 70 99/60 12/13/16 23:34 98.1 12/13/16 19:53 74 113/61 12/13/16 19:52 97.8 12/13/16 16:26 70 94/57 12/13/16 12:40 70 115/63 12/13/16 12:40 17 12/13/16 12:39 97.7 Physical Exam GENERAL: Well-nourished, well-developed patient. CARDIOVASCULAR: Regular rate and rhythm without murmurs, gallops, or rubs. RESPIRATORY: Breath sounds equal bilaterally. No accessory muscle use. ABDOMEN/GI: Abdomen soft, non-tender. Fundus: [-] GENITOURINARY: External Genitalia: intact and normal in appearance Cervix: [-] Dilatation: [-] Effacement: [-] Station: [-] Presentation: [-] Membranes: [-] Uterine Contractions: [-] FHT's: Category: [-] Baseline: [-] Reactive: [-] Variability: [-] Decels: [-] EXTREMITIES: No cyanosis or edema, non-tender, without signs of DVT. Assessment and Plan Problem List: (1) Drug abuse during Status: Chronic Assessment & Plan: continue 40 mg oxycodone in divided doses for maintenance. Historically has down well on 24 mg subutex daily but not on formulary and cannot be picked up by anyone but her from outside pharmacy. (2) Seizure disorder Status: Chronic (3) Hypothyroidism affecting Status: Acute (4) Abscess of left thumb Status: Acute (5) Breast abscess Status: Acute (6) Endocarditis Status: Acute Assessment & Plan: as per infectious disease Assessment and Plan 36 4/7 week IUP opioid maintenance with 40 oxy/24 hours hep c CHACHA -- ending treatment with IV antibiotics December 13 hx of PTL unstable housing situation working on facilitating getting certificate continue current course of care Madeleine Yu MD Dec 14, 2016 10:10
[2016-12-14] MEDS: PROMETHAZINE HCL 25 MG TAB PO PRN (18:45)
[2016-12-14] MEDS: QUEtiapine FUMARATE 100 MG TAB PO SCH (21:13)
[2016-12-14] MEDS: NICOTINE 14 MG/24 HR PATCH TD SCH (21:30)
[2016-12-14] MEDS: REMOVE OLD NICODERM (NICOTINE) PATCH TD SCH (21:30)
[2016-12-15] MEDS: GABAPENTIN 300 MG CAP PO SCH ×3 (05:59→22:25)
[2016-12-15] MEDS: LEVOTHYROXINE SODIUM 50 MCG TAB PO SCH (05:59)
--- NOTE | 2016-12-15 07:59 | PD.OB.ANTE ---
Subjective Diagnosis: (1) Drug abuse during (2) Seizure disorder (3) Hypothyroidism affecting (4) Abscess of left thumb (5) Breast abscess (6) Endocarditis Interval History doing well. neg vb, lof. had occasional contractions last night. + FM. Objective Vital Signs Vital Signs Date Time Temp Pulse Resp B/P Pulse Ox O2 Delivery O2 Flow Rate FiO2 12/14/16 10:17 18 12/14/16 08:15 83 108/66 Physical Exam GENERAL: Well-nourished, well-developed patient. CARDIOVASCULAR: Regular rate and rhythm without murmurs, gallops, or rubs. RESPIRATORY: Breath sounds equal bilaterally. No accessory muscle use. ABDOMEN/GI: Abdomen soft, non-tender. Fundus: 36 GENITOURINARY: External Genitalia: intact and normal in appearance Presentation: [-] Membranes: [-] Uterine Contractions: irreg FHT's: Category:I, reactive yesterday EXTREMITIES: No cyanosis or edema, non-tender, without signs of DVT. Assessment and Plan Problem List: (1) Drug abuse during Status: Chronic Assessment & Plan: continue 40 mg oxycodone in divided doses for maintenance. Historically has down well on 24 mg subutex daily but not on formulary and cannot be picked up by anyone but her from outside pharmacy. (2) Seizure disorder Status: Chronic (3) Hypothyroidism affecting Status: Acute (4) Abscess of left thumb Status: Acute (5) Breast abscess Status: Acute (6) Endocarditis Status: Acute Assessment & Plan: as per infectious disease Assessment and Plan 36 5/7 week IUP opioid maintenance with 40 oxy/24 hours hep c CHACHA -- ending treatment with IV antibiotics December 13 hx of PTL- here for continued observation as she is 4 cm dilated unstable housing situation working on facilitating getting certificate continue current course of care Flori Kuhn MD Dec 15, 2016 07:59 continue current course of care Flori Kuhn MD Dec 15, 2016 07:59
[2016-12-15] MEDS: REMOVE OLD NICODERM (NICOTINE) PATCH TD SCH (09:00)
[2016-12-15] MEDS: PANTOPRAZOLE SOD 40 MG DELAYED RELEASE TAB PO SCH (13:09)
[2016-12-15] MEDS: MULTIVIT/MIN/PREN/FOL AC/IRON PRENATAL TAB PO SCH (13:09)
[2016-12-15] MEDS: DOCUSATE SODIUM 100 MG CAP PO SCH ×3 (13:09→20:54)
[2016-12-15] MEDS: SODIUM CHLORIDE 0.9% FLUSH 5 ML FLUSH IVF SCH ×2 (13:17→20:53)
[2016-12-15] MEDS: QUEtiapine FUMARATE 100 MG TAB PO SCH (20:53)
[2016-12-15] MEDS: NICOTINE 14 MG/24 HR PATCH TD SCH (20:54)
[2016-12-16] MEDS: GABAPENTIN 300 MG CAP PO SCH ×3 (06:00→22:16)
[2016-12-16] MEDS: LEVOTHYROXINE SODIUM 50 MCG TAB PO SCH (06:00)
[2016-12-16] MEDS: REMOVE OLD NICODERM (NICOTINE) PATCH TD SCH (09:00)
[2016-12-16] MEDS: MULTIVIT/MIN/PREN/FOL AC/IRON PRENATAL TAB PO SCH (09:01)
[2016-12-16] MEDS: PANTOPRAZOLE SOD 40 MG DELAYED RELEASE TAB PO SCH (09:01)
--- NOTE | 2016-12-16 13:08 | PD.OB.ANTE ---
Subjective Diagnosis: (1) Drug abuse during (2) Seizure disorder (3) Hypothyroidism affecting (4) Abscess of left thumb (5) Breast abscess (6) Endocarditis Interval History Doing well, good fm No RUCs bleeding or ROM Objective Physical Exam GENERAL: Well-nourished, well-developed patient. CARDIOVASCULAR: Regular rate and rhythm without murmurs, gallops, or rubs. RESPIRATORY: Breath sounds equal bilaterally. No accessory muscle use. ABDOMEN/GI: Abdomen soft, non-tender. Fundus: [-] Membranes: [-] Uterine Contractions: [-] FHT's: Category: [1`] Baseline: [-] Reactive: [-] Variability: [-] Decels: [-] EXTREMITIES: No cyanosis or edema, non-tender, without signs of DVT. Assessment and Plan Problem List: (1) Drug abuse during Status: Chronic Assessment & Plan: continue 40 mg oxycodone in divided doses for maintenance. Historically has down well on 24 mg subutex daily but not on formulary and cannot be picked up by anyone but her from outside pharmacy. (2) Seizure disorder Status: Chronic (3) Hypothyroidism affecting Status: Acute (4) Abscess of left thumb Status: Acute (5) Breast abscess Status: Acute (6) Endocarditis Status: Acute Assessment & Plan: as per infectious disease Assessment and Plan 37 week IUP opioid maintenance with 40 oxy/24 hours hep c CHACHA -- ending treatment with IV antibiotics December 13 hx of PTL- here for continued observation as she is 4 cm dilated unstable housing situation working on facilitating getting certificate continue current course of care Aquiles Almonte MD Dec 16, 2016 13:08
[2016-12-16] MEDS: SODIUM CHLORIDE 0.9% FLUSH 5 ML FLUSH IVF SCH ×2 (20:41→21:00)
[2016-12-16] MEDS: QUEtiapine FUMARATE 100 MG TAB PO SCH (20:41)
[2016-12-16] MEDS: DOCUSATE SODIUM 100 MG CAP PO SCH (20:42)
[2016-12-16] MEDS: NICOTINE 14 MG/24 HR PATCH TD SCH (20:42)
[2016-12-17] MEDS: GABAPENTIN 300 MG CAP PO SCH ×3 (06:05→22:03)
[2016-12-17] MEDS: LEVOTHYROXINE SODIUM 50 MCG TAB PO SCH (06:05)
[2016-12-17] MEDS: DOCUSATE SODIUM 100 MG CAP PO SCH ×2 (09:00→21:00)
[2016-12-17] MEDS: PANTOPRAZOLE SOD 40 MG DELAYED RELEASE TAB PO SCH (09:14)
[2016-12-17] MEDS: MULTIVIT/MIN/PREN/FOL AC/IRON PRENATAL TAB PO SCH (09:14)
[2016-12-17] MEDS: SODIUM CHLORIDE 0.9% FLUSH 5 ML FLUSH IVF SCH ×2 (09:14→21:04)
--- NOTE | 2016-12-17 15:40 | PD.OB.ANTE ---
Subjective Diagnosis: (1) Drug abuse during (2) Seizure disorder (3) Hypothyroidism affecting (4) Abscess of left thumb (5) Breast abscess (6) Endocarditis Interval History Doing well some lower back pain No RUC or vaginal bleeding No ROM Objective Physical Exam GENERAL: Well-nourished, well-developed patient. ABDOMEN/GI: Abdomen soft, non-tender. Fundus: [-] GENITOURINARY: External Genitalia: intact and normal in appearance FHT's: Category: [1] Baseline: [-] Reactive: [-] Variability: [-] Decels: [-] EXTREMITIES: No cyanosis or edema, non-tender, without signs of DVT. Assessment and Plan Problem List: (1) Drug abuse during Status: Chronic Assessment & Plan: continue 40 mg oxycodone in divided doses for maintenance. Historically has down well on 24 mg subutex daily but not on formulary and cannot be picked up by anyone but her from outside pharmacy. (2) Seizure disorder Status: Chronic (3) Hypothyroidism affecting Status: Acute (4) Abscess of left thumb Status: Acute (5) Breast abscess Status: Acute (6) Endocarditis Status: Acute Assessment & Plan: as per infectious disease Assessment and Plan 37/1 week IUP Doing well [facility] care. Aquiles Almonte MD Dec 17, 2016 15:40
[2016-12-17] MEDS: QUEtiapine FUMARATE 100 MG TAB PO SCH (21:04)
[2016-12-17] MEDS: NICOTINE 14 MG/24 HR PATCH TD SCH (21:05)
[2016-12-18] MEDS: GABAPENTIN 300 MG CAP PO SCH ×3 (05:57→22:00)
[2016-12-18] MEDS: LEVOTHYROXINE SODIUM 50 MCG TAB PO SCH (05:58)
[2016-12-18] MEDS: DOCUSATE SODIUM 100 MG CAP PO SCH ×2 (09:00→21:00)
[2016-12-18] MEDS: MULTIVIT/MIN/PREN/FOL AC/IRON PRENATAL TAB PO SCH (09:11)
[2016-12-18] MEDS: PANTOPRAZOLE SOD 40 MG DELAYED RELEASE TAB PO SCH (09:11)
[2016-12-18] MEDS: SODIUM CHLORIDE 0.9% FLUSH 5 ML FLUSH IVF SCH ×2 (09:12→21:07)
[2016-12-18] MEDS ORDERED: LACTATED RINGER'S 1000 ML BOLUS IV PRN (14:45)
[2016-12-18] MEDS ORDERED: MINERAL OIL 10 ML VIAL TOP PRN (14:45)
[2016-12-18] MEDS ORDERED: LIDOCAINE HCL 1% 50 ML VIAL I-DERMAL PRN (14:45)
[2016-12-18] MEDS ORDERED: CITRIC ACID-SODIUM CITRATE LIQ 30 ML UDC PO SCH (14:45)
[2016-12-18] MEDS ORDERED: LIDOCAINE HCL 1% 50 ML VIAL INFIL PRN (14:45)
[2016-12-18] MEDS ORDERED: OXYTOCIN 30 UNITS 500ML PREMIX IV ONE (14:45)
[2016-12-18] MEDS ORDERED: NS 1000 ML IV PRN (14:45)
[2016-12-18] MEDS ORDERED: LACTATED RINGER'S 1000 ML IV SCH (14:45)
[2016-12-18] MEDS ORDERED: NS 500 ML BOLUS IV PRN (14:45)
[2016-12-18 15:32] LABS: AUTOMATED NEUTROPHIL # 13.3 TH/MM3 (1.8-7.7); BASOPHIL % 0.1 % (0.0-2.0); EOSINOPHIL # 0.1 TH/MM3 (0-0.4); EOSINOPHIL % 0.6 % (0.0-4.0); HEMATOCRIT 33.4 % (35.0-46.0); LYMPH % 23.8 % (9.0-44.0); LYMPHOCYTE # 4.6 TH/MM3 (1.0-4.8); MEAN CORPUSCULAR HEMOGLOBIN 27.6 PG (27.0-34.0); MEAN CORPUSCULAR HGB CONC 33.3 % (32.0-36.0); NEUT % 68.5 % (16.0-70.0); PLATELET COUNT 310 TH/MM3 (150-450); RED BLOOD COUNT 4.03 MIL/MM3 (4.00-5.30); RED CELL DISTRIBUTION WIDTH 14.5 % (11.6-17.2); WHITE BLOOD COUNT 19.5 TH/MM3 (4.0-11.0)
[2016-12-18 15:47] LABS: HEMO FLAGS AUTO DIFF
[2016-12-18 16:51] LABS: BANDS 5 % (0-6); EOSINOPHILS 1 % (0-4); MYELOCYTES 1 % (0-0); NEUTROPHIL # MANUAL DIFF 13.5 TH/MM3 (1.8-7.7); POLYS (SEG NEUTROPHILS) 63 % (16-70); WBC DIFF SAMPLE 100
[2016-12-18 16:52] LABS: PLATELET ESTIMATE SMEAR NORMAL (NORMAL); PLATELET MORPHOLOGY NORMAL (NORMAL); SCAN/DIFF FINAL DIFF MANUAL
[2016-12-18] MEDS ORDERED: OXYTOCIN 30 UNITS/NS 500ML PREMIX IV SCH (18:00)
[2016-12-18] MEDS ORDERED: fentaNYL 2MCG-BUPIV 0.125% INJ 100 ML ONE (20:33)
[2016-12-18] MEDS: QUEtiapine FUMARATE 100 MG TAB PO SCH ×2 (21:00→22:19)
[2016-12-18] MEDS: NICOTINE 14 MG/24 HR PATCH TD SCH (21:00)
--- NOTE | 2016-12-18 21:31 | PD.LABORPN ---
Subjective Subjective UCs became painful and was checked by nurse and 5-6 moved to labor side and AROM at 7:15 which slowed down contractions now has epidural and one pitocin 8/75%/-1 EFW 6 pounds pelvis proven strip categoy one Objective Vital Signs Vital Signs Date Time Temp Pulse Resp B/P Pulse Ox O2 Delivery O2 Flow Rate FiO2 12/18/16 20:33 18 Objective Pelvic Exam: Cervix: [-] Dilatation: [-] Effacement: [-] Station: [-] Presentation: [-] Membranes: [intact or ruptured] Uterine Contractions: [-] FHT's: Category: [-] Baseline: [-] Reactive: [-] Variability: [-] Decels: [-] Assessment/Plan Problem List: (1) Drug abuse during Plan: continue 40 mg oxycodone in divided doses for maintenance. Historically has down well on 24 mg subutex daily but not on formulary and cannot be picked up by anyone but her from outside pharmacy. (2) Seizure disorder (3) Hypothyroidism affecting (4) Abscess of left thumb (5) Breast abscess (6) Endocarditis Plan: as per infectious disease Madeleine Yu MD Dec 18, 2016 21:31
--- NOTE | 2016-12-19 00:28 | PD.LABORPN ---
Subjective Subjective epidural maintaining comfort strip non reassuring with deep variables UCs neither strong nor frequent IUPC and FSE consistent with non reassurance cervix was 9/80/-1 and attempted to push through--resulting in significant cervical swelling not a candidate for vacuum (application attempted multiple times but no pull due to inability to push cervix back baby tolerated these manuevers better as head was higher--suggesting short cord. discussed with Luh and section decided upon. Objective Vital Signs Vital Signs Date Time Temp Pulse Resp B/P Pulse Ox O2 Delivery O2 Flow Rate FiO2 12/18/16 20:33 18 Objective Pelvic Exam: Cervix: [-] Dilatation: [-] Effacement: [-] Station: [-] Presentation: [-] Membranes: [intact or ruptured] Uterine Contractions: [-] FHT's: Category: [-] Baseline: [-] Reactive: [-] Variability: [-] Decels: [-] Assessment/Plan Problem List: (1) Drug abuse during Plan: continue 40 mg oxycodone in divided doses for maintenance. Historically has down well on 24 mg subutex daily but not on formulary and cannot be picked up by anyone but her from outside pharmacy. (2) Seizure disorder (3) Hypothyroidism affecting (4) Abscess of left thumb (5) Breast abscess (6) Endocarditis Plan: as per infectious disease Madeleine Yu MD Dec 19, 2016 00:28
[2016-12-19] MEDS ORDERED: OXYTOCIN 10 UNIT/ML AMP ONE ×2 (00:36→00:40)
--- NOTE | 2016-12-19 00:36 | PD.OB.DELI ---
Procedure Note Section Procedure Pre Op Diagnosis 37+ weeks with spontaneous labor recent treatment for CHACHA opioid dependence hep C failure of descent suggestive of short cord with non reassuring strip Post Op Diagnosis: Performed by Madeleine Yu Procedure: Primary Low Transverse Sec Indication for delivery: Nonreassuring heart tracing, malposition Informed consent obtained: For anesthesia, For procedure Confirmed correct: Patient, Procedure, Site, Time-out taken Anesthesia: Epidural Medication prior to procedure: As documented in eMAR Monitoring during procedure: Blood pressure monitoring Urinary catheter: Inserted using sterile technique, To dependent drainage, ml urine output Sterile preparation: Duraprep, In usual fashion, With 2% chlorexidine ( Hibiclens) Position: Supine with wedge to right side Operative Features Skin Incision: Pfannenstiel Uterine Incision: Low transverse w/knife / blunt ext Membranes Ruptured: Artificially Presentation: Occiput anterior Delivery of infant: Assisted : Male Madeleine Yu MD Dec 19, 2016 00:36
[2016-12-19] MEDS ORDERED: MORPHINE SULFATE PF 5 MG/10 ML VIAL ONE (00:37)
[2016-12-19] MEDS ORDERED: ceFAZolin INJ 1,000 MG VIAL ONE (00:41)
[2016-12-19] MEDS ORDERED: OXYTOCIN 30 UNITS-500ML PREMIX 500 ML IV ONE (00:45)
[2016-12-19] MEDS ORDERED: SIMETHICONE 80 MG CHEWABLE TAB PO PRN (00:45)
[2016-12-19] MEDS ORDERED: KETOROLAC TROMETHAMINE 60 MG/2 ML (IM) VIAL IM PRN (00:45)
[2016-12-19] MEDS ORDERED: MORPHINE SULFATE 30 MG/30 ML PCA IV SCH (00:45)
[2016-12-19] MEDS ORDERED: ACETAMINOPHEN 1000 MG/100 ML VIAL IV ONE ×2 (00:45→02:52)
[2016-12-19] MEDS ORDERED: SODIUM CHLORIDE 0.9% FLUSH 5 ML FLUSH IV PRN (00:45)
[2016-12-19] MEDS ORDERED: DOCUSATE SODIUM 50 MG/SENNA 8.6 MG TAB PO PRN (00:45)
[2016-12-19] MEDS ORDERED: ZOLPIDEM TARTRATE 5 MG TAB PO PRN (00:45)
[2016-12-19] MEDS ORDERED: NALOXONE HCL 0.4 MG/ML AMP IV PRN (00:45)
[2016-12-19] MEDS ORDERED: ONDANSETRON HCL 4 MG/2 ML VIAL IV PUSH PRN (00:45)
[2016-12-19] MEDS ORDERED: EPIDURAL-NALOXONE HCL 0.4 MG/ML AMP IV PRN (04:00)
[2016-12-19] MEDS ORDERED: EPIDURAL-DIPHENHYDRAMINE HCL 50 MG/ML VIAL IV PUSH PRN (04:00)
[2016-12-19] MEDS ORDERED: EPIDURAL-NO SYSTEMIC NARCOTICS XX PRN (04:00)
[2016-12-19] MEDS ORDERED: EPIDURAL-DO NOT ADMINISTER ANTICOAGULANTS XX PRN (04:00)
[2016-12-19] MEDS ORDERED: EPIDURAL-DIPHENHYDRAMINE HCL 50 MG CAP PO PRN (04:00)
[2016-12-19] MEDS ORDERED: LACTATED RINGER'S 1000 ML INJ 1,000 ML IV SCH (05:32)
[2016-12-19] MEDS ORDERED: PCA - TOTAL MG MORPHINE DELIVERED PER SHIFT SCH (06:00)
[2016-12-19] MEDS: LEVOTHYROXINE SODIUM 50 MCG TAB PO SCH (06:34)
[2016-12-19] MEDS: GABAPENTIN 300 MG CAP PO SCH ×3 (06:35→21:19)
--- NOTE | 2016-12-19 08:42 | HHI.OB ---
Subjective Post Operative Day: 1 Remarks POD#1 s/p primary LTCD for arrest of descent Objective Vitals/I&O Vital Signs Date Time Temp Pulse Resp B/P Pulse Ox O2 Delivery O2 Flow Rate FiO2 12/18/16 20:33 18 Result Diagram: 12/18/16 5195 Objective Remarks GENERAL: Well-nourished, well-developed patient. CARDIOVASCULAR: Regular rate and rhythm without murmurs, gallops, or rubs. RESPIRATORY: Breath sounds equal bilaterally. No accessory muscle use. ABDOMEN/GI: Abdomen soft, non-tender, bowel sounds present. Incision: bandage in place; drainage on left half; no active bleeding. Fundus: Firm, non-tender at umbilicus. GENITOURINARY: Light to moderate bleeding. EXTREMITIES: No cyanosis or edema, non-tender, without signs of DVT. SCDs in place & functioning. Medications and IVs Current Medications Medications (Trade) Dose Ordered Sig/Koki Route Start Time Stop Time Status Last Admin (Vistaril) 50 mg Q6H PRN PO 10/23/16 10:30 12/16/16 01:14 (Synthroid) 50 mcg DAILY@0600 PO 10/23/16 10:45 12/19/16 06:34 (Ativan Inj) 1 mg Q4H PRN IV PUSH 10/24/16 09:00 11/28/16 19:14 (Phenergan) 25 mg Q6H PRN PO 10/25/16 17:30 12/14/16 18:45 (SEROquel) 100 mg HS PO 11/05/16 21:00 12/17/16 21:04 (Roxicodone) 10 mg Q6H PO 12/07/16 21:00 12/18/16 22:20 (Neurontin) 600 mg DAILY@06,14,22 PO 12/09/16 14:00 12/19/16 06:35 (Milk Of Magnesia Liq) 30 ml UNSCH PRN PO 12/09/16 21:30 12/12/16 15:32 (Stuartnatal Plus 3 ) 1 tab DAILY PO 12/11/16 14:00 12/18/16 09:11 (Protonix) 40 mg DAILY PO 12/12/16 10:00 12/18/16 09:11 Miscellaneous Information 1 DAILY TD 12/15/16 09:00 Nicotine 14 patch 14 patch HS TD 12/15/16 21:00 12/17/16 21:05 (Lr 1000 ml Inj) 1,000 ml @ 100 mls/hr Q10H IV 12/19/16 05:32 12/20/16 01:31 (NS Flush) 2 ml BID IV 12/19/16 09:00 (NS Flush) 2 ml UNSCH PRN IV 12/19/16 00:45 (Mylicon Chew) 80 mg QID PRN PO 12/19/16 00:45 Ketorolac Tromethamine 30 mg 30 mg Q6H PRN IM 12/19/16 00:45 12/20/16 00:44 (Ancef Inj/NS Inj) 100 ml @ 200 mls/hr Q8H IV 12/19/16 01:00 12/19/16 09:29 (Keyla-Colace) 2 tab Q12H PRN PO 12/19/16 00:45 (Ambien) 5 mg HS PRN PO 12/19/16 00:45 (M-M-R Ii Inj) 0.5 ml ONCE ONCE SQ 12/20/16 16:00 12/20/16 16:01 (Boostrix Inj) 0.5 ml ONCE ONCE IM 12/20/16 16:00 12/20/16 16:01 (Zofran Inj) 4 mg Q6H PRN IV PUSH 12/19/16 00:45 (Narcan Inj) 0.4 mg UNSCH PRN IV 12/19/16 00:45 (Morphine 1 Mg/ ml AGING ROOM OPERATOR) 30 mg UNSCH IV 12/19/16 00:45 AGING ROOM OPERATOR Dosage Infused (Pha) 1 Q8HR .XX 12/19/16 06:00 Miscellaneous Information NO SYSTEMIC NARCOTICS TO BE GIVEN FO... UNSCH PRN XX 12/19/16 04:00 12/20/16 03:59 (Narcan Inj) 0.4 mg UNSCH PRN IV 12/19/16 04:00 12/20/16 03:59 (Benadryl Inj) 25 mg Q6H PRN IV PUSH 12/19/16 04:00 12/20/16 03:59 (Benadryl) 50 mg Q6H PRN PO 12/19/16 04:00 12/20/16 03:59 Miscellaneous Information ALL NURSING DEPARTMENTS UNSCH PRN XX 12/19/16 04:00 12/20/16 03:59 Assessment/Plan Problem List: (1) S/P primary low transverse (2) Arrest of descent, delivered, current hospitalization (3) Drug abuse during Plan: continue 40 mg oxycodone in divided doses for maintenance. Historically has down well on 24 mg subutex daily but not on formulary and cannot be picked up by anyone but her from outside pharmacy. (4) Seizure disorder (5) Hypothyroidism affecting (6) Abscess of left thumb Plan: resolved (7) Breast abscess Plan: resolved (8) Endocarditis Plan: as per infectious disease; IV antibiotics finished 12/13/16 Assessment and Plan POD#1, delivered at 37w2d via , arrest of descent in labor - having issues with pain, did not have AGING ROOM OPERATOR as ordered postop, Duramorph beginning to wear off, has not yet ambulated > scheduled Toradol q6h for today, will continue maintenance 40mg oxycodone in divided doses q6h for now, Dr. Yu to round this afternoon & adjust meds as necessary > goal for pt to be transitioned to suboxone under Dr. Yu's care - all other issues stable - routine PP care/postop care - due to multiple complications & comorbidities unclear when pt will meet d/c criteria; hopefully by postop day #3 Discharge Planning not yet meeting criteria Morena Gordon MD Dec 19, 2016 08:42
[2016-12-19] MEDS: REMOVE OLD NICODERM (NICOTINE) PATCH TD SCH (09:00)
[2016-12-19] MEDS: PANTOPRAZOLE SOD 40 MG DELAYED RELEASE TAB PO SCH (09:28)
[2016-12-19] MEDS: KETOROLAC TROMETHAMINE 60 MG/2 ML (IM) VIAL IM SCH ×3 (09:28→21:22)
[2016-12-19] MEDS: MULTIVIT/MIN/PREN/FOL AC/IRON PRENATAL TAB PO SCH (09:28)
[2016-12-19] MEDS: DOCUSATE SODIUM 50 MG/SENNA 8.6 MG TAB PO SCH ×2 (09:29→21:18)
[2016-12-19] MEDS ORDERED: OXYTOCIN 30 UNITS-500ML PREMIX 500 ML IV PRN (10:45)
[2016-12-19] MEDS: QUEtiapine FUMARATE 100 MG TAB PO SCH (21:18)
[2016-12-19] MEDS: NICOTINE 14 MG/24 HR PATCH TD SCH (21:20)
[2016-12-20] MEDS: KETOROLAC TROMETHAMINE 60 MG/2 ML (IM) VIAL IM SCH (04:01)
[2016-12-20 06:12] LABS: MEAN CELL VOLUME 82.4 FL (80.0-100.0); MEAN CORPUSCULAR HEMOGLOBIN 27.7 PG (27.0-34.0); MEAN CORPUSCULAR HGB CONC 33.7 % (32.0-36.0); PLATELET COUNT 289 TH/MM3 (150-450); RED CELL DISTRIBUTION WIDTH 14.7 % (11.6-17.2); REVIEW FLAG FINAL; WHITE BLOOD COUNT 13.6 TH/MM3 (4.0-11.0)
[2016-12-20] MEDS: LEVOTHYROXINE SODIUM 50 MCG TAB PO SCH (06:14)
[2016-12-20] MEDS: GABAPENTIN 300 MG CAP PO SCH ×3 (06:14→23:06)
[2016-12-20] MEDS: PANTOPRAZOLE SOD 40 MG DELAYED RELEASE TAB PO SCH (08:56)
[2016-12-20] MEDS: MULTIVIT/MIN/PREN/FOL AC/IRON PRENATAL TAB PO SCH (08:56)
[2016-12-20] MEDS: DOCUSATE SODIUM 50 MG/SENNA 8.6 MG TAB PO SCH ×2 (08:56→21:25)
[2016-12-20] MEDS: REMOVE OLD NICODERM (NICOTINE) PATCH TD SCH (09:00)
--- NOTE | 2016-12-20 09:04 | HHI.OB ---
Subjective Post Operative Day: 1 Remarks pt groggy on road manager Objective Vitals/I&O Vital Signs Date Time Temp Pulse Resp B/P Pulse Ox O2 Delivery O2 Flow Rate FiO2 12/19/16 14:06 18 Result Diagram: 12/20/16 0522 Objective Remarks GENERAL: Well-nourished, well-developed patient. CARDIOVASCULAR: Regular rate and rhythm without murmurs, gallops, or rubs. RESPIRATORY: Breath sounds equal bilaterally. No accessory muscle use. ABDOMEN/GI: Abdomen soft, non-tender, bowel sounds present. Incision: steristrips in place Fundus: Firm, non-tender at umbilicus. GENITOURINARY: Light to moderate bleeding. EXTREMITIES: No cyanosis or edema, non-tender, without signs of DVT. SCDs in place & functioning. Medications and IVs Current Medications Medications (Trade) Dose Ordered Sig/Koki Route Start Time Stop Time Status Last Admin (Vistaril) 50 mg Q6H PRN PO 10/23/16 10:30 12/16/16 01:14 (Synthroid) 50 mcg DAILY@0600 PO 10/23/16 10:45 12/20/16 06:14 (Ativan Inj) 1 mg Q4H PRN IV PUSH 10/24/16 09:00 11/28/16 19:14 (Phenergan) 25 mg Q6H PRN PO 10/25/16 17:30 12/14/16 18:45 (SEROquel) 100 mg HS PO 11/05/16 21:00 12/19/16 21:18 (Roxicodone) 10 mg Q6H PO 12/07/16 21:00 12/20/16 08:56 (Neurontin) 600 mg DAILY@06,14,22 PO 12/09/16 14:00 12/20/16 06:14 (Milk Of Magnesia Liq) 30 ml UNSCH PRN PO 12/09/16 21:30 12/12/16 15:32 (Stuartnatal Plus 3 ) 1 tab DAILY PO 12/11/16 14:00 12/20/16 08:56 (Protonix) 40 mg DAILY PO 12/12/16 10:00 12/20/16 08:56 Miscellaneous Information 1 DAILY TD 12/15/16 09:00 (Habitrol 14 Mg Patch.24 Hr) 14 patch HS TD 12/15/16 21:00 12/19/16 21:20 (NS Flush) 2 ml BID IV 12/19/16 09:00 (NS Flush) 2 ml UNSCH PRN IV 12/19/16 00:45 (Mylicon Chew) 80 mg QID PRN PO 12/19/16 00:45 (Ambien) 5 mg HS PRN PO 12/19/16 00:45 (M-M-R Ii Inj) 0.5 ml ONCE ONCE SQ 12/20/16 16:00 12/20/16 16:01 (Boostrix Inj) 0.5 ml ONCE ONCE IM 12/20/16 16:00 12/20/16 16:01 (Zofran Inj) 4 mg Q6H PRN IV PUSH 12/19/16 00:45 (Narcan Inj) 0.4 mg UNSCH PRN IV 12/19/16 00:45 (Morphine 1 Mg/ ml PROJECT DESIGNER) 30 mg UNSCH IV 12/19/16 00:45 12/19/16 14:06 PROJECT DESIGNER Dosage Infused (Pha) 1 Q8HR .XX 12/19/16 06:00 (Keyla-Colace) 1 tab Q12H PO 12/19/16 09:00 12/20/16 08:56 Assessment/Plan Problem List: (1) S/P primary low transverse (2) Arrest of descent, delivered, current hospitalization (3) Drug abuse during Plan: continue 40 mg oxycodone in divided doses for maintenance. Historically has down well on 24 mg subutex daily but not on formulary and cannot be picked up by anyone but her from outside pharmacy. (4) Seizure disorder (5) Hypothyroidism affecting (6) Abscess of left thumb Plan: resolved (7) Breast abscess Plan: resolved (8) Endocarditis Plan: as per infectious disease; IV antibiotics finished 12/13/16 Assessment and Plan POD#1, delivered at 37w2d via , arrest of descent in labor - has PROJECT DESIGNER as ordered postop > scheduled Toradol q6h for today, will continue maintenance 40mg oxycodone in divided doses q6h for now, Dr. Yu to round this afternoon & adjust meds as necessary > goal for pt to be transitioned to suboxone under Dr. Yu's care - all other issues stable - routine PP care/postop care - due to multiple complications & comorbidities unclear when pt will meet d/c criteria; hopefully by postop day #3 Discharge Planning not yet meeting criteria Attending Attestation pt seen by Margareth Paulino MD Dec 20, 2016 09:04
[2016-12-20] MEDS ORDERED: IBUPROFEN 800 MG TAB PO PRN (15:45)
[2016-12-20] MEDS ORDERED: MEASLES, MUMPS, RUBELLA VACCINE 0.5 ML VIAL SQ ONE (16:00)
[2016-12-20] MEDS ORDERED: DIPHTH/TETANUS/ACEL PERTUSSIS (BOOSTER) 0.5 ML VIAL/PFS IM ONE (16:00)
[2016-12-20] MEDS: KETOROLAC TROMETHAMINE 30 MG/ML (IVP) VIAL IV PUSH SCH (18:14)
[2016-12-20] MEDS: NICOTINE 14 MG/24 HR PATCH TD SCH (21:26)
[2016-12-20] MEDS: QUEtiapine FUMARATE 100 MG TAB PO SCH (23:06)
[2016-12-21] MEDS: KETOROLAC TROMETHAMINE 30 MG/ML (IVP) VIAL IV PUSH SCH ×4 (00:45→18:13)
[2016-12-21 01:45] VITALS: RESP 18
[2016-12-21] MEDS: GABAPENTIN 300 MG CAP PO SCH ×3 (06:04→21:44)
[2016-12-21] MEDS: LEVOTHYROXINE SODIUM 50 MCG TAB PO SCH (06:04)
[2016-12-21] MEDS: SODIUM CHLORIDE 0.9% FLUSH 5 ML FLUSH IV SCH (07:49)
[2016-12-21] MEDS: REMOVE OLD NICODERM (NICOTINE) PATCH TD SCH ×2 (08:00→21:45)
[2016-12-21] MEDS: MULTIVIT/MIN/PREN/FOL AC/IRON PRENATAL TAB PO SCH (08:00)
[2016-12-21] MEDS: PANTOPRAZOLE SOD 40 MG DELAYED RELEASE TAB PO SCH (08:00)
[2016-12-21] MEDS: DOCUSATE SODIUM 50 MG/SENNA 8.6 MG TAB PO SCH ×2 (08:00→21:44)
--- NOTE | 2016-12-21 10:06 | HHI.OB ---
Subjective Post Operative Day: 3 Remarks Ready to transition to subutex now available in hospital still somewhat painful but moving well nursing Objective Vitals/I&O Vital Signs Date Time Temp Pulse Resp B/P Pulse Ox O2 Delivery O2 Flow Rate FiO2 12/21/16 01:45 18 12/21/16 00:05 18 Result Diagram: 12/20/16521 Objective Remarks GENERAL: Well-nourished, well-developed patient. CARDIOVASCULAR: Regular rate and rhythm without murmurs, gallops, or rubs. RESPIRATORY: Breath sounds equal bilaterally. No accessory muscle use. ABDOMEN/GI: Abdomen soft, non-tender, bowel sounds present. Incision: steristrips in place Fundus: Firm, non-tender at umbilicus. GENITOURINARY: Light to moderate bleeding. EXTREMITIES: No cyanosis or edema, non-tender, without signs of DVT. SCDs in place & functioning. Medications and IVs Current Medications Medications (Trade) Dose Ordered Sig/Koki Route Start Time Stop Time Status Last Admin (Vistaril) 50 mg Q6H PRN PO 10/23/16 10:30 12/16/16 01:14 (Synthroid) 50 mcg DAILY@0600 PO 10/23/16 10:45 12/21/16 06:04 (Ativan Inj) 1 mg Q4H PRN IV PUSH 10/24/16 09:00 11/28/16 19:14 (Phenergan) 25 mg Q6H PRN PO 10/25/16 17:30 12/14/16 18:45 (SEROquel) 100 mg HS PO 11/05/16 21:00 12/20/16 23:06 (Neurontin) 600 mg DAILY@06,14,22 PO 12/09/16 14:00 12/21/16 06:04 (Milk Of Magnesia Liq) 30 ml UNSCH PRN PO 12/09/16 21:30 12/12/16 15:32 (Stuartnatal Plus 3 ) 1 tab DAILY PO 12/11/16 14:00 12/21/16 08:00 (Protonix) 40 mg DAILY PO 12/12/16 10:00 12/21/16 08:00 Miscellaneous Information 1 DAILY TD 12/15/16 09:00 (Habitrol 14 Mg Patch.24 Hr) 14 patch HS TD 12/15/16 21:00 12/20/16 21:26 (NS Flush) 2 ml BID IV 12/19/16 09:00 (NS Flush) 2 ml UNSCH PRN IV 12/19/16 00:45 (Mylicon Chew) 80 mg QID PRN PO 12/19/16 00:45 12/20/16 18:20 (Ambien) 5 mg HS PRN PO 12/19/16 00:45 (Zofran Inj) 4 mg Q6H PRN IV PUSH 12/19/16 00:45 (Keyla-Colace) 1 tab Q12H PO 12/19/16 09:00 12/21/16 08:00 (Roxicodone) 10 mg Q4H PO 12/20/16 19:00 12/21/16 08:00 (Toradol Inj) 30 mg Q6HR IV PUSH 12/20/16 18:00 12/21/16 06:05 Assessment/Plan Problem List: (1) S/P primary low transverse (2) Arrest of descent, delivered, current hospitalization (3) Drug abuse during Plan: continue 40 mg oxycodone in divided doses for maintenance. Historically has down well on 24 mg subutex daily but not on formulary and cannot be picked up by anyone but her from outside pharmacy. (4) Seizure disorder (5) Hypothyroidism affecting (6) Abscess of left thumb Plan: resolved (7) Breast abscess Plan: resolved (8) Endocarditis Plan: as per infectious disease; IV antibiotics finished 12/13/16 Assessment and Plan POD 3 no post op complications desires to transition to subutex (nursing) will need to follow up in office next week Discharge Planning not yet meeting criteria Madeleine Yu MD Dec 21, 2016 10:06
[2016-12-21] MEDS ORDERED: NICO14DI TD (10:15)
[2016-12-21] MEDS ORDERED: BUPR8SUB SL (10:15)
[2016-12-21] MEDS ORDERED: NEUR300C PO (10:15)
[2016-12-21] MEDS ORDERED: LEVO.05 PO (10:15)
[2016-12-21] MEDS ORDERED: QUET1TAB8 PO (10:15)
[2016-12-21] MEDS ORDERED: IBUP800T23 PO (10:17)
--- NOTE | 2016-12-21 10:18 | HHI.DCPOC ---
Discharge Care Plan Additional Problems Must return within seven day sof discharge to renew subutex and sign contracts, consents and arrange counseling and AA meetings. Report Symptoms to Your Doctor -Temperate above 100.5 degrees -Redness, of incision or excessive or foul smelling drainage -Unusual pain or calf pain -Increased vaginal bleeding -Painful or difficulty urinating -Feelings of extreme sadness or anxiety after 2 weeks Goals to Promote Your Health * To prevent worsening of your condition and complications * To maintain your health at the optimal level Directions to Meet Your Goals Take your medications as prescribed Follow your dietary instruction Follow activity as directed Ensure plenty of rest for recovery Drink fluids for hydration Keep your appointments as scheduled Take your immunizations and boosters as scheduled If your symptoms worsen call your PCP, if no PCP go to Urgent Care Center or Emergency Room Smoking is Dangerous to Your Health. Avoid second hand smoke Call the 24-hour crisis hotline for domestic abuse at Madeleine Yu MD Dec 21, 2016 10:18
[2016-12-21] MEDS: BUPRENORPHINE HCL 8 MG SUBLINGUAL TAB SL SCH (18:13)
[2016-12-21] MEDS: MAGNESIUM HYDROXIDE SUSP 30 ML CUP PO PRN (18:20)
[2016-12-21] MEDS: NICOTINE 14 MG/24 HR PATCH TD SCH (21:00)
[2016-12-22] MEDS: QUEtiapine FUMARATE 100 MG TAB PO SCH (00:14)
[2016-12-22] MEDS: KETOROLAC TROMETHAMINE 30 MG/ML (IVP) VIAL IV PUSH SCH ×3 (00:15→12:54)
--- NOTE | 2016-12-22 00:43 | HHI.OB ---
Subjective Post Operative Day: 4 Remarks Has tolerated transition to subutex from oxycodone well complaining of constipation Objective Vitals/I&O Vital Signs Date Time Temp Pulse Resp B/P Pulse Ox O2 Delivery O2 Flow Rate FiO2 12/21/16 01:45 18 Result Diagram: 12/20/16 0522 Objective Remarks GENERAL: Well-nourished, well-developed patient. CARDIOVASCULAR: Regular rate and rhythm without murmurs, gallops, or rubs. RESPIRATORY: Breath sounds equal bilaterally. No accessory muscle use. ABDOMEN/GI: Abdomen soft, non-tender, bowel sounds present. Incision: steristrips in place Fundus: Firm, non-tender at umbilicus. GENITOURINARY: Light to moderate bleeding. EXTREMITIES: No cyanosis or edema, non-tender, without signs of DVT. SCDs in place & functioning. Medications and IVs Current Medications Medications (Trade) Dose Ordered Sig/Koki Route Start Time Stop Time Status Last Admin (Vistaril) 50 mg Q6H PRN PO 10/23/16 10:30 12/16/16 01:14 (Synthroid) 50 mcg DAILY@0600 PO 10/23/16 10:45 12/21/16 06:04 (Ativan Inj) 1 mg Q4H PRN IV PUSH 10/24/16 09:00 11/28/16 19:14 (Phenergan) 25 mg Q6H PRN PO 10/25/16 17:30 12/14/16 18:45 (SEROquel) 100 mg HS PO 11/05/16 21:00 12/22/16 00:14 (Neurontin) 600 mg DAILY@06,14,22 PO 12/09/16 14:00 12/21/16 21:44 (Milk Of Magnesia Liq) 30 ml UNSCH PRN PO 12/09/16 21:30 12/21/16 18:20 (Stuartnatal Plus 3 ) 1 tab DAILY PO 12/11/16 14:00 12/21/16 08:00 (Protonix) 40 mg DAILY PO 12/12/16 10:00 12/21/16 08:00 Miscellaneous Information 1 DAILY TD 12/15/16 09:00 12/21/16 21:45 (Habitrol 14 Mg Patch.24 Hr) 14 patch HS TD 12/15/16 21:00 12/21/16 21:00 (NS Flush) 2 ml BID IV 12/19/16 09:00 (NS Flush) 2 ml UNSCH PRN IV 12/19/16 00:45 (Mylicon Chew) 80 mg QID PRN PO 12/19/16 00:45 12/20/16 18:20 (Ambien) 5 mg HS PRN PO 12/19/16 00:45 (Zofran Inj) 4 mg Q6H PRN IV PUSH 12/19/16 00:45 (Keyla-Colace) 1 tab Q12H PO 12/19/16 09:00 12/21/16 21:44 (Toradol Inj) 30 mg Q6HR IV PUSH 12/20/16 18:00 12/22/16 00:15 (Buprenorphine) 8 mg Q12H SL 12/21/16 18:00 12/21/16 18:13 Assessment/Plan Problem List: (1) S/P primary low transverse (2) Arrest of descent, delivered, current hospitalization (3) Drug abuse during Plan: continue 40 mg oxycodone in divided doses for maintenance. Historically has down well on 24 mg subutex daily but not on formulary and cannot be picked up by anyone but her from outside pharmacy. (4) Seizure disorder (5) Hypothyroidism affecting (6) Abscess of left thumb Plan: resolved (7) Breast abscess Plan: resolved (8) Endocarditis Plan: as per infectious disease; IV antibiotics finished 12/13/16 Assessment and Plan POD 4 Can be discharged this morning after 8, if her pain control and withdrawal symptoms are minimal has script for subutex 8 mg sublingual twice daily continue miralax for constipation daily as needed avoid iron supplement until constipation resolved RTO this coming so can sign subutex consents and treatment plan and can set up counseling and NA [facility] of her discharge for follow up. Discharge Planning possible discharge Sunday Madeleine Yu MD Dec 22, 2016 00:43
[2016-12-22] MEDS ORDERED: POLYETHYLENE GLYCOL 17 GM PKG PO SCH (01:00)
[2016-12-22] MEDS: GABAPENTIN 300 MG CAP PO SCH ×2 (05:47→13:45)
[2016-12-22] MEDS: BUPRENORPHINE HCL 8 MG SUBLINGUAL TAB SL SCH (05:47)
[2016-12-22] MEDS: SODIUM CHLORIDE 0.9% FLUSH 5 ML FLUSH IV SCH (05:49)
[2016-12-22] MEDS: LEVOTHYROXINE SODIUM 50 MCG TAB PO SCH (05:49)
[2016-12-22] MEDS: PANTOPRAZOLE SOD 40 MG DELAYED RELEASE TAB PO SCH (09:29)
[2016-12-22] MEDS: DOCUSATE SODIUM 50 MG/SENNA 8.6 MG TAB PO SCH (09:29)
[2016-12-22] MEDS: MULTIVIT/MIN/PREN/FOL AC/IRON PRENATAL TAB PO SCH (09:29)
--- NOTE | 2017-01-05 07:51 | MP ---
cc: JAE COWAN DATE OF SURGERY 12/19/2016 DATE OF 1985 PREOPERATIVE DIAGNOSIS 37+ weeks with spontaneous labor and failure of descent suggestive of short cord with non-reassuring strip. SECONDARY DIAGNOSIS Recent treatment for acute bacterial endocarditis, opioid dependence, hepatitis C. POSTOPERATIVE DIAGNOSIS 37+ weeks with spontaneous labor and failure of descent suggestive of short cord with non-reassuring strip PROCEDURE Primary low transverse segment section. ANESTHESIA Epidural with Duramorph and a TAP procedure subsequent FINDINGS A living male was delivered from occiput anterior with clear fluid and a shoulder cord. 's are 9 at one and 9 at five and his weight, I believe, was 6 pounds 13 ounces. Estimated blood loss was average. Uterus, tubes and ovaries were unremarkable. Placenta was sent to pathology and sponge, instrument, needle count correct. PROCEDURE The patient was identified as Luh Cárdenas. She was trying to have a vaginal delivery after prior deliveries, but the baby would not descend. She was trying to push and there were decelerations, decreased [id number] variability and decision was made to proceed with a section. She was taken to the operating room. Her epidural was reinforced and she was given Duramorph. She was placed in the dorsal supine position with weight off the vena cava. She had sequential stockings on a Gan catheter in place. She was prepped and draped in the usual sterile fashion. A time-out was performed with all in attendance. She received a gram of Ancef. After assuring adequate analgesia, a Pfannenstiel incision was made with a knife, carried down through to the rectus fascia. The rectus fascia was taken off the rectus muscle. The rectus muscle was in the midline. The parietoperitoneum was entered sharply. A bladder flap was created off the lower uterine segment and an incision was made into the intrauterine cavity. The infant was delivered with the findings as noted above. The cord was clamped x2, cut and the infant was handed to the neonatology team in attending. The placenta was delivered manually intact with a three-vessel cord and the uterus was cleaned with a sponge and exteriorized and closed with chromic in a running interlocking fashion with a second horizontal imbricating layer placed. It was placed back in the pelvic cavity and lavage was performed. Then the rectus muscles were approximated with a running stitch. The fascia was closed with one Vicryl in a non-interlocking fashion. The subcutaneous layer was closed with 3-0 plain and the skin was closed with 4-0 Vicryl on a Román needle. Estimated blood loss was average. Sponge, instrument, needle count correct. She tolerated the procedure well and she went to the Recovery Room in stable condition. MD JAMES Morales/JAYE /11:32 AM /7:33 AM
--- NOTE | 2017-03-07 12:50 | MD ---
cc: JAE COWAN ADMISSION DATE: 10/27/2016 DISCHARGE DATE: 12/22/2016 REASON FOR ADMISSION Nausea, vomiting, hematemesis, diarrhea at 29-weeks and a multip with polysubstance abuse including methamphetamine, heroin, cocaine, Dilaudid, Subutex. 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 She has a history of seizure disorder, hypothyroidism and was taking Levothyroxine and Gabapentin at admission. She has had spotty care prior to admission, having come here from [place] via [place]. She was known to be hep C positive with normal liver functions. She was initially seen by the hospital laborist and I was consulted because of the complicated nature of her polysubstance abuse. It became apparent that she did have some vegetations on her aortic valve and after thorough and reassuring evaluation she was transferred to the med/surg floor for long-term IV antibiotics through infectious disease with interval evaluations by perinatology. Throughout that time she did fairly well. She was also confirmed to have MRSA. She was weaned off all of her illicit drugs and placed on low-dose oxycodone anticipating the ability to wean short-term. This was prior to my having Suboxone privileges at [facility]. Her history was three prior term deliveries and two losses and she reached approximately 37-weeks before she went into labor, was taken back to labor and delivery and underwent an uneventful vaginal delivery of an that was then monitored in NICU. Throughout this time she was continued on her IV antibiotics and it was felt that she has had an adequate course to treat her bacterial endocarditis. On day #2 she was arrested due to an outstanding warrant I believe in [place] and taken away from the hospital and her directly to the [facility]. She has not been in my office since, despite multiple attempts to identify her location and continue some continuity of care. At her discharge diagnosis was polysubstance abuse that had been weaned down to short-acting oxycodone, Gabapentin and antianxiety agents, delivery of a healthy near term , hepatitis C untreated, MRSA treated, bacterial endocarditis believed to be adequately treated. No social service backing of significance to support recovery upon discharge, other than imprisonment. Followup has continued to be attempted but at this point has not been successful. MD JAMES Morales/TLL /8:07 AM /12:32 PM
== END 2016-12-22 14:09 | disposition home or self-care (01) | DRG 765 ==
LOC: HOBED 09:41 → H2EA 10:34 → OBSVTOIN 10-27 11:43 → N04B 10-28 14:29 → H2EB 12-07 21:13 → H2EA 12-07 22:02 → H1EA 12-19 03:28
PROVIDERS: ADMIT Obstetrics & Gynecology; ATTEND Obstetrics & Gynecology
PROC: 0H9GXZZ Drainage of Left Hand Skin, External Approach (ICD-10-PCS; 2016-10-26)
PROC: 0HBT0ZZ Excision of Right Breast, Open Approach (ICD-10-PCS; 2016-10-27)
PROC: 0H9T0ZZ Drainage of Right Breast, Open Approach (ICD-10-PCS; 2016-10-27)
PROC: 0HDGXZZ Extraction of Left Hand Skin, External Approach (ICD-10-PCS; 2016-10-30)
PROC: 00HU33Z Insertion of Infusion Device into Spinal Canal, Percutaneous Approach (ICD-10-PCS; 2016-12-18)
PROC: 3E0R3CZ (ICD-10-PCS; 2016-12-18)
PROC: 10D00Z1 Extraction of Products of Conception, Low, Open Approach (ICD-10-PCS; principal; 2016-12-19)
DX: O99.324 Drug use complicating childbirth (principal); I33.0 Acute and subacute infective endocarditis; F11.23 Opioid dependence with withdrawal; K92.0 Hematemesis; L02.512 Cutaneous abscess of left hand; K92.1 Melena; O98.42 Viral hepatitis complicating childbirth; L03.313 Cellulitis of chest wall; O76 Abnormality in fetal heart rate and rhythm complicating labor and delivery; O69.3XX0 Labor and delivery complicated by short cord, not applicable or unspecified; Z3A.29 29 weeks gestation of pregnancy; Z37.0 Single live birth; O62.1 Secondary uterine inertia; Z3A.37 37 weeks gestation of pregnancy; O99.284 Endocrine, nutritional and metabolic diseases complicating childbirth; E03.9 Hypothyroidism, unspecified; G40.909 Epilepsy, unspecified, not intractable, without status epilepticus; L03.012 Cellulitis of left finger; B95.62 Methicillin resistant Staphylococcus aureus infection as the cause of diseases classified elsewhere; N61.1 Abscess of the breast and nipple; K21.9 Gastro-esophageal reflux disease without esophagitis; B18.2 Chronic viral hepatitis C; O99.334 Smoking (tobacco) complicating childbirth; F17.210 Nicotine dependence, cigarettes, uncomplicated; B96.1 Klebsiella pneumoniae [K. pneumoniae] as the cause of diseases classified elsewhere; K42.9 Umbilical hernia without obstruction or gangrene; F15.10 Other stimulant abuse, uncomplicated; F41.9 Anxiety disorder, unspecified; F14.10 Cocaine abuse, uncomplicated; K59.00 Constipation, unspecified; R19.7 Diarrhea, unspecified; G47.00 Insomnia, unspecified; Z91.14 Patient's other noncompliance with medication regimen; Z59.0 Homelessness
CPT/HCPCS: 59025; 70551; 76642; 76816; 76819; 76937; 80048; 80053; 80074; 80076; 80307; 81001; 82951; 83036; 83605; 84112; 84439; 84443; 85007; 85025; 85027; 85652; 86140; 86403; 86592; 86703; 86900; 86901; 87015; 87040; 87070; 87081; 87086; 87102; 87106; 87116; 87147; 87186; 87205; 87206; 87328; 87329; 87493; 87640; 87641; 87902; 88304; 88305; 88307; 90715; 93306; 95819; 99284; G0378; G0481; J0131; J0690; J0696; J0702; J0712; J1170; J1885; J2060; J2250; J2270; J2274; J2405; J2590; J3010; J7120; L3808; Q0169